=== PATIENT | female | born 1945 | race Caucasian/White ===

== ENCOUNTER 2023-05-04 14:58 | Outpatient (RCR) | payer MEDICARE, SELFPAY | END 2023-07-20 13:49 | disposition home or self-care (01) | LOC: PT 14:58 | PROVIDERS: PCP Internal Medicine; Visit Provider Internal Medicine | DX: M79.7 Fibromyalgia (principal) | CPT/HCPCS: 97010; 97014; 97110; 97112; 97113; 97140; 97163; 97530; G0283 ==

== ENCOUNTER 2023-11-29 14:20 | Outpatient (RCR) | payer MEDICARE, SELFPAY | END 2024-03-16 16:15 | disposition home or self-care (01) | LOC: PT 14:20 | PROVIDERS: PCP Internal Medicine; Visit Provider Physician Assistant | DX: S83.241D Other tear of medial meniscus, current injury, right knee, subsequent encounter (principal); M17.11 Unilateral primary osteoarthritis, right knee | CPT/HCPCS: 97110; 97112; 97113; 97140; 97161; 97530 ==

== ENCOUNTER 2023-12-09 13:25 | Outpatient (OUT) | payer MEDICARE, SELFPAY ==
[2023-12-09 15:02] LABS: Thyroid Stimulating Hormone 1.697 uIU/mL (0.358-3.740)
[2023-12-09 16:16] LABS: Free T4 0.82 ng/dL (0.76-1.46)
== END 2023-12-09 13:26 | disposition home or self-care (01) ==
LOC: LAB 13:27
PROVIDERS: PCP Internal Medicine; Visit Provider Internal Medicine
DX: R68.89 Other general symptoms and signs (principal); E53.8 Deficiency of other specified B group vitamins; E55.9 Vitamin D deficiency, unspecified
CPT/HCPCS: 36415; 82306; 82607; 84439; 84443

== ENCOUNTER 2023-12-13 13:20 | Emergency (ER) | payer MEDICARE, SELFPAY ==
[2023-12-13 13:34] VITALS: BP 140/78; PULSE 80; RESP 18; TEMP 36.6; O2SAT 95; BMI 31.2
--- OUTSIDE RECORDS SUMMARY | 2023-12-13 13:49 | XMS_ITS | CCD ---
Author Name Unknown Address [address] [place] [address] Organization [facility] Care Team Providers Care Estimator Lumber Name Role Phone Iza Bill Primary Care Provider [phone] MAXWELL FRIED H. Referring Unavailable IZA BILL Primary Care Unavailable CORKYMAXWELL Hoffman H. Attending Unavailable CORKYMAXWELL Hoffman HRustam Referring Unavailable IZA BILL Primary Care Unavailable CORKYMAXWELL Hoffman HRustam Admitting Unavailable CORKYMAXWELL Hoffman HRustam Attending Unavailable IZA BILL Primary Care Unavailable Clarence Delgado Unavailable Unavailable Unavailable Iza Bill Unavailable Ronnie Morel Unavailable Katty Brewer Unavailable Lilia Wilson Unavailable Unavailable Unavailable DO Gaudencio Green Attending Provider NON STAFF Primary Care Provider UnavailDO Gaudencio Walton Attending Provider [phone] NON STAFF Primary Care Provider UnavailMD Shekhar Arevalo Attending Provider MALIHA Boggs Attending Provider MD Shekhar Perez Attending Provider Payton Boggs Unavailable NON STAFF Primary Care Provider UnavailSTANLEY Longoria Attending Provider [phone] Cam Riggs Unavailable NON STAFF Primary Care Provider UnavailSTANLEY Longoria Attending Provider MD Cam Riggs Attending Provider MD Shekhar Perez Primary Care Provider JAZMYN .MERCEDES Admitting Unavailable JAZMYN ., MERCEDES Attending Unavailable MISC, DR SAVAGE Primary Care Unavailable MERCEDES MILLER Consulting Unavailable HIESTAND, DR SHEKHAR Wilson Admitting Unavailable HIESTAND, DR SHEKHAR Wilson Attending Unavailable HIESTAND, DR SHEKHAR Wilson Primary Care Unavailable HIESTAND, DR SHEKHAR Wilson Consulting Unavailable MUMMERT, DR CLARENCE Martin Admitting Unavailabl e MUMMERT, DR CLARENCE Martin Attending Unavailabl e MISC, DR SAVAGE Primary Care Unavailable MUMMERT, DR CLARENCE Martin Consulting Unavailabl e HIESTAND, DR SHEKHAR Wilson Admitting Unavailable HIESTAND, DR SHEKHAR Wilson Attending Unavailable MISC, DR SAVAGE Primary Care Unavailable MD Shekhar Perez Attending Provider MD Shekhar Perez Primary Care Provider MD Cam Riggs Attending Provider [phone] Unknown, Referring Provider Unavailable Unav ailable EULALIA CEBALLOS Attending Unavailable Alejandro, Leana A Attending Unavailable Alejandro, Leana A Admitting Unavailable Alejandro, Leana Peña Attending Unavailable SALAM, Delgado Attending Unavailable Alejandro, Leana A Attending Unavailable Alejandro, Leana A Attending Unavailable SALAM, Delgado Referring Unavailable SALAM, Danny Attending Unavailable SALAM, Delgado Admitting Unavailable Peter Flowers II Unavailable MD Shekhar Perez Primary Care Provider MD Peter Flowers II Attending Provider Shekhar Perez MD Primary Care Provider Musa Orlando Unavailable Gallo Reid Unavailable DO Musa Orlando Attending Provider SHEKHAR PEREZ Attending Unavailable SHEKHAR PEREZ Referring Unavailable SHEKHAR PEREZ Primary Care Unavailable Iza Bill Admitting Unavailable Iza Bill Attending Unavailable NON STAFF Primary Care Unavailable Shekhar Perez Attending Unavailable Hiestand, Shekhar Wilson Admitting Unavailable [place]iest[place], Shekhar Wilson Primary Care Unavailable [place], Shekhar Wilson Primary Care Unavailable Oneil, Cam Admitting Unavailable Felter, Cam Attending Unavailable Vidhya, Musa A Admitting Unavailable Vidhya, Musa A Attending Unavailable [place]iest[place], Shekhar Wilson Primary Care Unavailable Vidhya, Musa A Admitting Unavailable Vidhya, Musa A Attending Unavailable [place], Shekhar Wilson Primary Care Unavailable Nisher, Cam Admitting Unavailable Felter, Cam Attending Unavailable [place]iest[place], Shekhar Wilson Primary Care Unavailable Feltradha, Cam Admitting Unavailable Feltradha, Cam Attending Unavailable [place]iest[place], Shekhar Wilson Primary Care Unavailable [place], Shekhar Wilson Primary Care Unavailable Raoul, Yary M Admitting Unavailable Raoul, Yary M Attending Unavailable [place]iest[place], Shekhar Wilson Primary Care Unavailable [place] II, Peter Castillo Admitting Unavailabl e [place] II, Peter M Attending Unavailabl e Hiest[place], Shekhar Wilson Primary Care Unavailable [place] II, Peter M Attending Unavailabl e Lionel II, Peter M Admitting Unavailabl e Raoul, SAFETY MANAGER Yary Castillo Attending Provider [phone] Allergies Allergy Classification Reported Allergen(s) Allergy Type Date of Onset Reaction(s) Facility (19 sources) Acetaminophen; Translations: [ACETAMINOPHEN] Drug Allergy 01-07-20 21 Palpitations, HEART RACES [place] Phone: (7 sources) Acetaminophen / oxyCODONE; Translations: [OXYCODONE-ACETAMIN OPHEN] Drug Allergy 08-12-20 14 [facility] Phone: (7 sources) Albuterol; Translations: [ALBUTEROL] Drug Allergy 01-07-20 21 [facility] Phone: (17 sources) Aluminum aspirin; Translations: [aspirin] Drug Allergy 02-13-20 14 Palpitations, Palpitations, HEART RACES [facility] Phone: (20 sources) Codeine; Translations: [Codeine Derivatives] Drug Allergy 07-23-20 14 HEART RACES, Palpitations, Palpitations, HEART RACES [facility] Phone: (20 sources) gabapentin; Translations: [gabapentin] Drug Allergy 08-25-20 18 anxiety [facility] Phone: (3 sources) Hmg-Coa Reductase Inhibitors (Statins) Propensity to adverse reactions to drug 01-07-20 21 [place] Phone: (20 sources) Morphine; Translations: [morphine] Drug Allergy 07-23-20 14 HEART RACES, Palpitations, Palpitations, HEART RACES [facility] Phone: (3 sources) NSAIDs Propensity to adverse reactions to drug 01-07-20 21 [facility] Phone: (3 sources) Prochlorperazine Drug Allergy 01-07-20 [facility] Phone: (3 sources) Sulfamethazine Drug Allergy 07-23-20 14 [place] Phone: (7 sources) Propoxyphene N-Acetaminophen; Translations: [PROPOXYPHENE N-ACETAMINOPHEN] Propensity to adverse reactions to drug 02-13-20 14 [place] Phone: (3 sources) Other Propensity to adverse reactions 01-23-20 19 [place] Phone: (20 sources) Acetaminophen / oxyCODONE; Translations: [Percocet TABS] Drug Allergy HEART [facility] Other (20 sources) Acetaminophen / Propoxyphene; Translations: [Darvocet A500] Drug Allergy [facility] [employer] [facility] Other (20 sources) Aspirin; Translations: [Aspirin TABS] Drug Allergy 02-13-20 14 Other (See Comments) [facility] Other (5 sources) Hmg-Coa Reductase Inhibitors (Statins); Translations: [Statins] Allergy to drug (finding) Myalgia [facility] 250 DO Work Phone: (20 sources) Ibuprofen; Translations: [Motrin] Drug Allergy HEART [facility] Repository (20 sources) oxyCODONE; Translations: [oxycodone] Drug Allergy 05-29-20 21 HEART RACES, Palpitations, Palpitations, HEART RACES, HEART RACES [facility] (5 sources) Pravastatin; Translations: [pravastatin] Drug Allergy Myalgia [facility] 250 DO Work Phone: (6 sources) Sulfonamides (Antibiotic); Translations: [Sulfa Drugs] Allergy to drug (finding) [facility] Repository (5 sources) Morphine Derivatives; Translations: [Morphine Derivatives] Allergy to drug (finding) [facility] 250 DO Work Phone: (9 sources) sulfaSALAzine Drug Allergy Unknown [facility] [employer] Other (13 sources) Ibuprofen; Translations: [ibuprofen] Drug Allergy 05-29-20 21 Palpitations, Palpitations, HEART RACES [facility] (18 sources) Propoxyphene; Translations: [propoxyphene] Drug Allergy 12-01-19 16 Palpitations, Palpitations, HEART RACES [facility] (20 sources) Substance with sulfonamide structure and antibacterial mechanism of action (substance) Drug allergy 07-23-20 14 Unknown [facility] Other (10 sources) Sulfonamides (Antibiotic); Translations: [SULFA (SULFONAMIDE ANTIBIOTICS)] Allergy to substance 07-23-20 14 Unknown Reaction, Headache [facility] (1 source) Acetaminophen / oxyCODONE Drug Allergy 08-12-20 14 [facility] Repository (1 source) Aspirin Drug Allergy 11-17-19 14 [facility] (1 source) Codeine Drug Allergy 11-17-19 14 [facility] (1 source) Morphine Drug Allergy 08-12-20 14 [facility] (2 sources) NSAIDs; Translations: [NSAIDS (NON-STEROIDAL ANTI-INFLAMMATORY DRUG)] Drug allergy (disorder) 12-26-19 16 [facility] Rep[facility] (1 source) oxyCODONE Drug Allergy 08-12-20 14 [facility] (1 source) Prochlorperazine Drug Allergy 05-13-20 16 [facility] (1 source) Sulfonamides (Antibiotic) Drug allergy (disorder) 12-01-19 16 [facility] (1 source) nebivolol; Translations: [nebivolol] Drug Allergy Dizziness, Drowsiness [facility] 250 DO Work Phone: (1 source) Acetaminophen / oxyCODONE; Translations: [Percocet 10/325] Drug Allergy [facility] Repository (1 source) Darvocet-N 100; Translations: [Darvocet-N 100] Propensity to adverse reactions (disorder) [facility] Repository (4 sources) Morphinan opioid; Translations: [OPIOIDS - MORPHINE ANALOGUES] Propensity to adverse reactions to drug 02-13-20 14 Other (See Comments) [facility] (3 sources) Non-steroidal anti-inflammatory agent Propensity to adverse reactions to drug 01-07-20 21 [employer] (1 source) Acetaminophen Drug Allergy 12-11-19 [facility] Rep[facility] (1 source) Aspirin Drug Allergy 12-11-19 [facility] (1 source) Codeine Drug Allergy 12-11-19 [facility] (1 source) gabapentin Drug Allergy 12-11-19 [facility] (1 source) Morphine Drug Allergy 12-11-19 [facility] (1 source) oxyCODONE Drug Allergy 12-11-19 [facility] Rep[facility] Medications Current Medications Medication Drug Class(es) Dates Sig (Normalized) Sig (Original) acetaminophen 500 mg oral tablet (4 sources) Start: 11-08-2023 take 1 tablet by mouth every six hours [id number] actuat albuterol 0.09 mg/actuat metered dose inhaler (8 sources) beta2-Adrenergic Agonist Start: 08-06-2021 take 2 puff(s) by inhalation every four hours as needed Albuterol Sulfate HFA 108 (90 Base) MCG/ACT 2 puffs as needed Inhalation every 4 hrs Jul, Active Start: 08-06-2021 Start: 08-06-2021 take 2 puff(s) by in halation every four hours as needed Albuterol Sulfate HFA 108 (90 Base) MCG/ACT 2 puffs as needed Inhalation every 4 hrs Jul, Not-Taking Start: 10-26-2020 VENTOLIN HFA 1 08 (90 Base) MCG/ACT inhaler as needed 0 10/26/2020 Active aspirin 81 mg chewable tablet (17 sources) Platelet Aggregation Inhibitor, Nonsteroidal Anti-inflammatory Drug Start: 11-08-2023 take 1 tablet by mouth every twelve hours Start: 05-16-2020 End: 05-29-2021 take 81 mg by mouth once daily Aspirin Discontinued 81 MG PO Daily May 15, 2020 11:00pm May 29, 2021 9:03am calcium chloride 0.0014 meq/ml / potassium chloride 0.004 meq/ml / sodium chloride 0.103 meq/ml / sodium lactate 0.028 meq/ml injectable solution (2 sources) Start: 01-13-2021 lactated ringers infusion celecoxib 100 mg oral capsule (10 sources) Nonsteroidal Anti-inflammatory Drug Start: 10-11-2023 take 1 capsule by mouth twice daily for arthritis cholecalciferol 1.25 mg oral tablet (3 sources) Vitamin D Start: 06-29-2022 take 1 tablet by mouth every week cholecalcifer ol, vitamin D3, 50,000 units tablet Take 1 tablet (50,000 Units total) by mouth once a week. 6 tablet 0 06/29/2022 Active ciprofloxacin 500 mg oral tablet (2 sources) Quinolone Antimicrobial Start: 05-02-2022 take 1 tablet by mouth every twelve hours Cipro 500 MG 1 tablet Orally every 12 hrs for 5 day(s) Apr, Active dexamethasone 6 mg oral tablet (20 sources) Corticosteroid Start: 12-21-2022 take 1 tablet by mouth every twenty-four hours Start: 09-06-2021 take 1 tablet by eliazar th every twenty-four hours Dexamethasone 6 MG 1 tablet Orally Once a day for 5 day(s) Aug, Not-Taking 1 ml diphenhydrAMINE hydrochloride 50 mg/ml cartridge (1 source) Histamine-1 Receptor Antagonist Start: 01-13-2021 End: 01-13-2021 diphenhydrAMINE (BENADRYL) injection 12.5 mg docusate sodium 100 mg oral capsule (4 sources) Start: 11-08-2023 take 1 capsule by mouth every twelve hours estradiol 0.1 mg/ml vaginal cream (20 sources) Estrogen Start: 12-04-2021 estradioL (ESTRACE) 0.01 % (0.1 mg/gram) vaginal cream Insert 1 g into the vagina 2 (two) times a week. Sundays and 0 12/04/2021 Active Start: 05-29-2021 Estradiol Acti ve 0.01 APPLICATOR VAGINAL every week May 28, 2021 11:00pm Start: 05-12-2021 Estradiol Acti ve 0.01 APPLICATOR VAGINAL As Directed May 28, 2021 11:00pm Start: 05-16-2020 End: 05-29-2021 Estradiol (Estrace) 0.01 % ( 0.1 mg/gram) Cream Discontinued 0.01 PERCENT VAGINAL Twice a Week May 15, 2020 11:00pm May 29, 2021 9:03am Estrace 0.1 MG/G M as directed Vaginal Not-Taking/PRN Estrace 0.1 MG/G M as directed Vaginal Not-Taking Estradiol Active Estradiol (ESTRA CE VA) Place vaginally as needed 0 Active 2 ml fentaNYL 0.05 mg/ml injection (1 source) Opioid Agonist Start: 01-13-2021 fentaNYL (SUBLIMAZE) injection 25 mcg furosemide 20 mg oral tablet (4 sources) Loop Diuretic Start: 05-03-2023 End: 12-05-2023 take 1 tablet by mouth once daily as needed furosemide (LASIX) 20 mg tablet Indications: Bilateral leg edema Take 1 tablet (20 mg total) by mouth daily as needed (leg swelling). 30 tablet 1 12/05/2023 Active labetalol hydrochloride 5 mg/ml injectable solution (1 source) beta-Adrenergic Briana Start: 01-13-2021 labetalol (NORMODYNE;TRANDA TE) injection 5 mg linaclotide 0.145 mg oral capsule (5 sources) Guanylate Cyclase-C Agonist Start: 10-28-2023 LORazepam 0.5 mg oral tablet (20 sources) Benzodiazepine Start: 12-05-2023 take 1 tablet by mouth twice daily as needed for anxiety LORazepam (ATIVAN) 0.5 mg tablet Indications: Anxiety Take 1 tablet (0.5 mg total) by mouth 2 (two) times a day as needed for anxiety. 60 tablet 0 12/05/2023 Active Start: 01-24-2023 End: 12-05-2023 take 0.5 mg by mouth once daily at bedtime Lorazepam Active 0.5 MG PO Daily at bedtime February 07, 2023 11:00pm Start: 07-06-2017 End: 08-06-2018 Lorazepam Discontinued 0.5 M G PO July 05, 2017 11:00pm August 06, 2018 4:57pm Ativan Not-Takin g/PRN take 1 tablet by eliazar th three times daily as needed LORazepam 0.5 MG Oral Tablet TAKE 1 TABLET 3 TIMES DAILY NEEDED. Quantity: 0 Refills: 0 Ordered: 16-Mar-2023 DO Active Ativan Not-Takin g Ativan Active meloxicam 15 mg oral tablet (15 sources) Nonsteroidal Anti-inflammatory Drug Start: 10-07-2023 take 1 tablet by mouth every twenty-four hours metoprolol tartrate 25 mg oral tablet (20 sources) beta-Adrenergic Briana Start: 07-06-2017 take 25 mg by mouth once daily at bedtime Metoprolol Tartrate Active 25 MG PO Daily at bedtime July 05, 2017 11:00pm take 1 tablet by mouth every twe nty-four hours Metoprolol Tartr ate Active nitrofurantoin, macrocrystals 25 mg / nitrofurantoin, monohydrate 75 mg oral capsule (1 source) Nitrofuran Antibacterial Start: 12-11-2023 take 1 capsule by mouth every twelve hours at mealtime Nitrofurantoin Monohyd/M-Cryst (Macrobid) 100 mg capsule Active 100 MG PO Every 12 hours 06 05December 11, 2023 12:00am must administer with a meal/food 2 ml ondansetron 2 mg/ml injection (1 source) Serotonin-3 Receptor Antagonist Start: 01-13-2021 End: 01-13-2021 ondansetron (ZOFRAN) injection 4 mg oxyCODONE hydrochloride 5 mg oral tablet (4 sources) Opioid Agonist Start: 11-08-2023 take 1 tablet by mouth every six hours pantoprazole 20 mg delayed release oral tablet (6 sources) Proton Pump Inhibitor take 1 tablet by mouth once betina y Protonix 40 MG Oral Tablet Delayed Release TAKE 1 TABLET DAILY. Quantity: 0 Refills: 0 Ordered: 16-Mar-2023 DO Active phenazopyridine hydrochloride 200 mg oral tablet (2 sources) Start: 05-02-2022 take 1 tablet by mouth every eight hours Pyridium 200 MG 1 tablet after meals Orally Three times a day for 2 day(s) Apr, Active 50 ml sodium chloride 9 mg/ml injection (3 sources) Start: 01-13-2021 End: 01-13-2021 0.9 % sodium chloride bolus Start: 01-13-2021 sodium chlorid e flush 0.9 % injection 10 mL traZODone hydrochloride 50 mg oral tablet (20 sources) Serotonin Reuptake Inhibitor Start: 12-22-2021 take 0.5-1 tablets by mouth once daily at bedtime as needed Start: 08-06-2018 End: 05-29-2021 take 50 mg by mouth once daily at bedtime Trazodone Discontinued 50 MG PO Daily at bedtime August 05, 2018 11:00pm May 29, 2021 9:03am Romulo - (3 sources) Start: 11-10-2023 Walker - as di rected for 365 days ROLLATOR ROMULO Oct, Active Completed/Discontinued Medications Medication Drug Class(es) Dates Sig (Normalized) Sig (Original) brexpiprazole 0.25 mg oral tablet (12 sources) Atypical Antipsychotic Start: 05-16-2020 End: 05-23-2020 take 1 tablet by mouth once daily Brexpiprazole (Rexulti) 0.25 mg tablet Discontinued 0.25 MG PO Daily May 15, 2020 11:00pm May 23, 2020 7:20am 24 hr desvenlafaxine succinate 25 mg extended release oral tablet (19 sources) Serotonin and Norepinephrine Reuptake Inhibitor Start: 05-29-2021 End: 02-08-2023 take 1 tablet by mouth once daily, then take 1 tablet by mouth every twenty-four hours Desvenlafaxine Succinate (Pristiq) 25 mg tablet extended release 24 hr Discontinued 25 MG PO Daily May 28, 2021 11:00pm February 08, 2023 7:46am Pristiq Not-Taki ng Pristiq Active escitalopram 10 mg oral tablet (12 sources) Serotonin Reuptake Inhibitor Start: 07-06-2017 End: 08-06-2018 take 1 tablet by mouth once daily at bedtime Escitalopram Oxalate (Lexapro) 10 mg tablet Discontinued 10 MG PO Daily at bedtime July 05, 2017 11:00pm August 06, 2018 5:07pm 1 ml evolocumab 140 mg/ml prefilled syringe (5 sources) PCSK9 Inhibitor Start: 03-18-2022 Repatha 140 MG /ML Subcutaneous Solution Prefilled Syringe 1 injection every 2 weeks Quantity: 6 Refills: 3 Ordered: 16-Mar-2023 Jr Roldan DO Start : 18-Mar-2022 Active new start famotidine 20 mg oral tablet (20 sources) Histamine-2 Receptor Antagonist Start: 05-29-2021 End: 05-29-2021 take 20 mg by mouth once daily Famotidine Discontinued 20 MG PO Daily May 28, 2021 11:00pm May 29, 2021 10:45am take 1 tablet by eliazar th once daily as needed Famotidine 10 MG Oral Tablet TAKE 1 TABL ET Daily prn Quantity: 0 Refills: 0 Ordered: 18-Mar-2022 DO Active Famotidine Activ e FLUoxetine 10 mg oral tablet (13 sources) Serotonin Reuptake Inhibitor Start: 05-16-2020 End: 06-20-2020 take 10 mg by mouth once daily at bedtime Fluoxetine Discontinued 10 MG PO Daily at bedtime May 15, 2020 11:00pm June 20, 2020 9:02am fluticasone propionate 0.05 mg/actuat metered dose nasal spray (5 sources) Corticosteroid Start: 09-06-2021 take 2 spray(s) nasal route once daily Fluticasone Propionate 50 MCG/ACT 2 sprays Nasally Once a day for 14 day(s) 2 sprays to each nostril daily until your symptoms improve Aug, Not-Taking Start: 09-06-2021 200 actuat levalbuterol 0.045 mg/actuat metered dose inhaler (6 sources) beta2-Adrenergic Agonist Start: 08-17-2021 take 1 puff(s) by inhalation every four hours as needed Levalbuterol Tartrate 45 MCG/ACT 1 puff as needed Inhalation every 4 hrs Jul, Not-Taking Start: 08-17-2021 10 ml lidocaine hydrochloride 10 mg/ml injection (1 source) Antiarrhythmic, Amide Local Anesthetic Start: 01-13-2021 End: 01-13-2021 lidocaine PF 1 % injection 1 mL methylPREDNISolone 4 mg oral tablet (7 sources) Corticosteroid Start: 08-06-2021 methylPREDNISolone 4 MG as directed Orally Once a day for 6 days Jul, Not-Taking Multivitamin preparation (12 sources) Start: 05-16-2020 End: 05-29-2021 take 1 tablet by mouth once daily Multivitamin Discontinued 1 TAB PO Daily May 15, 2020 11:00pm May 29, 2021 9:03am Start: 05-16-2020 End: 05-29-2021 take 1 tablet by mouth once daily Multivitamin Discontinued 1 TAB PO Daily May 16, 2020 12:00am May 29, 2021 10:03am omeprazole 40 mg delayed release oral capsule (12 sources) Proton Pump Inhibitor Start: 05-29-2021 End: 02-08-2023 take 40 mg by mouth twice daily Omeprazole Discontinued 40 MG PO Twice daily 168 84 May 28, 2021 11:00pm February 08, 2023 7:46am PARoxetine hydrochloride 10 mg oral tablet (20 sources) Serotonin Reuptake Inhibitor Start: 02-08-2023 End: 03-01-2023 take 5 mg by mouth once daily Paroxetine Hcl Discontinued 5 MG PO Daily February 07, 2023 11:00pm March 01, 2023 8:01am Start: 01-12-2022 take 1 tablet by eliazar th once daily PARoxetine HCl - 10 MG Oral Tablet TAKE 1 TABLET DAILY. Quantity: 0 Refills: 0 Ordered: 27-Feb-2022 DO Start : 12-Jan-2022 Active prasugrel 10 mg oral tablet (12 sources) P2Y12 Platelet Inhibitor Start: 07-06-2017 End: 08-06-2018 take 1 tablet by mouth once daily Prasugrel (Effient) 10 mg tablet Discontinued 10 MG PO Daily July 05, 2017 11:00pm August 06, 2018 4:57pm tiZANidine 2 mg oral tablet (12 sources) Central alpha-2 Adrenergic Agonist Start: 05-29-2021 End: 02-08-2023 Tizanidine Discontinued 2 MG PO As Directed May 28, 2021 11:00pm February 08, 2023 7:46am ubidecarenone 100 mg oral capsule (5 sources) Start: 03-10-2022 take 1 capsule by mouth once daily Co Q-10 100 MG Oral Capsule TAKE 1 CAPSULE Daily Quantity: 0 Refills: 0 Ordered: 10-Mar-2022 DO Start : 10-Mar-2022 Active Problems Active Problems Problem Classification Problem Date Documented Da te Episodic/Chronic Abdominal pain (20 sources) Indigestion; Translations: [Epigastric pain] Episodic Adjustment disorders (20 sources) Adjustment disorder with mixed emotional features; Translations: [Adjustment disorder with mixed anxiety and depressed mood] Chronic Allergic reactions (20 sources) Allergy to food; Translations: [Allergy to other foods] Episodic Anxiety disorders (20 sources) Anxiety; Translations: [Anxiety state, unspecified] Onset: 2 Resolved: 2 08-20-2014 Chronic Cardiac and circulatory congenital anomalies (20 sources) Patent foramen ovale; Translations: [Atrial septal defect] Chronic Cardiac dysrhythmias (10 sources) Premature atrial contraction; Translations: [Supraventricular premature beats] Chronic Coronary atherosclerosis and other heart disease (20 sources) Coronary arteriosclerosis; Translations: [Coronary atherosclerosis of [place] coronary artery] Onset: 2 08-06-2018 Chronic Disorders of lipid metabolism (20 sources) Hyperlipidemia; Translations: [Other and unspecified hyperlipidemia] Onset: 2 08-20-2014 Chronic Esophageal disorders (20 sources) Gastroesophageal reflux disease; Translations: [Gastro-esophageal reflux disease without esophagitis] Onset: 2 08-20-2014 Chronic Essential hypertension (5 sources) Hypertensive disorder; Translations: [Unspecified essential hypertension] Chronic Gastritis and duodenitis (20 sources) Gastritis; Translations: [Gastritis, unspecified, without bleeding] Episodic Genitourinary symptoms and ill-defined conditions (6 sources) Dysuria; Translations: [Hematuria, unspecified] Onset: 2 Resolved: 2 Episodic Hemorrhoids (1 source) Unspecified hemorrhoids Episodic Intestinal infection (3 sources) Infection caused by Helicobacter pylori; Translations: [Helicobacter pylori infection] 07-24-2015 Joint disorders and dislocations; trauma-related (3 sources) Other tear of medial meniscus, current injury, right knee, subsequent encounter Episodic Malaise and fatigue (20 sources) Fatigue; Translations: [Chronic fatigue, unspecified] Chronic Malaise and fatigue (5 sources) Fatigue; Translations: [Other malaise and fatigue] Episodic Miscellaneous mental health disorders (20 sources) Chronic insomnia; Translations: [Psychophysiologic insomnia] Onset: 2 Resolved: 2 Chronic Mood disorders (20 sources) Depressive disorder; Translations: [Recurrent major depressive episodes, moderate ] Onset: 0 Resolved: 3 08-20-2014 Chronic Nausea and vomiting (20 sources) Nausea; Translations: [Nausea] Onset: 4 08-20-2014 Episodic Nonmalignant breast conditions (20 sources) Fibrocystic disease of breast; Translations: [Diffuse cystic mastopathy of unspecified breast] Chronic Nutritional deficiencies (2 sources) Vitamin D deficiency, unspecified; Translations: [Vitamin D deficiency] Onset: 4 12-05-2023 Chronic Nutritional deficiencies (2 sources) Deficiency of other specified B group vitamins; Translations: [Cobalamin deficiency] Onset: 4 12-05-2023 Episodic Occlusion or stenosis of precerebral arteries (20 sources) Carotid artery stenosis; Translations: [Occlusion and stenosis of bilateral carotid arteries] Chronic Osteoarthritis (20 sources) Osteoarthritis; Translations: [Degenerative joint disease involving multiple joints] Onset: 2 08-20-2014 Chronic Osteoporosis (20 sources) Osteoporosis; Translations: [Age-related osteoporosis without current pathological fracture] Chronic Other aftercare (20 sources) Long-term current use of drug therapy; Translations: [Other terminal make up operator (current) drug therapy] Episodic Other connective tissue disease (20 sources) Fibromyalgia; Translations: [Fibromyalgia] 08-20-2014 Episodic Other connective tissue disease (3 sources) Primary fibromyalgia syndrome; Translations: [Fibromyalgia] 07-29-2022 Episodic Other disorders of stomach and duodenum (1 source) Functional dyspepsia Episodic Other endocrine disorders (20 sources) Reactive hypoglycemia; Translations: [Other hypoglycemia] Chronic Other endocrine disorders (1 source) Hypoglycemia, unspecified; Translations: [HYPOGLYCEMIA UNSPECIFIED] Onset: 2 Chronic Other gastrointestinal disorders (5 sources) Irritable bowel syndrome characterized by constipation; Translations: [Irritable bowel syndrome with constipation] Chronic Other gastrointestinal disorders (1 source) Irritable bowel syndrome with constipation Chronic Other gastrointestinal disorders (4 sources) Constipation; Translations: [Constipation, unspecified] Episodic Other gastrointestinal disorders (2 sources) Constipation, unspecified; Translations: [Constipation] Episodic Other inflammatory condition of skin (20 sources) Rosacea; Translations: [Rosacea, unspecified] Chronic Other lower respiratory disease (3 sources) Dyspnea; Translations: [Shortness of breath] 05-03-2023 Episodic Other nervous system disorders (20 sources) Chronic pain; Translations: [Other chronic pain] Chronic Other nervous system disorders (20 sources) Chronic pain syndrome; Translations: [Chronic pain syndrome] Chronic Other nervous system disorders (4 sources) Other chronic pain; Translations: [Chronic pain] Chronic Other nervous system disorders (1 source) Other chronic pain; Translations: [Other chronic pain] Onset: 3 Chronic Other non-traumatic joint disorders (20 sources) Hip pain; Translations: [Pain in left hip] Episodic Other non-traumatic joint disorders (6 sources) Pain in right knee Episodic Other nutritional; endocrine; and metabolic disorders (20 sources) Obesity; Translations: [Obesity, unspecified] Chronic Other nutritional; endocrine; and metabolic disorders (20 sources) Body mass index 30+ - obesity; Translations: [Body mass index (BMI) 31.0-31.9, adult] Chronic Other nutritional; endocrine; and metabolic disorders (20 sources) Obese class I; Translations: [Obesity, unspecified] Chronic Other screening for suspected conditions (not mental disorders or infectious disease) (4 sources) Encounter for screening for malignant neoplasm of cervix; Translations: [ENC SCREENING MALIG NEOPLASM CERV] Onset: 3 Episodic Other upper respiratory infections (1 source) Chronic sinusitis, unspecified Onset: 1 Resolved: 1 Chronic Residual codes; unclassified (20 sources) Obstructive sleep apnea syndrome; Translations: [Obstructive sleep apnea (adult) (pediatric)] Onset: 0 08-06-2018 Chronic Residual codes; unclassified (4 sources) Obstructive sleep apnea (adult) (pediatric); Translations: [Obstructive sleep apnea G47.33] Onset: 1 Resolved: 2 Chronic Residual codes; unclassified (3 sources) Idiopathic sleep related nonobstructive alveolar hypoventilation Onset: 2 Resolved: 2 Chronic Residual codes; unclassified (18 sources) Chronic back pain ; Translations: [Dorsalgia, unspecified] Onset: 2 08-20-2014 Episodic Residual codes; unclassified (1 source) Pain; Translations: [Pain] Episodic Residual codes; unclassified (20 sources) Amnesia; Translations: [Other amnesia] Episodic Residual codes; unclassified (20 sources) Early satiety; Translations: [Early satiety] Episodic Residual codes; unclassified (3 sources) Other specified health status Onset: 2 Resolved: 2 Episodic Residual codes; unclassified (3 sources) Other specified postprocedural states Episodic Residual codes; unclassified (1 source) Other general symptoms and signs; Translations: [Other general symptoms and signs] Onset: 4 Episodic Residual codes; unclassified (1 source) Localized edema; Translations: [Localized edema] Onset: 4 Episodic Residual codes; unclassified (1 source) Intolerant of cold; Translations: [Other general symptoms and signs] 12-05-2023 Episodic Residual codes; unclassified (1 source) Bilateral lower limb edema; Translations: [Localized edema] 12-05-2023 Episodic Spondylosis; intervertebral disc disorders; other back problems (20 sources) Degeneration of lumbar intervertebral disc; Translations: [Lumbar spondylosis] Onset: 1 Resolved: 1 01-06-2021 Chronic Spondylosis; intervertebral disc disorders; other back problems (1 source) Spondylosis; intervertebral disc disorders; other back problems; Translations: [Other spondylosis with radiculopathy, lumbar region] Onset: 3 Syncope (5 sources) Near syncope; Translations: [Syncope and collapse] Episodic Thyroid disorders (20 sources) Hypothyroidism; Translations: [Multinodular goiter] Onset: 2 08-20-2014 Chronic Unclassified (1 source) LOW BACK PAIN, UNSPECIFIED; Translations: [LOW BACK PAIN, UNSPECIFIED] Onset: 3 Unclassified (1 source) wants to discuss starting Lexapro Onset: 4 Unclassified (1 source) Complex tear of medial meniscus, current injury, right knee, initial encounter; Translations: [Complex tear of medial meniscus, current injury, right knee, initial encounter] Onset: 4 Unclassified (1 source) Encounter for preprocedural laboratory examination; Translations: [Encounter for preprocedural laboratory examination] Onset: 4 Unclassified (1 source) Pain in right knee; Translations: [Pain in right knee] Onset: 3 Urinary tract infections (3 sources) Urinary tract infection, site not specified; Translations: [Acute urinary tract infection] Onset: 2 Resolved: 2 Episodic Past or Other Problems Problem Classification Problem Date Documented Da te Episodic/Chronic Cardiac dysrhythmias (11 sources) Tachycardia; Translations: [Palpitations] Onset: 02-04-2022 08-20-2014 Episodic Chronic obstructive pulmonary disease and bronchiectasis (1 source) Bronchitis, not specified as acute or chronic; Translations: [Bronchitis J40] Onset: 08-06-2021 Resolved: 08-06-2021 Episodic Coronary atherosclerosis and other heart disease (3 sources) Stented coronary artery; Translations: [Presence of coronary angioplasty implant and graft] Onset: 04-16-2019 02-04-2022 Episodic Immunizations and screening for infectious disease (1 source) Contact with and (suspected) exposure to other viral communicable diseases Onset: 09-06-2021 Resolved: 09-06-2021 Episodic Intestinal infection (3 sources) Infection caused by Helicobacter pylori; Translations: [Other specified bacterial intestinal infections] Onset: 02-04-2022 02-04-2022 Episodic Mood disorders (4 sources) Mood disorders; Translations: [Depression, unspecified] Onset: 12-05-2023 08-26-2023 Other lower respiratory disease (1 source) Shortness of breath; Translations: [Shortness of breath] Onset: 03-07-2023 Episodic Other nervous system disorders (4 sources) Other abnormalities of gait and mobility; Translations: [OTHER ABNORMALITIES GAIT AND MOBILITY] Onset: 10-28-2022 Episodic Other nutritional; endocrine; and metabolic disorders (3 sources) Weight loss; Translations: [Weight loss] Onset: 08-20-2014 08-20-2014 Episodic Spondylosis; intervertebral disc disorders; other back problems (1 source) Cervicalgia; Translations: [CERVICALGIA] Onset: 11-02-2022 Episodic Unclassified (5 sources) Never smoked tobacco; Translations: [Never a smoker] Viral infection (3 sources) Disease caused by 2019-nCoV; Translations: [COVID-19] Onset: 05-28-2022 05-28-2022 Episodic Results Test Name Value Interpretation Reference Range Facility Alanine aminotransferase [En zymatic activity/volume] in Serum or PlasmaOrdered By: Musa Orlando on 10-28-2023 ALT [Catalytic activity/Vol] 15 U/L 7-52 [facility] Albumin [Mass/volume] in Ser um or Plasma by Bromocresol green (BCG) dye binding methoOrdered By: Musa Orlando on 10-28-2023 Albumin BCG dye [Mass/Vol] 4.2 g/dL 3.5-5.7 [facility] Alkaline phosphatase [Enzyma tic activity/volume] in Serum or PlasmaOrdered By: Musa Orlando on 10-28-2023 ALP [Catalytic activity/Vol] 80 U/L 34-104 [facility] Aspartate aminotransferase [ Enzymatic activity/volume] in Serum or PlasmaOrdered By: Musa Orlando on 10-28-2023 AST [Catalytic activity/Vol] 14 U/L 13-39 [facility] Basophils Auto (Bld) [#/Vol] Ordered By: Musa Orlando on 10-28-2023 Basophils (Bld) [#/Vol] 0.0 10*3/uL 0.0-0.2 [facility] Basophils/100 WBC Auto (Bld) Ordered By: Musa Orlando on 10-28-2023 Basophils/100 WBC (Bld) 0.6 % . [facility] Bilirubin.total [Mass/volume ] in Serum or PlasmaOrdered By: Musa Orlando on 10-28-2023 Bilirubin [Mass/Vol] 0.5 mg/dL 0.3-1.0 [facility] CMP with reflex to A1Con Albumin [Mass/Vol] 4.2 g/dL Normal 3.5-5.7 [facility] Comment on above: Performed By: #### C BC, CMP wRFX A1C #### [facility] [address] [place] [address] [place] Albumin/Globulin [Mass ratio] 1.5 {ratio} Normal [facility] Comment on above: Performed By: #### C BC, CMP wRFX A1C #### [facility] [address] [place] [address] [place] ALP [Catalytic activity/Vol] 80 U/L Normal 34-104 [facility] Comment on above: Result Comment: PERF ORMED BY: [place] [address] PATHOLOGIST BAR MACHINE OPERATOR PRODUCTION SAMI GARCIA M.D. Performed By: #### C BC, CMP wRFX A1C #### [facility] [address] [place] [id number] [place] ALT [Catalytic activity/Vol] 15 U/L Normal 7-52 [facility] Comment on above: Performed By: #### C BC, CMP wRFX A1C #### [facility] [address] Anion gap [Moles/Vol] 10.8 mmol/L Normal 6.0-15.0 [facility] Comment on above: Performed By: #### C BC, CMP wRFX A1C #### [facility] [address] [place] [address] [place] AST [Catalytic activity/Vol] 14 U/L Normal 13-39 [facility] Comment on above: Performed By: #### C BC, CMP wRFX A1C #### [facility] [address] [place] [address] [place] Bilirubin [Mass/Vol] 0.5 mg/dL Normal 0.3-1.0 [facility] Comment on above: Performed By: #### C BC, CMP wRFX A1C #### [facility] [address] [place] [address] [place] Calcium [Mass/Vol] 9.8 mg/dL Normal 8.6-10.3 [facility] Comment on above: Performed By: #### C BC, CMP wRFX A1C #### [facility] [address] [place] [id number] [place] Chloride [Moles/Vol] 103 mmol/L Normal 98-107 [facility] Comment on above: Performed By: #### C BC, CMP wRFX A1C #### [facility] [address] [place] [id number] [place] CO2 [Moles/Vol] 29.4 mmol/L Normal 21.0-31.0 [facility] Comment on above: Performed By: #### C BC, CMP wRFX A1C #### [facility] [address] Creatinine [Mass/Vol] 0.69 mg/dL Normal 0.60-1.20 [facility] Comment on above: Performed By: #### C BC, CMP wRFX A1C #### [facility] [address] [place] [address] [place] GFR/1.73 sq M.predicted MDRD (S/P/Bld) [Vol rate/Area] mL/min/{1.73_m2} [facility] Comment on above: Performed By: #### C BC, CMP wRFX A1C #### [address] Globulin (S) [Mass/Vol] 2.8 g/dL Normal [facility] Comment on above: Performed By: #### C BC, CMP wRFX A1C #### [address] Glucose [Mass/Vol] 88 mg/dL Normal 70-100 [facility] Comment on above: Performed By: #### C BC, CMP wRFX A1C #### [address] Potassium [Moles/Vol] 4.2 mmol/L Normal 3.5-5.1 [facility] Comment on above: Performed By: #### C BC, CMP wRFX A1C #### [address] Protein [Mass/Vol] 7.0 g/dL Normal 6.4-8.9 [facility] Comment on above: Performed By: #### C BC, CMP wRFX A1C #### [address] Sodium [Moles/Vol] 139 mmol/L Normal 136-145 [facility] Comment on above: Performed By: #### C BC, CMP wRFX A1C #### [place] [address] [place] Urea nitrogen [Mass/Vol] 10 mg/dL Normal 7-25 [facility] Comment on above: Performed By: #### C BC, CMP wRFX A1C #### [facility] [address] Calcium [Mass/volume] in Ser um or PlasmaOrdered By: Musa Orlando on 10-28-2023 Calcium [Mass/Vol] 9.8 mg/dL 8.6-10.3 [facility] Carbon dioxide, total [Moles /volume] in Serum or PlasmaOrdered By: Musa Orlando on 10-28-2023 CO2 [Moles/Vol] 29.4 mmol/L 21.0-31.0 [facility] Chloride [Moles/volume] in S tarik or PlasmaOrdered By: Musa Orlando on 10-28-2023 Chloride [Moles/Vol] 103 mmol/L 98-107 [facility] Complete Blood Count Auto Di ffon 10-28-2023 Basophils (Bld) [#/Vol] 0.0 10*3/uL Normal 0.0-0.2 [facility] Comment on above: Result Comment: PERF ORMED BY: [facility] [address] [place] [address] PATHOLOGIST BAR MACHINE OPERATOR PRODUCTION SAMI GARCIA M.D. Performed By: #### C BC, CMP wRFX A1C #### [facility] [address] [place] [address] [place] Basophils/100 WBC (Bld) 0.6 % Normal . [facility] Comment on above: Performed By: #### C BC, CMP wRFX A1C #### [facility] [address] [place] [address] [place] Eosinophils (Bld) [#/Vol] 0.3 10*3/uL Normal 0.0-0.45 [facility] Comment on above: Performed By: #### C BC, CMP wRFX A1C #### [facility] [address] [place] [address] [place] Eosinophils/100 WBC (Bld) 4.2 % Normal . [facility] Comment on above: Performed By: #### C BC, CMP wRFX A1C #### [address] Erythrocyte distribution width (RBC) [Ratio] 13.3 % Normal 11.9-15.3 [facility] Comment on above: Performed By: #### C BC, CMP wRFX A1C #### [address] Hematocrit (Bld) [Volume fraction] 42.5 % Normal 34.0-46.4 [facility] Comment on above: Performed By: #### C BC, CMP wRFX A1C #### [address] Hemoglobin (Bld) [Mass/Vol] 14.2 g/dL Normal 11.8-15.4 [facility] Comment on above: Performed By: #### C BC, CMP wRFX A1C #### [address] Lymphocytes (Bld) [#/Vol] 2.0 10*3/uL Normal 1.00-4.8 [facility] Comment on above: Performed By: #### C BC, CMP wRFX A1C #### [address] Lymphocytes/100 WBC (Bld) 26.8 % Normal . [facility] Comment on above: Performed By: #### C BC, CMP wRFX A1C #### [address] MCH (RBC) [Entitic mass] 28.9 pg Normal 24.7-34.3 [facility] Comment on above: Performed By: #### C BC, CMP wRFX A1C #### [address] MCV (RBC) [Entitic vol] 86.3 fL Normal 80-100 [facility] Comment on above: Performed By: #### C BC, CMP wRFX A1C #### [address] Mean Corpuscular HGB Conc 33.4 g/dL Normal 32.0-35.0 [facility] Comment on above: Performed By: #### C BC, CMP wRFX A1C #### [facility] [address] [place] [address] [place] Monocytes (Bld) [#/Vol] 0.5 10*3/uL Normal 0.0-0.8 [facility] Comment on above: Performed By: #### C BC, CMP wRFX A1C #### [facility] [address] [place] [address] [place] Monocytes/100 WBC (Bld) 6.9 % Normal . [facility] Comment on above: Performed By: #### C BC, CMP wRFX A1C #### [address] Neutrophils (Bld) [#/Vol] 4.7 10*3/uL Normal 1.8-7.7 [facility] Comment on above: Performed By: #### C BC, CMP wRFX A1C #### [place] [address] [place] Neutrophils/100 WBC (Bld) 61.5 % Normal . [facility] Comment on above: Performed By: #### C BC, CMP wRFX A1C #### [place] [address] [place] NRBC% 0.1 /100{WBC} Normal 0-0.5 [facility] Comment on above: Performed By: #### C BC, CMP wRFX A1C #### [facility] [address] [place] [address] [place] Platelet mean volume (Bld) [Entitic vol] 7.7 fL Normal 6.3-10.7 [facility] Comment on above: Performed By: #### C BC, CMP wRFX A1C #### [facility] [address] [place] [address] [place] Platelets (Bld) [#/Vol] 339 10*3/uL Normal 150-450 [facility] Comment on above: Performed By: #### C BC, CMP wRFX A1C #### [facility] [address] [place] [address] [place] RBC (Bld) [#/Vol] 4.92 10*6/uL Normal 3.60-5.00 [facility] Comment on above: Performed By: #### C BC, CMP wRFX A1C #### [facility] [address] [place] [address] [place] WBC (Bld) [#/Vol] 7.6 10*3/uL Normal 3.8-11.6 [facility] Comment on above: Performed By: #### C BC, CMP wRFX A1C #### [facility] [address] [place] [id number] [facility] Creatinine [Mass/volume] in Serum or PlasmaOrdered By: Musa Orlando on 10-28-2023 Creatinine [Mass/Vol] 0.69 mg/dL 0.60-1.20 [facility] ECG 12 lead ECGon 10-28-2023 ECG 12 lead ECG [facility] [address] [place] [address] Electrocardiograph Report Signed Patient: Regina Henry MR#: [id number] : 1945 Acct:[id number] Age/Sex: 77 / F ADM Date: 10/28/23 Loc: Room: Type: [facility] Attending Dr: Musa Orlando DO Ordering Provider: Musa Orlando DO Date of Service: 10/28/2303/16/1321 ECG/ECG 12 lead ECG: Pre op Copies to: Test Reason : Blood Pressure : / mmHG Vent. Rate : 081 BPM Atrial Rate : 081 BPM P-R Int : 174 ms QRS Dur : 072 ms QT Int : 370 ms P-R-T Axes : 057 -15 078 degrees QTc Int : 429 ms Normal sinus rhythm Minimal voltage criteria for LVH, may be normal variant Cannot rule out Anterior infarct , age undetermined Abnormal ECG When compared with ECG of 16-MAY-2020 07:52, No significant change was found Confirmed by Humberto Tirado ([id number]) on 10/30/2023 3:55:24 PM Referred By: VIDHYA Electronically Signed By:Humberto Tirado Transcribed By: RAFAL Signed By Humberto Tirado MD 10/30/23 1555 Normal [facility] Eosinophils Auto (Bld) [#/Vo l]Ordered By: Musa Orlando on 10-28-2023 Eosinophils (Bld) [#/Vol] 0.3 10*3/uL 0.0-0.45 [facility] Eosinophils/100 WBC Auto (Bl d)Ordered By: Musa Orlando on 10-28-2023 Eosinophils/100 WBC (Bld) 4.2 % . [facility] Erythrocyte distribution wid th Auto (RBC) [Ratio]Ordered By: Musa Orlando on 10-28-2023 Erythrocyte distribution width (RBC) [Ratio] 13.3 % 11.9-15.3 [facility] Globulin Calc (S) [Mass/Vol] Ordered By: Musa Orlando on 10-28-2023 Globulin (S) [Mass/Vol] 2.8 g/dL [facility] Glucose [Mass/volume] in Ser um or PlasmaOrdered By: Musa Orlando on 10-28-2023 Glucose [Mass/Vol] 88 mg/dL 70-100 [facility] Hematocrit Auto (Bld) [Volum e fraction]Ordered By: Musa Orlando on 10-28-2023 Hematocrit (Bld) [Volume fraction] 42.5 % 34.0-46.4 [facility] Hemoglobin [Mass/volume] in BloodOrdered By: Musa Orlando on 10-28-2023 Hemoglobin (Bld) [Mass/Vol] 14.2 g/dL 11.8-15.4 [facility] Leukocytes [#/volume] correc aide for nucleated erythrocytes in Blood by Automated counOrdered By: Musa Orlando on 10-28-2023 WBC corrected for nucl RBC Auto (Bld) [#/Vol] 7.6 10*3/uL 3.8-11.6 [facility] Lymphocytes Auto (Bld) [#/Vo l]Ordered By: Musa Orlando on 10-28-2023 Lymphocytes (Bld) [#/Vol] 2.0 10*3/uL 1.00-4.8 [facility] Lymphocytes/100 WBC Auto (Bl d)Ordered By: Musa Orlando on 10-28-2023 Lymphocytes/100 WBC (Bld) 26.8 % . [facility] MCH Auto (RBC) [Entitic mass ]Ordered By: Musa Orlando on 10-28-2023 MCH (RBC) [Entitic mass] 28.9 pg 24.7-34.3 [facility] MCHC Auto (RBC) [Mass/Vol]Or dered By: Musa Orlando on 10-28-2023 MCHC (RBC) [Mass/Vol] 33.4 g/dL 32.0-35.0 [facility] MCV Auto (RBC) [Entitic vol] Ordered By: Musa Orlando on 10-28-2023 MCV (RBC) [Entitic vol] 86.3 fL 80-100 [facility] Monocytes Auto (Bld) [#/Vol] Ordered By: Musa Orlando on 10-28-2023 Monocytes (Bld) [#/Vol] 0.5 10*3/uL 0.0-0.8 [facility] Monocytes/100 WBC Auto (Bld) Ordered By: Musa Orlando on 10-28-2023 Monocytes/100 WBC (Bld) 6.9 % . [facility] Neutrophils Auto (Bld) [#/Vo l]Ordered By: Musa Orlando on 10-28-2023 Neutrophils (Bld) [#/Vol] 4.7 10*3/uL 1.8-7.7 [facility] Neutrophils/100 WBC Auto (Bl d)Ordered By: Musa Orlando on 10-28-2023 Neutrophils/100 WBC (Bld) 61.5 % . [facility] No Panel InformationOrdered By: Musa Orlando on 10-28-2023 Estimated GFR (CKD-EPI) > 60.0 mL/Min [facility] Creatinine Clearance (Chem N/A [facility] Nucleated erythrocytes [Pres ence] in Blood by Automated countOrdered By: Musa Orlando on 10-28-2023 Nucleated RBC Auto Ql (Bld) 0.1 /100{WBC} 0-0.5 [facility] Platelet mean volume Auto (B ld) [Entitic vol]Ordered By: Musa Orlando on 10-28-2023 Platelet mean volume (Bld) [Entitic vol] 7.7 fL 6.3-10.7 [facility] Platelets Auto (Bld) [#/Vol] Ordered By: Musa Orlando on 10-28-2023 Platelets (Bld) [#/Vol] 339 10*3/uL 150-450 [facility] Potassium [Moles/volume] in Serum or PlasmaOrdered By: Musa Orlando on 10-28-2023 Potassium [Moles/Vol] 4.2 mmol/L 3.5-5.1 [facility] Protein [Mass/volume] in Ser um or PlasmaOrdered By: Musa Orlando on 10-28-2023 Protein [Mass/Vol] 7.0 g/dL 6.4-8.9 [facility] RBC Auto (Bld) [#/Vol]Ordere d By: Musa Orlando on 10-28-2023 RBC (Bld) [#/Vol] 4.92 10*6/uL 3.60-5.00 [facility] Serum or plasma albumin/glob ulin mass ratioOrdered By: Musa Orlando on 10-28-2023 Albumin/Globulin [Mass ratio] 1.5 {ratio} [facility] Serum or plasma anion gap de terminationOrdered By: Musa Orlando on 10-28-2023 Anion gap [Moles/Vol] 10.8 mmol/L 6.0-15.0 [facility] Sodium [Moles/volume] in Ser um or PlasmaOrdered By: Musa Orlando on 10-28-2023 Sodium [Moles/Vol] 139 mmol/L 136-145 [facility] Urea nitrogen [Mass/volume] in Serum or PlasmaOrdered By: Musa Orlando on 10-28-2023 Urea nitrogen [Mass/Vol] 10 mg/dL 7-25 [facility] WBC Auto (Bld) [#/Vol]Ordere d By: Musa Orlando on 10-28-2023 WBC (Bld) [#/Vol] 7.6 10*3/uL 3.8-11.6 [facility] MR knee RT wo conon 12-20-20 23 MR knee RT wo con [facility] [address] [place] [address] MRI Report Signed Patient: Regina Henry MR#: [id number] : 1945 Acct:[id number] Age/Sex: 77 / F ADM Date: 10/12/23 Loc: MR Room: Type: [facility] Attending Dr: Peter Flowers II, MD Copies to: Peter Flowers MD Ordering Provider: Peter Flowers MD Date of Service: 10/12/23 MR/MR knee RT wo con: Acute pain of right knee MRI of the RIGHT Knee without contrast TECHNIQUE: Multiplanar T1 and T2-weighted imaging of the knee obtained without contrast HISTORY: Anterior medial RIGHT knee pain for 2 weeks. No injury COMPARISON:Plain film imaging 10/07/23 BONE MARROW: No infiltrative changes. BONE MARROW EDEMA: None FRACTURE: None BONE TUMOR: None BONY ALIGNMENT: Adequate DEGENERATION: Patellofemoral and medial compartment degenerative change JOINT EFFUSION: Moderate joint effusion MUSCLES: Unremarkable SOFT TISSUES: Unremarkable POPLITEAL CYST: None ANTERIOR CRUCIATE LIGAMENT: Intact POSTERIOR CRUCIATE LIGAMENT: Intact LATERAL COMPARTMENT: LATERAL MENISCUS: Intact. LATERAL ARTICULAR CARTILAGE: Intact. No osteochondral defect. No subcuticular bone marrow edema. PROXIMAL TIBIOFIBULAR JOINT: Intact POSTERIOR LATERAL COMPARTMENT: Intact lateral collateral ligament complex. Intact biceps femoris tendon. Intact popliteus tendon. COMMON PERONEAL NERVE: Intact MEDIAL COMPARTMENT: MEDIAL MENISCUS: A vertical tear involving the body and posterior horn of the medial meniscus. Edematous changes of the posterior horn of medial meniscus. Tiny ganglion cyst posterior to the posterior horn of the medial meniscus. MEDIAL ARTICULAR SURFACE: No chondromalacia. No subarticular bone marrow edema. POSTERIOR MEDIAL COMPARTMENT: Medial collateral ligament complex intact. The semimembranosus tendon intact. No ramp lesion of the posterior horn of medial meniscus present. PATELLOFEMORAL COMPARTMENT: PATELLOFEMORAL ARTICULAR CARTILAGE: Heterogeneous signal changes of the patellar articular surface diffusely with underlying focal regions of subchondral bone marrow edema. ANTERIOR LIGAMENTS: Patellar ligament and quadriceps tendon are intact. MR/MR knee RT wo con IMPRESSION: Vertical tear of the posterior body and posterior horn of the medial meniscus. Intact lateral meniscus and ACL. Moderate joint effusion. The patellar chondromalacia. Impression dictated by: Spencer Ding M.D.10/12/2023 9:21 AM Dictation Location: [place] [address] Transcribed By: [facility] 10/12/23920 Dictated By: Spencer Ding DO 10/12/23910 Signed By: 10/12/23920 [facility] XR knee RT 4V*on 10-07-2023 XR knee RT 4V* [facility] Main [place] [address] [place] [address] XRay Report Signed Patient: Regina Henry MR#: [id number] : 1945 Acct:[id number] Age/Sex: 77 / F ADM Date: 10/07/23 Loc: [facility] [place] Room: Type: [facility] Attending Dr: Peter Flowers II, MD Copies to: Peter Flowers MD Ordering Provider: Peter Flowers MD Date of Service: 10/07/23 XR/XR pelvis 1-2V: Acute pain of right knee ([id number]) XR/XR knee RT 4V*: Acute pain of right knee AP PELVIS: Right knee 4 views CLINICAL HISTORY: Right knee pain and swelling. COMPARISON: None Pelvis: No acute bony process. Degenerative changes seen involving the visualized lower lumbar spine and SI joints. Minimal degenerative changes of the hips. Right knee: Small knee joint effusion. Minimal joint spurring along the patella. No significant joint space narrowing or acute bony process. XR/XR pelvis 1-2V IMPRESSION: DEGENERATIVE CHANGES INVOLVING THE PELVIS AND RIGHT KNEE WITHOUT ACUTE BONY PROCESS. Impression dictated by: Vinicius Weiss Jr., DRustamORustam10/07/2023 2:48 PM Dictation Location: [place] [address] Transcribed By: [facility] 10/07/23 1448 Dictated By: Vinicius Weiss Jr, DO 10/07/23 1447 Signed By: 10/07/23 1448 [facility] Provider Letteron 10-04-2023 Provider Letter (Inserted Image. Grace ble to display) October 04, 2023 REGINA HENRY [address] [place] [id number] : 1945 Dear Regina, We are reaching out to inform you that Dr. Barajas is now approved and credentialed with your insurance. Please call our office to schedule the EGD that was recommended at your last visit. Thank you for your prompt attention to this matter. Sincerely, [facility] [phone] [facility] Reminderson 10-04-2023 Reminders - From: Mercedes Atkinson To: [facility] - Reminders/Recalls; Sent: 05/25/2023 13:39:19 EDT Show up: 06/24/2023 13:39:00 EDT Subject: Ambulatory Reminder Reminder/Recall Call pt to scheduled EGD for July with Dr. Barajas once Medicare [employer] is approved for him. LVM for pt to call back to schedule. [place] [facility] letter mailed out [facility] Ambulatory Visit Summaryon 0 07-15-2023 Ambulatory Visit Summary REGINA HENRY :1945 Visit Date:07/15/2023 Ambulatory Visit Instructions Your Diagnosis Erosive esophagitis Bloating GERD (gastroesophageal reflux disease) Hard stool History of rectal polyps Your Care Team Attending Physician - Leana Allen CNP Primary Care Physician - SHEKHAR PEREZ MD This Is Your Medications List Contact prescribing physician if questions or concerns cephalexin (Keflex 500 mg Cap) esomeprazole (Nexium 40 mg Cap-EC) estradiol (Estrace) famotidine (famotidine 20 mg Tab) lorazepam (LORazepam 0.5 mg Tab) metoprolol (metoprolol 25 mg ER Tab) tizanidine (tiZANidine 4 mg Tab) Procedures Performed Colonoscopy (04/21/2023), Esophagogastroduodenoscopy (04/21/2023), Cystourethroscopy with dilation of urethral stricture (02/15/2022), Cystourethroscopy with dilation of urethral stricture (02/05/2019), transforaminal epidural steroid injection (07/24/2018), cardiac stent, Colonoscopy, Epidural steroid injection, heart cath, Hysterectomy, Incision AND drainage, Tonsillectomy and adenoidectomy. Discharge Vitals Temperature (Temporal Artery) 36 ?C Heart Rate (Peripheral) 71 Blood Pressure 142/80 Height 60 in Height 152.4 cm Weight 168.74 lb Weight 76.7 kg BMI 33.02 What to do next You Need to Schedule the Following Appointments Follow Up with Leana Allen CNP When: Within 1 month Where: Medications What How Much When Why Instructions Unchanged cephalexin (Keflex 500 mg Cap) 1 Capsules By Mouth Every day take 1 tab one day prior to the procedure and one tab after the procedure Contact prescribing physician if questions or concerns Unchanged esomeprazole (Nexium 40 mg Cap-EC) 1 Capsules By Mouth Every day Erosive esophagitis Duration: 90 Days Contact prescribing physician if questions or concerns Unchanged estradiol (Estrace) See instructions 0.1 mg Vaginal Daily 2x per week Contact prescribing physician if questions or concerns Unchanged famotidine (famotidine 20 mg Tab) Contact prescribing physician if questions or concerns Unchanged lorazepam (LORazepam 0.5 mg Tab) See instructions BID Contact prescribing physician if questions or concerns Unchanged metoprolol (metoprolol 25 mg ER Tab) 1 Tablets By Mouth Every day Contact prescribing physician if questions or concerns Unchanged tizanidine (tiZANidine 4 mg Tab) Contact prescribing physician if questions or concerns Medications and Immunizations Administered Not Given influenza virus vaccine, inactivated, Patient Refuses Allergies Darvocet-N 100 (unknown) Motrin (unknown) Percocet 10/325 (unknown) aspirin (unknown) codeine (unknown) gabapentin (Unknown) morphine (unknown) oxyCODONE (unknown) sulfa drugs (unknown) Problems Ongoing - Any problem that you are currently receiving treatment for. Anxiety Bloating CAD (coronary artery disease) DVT (deep venous thrombosis) Erosive esophagitis Fibrocystic breast Fibromyalgia GERD (gastroesophageal reflux disease) Hard stool Hemorrhoids History of rectal polyps Lower back pain Major depressive disorder Mixed incontinence Nocturia Obstructive sleep apnea Osteoarthritis Other post-traumatic urethral stricture, female Rectal polyp Schatzki's ring Screening for colorectal cancer Small intestinal bacterial overgrowth (SIBO) Stress incontinence Urinary urgency Weak urinary stream [employer] Esophagitis Esophagitis is inflammation of the esophagus. The esophagus is the tube that carries food from the mouth to the stomach. Esophagitis can cause soreness or pain in the esophagus. This condition can make it difficult and painful to swallow. What are the causes? Most causes of esophagitis are not serious. Common causes of this condition include: ? Gastroesophageal reflux disease (GERD). This is when stomach contents move back up into the esophagus (reflux). ? Repeated vomiting. ? An allergic reaction, especially caused by food allergies (eosinophilic esophagitis). ? Injury to the esophagus by swallowing large pills with or without water, or swallowing certain types of medicines. ? Swallowing harmful chemicals, such as household cleaning products. ? Drinking a lot of alcohol. ? An infection of the esophagus. This most often occurs in people who have a weakened immune system. ? Radiation or chemotherapy treatment for cancer. ? Certain diseases such as sarcoidosis, Crohn's disease, and scleroderma. What are the signs or symptoms? Symptoms of this condition include: ? Difficult or painful swallowing. ? Pain with swallowing acidic liquids, such as citrus juices. You may also have pain when you burp. ? Chest pain and difficulty breathing. ? Nausea and vomiting. ? Pain in the abdomen. ? Weight loss. ? Ulcers in the mouth and white patches in the mouth (candidiasis). ? Fever. ? (more content not included)... Normal [facility] Gastroenterology Office/Clin ic Noteon 07-15-2023 Gastroenterology Office/Clinic Note Chief Complaint Constipation and abdominal discomfort. HPI Staff This is a 77 year old female who presents today for a follow-up from 05/25/23 and lab results. History of Present Illness Patient is a 77-year-old female who presents for follow-up. Presents with her during today's visit. Patient was previously evaluated 05/25/2023 and had reported improved heartburn, abdominal cramping and lower abdomen over the last month. She reported she was having gas/bloating nearly every day that was triggered by spicy foods or overeating. She reported she was taking Pepcid as needed. She also indicated she had a lot of anxiety?patient was educated during previous evaluation to follow-up with PCP regarding her anxiety management. Patient reported she did not want to take pantoprazole or omeprazole during previous evaluation however was interested in trying Nexium. She reported having 3 bowel movements a week that were hard in consistency with occasional bright red blood per rectum with wiping. Patient was ordered repeat EGD to evaluate for healing of erosive esophagitis and advised to avoid NSAIDs. Patient was ordered Nexium 40 mg daily and educated to take Pepcid 20 mg at bedtime. Patient was also ordered CBC/CMP and celiac serology. EGD completed 04/21/2023 revealed mild granular mucosa, erythema, and friability adjacent to Schatzki's ring, normal gastric mucosa, normal duodenum, Schatzki's ring biopsy revealed epithelial atypia, marked acute chronic inflammation, note indicated consultation with [facility] regarding biopsy results and was completed and revealed per [facility] biopsy showed erosive esophagitis and hyperplastic cardia type mucosa, negative for dysplasia, stomach biopsy revealed inactive gastritis, negative for intestinal metaplasia, negative for H. pylori. Patient to have EGD once Dr. Barajas is credentialed with her insurance. Colonoscopy completed 04/21/2023 revealed hyperplastic polyp removed from rectum, hemorrhoids?patient was recommended per Dr. Gil to have repeat colonoscopy in 2032. Labs completed 05/25/2023 revealed unremarkable CBC/CMP. Celiac serology completed 05/25/2023 revealed elevated TTG IgG of 10, elevated IgA. During today's visit, patient reports she has been taking nexium 40mg at night since end of May/early June,. Is not taking pepcid at night. She reports acid reflux has improved with nexium 40mg daily. She reports she gets acid reflux 2-3 times a week, occurs most often in the evening after dinner. Is having 1-2 BMs a week. At times stool is hard in consistency and has difficulty pushing out a BM. Denies use of fiber supplementation. Has nausea if she has not had a BM in a few days. Is having improved bloating however, is still having bloating 2-3 times a week. Denies black/bloody stools, vomiting, fevers/chills, and denies having any other GI complaints. Review of Systems ROS - Provider Constitutional: no fever, no chills. Skin: no Jaundice. ENMT: Yes acid reflux. Respiratory: no shortness of breath. Cardiovascular: no chest pain. Gastrointestinal: yes nausea, no vomiting, no diarrhea, no GI bleeding. Physical Exam Vitals & Measurements T: 36 ?C(Temporal Artery) HR: 71(Peripheral) BP: 142/80 HT: 60 in HT: 152.4 cm WT: 76.7 kg WT: 168.74 lb BMI: 33.02 General: Well developed, well nourished, in no acute distress Head: Normocephalic/atraumatic Lungs: Normal respiratory effort and clear to auscultation Cardio: Regular rate and rhythm, normal S1 and S2, no murmur, no rub Abdomen: Soft, non-distended, non-tender. Normoactive bowel sounds present in all 4 abdominal quadrants, bilaterally. Mental Status: Alert and oriented x3. Normal mood and affect Assessment/Plan BP elevated 142/80-BP managed by patient's PCP. 1. Erosive esophagitis (K22.10: Ulcer of esophagus without bleeding) EGD completed 04/21/2023 revealed mild granular mucosa, erythema, and friability adjacent to Schatzki's ring, normal gastric mucosa, normal duodenum, Schatzki's ring biopsy revealed epithelial atypia, marked acute chronic inflammation, note indicated consultation with [facility] regarding biopsy results and was completed and revealed per [facility] biopsy showed erosive esophagitis and hyperplastic cardia type mucosa, negative for dysplasia, stomach biopsy revealed inactive gastritis, negative for intestinal metaplasia, negative for H. pylori. Continue Nexium 40mg daily and educated to start pepcid 20mg at bedtime. Educated to complete previously ordered EGD. 2. Bloating (R14.0: Abdominal distension (gaseous)) Improved, occurring 2-3 times a week. EGD completed 04/21/2023 revealed mild granular mucosa, erythema, and friability adjacent to Schatzki's ring, normal gastric mucosa, normal duodenum, Schatzki's ring biopsy revealed epithelial atypia, marked acute chronic inflammation, note indicated consultation with [facility] regarding biopsy results and was completed and revealed per [place] [facility] (more content not included)... Normal [facility] Comment on above: Result Comment: Elec tronically Signed By: Leana Allen CNP\.sravanthi\Date and Time Signed: 07/15/23 11:21 EDT Patient Educationon 07-15-20 Patient Education Gastroenterology Esophagitis Esophagitis is inflammation of the esophagus. The esophagus is the tube that carries food from the mouth to the stomach. Esophagitis can cause soreness or pain in the esophagus. This condition can make it difficult and painful to swallow. What are the causes? Most causes of esophagitis are not serious. Common causes of this condition include: ? Gastroesophageal reflux disease (GERD). This is when stomach contents move back up into the esophagus (reflux). ? Repeated vomiting. ? An allergic reaction, especially caused by food allergies (eosinophilic esophagitis). ? Injury to the esophagus by swallowing large pills with or without water, or swallowing certain types of medicines. ? Swallowing harmful chemicals, such as household cleaning products. ? Drinking a lot of alcohol. ? An infection of the esophagus. This most often occurs in people who have a weakened immune system. ? Radiation or chemotherapy treatment for cancer. ? Certain diseases such as sarcoidosis, Crohn's disease, and scleroderma. What are the signs or symptoms? Symptoms of this condition include: ? Difficult or painful swallowing. ? Pain with swallowing acidic liquids, such as citrus juices. You may also have pain when you burp. ? Chest pain and difficulty breathing. ? Nausea and vomiting. ? Pain in the abdomen. ? Weight loss. ? Ulcers in the mouth and white patches in the mouth (candidiasis). ? Fever. ? Coughing up blood or vomiting blood. ? Stool that is black, tarry, or bright red. How is this diagnosed? This condition may be diagnosed based on your medical history and a physical exam. You may also have other tests, including: ? A test to examine your esophagus and stomach with a small flexible tube with a camera (endoscopy). ? A test that measures the acidity level in your esophagus. ? A test that measures how much pressure is on your esophagus. ? A barium swallow or modified barium swallow to show the shape, size, and functioning of your esophagus. ? Allergy tests. How is this treated? Treatment for this condition depends on the cause of your esophagitis. In some cases, steroids or other medicines may be given to help relieve your symptoms or to treat the underlying cause of your condition. You may have to make some lifestyle changes, such as: ? Avoiding alcohol. ? Quitting any products that contain nicotine or tobacco. These products include cigarettes, chewing tobacco, and vaping devices, such as e-cigarettes. If you need help quitting, ask your health care provider. ? Changing your diet. ? Exercising. ? Changing your sleep habits and your sleep environment. Follow these instructions at home: Medicines ? Take inqo-dyl-ouizusa and prescription medicines only as told by your health care provider. ? Do not take aspirin, ibuprofen, or other NSAIDs unless your health care provider told you to do so. ? If you have trouble taking pills: ? Use a pill splitter to decrease the size of the pill. This will decrease the chance of the pill getting stuck or injuring your esophagus. ? Drink water after you take a pill. Eating and drinking ? Avoid foods and drinks that seem to make your symptoms worse. ? Follow a diet as recommended by your health care provider. This may involve avoiding foods and drinks such as: ? Coffee and tea, with or without caffeine. ? Drinks that contain alcohol. ? Energy drinks and sports drinks. ? Carbonated drinks or sodas. ? Chocolate and cocoa. ? Peppermint and mint flavorings. ? Garlic and onions. ? Horseradish. ? Spicy and acidic foods, including peppers, chili powder, mata powder, vinegar, hot sauces, and barbecue sauce. ? Celoron fruit juices and citrus fruits, such as oranges, olivia, and limes. ? Tomato-based foods, such as red sauce, chili, salsa, and pizza with red sauce. ? Fried and fatty foods, such as donuts, vietnamese fries, potato chips, and high-fat dressings. ? High-fat meats, such as hot dogs and fatty cuts of red and white meats, such as rib eye steak, sausage, ham, and rojas. ? High-fat dairy items, such as whole milk, butter, and cream cheese. Lifestyle ? Eat small, frequent meals instead of large meals. ? Avoid drinking large amounts of liquid with your meals. ? Avoid eating meals during the 2?3 hours before bedtime. ? Avoid lying down right after you eat. ? Do not exercise right after you eat. ? Do not use any products that contain nicotine or tobacco. These products include cigarettes, chewing tobacco, and vaping devices, such as e-cigarettes. If you need help quitting, ask your health care provider. General instructions ? Pay attention to any changes in your symptoms. Let your health care provider know about them. ? Wear loose-fitting clothing. Do not wear anything tight around your waist that causes pressure on your abdom (more content not included)... Normal [facility] XR pre/post mri xrayon 07-06 XR pre/post mri xray [facility] Main [place] [address] [place] [address] MRI Report Signed Patient: Regina Henry MR#: [id number] : 1945 Acct:[id number] Age/Sex: 77 / F ADM Date: 07/06/23 Loc: MR Room: Type: [facility] Attending Dr: Cam Riggs MD Copies to: Cam Riggs MD Ordering Provider: Cam Riggs MD Date of Service: 07/06/23 MR/MR lumbar spine wo con: Other spondylosis with radiculopathy, lumbar region ([id number]) XR/XR pre/post mri xray: M47.26 MR lumbar spine wo con, XR pre/post mri xray 07/06/2023 2:39 PM SIGNS AND SYMPTOMS: Low back pain with bilateral lower extremity radiculopathy PROTOCOL: Frontal and lateral radiographs of the lumbar spine. Multiplanar multisequence MR images of the lumbar spine were obtained without IV contrast. COMPARISON: 04/17/2019 and 07/24/2019 FINDINGS: Radiographs of the lumbar spine: There is a dextro convex curvature of the lumbar spine. This is unchanged. The bones are in anatomic alignment otherwise. There is moderate disc height loss at L1-L2, L2-3, L4-5, and L5-S1. Disc height loss is slightly worse at L4-L5. There is preservation of vertebral body heights. Facet degenerative changes are present, greatest at L4-5. Atherosclerotic changes are present in the abdominal aorta. MRI lumbar spine: The bones of the lumbar spine are in anatomic alignment. There is preservation of vertebral body heights. There is mild disc height loss at T12-L1 and L1-L2. There is moderate disc height loss at L2-L3. There is mild disc height loss at L5-S1. Benign-appearing hemangiomas are noted at L2, L3, L4, L5, and S1. There is Schmorl's information the endplates at T12. The conus terminates at the inferior endplate of the L1 vertebral body level. No epidural or paraspinous fluid collection is appreciated. There is a simple cyst in the left renal cortex requiring no further follow-up. At T12-L1: There is a normal disc, central canal, and neural foramen. At L1-L2: There is a normal disc, central canal, and neural foramen. At L2-L3: There is a broad-based disc bulge with facet hypertrophy. There is mild narrowing of spinal canal with mild bilateral neural foraminal narrowing. This is unchanged. At L3-L4: There is a broad-based disc bulge with facet hypertrophy. There is mild bilateral neural foraminal narrowing without significant spinal canal narrowing. This is unchanged. At L4-L5: There is facet hypertrophy bilaterally with a mild broad-based disc bulge. There is endplate osteophyte formation. There is moderate to severe right and mild left neural foraminal stenosis. This is slightly worse on the right when compared to the prior exam. At L5-S1: There is a normal disc, central canal, and neural foramen. MR/MR lumbar spine wo con IMPRESSION: At L4-L5: There is facet hypertrophy bilaterally with a mild broad-based disc bulge. There is endplate osteophyte formation. There is moderate to severe right and mild left neural foraminal stenosis. This is slightly worse on the right when compared to the prior exam. Similar mild degenerative changes are noted in the lumbar spine otherwise, as above. There is a similar mild dextro convex curvature of the lumbar spine. Impression dictated by: Winston Egan M.D.07/06/2023 4:47 PM Dictation Location: [place] [address] Transcribed By: [facility] 07/06/231646 Dictated By: Winston Egan II, MD 07/06/23 1640 Signed By: 07/06/231646 [facility] Pre-Certification Formon Pre-Certification Form [id number] Normal [facility] Celiac Disease Comprehensive on 05-26-2023 Endomysium IgA Ql (S) Negative Invalid Interpretation Code Negative [facility] Comment on above: Performed By: #### 2 [id number] ####[place] [id number] [place] [address] Gliadin peptide IgA Qn (S) 12 unit(s) Invalid Interpretation Code 0-19 [facility] Comment on above: Result Comment: Nega tive 0 - 19 Weak Positive 20 - 30 Moderate to Strong Positive >30 Performed By: #### 2 [id number], [id number] ####[facility] [address] [place] [address] Gliadin peptide IgG Qn (S) 2 unit(s) Invalid Interpretation Code 0-19 [facility] Comment on above: Result Comment: Nega tive 0 - 19 Weak Positive 20 - 30 Moderate to Strong Positive >30 Performed By: #### 2 [id number], [id number] ####[facility] [address] [place] [address] IgA [Mass/Vol] 511 mg/dL High 64-422 [facility] Comment on above: Result Comment: Perf ormed at: [facility] [address] [id number] PhD Radha Sow Performed By: #### 2 [id number], [id number] ####[facility] [address] [place] [address] tTG IgA Qn (S) <2 Invalid Interpretation Code 0-3 [facility] Comment on above: Result Comment: Nega tive 0 - 3 Weak Positive 4 - 10 Positive >10 Tissue Transglutaminase (tTG) has been identified as the endomysial antigen. Studies have demonstr- ated that endomysial IgA antibodies have over 99% specificity for gluten sensitive enteropathy. Performed By: #### 2 [id number], [id number] ####[facility] [address] [place] [address] tTG IgG Qn (S) 10 unit/mL High 0-5 [facility] Comment on above: Result Comment: Nega tive 0 - 5 Weak Positive 6 - 9 Positive >9 Performed By: #### 2 785119, [id number], 1022110, [id number], [id number] ####[facility] [address] [place] [address] Ambulatory Visit Summaryon 0 05-25-2023 Ambulatory Visit Summary REGINA HENRY :1945 Visit Date:05/25/2023 Ambulatory Visit Instructions Your Diagnosis Erosive esophagitis Schatzki's ring Hard stool Bloating GERD (gastroesophageal reflux disease) Rectal polyp Hemorrhoids Your Care Team Attending Physician - Leana Allen CNP Primary Care Physician - SHEKHAR PEREZ MD This Is Your Medications List esomeprazole (Nexium 40 mg Cap-EC) Contact prescribing physician if questions or concerns cephalexin (Keflex 500 mg Cap) estradiol (Estrace) famotidine (famotidine 20 mg Tab) lorazepam (LORazepam 0.5 mg Tab) metoprolol (metoprolol 25 mg ER Tab) [Image Removed: STOP]Stop taking these medications pantoprazole (Pantoprazole [address] Tab) Procedures Performed Colonoscopy (04/21/2023), Esophagogastroduodenoscopy (04/21/2023), Cystourethroscopy with dilation of urethral stricture (02/15/2022), Cystourethroscopy with dilation of urethral stricture (02/05/2019), transforaminal epidural steroid injection (07/24/2018), cardiac stent, Colonoscopy, Epidural steroid injection, heart cath, Hysterectomy, Incision AND drainage, Tonsillectomy and adenoidectomy. Discharge Vitals Temperature (Temporal Artery) 36 ?C Heart Rate (Peripheral) 85 Blood Pressure 120/76 Height 152.4 cm Height 60 in Weight 75.9 kg Weight 166.98 lb BMI 32.68 What to do next You Need to Schedule the Following Appointments Follow Up with Leana Allen CNP When: Within 1 to 2 weeks Comments: Following EGD. Where: You Need to Complete the Following CBC w/ Auto Diff, Blood, Routine collect, 05/25/23, Order for future visit, Lab Collect, Bloating, Print Label By Order Location Celiac Disease Comprehensive, Blood, Routine collect, 05/25/23, Order for future visit, Lab Collect, Bloating, Print Label By Order Location Comprehensive Metabolic Panel, Blood, Routine collect, 08/02/23, Order for future visit, Lab Collect, Bloating, Print Label By Order Location Medications What How Much When Why Instructions New esomeprazole (Nexium 40 mg Cap-EC) 1 Capsules By Mouth Every day Erosive esophagitis Duration: 90 Days Pickup at [facility] #[id number] Unchanged cephalexin (Keflex 500 mg Cap) 1 Capsules By Mouth Every day take 1 tab one day prior to the procedure and one tab after the procedure Contact prescribing physician if questions or concerns Unchanged estradiol (Estrace) See instructions 0.1 mg Vaginal Daily 2x per week Contact prescribing physician if questions or concerns Unchanged famotidine (famotidine 20 mg Tab) Contact prescribing physician if questions or concerns Unchanged lorazepam (LORazepam 0.5 mg Tab) See instructions BID Contact prescribing physician if questions or concerns Unchanged metoprolol (metoprolol 25 mg ER Tab) 1 Tablets By Mouth Every day Contact prescribing physician if questions or concerns Pharmacy Information [facility] #[id number]: [address], [place] [id number] [phone] What How Much When Why Comments Stop Taking pantoprazole (Pantoprazole [address] Tab) 1 Tablets By Mouth Every day GERD (gastroesophageal reflux disease) Allergies Darvocet-N 100 (unknown) Motrin (unknown) Percocet 10/325 (unknown) aspirin (unknown) codeine (unknown) morphine (unknown) oxyCODONE (unknown) sulfa drugs (unknown) Problems Ongoing - Any problem that you are currently receiving treatment for. Anxiety Bloating CAD (coronary artery disease) DVT (deep venous thrombosis) Erosive esophagitis Fibrocystic breast Fibromyalgia GERD (gastroesophageal reflux disease) Hard stool Hemorrhoids Lower back pain Major depressive disorder Mixed incontinence Nocturia Obstructive sleep apnea Osteoarthritis Other post-traumatic urethral stricture, female Rectal polyp Schatzki's ring Screening for colorectal cancer Small intestinal bacterial overgrowth (SIBO) Stress incontinence Urinary urgency Weak urinary stream [employer] Esophagitis Esophagitis is inflammation of the esophagus. The esophagus is the tube that carries food from the mouth to the stomach. Esophagitis can cause soreness or pain in the esophagus. This condition can make it difficult and painful to swallow. What are the causes? Most causes of esophagitis are not serious. Common causes of this condition include: ? Gastroesophageal reflux disease (GERD). This is when stomach contents move back up into the esophagus (reflux). ? Repeated vomiting. ? An allergic reaction, especially caused by food allergies (eosinophilic esophagitis). ? Injury to the esophagus by swallowing large pills with or without water, or swallowing certain types of medicines. ? Swallowing harmful chemicals, such as household cleaning products. ? Drinking a lot of alcohol. ? An infection of the esophagus. This most often occurs in people who have a weakened immune system. ? Radiation or chemotherap (more content not included)... Normal [facility] Auto Diffon 05-25-2023 Basophils/100 WBC (Bld) 0.6 % Normal 0.0-2.0 [facility] Comment on above: Order Comment: Order Added by Discern Expert. Performed By: #### 2 034211, 68094513, 8685449, [id number], 3424987 ####[address] [place] [address] Basophils/Leukocytes Auto (Bld) [Pure # fraction] 0.0 E9/L Normal 0.0-0.2 [facility] Comment on above: Order Comment: Order Added by Discern Expert. Performed By: #### 2 095014, 87316884, 5788317, [id number], 8572004 ####[address] [place] [address] Eosinophils/100 WBC (Bld) 2.5 % Normal 0.0-8.0 [facility] Comment on above: Order Comment: Order Added by Discern Expert. Performed By: #### 2 291907, 59735022, 8709988, [id number], 9836181 ####[facility] [address] [place] [address] Eosinophils/Leukocyte s Auto (Bld) [Pure # fraction] 0.2 E9/L Normal 0.0-0.5 [facility] Comment on above: Order Comment: Order Added by Discern Expert. Performed By: #### 2 079635, 22023323, 3764359, [id number], 3110079 ####[address] [place] [address] Lymphocytes/100 WBC (Bld) 23.8 % Normal 14.0-50.0 [facility] Comment on above: Order Comment: Order Added by Discern Expert. Performed By: #### 2 171994, 50055304, 5272753, [id number], 1448942 ####[address] [place] [address] Lymphocytes/Leukocyte s Auto (Bld) [Pure # fraction] 2.1 E9/L Normal 1.0-4.0 [facility] Comment on above: Order Comment: Order Added by Discern Expert. Performed By: #### 2 433426, 89159953, 2330576, [id number], 0642429 ####[address] [place] [address] Monocytes/100 WBC (Bld) 7.1 % Normal 4.0-14.0 [facility] Comment on above: Order Comment: Order Added by Ej Expert. Performed By: #### 2 041568, 42275458, 4978374, 2914872512, 2998917 ####[address] [address] Monocytes/Leukocytes Auto (Bld) [Pure # fraction] 0.6 E9/L Normal 0.2-1.0 [facility] Comment on above: Order Comment: Order Added by Ej Expert. Performed By: #### 2 770580, 93434473, 3494556, 6372668886, 2174830 ####[address] [address] Neutrophils/100 WBC (Bld) 66.0 % Normal 36.0-75.0 [facility] Comment on above: Order Comment: Order Added by Ej Expert. Performed By: #### 2 511331, 75207532, 5138935, 0159332630, 8855354 ####[address] [address] Neutrophils/Leukocyte s Auto (Bld) [Pure # fraction] 5.8 E9/L Normal 2.0-7.5 [facility] Comment on above: Order Comment: Order Added by Ej Expert. Performed By: #### 2 231233, 58538768, 9657102, [id number], 4223491 ####[facility] [address] [place] [address] CBC w/ Auto Diffon 3 Erythrocyte distribution width (RBC) [Ratio] 13.6 % Normal 10.9-14.2 [facility] Comment on above: Performed By: #### 2 977715, 29307099, 9917955, 1189248733, 1382713 ####[address] [place] [address] Hematocrit (Bld) [Volume fraction] 43.2 % Normal 34.0-46.0 [facility] Comment on above: Performed By: #### 2 687479, 68678505, 3009016, 2306848727, 6875761 ####[address] [address] Hemoglobin (Bld) [Mass/Vol] 14.6 g/dL Normal 12.0-16.0 [facility] Comment on above: Performed By: #### 2 094819, 30228081, 1364603, 3216824199, 1152914 ####[address] [address] MCH (RBC) [Entitic mass] 29.3 pg Normal 27.0-34.0 [facility] Comment on above: Performed By: #### 2 267055, 67605392, 2065223, 8805681661, 7530870 ####[address] [address] MCHC (RBC) [Mass/Vol] 33.7 g/dL Normal 31.4-36.0 [facility] Comment on above: Performed By: #### 2 109721, 82466857, 2440697, 5092573961, 2955673 ####[address] [address] MCV (RBC) [Entitic vol] 86.9 fL Normal 80.0-100.0 [facility] Comment on above: Performed By: #### 2 595072, 48522790, 5073810, 2834915679, 1086838 ####[address] [place] [address] Platelet mean volume (Bld) [Entitic vol] 7.6 fL Normal 6.4-10.8 [facility] Comment on above: Performed By: #### 2 878084, 24847377, 1791319, 3735017263, 5125662 ####[address] [place] [address] Platelets (Bld) [#/Vol] 331.0 E9/L Normal 150.0-500. 0 [facility] Comment on above: Performed By: #### 2 138833, 61332490, 0377337, 6902641128, 4053867 ####[address] [address] RBC (Bld) [#/Vol] 5.0 E12/L Normal 4.3-5.9 [facility] Comment on above: Performed By: #### 2 718310, 29561561, 9709889, 6028163741, 7604545 ####[address] [address] WBC corrected for nucl RBC Auto (Bld) [#/Vol] 8.7 E9/L Normal 4.0-11.0 [facility] Comment on above: Performed By: #### 2 426124, 15631396, 7912645, 1232119562, 2071132 ####[address] [address] CMPon 05-25-2023 Albumin [Mass/Vol] 4.0 g/dL Normal 3.3-5.0 [facility] Comment on above: Performed By: #### 2 051282, 22581415, 5482689, 8801636389, 1901710 ####[address] [place] [address] Albumin/Globulin (S) [Mass conc ratio] 1.1 Normal 1.1-2.2 [facility] Comment on above: Performed By: #### 2 650080, 21506888, 5605900, 7507037949, 2531813 ####[facility] [address] [place] [address] ALP [Catalytic activity/Vol] 74 Int._Unit/L Normal 21-98 [facility] Comment on above: Performed By: #### 2 164667, 42804753, 9048923, 2206050203, 5584387 ####[facility] [address] [place] [address] ALT No additional P-5'-P [Catalytic activity/Vol] 17 Int._Unit/L Normal 6-46 [facility] Comment on above: Performed By: #### 2 424252, 17574409, 5465982, 0369825519, 7586166 ####[facility] [address] [place] [address] Anion gap [Moles/Vol] 10 mmol/L Normal 6-16 [facility] Comment on above: Performed By: #### 2 986837, 39954638, 3711426, 6500503116, 6891728 ####[facility] [address] [place] [address] AST [Catalytic activity/Vol] 19 Int._Unit/L Normal 5-43 [facility] Comment on above: Performed By: #### 2 737744, 25261211, 6431111, 9183368414, 6401561 ####[facility] [address] [place] [address] Bilirubin [Mass/Vol] 0.8 mg/dL Normal 0.0-1.1 [facility] Comment on above: Performed By: #### 2 798811, 24408495, 5829390, 6750790843, 6496602 ####[facility] [address] [place] [address] Calcium [Mass/Vol] 9.6 mg/dL Normal 8.9-11.1 [facility] Comment on above: Performed By: #### 2 503859, 70662299, 3425150, 2764464471, 8883109 ####[facility] [address] [place] [address] Chloride [Moles/Vol] 104 mmol/L Normal 101-111 [facility] Comment on above: Performed By: #### 2 583062, 95412640, 4094587, 2519004103, 8932327 ####[facility] [address] [place] [address] CO2 [Moles/Vol] 28 mmol/L Normal 21-31 [facility] Comment on above: Performed By: #### 2 885506, 99684780, 5604879, 6054798490, 2828919 ####[facility] [address] [place] [address] Creatinine [Mass/Vol] 0.7 mg/dL Normal 0.5-1.3 [facility] Comment on above: Performed By: #### 2 448738, 40657425, 0512874, 1010379005, 0515626 ####[facility] [address] [place] [address] Globulin (S) [Mass/Vol] 3.6 g/dL Normal 1.4-4.0 [facility] Comment on above: Performed By: #### 2 345172, 70013476, 6032339, 8203161748, 4562778 ####[facility] [address] [place] [address] Glucose [Mass/Vol] 98 mg/dL Normal 55-199 [facility] Comment on above: Result Comment: If t his glucose result represents a fasting glucose, interpretation should refer to the following reference range: 55-99 mg/dL Performed By: #### 2 585330, 08542254, 9958239, 3904280467, 7217094 ####[facility] [address] [place] [address] Potassium [Moles/Vol] 4.1 mmol/L Normal 3.5-5.3 [facility] Comment on above: Performed By: #### 2 037104, 76032395, 2509716, 8875030645, 2857833 ####[facility] [address] [place] [address] Protein [Mass/Vol] 7.6 g/dL Normal 6.0-7.8 [facility] Comment on above: Performed By: #### 2 535675, 23384666, 7879896, 2480162067, 2371219 ####[facility] [address] [place] [address] Sodium [Moles/Vol] 138 mmol/L Normal 135-145 [facility] Comment on above: Performed By: #### 2 001878, 61791030, 7233542, 0707403093, 7033247 ####[facility] [address] [place] [address] Urea nitrogen [Mass/Vol] 15 mg/dL Normal 5-21 [facility] Comment on above: Performed By: #### 2 177796, 47011746, 0726598, 9275349807, 1949899 ####[facility] [address] [place] [address] Urea nitrogen/Creatinine [Mass ratio] 21 No Units High 10-20 [facility] Comment on above: Performed By: #### 2 220595, 45360470, 2243065, 2965157245, 6542373 ####[facility] [address] [place] [address] Consent for Treatmenton Consent for Treatment [id number] Normal [facility] Gastroenterology Office/Clin ic Noteon 05-25-2023 Gastroenterology Office/Clinic Note Chief Complaint EGD and colonoscopy results. HPI Staff Patient is a 77 year old female here today to review results from EGD and colonoscopy. History of Present Illness Patient is a 77-year-old female who presents for follow-up from EGD/colonoscopy completed 04/21/[address] Gil. Presents with her today. Patient was previously evaluated by Dr. Gil 03/2023 for heartburn, nausea, abdominal cramping, bloating, gas, diarrhea and constipation. Patient was treated for SIBO and ordered EGD/colonoscopy. EGD completed 04/21/2023 revealed mild granular mucosa, erythema, and friability adjacent to Schatzki's ring, normal gastric mucosa, normal duodenum, Schatzki's ring biopsy revealed epithelial atypia, marked acute chronic inflammation, note indicated consultation with [facility] regarding biopsy results and was completed and revealed per [facility] biopsy showed erosive esophagitis and hyperplastic cardia type mucosa, negative for dysplasia, stomach biopsy revealed inactive gastritis, negative for intestinal metaplasia, negative for H. pylori. Is currently taking pantoprazole 40mg daily. Colonoscopy completed 04/21/2023 revealed hyperplastic polyp removed from rectum, hemorrhoids?patient was recommended per Dr. Gil to have repeat colonoscopy in 2032. During today's visit, patient reports she is having improved heartburn, abdominal cramping in lower abdomen over the last month. She reports she is no longer having diarrhea. She reports she is having gas/bloating nearly every day that is triggered by spicy foods or overeating. Patient reports she is taking pepcid as needed. She reports she feels gittery with pantoprazole and omeprazole. She explains having a lot of anxiety- educated to follow-up with PCP regarding. Reports she does not want to take pantoprazole, omeprazole. Is interested in trying nexium. Denies NSAID use. Is having 3 BMs a week that are hard at times in consistency. Reports having occasional BRBPR with wiping. Denies black/bloody stools, nausea/vomiting, fevers/chills, and denies having any other GI complaints Review of Systems ROS - Provider Constitutional: no fever, no chills. Skin: no Jaundice. ENMT: Denies dysphagia. Respiratory: no shortness of breath. Cardiovascular: no chest pain. Gastrointestinal: no nausea, no vomiting, no diarrhea, no GI bleeding. Physical Exam Vitals & Measurements T: 36 ?C(Temporal Artery) HR: 85(Peripheral) BP: 120/76 HT: 60 in HT: 152.4 cm WT: 75.9 kg WT: 166.98 lb BMI: 32.68 General: Well developed, well nourished, in no acute distress Head: Normocephalic/atraumatic Lungs: Normal respiratory effort and clear to auscultation Cardio: Regular rate and rhythm, normal S1 and S2, no murmur, no rub Abdomen: Soft, non-distended, non-tender. Normoactive bowel sounds present in all 4 abdominal quadrants, bilaterally. Mental Status: Alert and oriented x3. Normal mood and affect Assessment/Plan 1. Erosive esophagitis (K22.10: Ulcer of esophagus without bleeding) EGD completed 04/21/2023 revealed mild granular mucosa, erythema, and friability adjacent to Schatzki's ring, normal gastric mucosa, normal duodenum, Schatzki's ring biopsy revealed epithelial atypia, marked acute chronic inflammation, note indicated consultation with [facility] regarding biopsy results and was completed and revealed per [facility] biopsy showed erosive esophagitis and hyperplastic cardia type mucosa, negative for dysplasia, stomach biopsy revealed inactive gastritis, negative for intestinal metaplasia, negative for H. pylori. Reports being gittery with omeprazole and pantoprazole- is interested in trying nexium. Ordered nexium 40mg daily and educated to take pepcid 20mg at bedtime. Educated regarding importance of treatment for erosive esophagitis noted on recent EGD- see above. Ordered EGD in 2 months to evaluate for healing of erosive esophagitis. Avoid NSAIDs. Ordered: esomeprazole, 40 mg = 1 cap(s), Oral, Daily, X 90 day(s), # 90 cap(s), Refills(s) 0, Pharmacy: [facility] #[id number], 152.4, cm, 05/25/23 12:58:00 EDT, Height/Length Dosing, 75.9, kg, 05/25/23 12:58:00 EDT, Weight Dosing EGD Endoscopy (Hospital Procedure) 2. Schatzki's ring (K22.2: Esophageal obstruction) EGD completed 04/21/2023 revealed mild granular mucosa, erythema, and friability adjacent to Schatzki's ring, normal gastric mucosa, normal duodenum, Schatzki's ring biopsy revealed epithelial atypia, marked acute chronic inflammation, note indicated consultation with [facility] regarding biopsy results and was completed and revealed per [facility] biopsy showed erosive esophagitis and hyperplastic cardia type mucosa, negative for dysplasia, stomach biopsy revealed inactive gastritis, negative for intestinal metaplasia, negative for H. pylori. Reports being gittery with omeprazole and pantoprazole- is interested in trying nexium. Ordered nexium 40mg daily and educated to take pepcid 20mg at bedtime. Educated (more content not included)... Normal [facility] Comment on above: Result Comment: Elec tronically Signed By: Leana Allen CNP\.sravanthi\Date and Time Signed: 05/25/23 13:34 EDT Patient Educationon 05-25-20 Patient Education Gastroenterology Esophagitis Esophagitis is inflammation of the esophagus. The esophagus is the tube that carries food from the mouth to the stomach. Esophagitis can cause soreness or pain in the esophagus. This condition can make it difficult and painful to swallow. What are the causes? Most causes of esophagitis are not serious. Common causes of this condition include: ? Gastroesophageal reflux disease (GERD). This is when stomach contents move back up into the esophagus (reflux). ? Repeated vomiting. ? An allergic reaction, especially caused by food allergies (eosinophilic esophagitis). ? Injury to the esophagus by swallowing large pills with or without water, or swallowing certain types of medicines. ? Swallowing harmful chemicals, such as household cleaning products. ? Drinking a lot of alcohol. ? An infection of the esophagus. This most often occurs in people who have a weakened immune system. ? Radiation or chemotherapy treatment for cancer. ? Certain diseases such as sarcoidosis, Crohn's disease, and scleroderma. What are the signs or symptoms? Symptoms of this condition include: ? Difficult or painful swallowing. ? Pain with swallowing acidic liquids, such as citrus juices. You may also have pain when you burp. ? Chest pain and difficulty breathing. ? Nausea and vomiting. ? Pain in the abdomen. ? Weight loss. ? Ulcers in the mouth and white patches in the mouth (candidiasis). ? Fever. ? Coughing up blood or vomiting blood. ? Stool that is black, tarry, or bright red. How is this diagnosed? This condition may be diagnosed based on your medical history and a physical exam. You may also have other tests, including: ? A test to examine your esophagus and stomach with a small flexible tube with a camera (endoscopy). ? A test that measures the acidity level in your esophagus. ? A test that measures how much pressure is on your esophagus. ? A barium swallow or modified barium swallow to show the shape, size, and functioning of your esophagus. ? Allergy tests. How is this treated? Treatment for this condition depends on the cause of your esophagitis. In some cases, steroids or other medicines may be given to help relieve your symptoms or to treat the underlying cause of your condition. You may have to make some lifestyle changes, such as: ? Avoiding alcohol. ? Quitting any products that contain nicotine or tobacco. These products include cigarettes, chewing tobacco, and vaping devices, such as e-cigarettes. If you need help quitting, ask your health care provider. ? Changing your diet. ? Exercising. ? Changing your sleep habits and your sleep environment. Follow these instructions at home: Medicines ? Take todj-ero-fqgaldx and prescription medicines only as told by your health care provider. ? Do not take aspirin, ibuprofen, or other NSAIDs unless your health care provider told you to do so. ? If you have trouble taking pills: ? Use a pill splitter to decrease the size of the pill. This will decrease the chance of the pill getting stuck or injuring your esophagus. ? Drink water after you take a pill. Eating and drinking ? Avoid foods and drinks that seem to make your symptoms worse. ? Follow a diet as recommended by your health care provider. This may involve avoiding foods and drinks such as: ? Coffee and tea, with or without caffeine. ? Drinks that contain alcohol. ? Energy drinks and sports drinks. ? Carbonated drinks or sodas. ? Chocolate and cocoa. ? Peppermint and mint flavorings. ? Garlic and onions. ? Horseradish. ? Spicy and acidic foods, including peppers, chili powder, mata powder, vinegar, hot sauces, and barbecue sauce. ? Celoron fruit juices and citrus fruits, such as oranges, olivia, and limes. ? Tomato-based foods, such as red sauce, chili, salsa, and pizza with red sauce. ? Fried and fatty foods, such as donuts, vietnamese fries, potato chips, and high-fat dressings. ? High-fat meats, such as hot dogs and fatty cuts of red and white meats, such as rib eye steak, sausage, ham, and rojas. ? High-fat dairy items, such as whole milk, butter, and cream cheese. Lifestyle ? Eat small, frequent meals instead of large meals. ? Avoid drinking large amounts of liquid with your meals. ? Avoid eating meals during the 2?3 hours before bedtime. ? Avoid lying down right after you eat. ? Do not exercise right after you eat. ? Do not use any products that contain nicotine or tobacco. These products include cigarettes, chewing tobacco, and vaping devices, such as e-cigarettes. If you need help quitting, ask your health care provider. General instructions ? Pay attention to any changes in your symptoms. Let your health care provider know about them. ? Wear loose-fitting clothing. Do not wear anything tight around your waist that causes pressure on your abdom (more content not included)... Normal [facility] Reminderson 05-25-2023 Reminders - From: Leana Allen CNP To: Maddi Shepard; Sent: 05/25/2023 13:28:50 EDT Show up: 05/25/2023 13:29:00 EDT Subject: Ambulatory Reminder Reminder/Recall Colonoscopy per Dr. Gil in 2032. [address] gil 04/21/2033 From: Maddi Shepard To: [facility] - Reminders/Recalls; Sent: 05/25/2023 14:08:56 EDT ! Show up: 02/21/2033 14:08:00 EDT Due Date/Time: 03/24/2033 14:08:00 EDT Normal [facility] Reminders - From: Leana Allen CNP To: Maddi Shepard; Sent: 05/25/2023 12:57:00 EDT Show up: 05/25/2023 12:57:00 EDT Subject: Ambulatory Reminder Reminder/Recall Colonoscopy in 2032. Normal [facility] eGFRon 05-25-2023 GFR/1.73 sq M.predicted among non-blacks MDRD (S/P/Bld) [Vol rate/Area] 90 mL/min/1.73 m2 Normal >=59 [facility] Comment on above: Order Comment: Order added by Discern Expert. Result Comment: Economic Development Coordinator kwaku kidney disease could be indicated at eGFR's of less than 60 mL/min/1.73m2. Kidney failure is indicated at less than 15 mL/min/1.73m2. Performed By: #### 2 [id number] ####[facility] [id number] [place] [address] Pathology Noteon 05-11-2023 Pathology Note [id number]#1.00CD:[address] [facility] Pathology Reporton 3 Pathology Report [id number]#1.00CD:[address] [facility] IntraOperative Documentson 0 04-28-2023 IntraOperative Documents [id number]#1.00CD:[address] [facility] Consenton 04-22-2023 Consent [id number]#1.00CD:[address] [facility] Discharge Instructionson Discharge Instructions [id number]#1.00CD:[address] [facility] Postoperative Documentson Postoperative Documents [id number]#1.00CD:[address] [facility] Consent for Treatmenton 03-25 Consent for Treatment [id number]#1.00CD:[address] [facility] Discharge Instructionson Discharge Instructions REGINA HENRY :1945 Visit Date:04/21/2023 Inpatient Discharge Instructions Your Care Team Admitting Physician - Danny GIL MD Referring Physician - Danny GIL MD Reason for Your Visit ENCOUNTER FOR SCREENING OF MALIGNANT NEOPLASM OF RECTUM, SCREENING FOR COLON CANCER, GERD, BLOATING Your Diagnosis Encounter for screening for malignant neoplasm of rectum GERD (gastroesophageal reflux disease) Screening for colorectal cancer Tests Performed Pathology Tissue Exam -- Results Pending -- Please visit your patient portal for your results or contact your primary care physician. This Is Your Medications List cephalexin (Keflex 500 mg Cap) estradiol (Estrace) famotidine (famotidine 20 mg Tab) lorazepam (LORazepam 0.5 mg Tab) metoprolol (metoprolol 25 mg ER Tab) pantoprazole (Pantoprazole [address] Tab) Procedure History Colonoscopy (04/21/2023), Esophagogastroduodenoscopy (04/21/2023), Cystourethroscopy with dilation of urethral stricture (02/15/2022), Cystourethroscopy with dilation of urethral stricture (02/05/2019), transforaminal epidural steroid injection (07/24/2018), cardiac stent, Colonoscopy, Epidural steroid injection, heart cath, Hysterectomy, Incision AND drainage, Tonsillectomy and adenoidectomy. What to do next Instructions From Your Doctor Event Name Event Result Discharge Activity Resume normal activities in 24 hours Discharge Restrictions No driving for 24 hrs, Do not operate machinery or tools, Do not make important decisions for 24 hours Discharge Diet(s) Regular Pharmacy Information Other: [place], [place] Discharge Instructions Discharge Instructions New Follow Up Appointments after Discharge Follow Up with LUDWIG GARCIA, Danny, [facility], [facility] When: Comments: Call for any problems. Office to call for follow up appt. Where: [address] [place], [place] [address]dict [address] [place] [address] [facility] (1) Medications What How Much When Why Instructions Next Dose Unchanged cephalexin (Keflex 500 mg Cap) 1 Capsules By Mouth Every day take 1 tab one day prior to the procedure and one tab after the procedure Unchanged estradiol (Estrace) See instructions 0.1 mg Vaginal Daily 2x per week Unchanged famotidine (famotidine 20 mg Tab) Unchanged lorazepam (LORazepam 0.5 mg Tab) See instructions BID Unchanged metoprolol (metoprolol 25 mg ER Tab) 1 Tablets By Mouth Every day Unchanged pantoprazole (Pantoprazole [address] Tab) 1 Tablets By Mouth Every day GERD (gastroesophageal reflux disease) Test Results No qualifying data available. Allergies Darvocet-N 100 (unknown) Motrin (unknown) Percocet 10/325 (unknown) aspirin (unknown) codeine (unknown) morphine (unknown) oxyCODONE (unknown) sulfa drugs (unknown) Problems Ongoing - Any problem that you are currently receiving treatment for. Anxiety Bloating CAD (coronary artery disease) DVT (deep venous thrombosis) Fibrocystic breast Fibromyalgia GERD (gastroesophageal reflux disease) Lower back pain Major depressive disorder Mixed incontinence Nocturia Obstructive sleep apnea Osteoarthritis Other post-traumatic urethral stricture, female Screening for colorectal cancer Small intestinal bacterial overgrowth (SIBO) Stress incontinence Urinary urgency Weak urinary stream [employer] Hemorrhoids Hemorrhoids are swollen veins that may develop: ? In the butt (rectum). These are called internal hemorrhoids. ? Around the opening of the butt (anus). These are called external hemorrhoids. Hemorrhoids can cause pain, itching, or bleeding. Most of the time, they do not cause serious problems. They usually get better with diet changes, lifestyle changes, and other home treatments. What are the causes? This condition may be caused by: ? Having trouble pooping (constipation). ? Pushing hard (straining) to poop. ? Watery poop (diarrhea). ? . ? Being very overweight (obese). ? Sitting for long periods of time. ? Heavy lifting or other activity that causes you to strain. ? Anal sex. ? Riding a bike for a long period of time. What are the signs or symptoms? Symptoms of this condition include: ? Pain. ? Itching or soreness in the butt. ? Bleeding from the butt. ? Leaking poop. ? Swelling in the area. ? One or more lumps around the opening of your butt. How is this diagnosed? A doctor can often diagnose this condition by looking at the affected area. The doctor may also: ? Do an exam that involves feeling the area with a gloved hand (digital rectal exam). ? Examine the area inside your butt using a small tube (anoscope). ? Order blood tests. This may be done if you have lost a lot of blood. ? Have you get a test that involves looking inside the colon using a flexible tube with a camera on the end (sigmoidoscopy or colonoscopy). How (more content not included)... Normal [facility] Comment on above: Result Comment: Ainsley loaizaally Signed By: Michael BURTON, Nicole Gilman\.sravanthi\Date and Time Signed: 04/21/23 11:03 EDT Endoscopic Procedure Report - Otheron 04-21-2023 Endoscopic Procedure Report - Other Patient: REGINA HENRY Age: 77 years Sex: Female : 1945 Associated Diagnoses: None Author: Danny GIL MD Pre-Procedure Procedure Date 04/21/2023 10:59:00 . Procedure Type: Colonoscopy with removal of tumor(s), polyp(s), or other lesion(s) by cold snare technique. Procedure provider Performed by Danny Gil MD. Current history and physical Documented on chart. Colorectal neoplasm risk assessment Average risk. Informed Consent After discussing the rationale, risks and benefits, and alternatives to this procedure, the patient provided signed consent for the procedure. Pre-procedure diagnosis: Age 50 years or over. Medications Anticoagulant/antiplatelet None. ASA Classification: Class II. . Procedure The procedure was performed in the hospital. Rectal exam was performed and was normal with no masses palpated. The patient was positioned in the left lateral decubitus position and a digital rectal exam was performed.. Endoscope type used was an adult-size. The endoscope was lubricated then introduced through the anus. The scope was advanced to the cecum verified by photographing the appendiceal orifice, verified by photographing the ileocecal valve, verified by transillumination, The time to the cecum was 3 minutes, The withdrawal time was 7 minutes. No difficulties encountered during the procedure. The bowel preparation quality was adequate (see polyps greater than or equal to 6 millimeters). The patient tolerated the procedure well. Findings 1. Diminutive polyp, 2 mm, in the rectum, removed completely with cold snare 2. Small nonbleeding internal hemorrhoids Images Procedure images: [id number]_[id number]__[id number].jpg Rec_hd_video__0 [id number].jpg [id number]_hd_video_[id number]__[id number].jpg . Post-Procedure Complications: none. Estimated blood loss: none. Specimens: sent to pathology. Devices/ implants: none left in place. Impression and Plan 1. Diminutive polyp, 2 mm, in the rectum, removed completely with cold snare 2. Small nonbleeding internal hemorrhoids Recommendations: Repeat colonoscopy:: In 10 years, Pending pathology results. Follow-up:: Clinic follow-up in 1-2 weeks. Diet:: Resume previous diet. Medication resumption:: Continue current medications. Return to activities:: After [address] [facility] Comment on above: Result Comment: Elec tronically Signed By: Danny GIL MD\.br\Date and Time Signed: 04/21/23 11:00 EDT Other Comment: Chaparrita martínez Attachment - attachment storage system not supported [id number] Can be viewed in source systemMissing Attachment - attachment storage system not supported [id number] Can be viewed in source systemMissing Attachment - attachment storage system not supported [id number] Can be viewed in source system Endoscopic Procedure Report - Other Patient: REGINA HENRY Age: 77 years Sex: Female : 1945 Associated Diagnoses: None Author: Danny GIL MD Pre-Procedure Procedure Date 04/21/2023 10:56:00 . Procedure Type: Esophagogastroduodenoscopy . Procedure provider Performed by Danny Gil MD. Current history and physical Documented on chart. Informed Consent After discussing the rationale, risks and benefits, and alternatives to this procedure, the patient provided signed consent for the procedure. Pre-procedure diagnosis: Bloating. Dyspepsia. Pain. Medications Anticoagulant/antiplatelet No anticoagulation or antiplatelet. ASA Classification: Class II. . Monitoring: See anesthesia record. . Procedure The procedure was performed in the hospital. See anesthesia record for sedation given during procedure. The patient was positioned starting in the left lateral decubitus position and with safety measures. Endoscope type used was an adult-size, introduced orally, advanced to the 2nd portion of the duodenum. No difficulty was encountered during the procedure. Views were good. Gastric biopsies were taken of the fundus and of the antrum. The patient tolerated the procedure well. Findings 1. Mild granular mucosa, erythema and friability adjacent to esophageal Schatzki ring, multiple biopsies obtained 2. Normal gastric mucosa, random biopsies obtained to rule out H. pylori 3. Normal duodenum Images Procedure images: [id number]_hd_video_2022_[id number] [id number].jpg Rec1_hd_video_T0 [id number].jpg Rec1_hd_video_T0 [id number].jpg Rec1_hd_video_T0 [id number].jpg Rec1_hd_video_T0 [id number].jpg Rec1_hd_video_T0 [id number].jpg . Post-Procedure Complications: none. Estimated blood loss: none. Specimens: sent to pathology. Devices/ implants: none left in place. Impression and Plan 1. Mild granular mucosa, erythema and friability adjacent to esophageal Schatzki ring, multiple biopsies obtained 2. Normal gastric mucosa, random biopsies obtained to rule out H. pylori Recommendations: 1. Awaiting pathology report. 2. GI clinic follow-up in [address] [facility] Comment on above: Result Comment: Elec tronically Signed By: LUDWIG GARCIA, Danny\.br\Date and Time Signed: 04/21/23 10:58 EDT Other Comment: Chaparrita martínez Attachment - attachment storage system not supported [id number] Can be viewed in source system Missing Attachment - attachment storage system not supported [id number] Can be viewed in source system Missing Attachment - attachment storage system not supported [id number] Can be viewed in source system Missing Attachment - attachment storage system not supported [id number] Can be viewed in source system Missing Attachment - attachment storage system not supported [id number] Can be viewed in source system Missing Attachment - attachment storage system not supported [id number] Can be viewed in source system Main OR Intraoperative Recor don 04-21-2023 Main OR Intraoperative Record IntraOp Document Type FT Summary Primary Physician: Danny GIL MD Finalized Date/Time: 04/21/23 12:14:38 Pt. Name: REGINA HENRY Mariana MackayB./Sex: 1945 Female Med Rec #: [id number] Physician: Danny GIL MD Financial #: [id number] Pt. Type: O Room/Bed: Endo 07/24 Admit/Disch: 04/21/23 09:08:43 - Institution: Case Times FT Entry 1 Patient Times In Room 04/21/23 10:38:00 Out Room 04/21/23 10:56:00 Procedure Times Start 04/21/23 10:41:00 Stop 04/21/23 10:54:00 Anesthesia Times Start 04/21/23 10:38:00 Stop 04/21/23 10:56:00 Time at [facility] 04/21/23 10:47:00 Last Modified By: Jose De Jesus Paz RN 04/21/23 10:56:43 General Comments: 1043 EGD completed MSRN 1044 Colonoscopy started MSRN 04/21/23 Chart opened to review and send charges LRoth CSFA Case Attendance FT Entry 1 Entry 2 Entry 3 Case Attendee Zen DERAS, Gaudencio Paz RN, Jose De Jesus Guzman QUALITY PROJECT MANAGER, Mindi Castillo Role Performed DRIVER MANAGER It Generalist - Primary Scrub - Primary Time In 04/21/23 10:39:00 04/21/23 10:39:00 04/21/23 10:39:00 Time Out 04/21/23 10:56:00 04/21/23 10:56:00 04/21/23 10:56:00 Procedure EGD AND COLONOSCOPY(.) EGD AND COLONOSCOPY(.) EGD AND COLONOSCOPY(.) Comments Dr. Rodriguez supervising case Last Modified By: Jackson RN, Jose De Jesus Paz RN, Jose De Jesus Paz RN, Jose De Jesus Cole 04/21/23 10:56:44 04/21/23 10:56:44 04/21/23 10:56:44 Entry 4 Entry 5 Case Attendee Danny GIL MD, Madison A Role Performed Surgeon - Primary Staff - Other Time In 04/21/23 10:39:00 04/21/23 10:39:00 Time Out 04/21/23 10:56:00 04/21/23 10:56:00 Procedure EGD AND COLONOSCOPY(.) EGD AND COLONOSCOPY(.) Comments orienting Last Modified By: Jose De Jesus Paz RN, RN, Morgan E 04/21/23 10:56:44 04/21/23 10:56:44 Perioperative Protocols FT Pre-Care Text: Implements protective measures prior to operative or invasive procedure, confirms identity before the operative or invasive procedure, verifies operative procedure, surgical site, and laterality Entry 1 Procedure(s) EGD AND COLONOSCOPY(.) Patient Identity Birthday, ID Band Verified (select at Check, Patient least 2): Participation Consents / H and P Anesthesia Consent, Operative Site N/A Verified HandP, Surgery/Procedure Marking Verified Consent Surgical Site No Laterality Verified n/a Verified Procedure Verified Yes Correct Patient Yes Position Verified Availability Equipment, Medication Prep Dry n/a Verified (If Applicable) PreOp Antibiotic No Time Out Gaudencio Zaldivar CRNA, Given Participants Jose De Jesus Paz RN, Schafer CST, Alexandria M, SALAM MD, Genevieve Delgado Dina Mariana Time Out Complete 04/21/23 10:40:00 Outcomes Met? Yes Last Modified By: Jose De Jesus Paz RN 04/21/23 10:45:29 Post-Care Text: The patient is free from signs and symptoms of injury caused by extraneous objects Allergy Information FT Pre-Care Text: Verifies allergies Entry 1 Allergies Reviewed? Yes Allergies Reviewed Self/Patient With Outcomes Met? Yes Last Modified By: Jose De Jesus Paz RN 04/21/23 10:45:36 Post-Care Text: The patient received appropriate medication(s) safely administered during the perioperative period Surgical Procedures FT Entry 1 Procedure Description Procedure EGD AND COLONOSCOPY Modifiers . Surgeon Description EGD with gastric biopsy and biopsy of abnormal schatzki ring mucosa. Colonoscopy with rectal polypectomy Primary Procedure Yes Primary Surgeon Danny GIL MD Start 04/21/23 10:41:00 Stop 04/21/23 10:54:00 Anesthesia Type General Surgical Service Gastroenterology Wound Class 2 - Clean-Contaminated Last Modified By: Jose De Jesus Paz RN 04/21/23 11:03:31 General Case Data FT Pre-Care Text: Classifies surgical wound, implements aseptic technique, initiates traffic control Entry 1 Case Information OR ENDO 1 FT Case Level Level 2 Wound Class 2 - Clean-Contaminated Specialty Gastroenterology ASA Class 3 Preop Diagnosis Gerd, Bloating, Small Postop Same As Preop No intestional bacterial overgrowth, Colon cancer screening Postop Diagnosis EGD- Abnormal schatzki Outcomes Met? Yes ring mucosa. Colonoscopy- Rectal polyp, Internal hemorrhoids Last Modified By: Jose De Jesus Paz RN 04/21/23 11:03:41 Post-Care Text: The patient is free from signs and symptoms of infection Skin Assessment (Pre Procedure) FT Pre-Care Text: Implements protective measures to prevent skin/ tissue injury due to thermal or mechanical sources Evaluates for signs and symptoms of physical injury to skin and tissue Entry 1 Skin Integrity Dry, Warm Skin Abnormality No Outcomes Met? Yes Last Modified By: Jose De Jesus Paz RN 04/21/23 10:46:49 Post-Care Text: The patient is free from signs and symptoms of injury caused by extraneous objects Patient Positioning FT Pre-Care Text: Identifies physical alterations that require additional precautions for procedure-specific positionin (more content not included)... Normal [facility] Main OR PACU I Recordon 03-25 Main OR PACU I Record PACU Phase I Docum ent Type FT Summary Primary Physician: Danny GIL MD Finalized Date/Time: 04/21/23 13:36:52 Pt. Name: REGINA HENRY/Sex: 1945 Female Med Rec #: [id number] Physician: Danny GIL MD Financial #: [id number] Pt. Type: O Room/Bed: Endo 07/24 Admit/Disch: 04/21/23 09:08:43 - 04/21/23 11:53:00 Institution: Case Times PACU I FT Pre-Care Text: Identifies barriers to communication and implements measures to provide psychological support Develops individualized plan of care, and ensures continuity of care Maintains patient's dignity and privacy, and maintains patient confidentiality Identifies and reports philosophical, cultural, and spiritual beliefs and values Identifies individual values and wishes concerning care Implements aseptic technique, and administers prescribed antibiotic therapy and immunizing agents as ordered Evaluates postoperative tissue perfusion Implements thermoregulation measures, and monitors body temperature Evaluates postoperative respiratory status Evaluates postoperative cardiac status Evaluates postoperative neurological status Assesses pain control, collaborated in initiating patient-controlled analgesia and implements alternative methods of pain control Verifies allergies, administers prescribed medications and solutions, evaluates response to medications Entry 1 In PACU I 04/21/23 10:57:00 Discharge from PACU 04/21/23 11:53:00 I Outcomes Met? Yes Last Modified By: Nicole Rodriguez RN 04/21/23 13:36:05 Post-Care Text: The patient demonstrates knowledge of the expected response to the operative or invasive procedure The patient's care is consistent with the individualized perioperative plan of care The patient's right to privacy is maintained The patient's value system, lifestyle, ethnicity, and culture are considered, respected, and incorporated into the perioperative plan of care The patient participates in decisions affecting his or her perioperative plan of care The patient is free from signs and symptoms of infection The patient has wound/tissue perfusion consistent with or improved from baseline levels established preoperatively The patient is at or returning to normothermia at the conclusion of the immediate postoperative period The patient's respiratory function is consistent with or improved from baseline levels established preoperatively The patient's cardiovascular status is consistent with or improved from baseline levels established preoperatively The patient's cardiovascular status is consistent with or improved from baseline levels established preoperatively The patient demonstrates and/or reports adequate pain control throughout the perioperative period The patient received appropriate medication(s), safely administered during the perioperative period Acuity Level PACU I FT Entry 1 Start Time 04/21/23 10:57:00 Stop Time 04/21/23 11:53:00 Acuity Level Acuity Level I Last Modified By: Nicole Rodriguez RN 04/21/23 13:36:33 Finalized By: Nicole Rodriguez RN Document Signatures Signed By: Nicole Rodriguez RN 04/21/23 13:36 Nicole Rodriguez RN 04/21/23 13:[address] [facility] Main OR Preoperative Recordo n 04-21-2023 Main OR Preoperative Record Holding Area Document Type FT Summary Primary Physician: Danny GIL MD Finalized Date/Time: 04/21/23 09:33:09 Pt. Name: REGINA HENRY D.O.B./Sex: 1945 Female Med Rec #: [id number] Physician: Danny GIL MD Financial #: [id number] Pt. Type: O Room/Bed: Endo 07/24 Admit/Disch: 04/21/23 09:08:43 - Institution: Case Times Holding FT Pre-Care Text: Verifies consent for planned procedure, identifies individual values and wishes concerning care, includes family members in perioperative teaching Secures patient's records' belongings, and valuables, maintains patient's dignity and privacy, and maintains patient confidentiality Entry 1 In Holding 04/21/23 09:23:00 Outcomes Met? Yes Last Modified By: Citlaly Mckinney RN 04/21/23 09:23:48 Post-Care Text: The patient participates in decisions affecting his or her perioperative plan of care The patient's right to privacy is maintained Surgery Checklist FT Entry 1 Patient Birthday, ID Band Procedure History and Physical, Identification: Check, Patient Verification: Surgical Consent, With Participation Patient NPO after Midnight: Yes Results Reviewed clear/yellow Comments: Personal Items: Cataract Lens Implant, Personal Items Bilat IOL, glassess, Glasses, Jewelry Comment: hear stent, ring and earrings Limitations: Vision Complaints of Pain: No Pain Comment: Denies Operative Site n/a Marking: Availability Equipment Verified: Does Patient Smoke No Patient states Yes Comment - Adult postop adult Supervision supervision available Case Cancelled in No Holding Area see comments below for reason Last Modified By: Citlaly Mckinney RN 04/21/23 09:33:02 General Comments: Pt completed prep at 0620 and remained NPO since/GAYERN Finalized By: Citlaly Mckinney RN Document Signatures Signed By: Citlaly Mckinney RN 04/21/23 09:33 Normal [facility] Monitor Recordon 04-21-2023 Monitor Record [id number]:127 Normal [facility] Monitor Record [id number]#1.00CD:127 [facility] [facility] Patient Education - Texton 0 04-21-2023 Patient Education - Text Colonoscopy Care After Surgery Please read the instructions outlined below and refer to this sheet in the next few weeks. These discharge instructions provide you with general information on caring for yourself after you leave the hospital. Your doctor may also give you specific instructions. While your treatment has been planned according to the most current medical practices available, unavoidable complications occasionally occur. If you have any problems or questions after discharge, please call your doctor. ACTIVITY You may resume your regular activity, but move at a slower pace for the next 24 hours. Take frequent rest periods for the next 24 hours. Walking will help get rid of the air and reduce the bloated feeling in your abdomen (belly). No driving for 24 hours (because of the anesthesia (medicine) used during the test). You may shower. Do not sign any important legal documents or operate any machinery for 24 hours (because of the anesthesia used during the test). NUTRITION Drink plenty of fluids. You may resume your normal diet as instructed by your doctor. Begin with a light meal and progress to your normal diet. Heavy or fried foods are harder to digest and may make you feel nauseated (sick to your stomach). Avoid alcoholic beverages for 24 hours or as instructed. MEDICATIONS You may resume your normal medications unless your doctor tells you otherwise. WHAT YOU CAN EXPECT TODAY Some feelings of bloating in the abdomen. Passage of more gas than usual. Spotting of blood in your stool or on the toilet paper. FOLLOW-UP Your doctor will discuss the results of your test with you. SEEK IMMEDIATE MEDICAL ATTENTION IF: There is more than a spotting of blood in your stool. There is abdominal distention (your abdomen is swollen). There is vomiting. You have a temperature over 101.5 F. There is abdominal pain or discomfort that is severe or gets worse throughout the day. Endoscopy Care After Procedure Please read the instructions outlined below and refer to this sheet in the next few weeks. These discharge instructions provide you with general information on caring for yourself after you leave the hospital. Your doctor may also give you specific instructions. While your treatment has been planned according to the most current medical practices available, unavoidable complications occasionally occur. If you have any problems or questions after discharge, please call your doctor. ACTIVITY ? You may resume your regular activity but move at a slower pace for the next 24 hours. ? Take frequent rest periods for the next 24 hours. ? Walking will help expel (get rid of) the air and reduce the bloated feeling in your abdomen. ? No driving for 24 hours (because of the anesthesia (medicine) used during the test). ? You may shower. ? Do not sign any important legal documents or operate any machinery for 24 hours (because of the anesthesia used during the test). NUTRITION ? Drink plenty of fluids. ? You may resume your normal diet. ? Begin with a light meal and progress to your normal diet. ? Avoid alcoholic beverages for 24 hours or as instructed by your caregiver. MEDICATIONS ? You may resume your normal medications unless your caregiver tells you otherwise. WHAT YOU CAN EXPECT TODAY ? You may experience abdominal discomfort such as a feeling of fullness or ?gas? pains. FOLLOW-UP ? Your doctor will discuss the results of your test with you. seek immediate medical attention if any of the following occur: ? Excessive nausea (feeling sick to your stomach) and/or vomiting. ? Severe abdominal pain and distention (swelling). ? Trouble swallowing. ? Temperature over 100 F (37.8? C). ? Rectal bleeding or vomiting of blood. Document Released: 05/24/2005 Document Re-Released: 04/03/2007 ExitCare? Patient Information ?2009 [employer]. Gastroenterology Hemorrhoids Hemorrhoids are swollen veins that may develop: ? In the butt (rectum). These are called internal hemorrhoids. ? Around the opening of the butt (anus). These are called external hemorrhoids. Hemorrhoids can cause pain, itching, or bleeding. Most of the time, they do not cause serious problems. They usually get better with diet changes, lifestyle changes, and other home treatments. What are the causes? This condition may be caused by: ? Having trouble pooping (constipation). ? Pushing hard (straining) to poop. ? Watery poop (diarrhea). ? . ? Being very overweight (obese). ? Sitting for long periods of time. ? Heavy lifting or other activity that causes you to strain. ? Anal sex. ? Riding a bike for a long period of time. What are the signs or symptoms? Symptoms of this condition include: ? Pain. ? Itching or soreness in the butt. ? Bleeding from the butt. ? Leaking poop. ? Swelling in the area. ? One or more lumps around the opening of your butt. How is this (more content not included)... Normal [facility] Progress Note-Physicianon Progress Note-Physician Patient: REGINA HENRY Age: 77 years Sex: Female : 1945 Associated Diagnoses: None Author: Eulalia Rodriguez Jr, DO Preoperative Information Anesthesia Preop Info: Time patient last ate or drank 04/21/2023 00:00:00. Anesthesia history: Patient history: None. Family history+: None. Informed consent: Signed by patient. Re-evaluation prior to induction: Initial evaluation reviewed: No significant change. Review of Systems Eye: Negative except as documented in history of present illness. Ear/Nose/Mouth/Throat: Negative except as documented in history of present illness. Respiratory: Negative except as documented in history of present illness. Cardiovascular: Negative except as documented in history of present illness. Musculoskeletal: Negative except as documented in history of present illness. Neurologic: Negative except as documented in history of present illness. Health Status Allergies: Allergic Reactions (Selected) Severity Not Documented Aspirin- Unknown. Codeine- Unknown. Darvocet-N 100- Unknown. Morphine- Unknown. Motrin- Unknown. OxyCODONE- Unknown. Percocet 10/325- Unknown. Sulfa drugs- Unknown. Problem list: All Problems Bloating / SNOMED CT 177462014 / Confirmed Anxiety / SNOMED CT 09567005 / Confirmed CAD (coronary artery disease) / SNOMED CT 84008125 / Confirmed DVT (deep venous thrombosis) / SNOMED CT 827811455 / Confirmed Fibrocystic breast / SNOMED CT 68907672 / Confirmed Fibromyalgia / SNOMED CT 970230310 / Confirmed GERD (gastroesophageal reflux disease) / SNOMED CT 059055362 / Confirmed Stress incontinence / SNOMED CT 229225160 / Confirmed Lower back pain / SNOMED CT 392415148 / Confirmed Major depressive disorder / SNOMED CT 0894352479 / Confirmed Mixed incontinence / SNOMED CT 7504809554 / Confirmed Nocturia / SNOMED CT 168511781 / Confirmed Obstructive sleep apnea / SNOMED CT 486041511 / Confirmed Osteoarthritis / SNOMED CT 1513360726 / Confirmed Screening for colorectal cancer / SNOMED CT 473148875 / Confirmed Weak urinary stream / SNOMED CT 109746756 / Confirmed Small intestinal bacterial overgrowth (SIBO) / SNOMED CT 4521955456 / Confirmed Other post-traumatic urethral stricture, female / SNOMED CT 908939614 / Confirmed Urinary urgency / SNOMED CT 998611684 / Confirmed Histories Procedure history: Cystourethroscopy with dilation of urethral stricture (051852663) on 02/15/2022 at 76 Years. Cystourethroscopy with dilation of urethral stricture (973630593) on 02/05/2019 at 73 Years. transforaminal epidural steroid injection on 07/24/2018 at 72 Years. Comments: 08/03/2018 13:07 RACQUEL Sosa RN, Zulma B/L L5 approx 50 % relief at times Hysterectomy (148762732). Tonsillectomy and adenoidectomy (516206550). Colonoscopy (127857050). Incision AND drainage (320262442). Comments: 06/08/2018 12:41 Zulma Gibbs RN right middle finger 2014 heart cath. cardiac stent. Comments: 06/08/2018 12:46 Zulma Gibbs RN 2016 Epidural steroid injection (240841150). Comments: 06/08/2018 12:47 Zulma Gibbs RN, Dr 06/2017, 07/2017 Social History Social & Psychosocial Habits Alcohol 06/13/2018 Risk Assessment: Denies Alcohol Use Substance Abuse 06/13/2018 Risk Assessment: Denies Substance Abuse Tobacco 06/13/2018 Risk Assessment: Denies Tobacco Use 03/09/2023 Tobacco Use: Never (less than 100 in l Smokeless tobacco use: Never . Physical Examination Airway: Mallampati classification: II (soft palate, fauces, uvula visible). Respiratory: adequate air exchange. Cardiovascular: Regular rhythm. Plan [place] [employer]hesi[employer] (ASA) physical status classification: Class III. Anesthetic Preoperative Plan: Anesthesia General. Normal [facility] Comment on above: Result Comment: Elec tronically Signed By: Eulalia Rodriguez Jr, DO\.br\Date and Time Signed: 04/21/23 16:19 EDT Progress Note-Physician Patient: REGINA HENRY Age: 77 years Sex: Female : 1945 Associated Diagnoses: None Author: Eulalia Rodriguez Jr, DO Postoperative Information Postoperative disposition: Postoperative disposition: To PACU. Optimetrix number: Optimetrix number [id number]. Anesthetic utilized: General. Health Status Allergies: Allergic Reactions (Selected) Severity Not Documented Aspirin- Unknown. Codeine- Unknown. Darvocet-N 100- Unknown. Morphine- Unknown. Motrin- Unknown. OxyCODONE- Unknown. Percocet 10/325- Unknown. Sulfa drugs- Unknown. Physical Examination Vital Signs 04/21/2023 11:48 EDT Heart Rate Monitored 75 bpm Respiratory Rate Monitored 16 br/min Systolic Blood Pressure 149 mmHg HI Diastolic Blood Pressure 79 mmHg SpO2 94 % 04/21/2023 11:40 EDT Heart Rate Monitored 77 bpm Respiratory Rate Monitored 8 br/min Systolic Blood Pressure 152 mmHg HI Diastolic Blood Pressure 79 mmHg SpO2 94 % 04/21/2023 11:25 EDT Heart Rate Monitored 73 bpm Respiratory Rate Monitored 12 br/min Systolic Blood Pressure 152 mmHg HI Diastolic Blood Pressure 79 mmHg SpO2 94 % 04/21/2023 11:10 EDT Heart Rate Monitored 79 bpm Respiratory Rate Monitored 20 br/min Systolic Blood Pressure 156 mmHg HI Diastolic Blood Pressure 77 mmHg SpO2 94 % 04/21/2023 11:05 EDT Heart Rate Monitored 76 bpm Respiratory Rate 20 br/min Systolic Blood Pressure 142 mmHg HI Diastolic Blood Pressure 75 mmHg Blood Pressure Location Left arm SpO2 93 % 04/21/2023 11:00 EDT Heart Rate Monitored 75 bpm Respiratory Rate 15 br/min Systolic Blood Pressure 133 mmHg Diastolic Blood Pressure 67 mmHg Blood Pressure Location Left arm SpO2 93 % 04/21/2023 10:57 EDT Temperature Temporal Artery 36.3 DegC Heart Rate Monitored 79 bpm Respiratory Rate 18 br/min Systolic Blood Pressure 149 mmHg HI Diastolic Blood Pressure 70 mmHg Blood Pressure Location Left arm SpO2 94 % Pain Assessment: Controlled. General: Awake, Alert, Appropriate. Respiratory: Adequate air exchange. Cardiovascular: Stable, Normal peripheral perfusion. Neurological: Normal sensory function, Normal motor function. Assessment Anesthetic outcome No anesthetic complications noted. Adequate pain relief. able to void without difficulty, able to ambulate with assist, tolerating PO intake, no N/V. Review / Management Condition: Stable. Plan Transfer/Discharge: Transfer/Discharge Discharge when meets criteria ( To home ). [facility] Comment on above: Result Comment: Elec tronically Signed By: Eulalia Rodriguez Jr, DO.sravanthi\Date and Time Signed: 04/21/23 16:18 EDT Lab Reportson 03-18-2023 Lab Reports [id number]:127 Normal [facility] Consent for Procedure/Surger yon 03-10-2023 Consent for Procedure/Surgery [id number]:127 Normal [facility] Gastroenterology Office/Clin ic Noteon 03-10-2023 Gastroenterology Office/Clinic Note Chief Complaint change in bowel habits, epigastric pain HPI Staff Patient is a 77 year old female who was referred by Casey for GERD. C/o epigastric pain that is worse when hungry or after eating, nausea & bowel habit changes. EGD 2016 - Radha - given pantoprazole but pt did not tolerate well. States she had an EGD with Dr. Reid within the last 5 years. History of Present Illness Regina Henry is a 77-year-old white female who was referred to me for GERD. The patient reports that she has heartburn, nausea, occasional abdominal cramps, severe bloating, excessive gas, intermittent diarrhea and constipation. She denies any vomiting, dysphagia, hematochezia, or melena. She has a history of significant anxiety that worsens her symptoms. Her last EGD was done by Dr. Garcia in 2017. She denies a family history of colon cancer. Her last colonoscopy was 7-8 years ago at [facility] that did not show any polyps. She denies a history of cholecystectomy. She reports weight gain. She states she was previously on omeprazole, but stopped due to anxiety side effects. She recently started famotidine that mildly improved her symptoms. Review of Systems PHQ Score Initial Depression Screen Score: 0 Constitutional: No fever, no chills, no sweats, no weakness Skin: no Jaundice, no rash, no lesions, no petechiae ENMT: no ear pain, no sore throat, no congestion, no hoarseness Respiratory: no shortness of breath, no cough, no orthopnea, no wheezing Cardiovascular: no chest pain, no palpitations, no edema Gastrointestinal: no nausea, no vomiting, no diarrhea, no constipation, no GI bleeding, no abdominal pain, no dysphagia. Positive for bloating and acid reflux. Genitourinary: No dysuria, no hematuria, no discharge, no pain Musculoskeletal: no back pain, no trauma Neurologic: no numbness, no sleeping problems. Positive for anxiety. Additional ROS info: Except as noted in the above Review of Systems and in the History of Present Illness all other systems have been reviewed and are negative or noncontributory. Physical Exam Vitals & Measurements HR: 77(Peripheral) RR: 16 BP: 138/76 HT: 60 in HT: 152.4 cm WT: 74.7 kg WT: 164.34 lb BMI: 32.16 Constitutional: Appearance: well developed Skin: Inspection: no rashes, ulcers, icterus, or telangiectasias. Eyes: Conjunctivae/lids: normal conjunctivae and lids. ENMT: Hearing: within normal limits. Lips/Teeth/Gums: normal oral mucosa Neck: Neck: normal motion, central trachea Respiratory: Percussion: thorax normoresonant. Auscultation: normal breath sounds; no rubs, wheezes, rale or rhonchi. Cardiovascular: Auscultation: normal rhythm, S1 and S2; no rubs, murmurs or gallop. Peripheral: no edema Gastrointestinal/Abdomen: Abdomen: normal consistency and bowel sounds; no tenderness or masses. Liver/Spleen: normal size and consistency, not palpable. Rectal: deferred Musculoskeletal: Gait/station: normal gait Assessment/Plan 1. GERD (gastroesophageal reflux disease) (K21.9: Gastro-esophageal reflux disease without esophagitis) I will stop the famotidine and omeprazole. I will start pantoprazole. I will also proceed with an EGD to evaluate for esophagitis, gastritis, and peptic ulcer disease. I believe her anxiety might be contributing to her heartburn and acid reflux symptoms. 2. Bloating (R14.0: Abdominal distension (gaseous)) We will screen for celiac disease with blood testing. I will also proceed with EGD and biopsy the duodenum to rule out celiac disease. I am going to give her a course of antibiotics to treat small intestinal bacterial overgrowth, which is the likely explanation for her bloating and excessive gas. 3. Small intestinal bacterial overgrowth (SIBO) (K63.89: Other specified diseases of intestine) We will start daily probiotics and the course of antibiotics. 4. Screening for colorectal cancer (Z12.11: Encounter for screening for malignant neoplasm of colon) The patient reported that her last colonoscopy was more than 7 to 8 years ago. She is not sure exactly. I advised her to follow up to get the records from [facility] and if her last colonoscopy was more than 10 years ago, then we should proceed with a colonoscopy. 5. Anxiety (F41.9: Anxiety disorder, unspecified) I believe her anxiety is a major factor and source for her GI symptoms. The patient was advised to follow up with her primary care physician to better control her anxiety. Encounter for screening for malignant neoplasm of rectum (Z12.12: Encounter for screening for malignant neoplasm of rectum) ATTESTATION: Documentation services were performed after patient or guardian consented to allow Ross Lenny Elizabeth to record this visit. PURNIMA market development specialist and provider reviewed before signing. PURNIMA: Antoni Navarro Follow-up No qualifying data available Problem List/Past Medical History Ongoing Anxiety Bloating CAD (coronary artery disease) DVT (deep venous thrombosis) Fibrocystic breast Fibromyalgia (more content not included)... Normal [facility] Comment on above: Result Comment: Elec tronically Signed By: Antoni Navarro\.br\Date and Time Signed: 03/09/23 13:30 EDT\.br\Electronically Co-Signed By: Danny GIL MD\.br\Date and Time Co-Signed: 03/10/23 08:53 EDT Ambulatory Visit Summaryon 0 03-09-2023 Ambulatory Visit Summary CLEMENT REGINA A :1945 Visit Date:03/09/2023 Ambulatory Visit Instructions Your Diagnosis GERD (gastroesophageal reflux disease) Bloating Small intestinal bacterial overgrowth (SIBO) Screening for colorectal cancer Anxiety Encounter for screening for malignant neoplasm of rectum Your Care Team Attending Physician - Danny GIL MD This Is Your Medications List metronidazole (Flagyl 500 mg Tab) pantoprazole (Pantoprazole [address] Tab) Contact prescribing physician if questions or concerns bismuth subsalicylate-calcium carbonate (Pepto Bismol Chewables) cephalexin (Keflex 500 mg Cap) duloxetine (duloxetine 20 mg oral delayed release capsule) estradiol (Estrace) famotidine (famotidine 20 mg Tab) furosemide (furosemide 20 mg Tab) lorazepam (LORazepam 0.5 mg Tab) metoprolol (metoprolol 25 mg ER Tab) paroxetine (paroxetine 10 mg Tab) phenazopyridine (Pyridium 200 mg Tab) simethicone (Gas-X) Procedures Performed Cystourethroscopy with dilation of urethral stricture (02/15/2022), Cystourethroscopy with dilation of urethral stricture (02/05/2019), transforaminal epidural steroid injection (07/24/2018), cardiac stent, Colonoscopy, Epidural steroid injection, heart cath, Hysterectomy, Incision AND drainage, Tonsillectomy and adenoidectomy. Discharge Vitals Heart Rate (Peripheral) 77 Respiratory Rate 16 Blood Pressure 138/76 Height 152.4 cm Height 60 in Weight 74.7 kg Weight 164.34 lb BMI 32.16 What to do next You Need to Complete the Following IgA, Quant., Blood, Routine collect, 03/09/23, Order for future visit, Lab Collect, Bloating, Print Label By Order Location t-Transglutaminase IgA, Blood, Routine collect, 03/09/23, Order for future visit, Lab Collect, Bloating, Print Label By Order Location Medications What How Much When Why Instructions New metronidazole (Flagyl 500 mg Tab) 1 Tablets By Mouth Every 8 hours Small intestinal bacterial overgrowth (SIBO) Duration: 10 Days Pickup at [facility] #[id number] New pantoprazole (Pantoprazole [address] Tab) 1 Tablets By Mouth Every day GERD (gastroesophageal reflux disease) Refills: 2 Pickup at [facility] #[id number] Unchanged bismuth subsalicylate-calcium carbonate (Pepto Bismol Chewables) Contact prescribing physician if questions or concerns Unchanged cephalexin (Keflex 500 mg Cap) 1 Capsules By Mouth Every day take 1 tab one day prior to the procedure and one tab after the procedure Contact prescribing physician if questions or concerns Unchanged duloxetine (duloxetine 20 mg oral delayed release capsule) 20 Unknown, oral, 1 Refill(s), Take 1 capsule (20 mg total) by mouth in the morning. Contact prescribing physician if questions or concerns Unchanged estradiol (Estrace) See instructions 0.1 mg Vaginal Daily 2x per week Contact prescribing physician if questions or concerns Unchanged famotidine (famotidine 20 mg Tab) Contact prescribing physician if questions or concerns Unchanged furosemide (furosemide 20 mg Tab) 1 Refill(s), take 1 tablet by mouth once daily if needed for leg SWELLING Contact prescribing physician if questions or concerns Unchanged lorazepam (LORazepam 0.5 mg Tab) 2 times a day 0.25 Unknown, oral, 1 Refill(s), Take 0.5 tablets (0.25 mg total) by mouth 2 (two) times a day as needed for anxiety. Contact prescribing physician if questions or concerns Unchanged metoprolol (metoprolol 25 mg ER Tab) 1 Tablets By Mouth Every day Contact prescribing physician if questions or concerns Unchanged paroxetine (paroxetine 10 mg Tab) By Mouth Every day Contact prescribing physician if questions or concerns Unchanged phenazopyridine (Pyridium 200 mg Tab) Oral Contact prescribing physician if questions or concerns Unchanged simethicone (Gas-X) Contact prescribing physician if questions or concerns Pharmacy Information [id number]: [address], [place] [id number] [phone] Allergies Darvocet-N 100 (unknown) Motrin (unknown) Percocet 10/325 (unknown) aspirin (unknown) codeine (unknown) morphine (unknown) oxyCODONE (unknown) sulfa drugs (unknown) Problems Ongoing - Any problem that you are currently receiving treatment for. Anxiety Bloating CAD (coronary artery disease) DVT (deep venous thrombosis) Fibrocystic breast Fibromyalgia GERD (gastroesophageal reflux disease) Lower back pain Major depressive disorder Mixed incontinence Nocturia Obstructive sleep apnea Osteoarthritis Other post-traumatic urethral stricture, female Screening for colorectal cancer Small intestinal bacterial overgrowth (SIBO) Stress incontinence Urinary urgency Weak urinary stream Normal [facility] Auth for Release of Medical Recordson 03-09-2023 Auth for Release of Medical Records [id number]:127 Normal [facility] CT angio chest PE protocolon 03-07-2023 CT angio chest PE protocol [facility] [address] [place] [id number] CT Scan Report Signed Patient: Regina Henry MR#: [id number] : 1945 Acct:[id number] Age/Sex: 77 / F ADM Date: 03/07/23 Loc: Room: Type: [facility] Attending Dr: Shekhar Perez MD Copies to: Shekhar Perez MD Ordering Provider: Shekhar Perez MD Date of Service: 03/07/23 CT/CT angio chest PE protocol: R06.02 CT ANGIOGRAM OF THE CHEST, PULMONARY EMBOLISM PROTOCOL: CLINICAL INFORMATION: Chronic shortness of breath. COMPARISON: Chest 08/06/2018 TECHNIQUE: Following intravenous injection of contrast CT scans of the chest were obtained using pulmonary embolism protocol. Coronal and sagittal reconstructed images, as well as volume rendered CT pulmonary angiographic images were also submitted.The CT exam was performed using one or more of the following dose reduction techniques: Automated exposure control, adjustment of the MA and/or Kv according to patient size, or use of the iterative reconstruction technique. FINDINGS: Pulmonary Vasculature: Contrast bolus is adequate for evaluation of pulmonary embolism. Pulmonary trunk appears nondilated. No filling defects are identified to suggest pulmonary embolism. Mediastinum : Thoracic aorta is normal in caliber. No pericardial effusion. No lymphadenopathy. The esophagus is grossly unremarkable. Lungs: Respiratory motion limits evaluation. Elevation right hemidiaphragm associated right basilar atelectasis. Left basilar atelectasis is also seen. No consolidation, pneumothorax or pleural effusion. Upper abdomen: Ill-defined hypodense lesion is seen involving the right lobe of the liver measuring 2.5 cm in greatest axial dimension. Finding is indeterminate. Additional subcentimeter low attenuating lesion is seen within the left lobe measuring 7 mm, too small for characterization. No acute findings are seen. Soft tissue/bones: Soft tissues surrounding the chest wall demonstrate no acute findings. Osseous structures demonstrate degenerative change. CT/CT angio chest PE protocol IMPRESSION: NO EVIDENCE OF ACUTE PULMONARY EMBOLISM OR PROCESS. ELEVATION RIGHT HEMIDIAPHRAGM WITH BIBASILAR ATELECTASIS. 2.5 CM INDETERMINATE LESION RIGHT LOBE OF THE LIVER. LIVER CT OR MRI IS RECOMMENDED. Impression dictated by: Vinicius Weiss Jr., D.O.03/07/2023 2:46 PM Dictation Location: [place] [address] Transcribed By: [facility] 03/07/23 144 Dictated By: Vinicius Weiss Jr, DO 03/07/23 1444 Signed By: 03/07/23 144 [facility] Creatinine (Bld) [Mass/Vol]O rdered By: Shekhar Perez on 03-07-2023 Creatinine [Mass/Vol] 0.7 mg/dL 0.6-1.3 [facility] Comment on above: ER/ESD physician is notified/shown all ISTAT results.Critical values may be confirmed by laboratory testing ifdeemed necessary by ER attending doctor. [facility] echo transthoracicon [facility] echo transthoracic [facility] Main [place] [address] [place] [address] Echocardiogram Signed Patient: Regina Henry MR#: [id number] : 1945 Acct:[id number] Age/Sex: 77 / F ADM Date: 03/07/23 Loc: Room: Type: [facility] Attending Dr: Shekhar Perez MD Ordering Provider: Shekhar Perez MD Date of Service: 03/07/23/ [facility] echo transthoracic: SHORTNESS OF BREATH Copies to: Ramon Beck MD, FACC Shekhar Perez MD Weight: 160 lb Performed By: GIOVANNA Navarrete BSA: 1.7 m2 BP: 127/69 mmHg HR: 58 Reason For Study: SHORTNESS OF BREATH History: CAD, Stent, COVID Interpretation Summary The left ventricular size, thickness and function are normal Ejection Fraction = 60-65%. A variety of Doppler measurements indicate impaired left ventricular relaxation, which is associated with grade I/IV or mild diastolic dysfunction. There is no prior echocardiogram noted for this patient. Procedure/Quality: A two-dimensional transthoracic echocardiogram with color flow and Doppler was performed. The study was technically good in quality. There is no prior echocardiogram noted for this patient. Left Ventricle: The left ventricular size, thickness and function are normal. Ejection Fraction = 60-65%. A variety of Doppler measurements indicate impaired left ventricular relaxation, which is associated with grade I/IV or mild diastolic dysfunction. Left Atrium: The left atrium appears normal in size. The atrial septum appears normal. Right Atrium: The right atrium appears normal in size. Right Ventricle: The right ventricular size, thickness and function are normal. Aortic Valve: The aortic valve is trileaflet. The aortic valve is moderately sclerotic. Mitral Valve: The mitral valve is mildly sclerotic. There is moderate mitral annular calcification. There is trace mitral regurgitation. Tricuspid Valve: The tricuspid valve is normal. There is trace tricuspid regurgitation. Pulmonic Valve: The pulmonic valve is not well seen, but is grossly normal. Arteries: The aortic root is normal size. Pericardium/Pleura: No pericardial effusion seen. There is no pleural effusion. IVC/Hepatic Viens: The IVC is normal in size with an inspiratory collapse of greater then 50%, suggesting normal right atrial pressure. Miscellaneous: No thrombus, vegetation or mass is seen. Measurements with Normals IVSd: 0.78 cm (0.7-1.1 cm)LVIDd: 3.8 cm (3.7-5.4 cm) LVPWd: 0.90 cm (0.7-1.1 cm)LVIDs: 2.5 cm (2.3-3.6 cm) LA dimension: 3.2 cm (2.3-4.0 cm)Ao root diam: 3.0 cm(2.0-3.6 cm) asc Aorta Diam: 3.1 cm(2.1-3.4cm) Doppler with Normals RVSP(TR): 20.5 mmHg (18-35mmHg) MV E max cathy: 73.3 cm/sec (0.8-1.3m/s) MV A max cathy: 105.4 cm/sec(0.0-0.0m/s) MV E/A: 0.70 (<1.5) MMode/2D Measurements Calculations RVDd: 2.4 cm FS: 32.8 % Ao root area: LVLd ap4: 5.2 cm TAPSE: 1.9 cm EDV(Teich): 7.2 cm2 EDV(MOD-sp4): RV S Cathy: 13.4 cm/sec 61.1 ml 15.2 ml ESV(Teich): LVLs ap4: 4.1 cm 23.2 ml ESV(MOD-sp4): EF(Teich): 62.1 % 6.2 ml EF(MOD-sp4): 59.2 % __ SV(MOD-sp4): 9.0 ml LAV(MOD-sp4): LA A2 area: 11.1 cm2 RA Volume: 8.0 ml 19.2 ml LAV(MOD-sp2): LA A4 area: 10.3 cm2 20.6 ml LA length (vol): 4.4 cm LA vol: 21.9 ml LA vol index: 12.9 ml/m2 __ RA Volume Index: 4.7 ml/m2 Doppler Measurements Calculations MV max P.0 mmHg E/E' lat: MR max cathy: TV max P.6 256.1 cm/sec 16.0 mmHg E/E' med: MR max P.3 mmHg 10.2 __ TR max cathy: 196.5 cm/sec TR max P.5 mmHg RAP systole: 5.0 mmHg Transcribed By: SCV Performed At: 03/07/23 0950 Signed By: Ramon Beck MD, FACC 03/07/23 1106 [facility] FREE T4on 03-04-2023 Free T4 [Mass/Vol] 0.75 ng/dL Critically low 0.76-1.46 Th [facility] Comment on above: Performed By: #### F T4 #### [facility] [address] [address] [address] Rojas Lowry PROF CHEM 8 (BAS METB)on Anion gap [Moles/Vol] 9.9 mmol/L Normal [facility] Comment on above: Performed By: #### T SH, BMP #### [facility] [address] [place] [address] [address] Rojas Lowry Calcium [Mass/Vol] 9.5 mg/dL Normal 8.5-10.1 [facility] Comment on above: Performed By: #### T SH, BMP #### [facility] [address] [place] [address] [address] Rojas Lowry Chloride [Moles/Vol] 106 mmol/L Normal 98-107 [facility] Comment on above: Performed By: #### T SH, BMP #### [facility] [address] [place] [address] [address] Rojas Lowry CO2 [Moles/Vol] 27.2 mmol/L Normal 21.0-32.0 [facility] Comment on above: Performed By: #### T SH, BMP #### [facility] [address] [place] [address] [address] Rojas Lowry Creatinine [Mass/Vol] 0.73 mg/dL Normal 0.55-1.02 [facility] Comment on above: Performed By: #### T SH, BMP #### [facility] [address] [place] [address] [address] Rojas Lowry EGFR-AF BAHRAINI >60 Normal >=60 [facility] Comment on above: Performed By: #### T SH, BMP #### [facility] [address] [place] [address] [address] Rojas Lowry EGFR-NON AF BAHRAINI >60 Normal >=60 [facility] Comment on above: Performed By: #### T SH, BMP #### [facility] [address] [place] [address] [address] Rojas Lowry Glucose [Mass/Vol] 95 mg/dL Normal 74-106 [facility] Comment on above: Performed By: #### T SH, BMP #### [facility] [address] [place] [address] [address] Rojas Lowry Potassium [Moles/Vol] 4.1 mmol/L Normal 3.5-5.1 [facility] Comment on above: Performed By: #### T SH, BMP #### [facility] [address] [place] [address] [address] Rojas Lowry Sodium [Moles/Vol] 139 mmol/L Normal 136-145 [facility] Comment on above: Performed By: #### T SH, BMP #### [facility] [address] [place] [address] [address] Rojas Lowry Urea nitrogen [Mass/Vol] 15.0 mg/dL Normal 7.0-18.0 [facility] Comment on above: Performed By: #### T SH, BMP #### [facility] [address] [place] [address] Dr. Rojas Lowry Urea nitrogen/Creatinine [Mass ratio] 20.5 mg/mg [facility] Comment on above: Performed By: #### T SH, BMP #### [facility] [address] [place] [address] Dr. Rojas Lowry TSHon 03-04-2023 TSH 0.995 uIU/mL Normal 0.358-3.74 0 [facility] Comment on above: Performed By: #### T GULSHAN, BMP #### [facility] [address] [place] [address] Dr. Rojas Lowry PAP ACOG PANEL 2: 30 to 65on 01-20-2023 . . Normal [facility] Comment on above: Result Comment: Perf ormed at: [facility] Performed By: #### [id number] #### [facility] [address] [place] [address] Dr. Rojas Lowry Age Gdln ACOG Testing Comment [facility] Comment on above: Result Comment: <21 or >65 or no age provided Performed By: #### [id number] #### [facility] [address] [place] [address] Dr. Rojas Lowry DIAGNOSIS: Comment Normal [facility] Comment on above: Result Comment: NEGA TIVE FOR INTRAEPITHELIAL LESION OR MALIGNANCY. CELLULAR CHANGES ASSOCIATED WITH ATROPHY ARE PRESENT. Performed at: [facility] Performed By: #### [id number] #### [facility] [address] [place] [address] Dr. Rojas Lowry Methodology: Comment [facility] Comment on above: Result Comment: This liquid based ThinPrep(R) pap test was screened with the use of an image guided system. Performed at: [facility] Performed By: #### [id number] #### [facility] [address] [place] [address] Dr. Rojas Lowry Note: Comment Normal [facility] Comment on above: Result Comment: The Pap smear is a screening test designed to aid in the detection of premalignant and malignant conditions of the uterine cervix. It is not a diagnostic procedure and should not be used as the sole means of detecting cervical cancer. Both false-positive and false-negative reports do occur. . Performed at: [facility] Performed By: #### [id number] #### [facility] [address] [place] [address] Dr. Rojas Lowry Performed by: Comment Normal [facility] Comment on above: Result Comment: Gino Zaldivar, Metal Crafts Teacher (ASCP) Performed at: [facility] Performed By: #### [id number] #### [facility] [address] [place] [address] Dr. Rojas Lowry Specimen adequacy: Comment Normal [facility] Comment on above: Result Comment: Sati sfactory for evaluation. Endocervical component may not be distinguished in cases of atrophy. Performed at: [facility] Performed By: #### [id number] #### [facility] [address] [place] [address] Dr. Rojas Lowry Physician Referralon 023 Physician Referral [id number]#[id number]:127 Normal [facility] Physician Referral [id number]:127 Normal [facility] XR knee RT 4V*on 12-18-2022 XR knee RT 4V* [facility] [place] [address] XRay Report Signed Patient: Regina Henry MR#: [id number] : 1945 Acct:[id number] Age/Sex: 77 / F ADM Date: 12/18/22 Loc: XDUCLY Room: Type: [facility] Attending Dr: Iza ANGEL Copies to: IZA BILL Ordering Provider: IZA BILL Date of Service: 12/18/22 XR/XR knee RT 4V*: Acute pain of right knee RIGHT KNEE - 4 views COMPARISON: None CLINICAL DATA: Medial right knee pain for the past 10 days, greatest with weightbearing. No injury. AP, lateral and both oblique views were obtained. There is osteopenia. No acute fracture or dislocation is identified. There is no disproportionate tibiofemoral joint space narrowing however there could be narrowing at the patellofemoral joint. There is minor marginal spurring at the posterior patella. There is no significant knee effusion or soft tissue swelling. XR/XR knee RT 4V* IMPRESSION: OSTEOPENIA AND MINOR DEGENERATIVE CHANGE. NO ACUTE BONY FINDINGS. Impression dictated by: Annamaria Kirkpatrick M.D.12/18/2022 1:50 PM Dictation Location: [place] [address] Transcribed By: [facility] 12/18/22 1350 Dictated By: Annamaria Kirkpatrick MD 12/18/22 134 Signed By: 12/18/22 1355 [facility] XR knee RT 4V* [facility] [employer] Other XR knee RT 4V* [facility] [employer] Other XR knee RT 4V* [address] [place] [address] [employer] Other XR knee RT 4V* [place] [address] No rt [employer] Other XR knee RT 4V* XRay Report [employer] Other XR knee RT 4V* Signed [employer] Other XR knee RT 4V* Patient: Damion Henry MR#: [id number] [employer] Other XR knee RT 4V* [id number] [employer] Other XR knee RT 4V* : 1945 Acct:[id number] [employer] Other XR knee RT 4V* Age/Sex: 77 / F ADM Date: 12/18/22 [employer] Other XR knee RT 4V* Loc: XDUCLY Room: Ty pe: REG CLI [employer] Other XR knee RT 4V* Attending Dr: Keyona Bill [facility] [employer] Other XR knee RT 4V* Copies to: IZA BILL [facility] [employer] Other XR knee RT 4V* Ordering Provider: IZA BILL [facility] [employer] Other XR knee RT 4V* Date of Service: 12/18/22 [place] [employer] Other XR knee RT 4V* [id number]) XR/XR knee RT 4V*: Acute pain of right knee [place] [employer] Other XR knee RT 4V* RIGHT KNEE - 4 views [facility] [employer] Other XR knee RT 4V* COMPARISON: None [facility] [employer] Other XR knee RT 4V* CLINICAL DATA: Media l right knee pain for the past 10 days, greatest with weightbearing. No injury. [employer] Other XR knee RT 4V* AP, lateral and both oblique views were obtained. There is osteopenia. No acute fracture or [employer] Other XR knee RT 4V* dislocation is ident ified. There is no disproportionate tibiofemoral joint space narrowing however [employer] Other XR knee RT 4V* there could be narro wing at the patellofemoral joint. There is minor marginal spurring at the [employer] Other XR knee RT 4V* posterior patella. T here is no significant knee effusion or soft tissue swelling. [employer] Other XR knee RT 4V* X R/XR knee RT 4V* [employer] Other XR knee RT 4V* IMPRESSION: [facility] [facility] [employer] Other XR knee RT 4V* OSTEOPENIA AND MINOR DEGENERATIVE CHANGE. [employer] Other XR knee RT 4V* NO ACUTE BONY FINDINGS. [employer] Other XR knee RT 4V* Impression dictated by: Annamaria Kirkpatrick M.D.12/18/2022 1:50 PM [employer] Other XR knee RT 4V* Dictation Location: [facility] [employer] Other XR knee RT 4V* Transcribed By: PWS 12/18/22 1350 [employer] Other XR knee RT 4V* Dictated By: Annamaria Kirkpatrick MD 12/18/22 1347 [employer] Other XR knee RT 4V* Signed By: [employer] Other XR knee RT 4V* 12/18/22 1350 [employer] Other Creatinine and Glomerular fi ltration rate.predicted panel (S/P/Bld)Ordered By: Gaudencio Green on 08-04-2022 Creatinine [Mass/Vol] 0.68 mg/dL 0.44-1.03 [facility] Estimated glomerular filtrat ion rate (GFR) non- AmericanOrdered By: Gaudencio Green on 08-04-2022 GFR/1.73 sq M.predicted among non-blacks MDRD (S/P/Bld) [Vol rate/Area] > 60 mL/Min [facility] No Panel InformationOrdered By: Gaudencio Green on 08-04-2022 Estimated GFR () > 60 mL/Min [facility] Comment on above: GFR estimated refere nce range: According to KDOQI guidelines, <60 ml/min/1.73m2 is sufficient to diagnose a patient with chronic kidney disease. Pharmacy Creatinine Clearance (Chem N/A [facility] Serum or plasma urea nitroge n measurement (mass/volume)Ordered By: Gaudencio Green on 08-04-2022 Urea nitrogen [Mass/Vol] 11 mg/dL 07-16 [facility] Outside Recordson 05-03-2022 Outside Records [id number]#1.00OTGTI FF [facility] Urinalysis - AUTOMATEDon Appearance (U) cloudy [employer] Other Bilirubin Ql (U) Negative [employer] Other Color (U) dark yellow [employer] Other Glucose Ql (U) Negative [employer] Other Hemoglobin Ql (U) large [employer] Other Ketones Ql (U) Negative [employer] Other Leukocyte esterase Test strip Ql (U) small [employer] Other Nitrite Ql (U) Negative [employer] Other pH (U) 5.5 [pH] [employer] Other Protein Ql (U) 100 [employer] Other Specific gravity (U) [Rel density] 1.025 [employer] Other Urobilinogen (U) [Mass/Vol] 0.2 mg/dL [employer] Other Urinalysis - AUTOMATED [employer] Other Urine Cultureon 05-02-2022 Urine Culture >100,000 [employer] Other Urine Culture <16 Susceptible [employer] Other Urine Culture <8 Susceptible [employer] Other Urine Culture <4 Susceptible [employer] Other Urine Culture <2 Susceptible [employer] Other Urine Culture <1 Susceptible [employer] Other Urine Culture <0.5 Susceptible [employer] Other Urine Culture <32 Susceptible [employer] Other Urine Culture <2/38 Susceptible [employer] Other Outside Recordson 03-19-2022 Outside Records [id number]#1.[facility]on 03-18-2022 Follow-up visit Diagnoses/Problems Assessed Atherosclerosis of coronary artery of [place] heart (414.01) (I25.10) History of PTCA (V45.82) (Z98.61) Hyperlipidemia, unspecified hyperlipidemia type (272.4) (E78.5) Hypertension (401.9) (I10) Class 1 obesity with body mass index (BMI) of 31.0 to 31.9 in adult (278.00,V85.31) (E66.9,Z68.31) Never a smoker Near syncope (780.2) (R55) Fatigue (780.79) (R53.83) Orders Atherosclerosis of coronary artery of [place] heart, Hyperlipidemia, unspecified hyperlipidemia type Start: Repatha 140 MG/ML Subcutaneous Solution Prefilled Syringe; 1 injection every 2 weeks Class 1 obesity with body mass index (BMI) of 31.0 to 31.9 in adult Healthy Weight Tips; Status:Complete - Retrospective Authorization; Done: 18Mar2022 Some eating tips that can help you lose weight.; Status:Complete - Retrospective Authorization; Done: 18Mar2022 SocHx: Never a smoker Tobacco Use Screening; Status:Complete; Done: 18Mar2022 Tobacco Use Screening; Status:Complete; Done: 18Mar2022 Patient Instructions By signing my name below, Angelique Eden LPN,Lizzieibginette, attest that this documentation has been prepared under the direction and in the presence of Dr. Jr Roldan DO. Please bring all medicines, vitamins, and herbal supplements with you when you come to the office. Prescriptions will not be filled unless you are compliant with your follow up appointments or have a follow up appointment scheduled as per instruction of your physician. Refills should be requested at the time of your visit Repatha process to be started. Follow up in 1 year. Chief Complaint REGINA HENRY is being seen for an annual follow-up of. 76-year-old female who returns for annual follow-up with a number of 9 cardiac related complaints related to fatigue, dizziness, white spots in front of her eyes during working outdoors with gardening and chores couple weekends ago, shortness of breath, and overall anxiety. She has no cardiovascular complaints. Her primary complaint is fatigue. 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 She has had remote PCI of the LAD with Dr. Chacon, subsequently she had a stress imaging and heart catheterization in 2019 performed by myself revealing 30 to 50% disease of the right coronary and widely patent LAD and normal left ventricular function. She states her dizziness was her only symptoms that led to her intervention with Dr. Chacon in the past I have suggested that she has noncardiac related complaints that she needs no further cardiac testing at this time. That anxiety certainly may be a culprit issue in her overall symptom complex. In addition she has untreated hyperlipidemia as she is unable to tolerate statins her latest LDL is 189. I suggested consideration for Repatha injections or Lovique. We will otherwise prescribe the Repatha, and a follow-up in 1 year Current Meds Medication NameInstruction Co Q-10 100 MG Oral CapsuleTAKE 1 CAPSULE Daily Estradiol 0.1 MG/GM Vaginal CreamUSE DIRECTED. Famotidine 10 MG Oral TabletTAKE 1 TABLET Daily prn Metoprolol Tartrate 25 MG Oral TabletTAKE 1 TABLET DAILY. PARoxetine HCl - 10 MG Oral TabletTAKE 1 TABLET DAILY. Allergies Medication pravastatin Adverse Reaction; Myalgia; Recorded By: Angelique Melara; 03/18/2022 12:12:54 PM Statins Adverse Reaction; Myalgia; Recorded By: Angelique Melara; 03/18/2022 12:12:54 PM Aspirin TABS Recorded By: Tanya Perez; 12/09/2021 7:57:03 AM Codeine Derivatives Recorded By: Tanya Perez; 12/09/2021 7:57:03 AM tachycardia Darvocet A500 Recorded By: Tanya Perez; 12/09/2021 7:57:03 AM palpitations headache, tachycardia Morphine Derivatives Recorded By: Tanya Perez; 12/09/2021 7:57:03 AM delirium, anxiety, headache, tachycardia Motrin Recorded By: Tanya Perez; 12/09/2021 7:57:03 AM tachycardia oxycodone Recorded By: Tanya Perez; 12/09/2021 7:57:03 AM headache, tachycardia Percocet TABS Recorded By: Tanya Perez; 12/09/2021 7:57:03 AM anxiety, headache, tachycardia Sulfa Drugs Recorded By: Tanya Perez; 12/09/2021 7:57:03 AM anxiety, headache, tachycardia Social History Problems Never a smoker No alcohol use No caffeine use No illicit drug use Vitals Vital Signs Recorded: 18Mar2022 11:26AM Heart Rate80, R Radial [id number], RUE, Sitting Cfbgsautj34, RUE, Sitting Height5 ft Vstcsm017 lb 3.2 oz BMI Vygdgdmuio70.09 kg/m2 BSA Calculated1.69 Tobacco Useb) No PHQ-2 #1. Over the last 2 weeks have you felt down, depressed or hopeless? (If yes, answer PHQ-9 below)No PHQ-2 #2. Over the last 2 weeks have you felt little interest or pleasure in doing things? (If yes, answer PHQ-9 below)No Fall Screeninga) No falls within the last year Physical Exam Constitutional: alert and in no acute distress. Neck: neck is supple, symmetric, trachea midline, no masses and no thyromegaly . Pulmonary: no increased work of (more content not included)... Normal [employer] Tobacco Screening.on 022 Adult depression screening assessment No [facility] 250 DO Work Phone: Fall risk assessment a) No falls within the last year [facility] 250 DO Work Phone: Tobacco use status CP b) No [facility] 250 DO Work Phone: Lab - Other Lab Resultson Lab - Other Lab Results [id number]#[id number] F Normal [facility] LIPID PROFILEon 03-09-2022 CHOL-HDL RATIO NORM SEE BELOW Normal [facility] Comment on above: Result Comment: 3.3 - 4.4 LOW RISK 4.4 - 7.1 AVERAGE RISK 7.1 - 11.0 MODERATE RISK >11.0 HIGH RISK Performed By: #### L IPID, CMP #### [facility] [address] [address] [address] Rojas Lowry Cholesterol [Mass/Vol] 268 mg/dL Critically high <=200 [facility] Comment on above: Performed By: #### L IPID, CMP #### [facility] [address] [address] [address] Rojas Lowry Cholesterol in HDL [Mass/Vol] 47 mg/dL Normal 40-60 [facility] Comment on above: Performed By: #### L IPID, CMP #### [facility] [address] [address] [address] Rojas Lowry Cholesterol in LDL [Mass/Vol] 188.6 mg/dL Normal [facility] Comment on above: Performed By: #### L IPID, CMP #### [facility] [address] [address] [address] Rojas Lowry Cholesterol.total/Cho lesterol in HDL [Mass ratio] 5.7 {ratio} Normal [facility] Comment on above: Performed By: #### L IPID, CMP #### [facility] [address] [address] [address] Rojas Lowry HDL NORMAL > or = 60 mg/dl - LO W CARDIOVASCULAR RISK <40 mg/dl - HIGH CARDIOVASCULAR RISK Normal [facility] Comment on above: Performed By: #### L IPID, CMP #### [facility] [address] [address] [address] Rojas Lowry LDL CALC NORMAL SEE BELOW Normal [facility] Comment on above: Result Comment: <100 mg/dl OPTIMAL 100 - 129 mg/dl NEAR OR ABOVE OPTIMAL 130 - 159 mg/dl BORDERLINE HIGH 160 - 189 mg/dl HIGH >190 mg/dl VERY HIGH Performed By: #### L IPID, CMP #### [facility] [address] [address] [address] Rojas Lowry Triglyceride [Mass/Vol] 162 mg/dL Critically high <=150 [facility] Comment on above: Performed By: #### L IPID, CMP #### [facility] [address] [address] [address] Rojas Lowry VLDL CALC 32.4 mg/dL Normal [facility] Comment on above: Performed By: #### L IPID, CMP #### [facility] [address] [address] [address] Rojas Lowry PROF 14(COMP METB)on 022 Albumin [Mass/Vol] 3.4 g/dL Normal 3.4-5.0 [facility] Comment on above: Performed By: #### L IPID, CMP #### [facility] [address] [place] [address] Dr. Rojas Lowry Albumin/Globulin [Mass ratio] 0.9 {ratio} Normal [facility] Comment on above: Performed By: #### L IPID, CMP #### [facility] [address] [place] [address] Dr. Rojas Lowry ALP [Catalytic activity/Vol] 89 U/L Normal 46-116 [facility] Comment on above: Performed By: #### L IPID, CMP #### [facility] [address] [place] [address] Dr. Rojas Lowry ALT [Catalytic activity/Vol] 38 U/L Normal 14-59 [facility] Comment on above: Performed By: #### L IPID, CMP #### [facility] [address] [address] [address] Rojas Lowry Anion gap [Moles/Vol] 12.5 mmol/L Normal [facility] Comment on above: Performed By: #### L IPID, CMP #### [facility] [address] [place] [address] Dr. Rojas Lowry AST [Catalytic activity/Vol] 18 U/L Normal 15-37 [facility] Comment on above: Performed By: #### L IPID, CMP #### [facility] [address] [address] [address] Rojas Lowry Bilirubin [Mass/Vol] 0.5 mg/dL Normal 0.2-1.0 [facility] Comment on above: Performed By: #### L IPID, CMP #### [facility] [address] [place] [address] Dr. Rojas Lowry Calcium [Mass/Vol] 9.3 mg/dL Normal 8.5-10.1 [facility] Comment on above: Performed By: #### L IPID, CMP #### [facility] [address] [place] [address] Dr. Rojas Lowry Chloride [Moles/Vol] 104 mmol/L Normal 98-107 [facility] Comment on above: Performed By: #### L IPID, CMP #### [facility] [address] [place] [address] Dr. Rojas Lowry CO2 [Moles/Vol] 25.6 mmol/L Normal 21.0-32.0 [facility] Comment on above: Performed By: #### L IPID, CMP #### [facility] [address] [place] [address] Dr. Rojas Lowry Creatinine [Mass/Vol] 0.67 mg/dL Normal 0.55-1.02 [facility] Comment on above: Performed By: #### L IPID, CMP #### [facility] [address] [place] [address] Dr. Rojas Lowry EGFR-AF BAHRAINI >60 Normal >=60 [facility] Comment on above: Performed By: #### L IPID, CMP #### [facility] [address] [place] [address] Dr. Rojas Lowry EGFR-NON AF BAHRAINI >60 Normal >=60 [facility] Comment on above: Performed By: #### L IPID, CMP #### [facility] [address] [place] [address] Dr. Rojas Lowry Globulin (S) [Mass/Vol] 4.0 g/dL Normal [facility] Comment on above: Performed By: #### L IPID, CMP #### [facility] [address] [address] [address] Rojas Lowry Glucose [Mass/Vol] 89 mg/dL Normal 74-106 [facility] Comment on above: Performed By: #### L IPID, CMP #### [facility] [address] [place] [address] Dr. Rojas Lowry Potassium [Moles/Vol] 4.1 mmol/L Normal 3.5-5.1 [facility] Comment on above: Performed By: #### L IPID, CMP #### [facility] [address] [address] [address] Rojas Lowry Protein [Mass/Vol] 7.4 g/dL Normal 6.4-8.2 [facility] Comment on above: Performed By: #### L IPID, CMP #### [facility] [address] [place] [address] Dr. Rojas Lowry Sodium [Moles/Vol] 138 mmol/L Normal 136-145 [facility] Comment on above: Performed By: #### L IPID, CMP #### [facility] [address] [address] [address] Rojas Lowry Urea nitrogen [Mass/Vol] 15.0 mg/dL Normal 7.0-18.0 [facility] Comment on above: Performed By: #### L IPID, CMP #### [facility] [address] [place] [address] Dr. Rojas Lowry Urea nitrogen/Creatinine [Mass ratio] 22.4 mg/mg Normal [facility] Comment on above: Performed By: #### L IPID, CMP #### [facility] [address] [place] [address] Dr. Rojas Lowry Advance Beneficiary Notifica tionson 03-03-2022 Advance Beneficiary Notifications [id number]#1.00OTGTIFF [facility] Outside Recordson 02-12-2022 Outside Records [id number]#1.[facility]Specialist Note on 01-18-2022 Consultation/Speciali st Note [id number]#1.00OTGTI [facility] Patient Provided Health Data on 12-08-2021 Patient Provided Health Data [id number]#1.[facility] Patient Provided Health Data [id number]#1.[facility] COVID Quick Testingon 2020 Result [employer] Other FLUORO FOR SURGICAL PROCEDUR ESon 01-13-2021 FLUORO FOR SURGICAL PROCEDURES : 01/13/2021 10:48 AM CLINICAL HISTORY: R52 Pain ICD10. Spinal stimulator placement COMPARISON: None available. Intraoperative fluoroscopy was provided for Dr. Fried's procedure. A total of 14.97 mGy of fluoroscopy was used, with 3 fluoroscopic stills saved. No diagnostic images were obtained. Please see Dr. Fried's surgical notes for complete details. [employer] Phone: Donell, Chpo Incoming R adiant Results From [employer] - 01/13/2021 3:18 PM EDT FLUORO FOR SURGICAL PROCEDURES : 01/13/2021 10:48 AM CLINICAL HISTORY: R52 Pain ICD10. Spinal stimulator placement COMPARISON: None available. Intraoperative fluoroscopy was provided for Dr. Fried'miquel procedure. A total of 14.97 mGy of fluoroscopy was used, with 3 fluoroscopic stills saved. No diagnostic images were obtained. Please see Dr. Fried's surgical notes for complete details. [employer] Phone: FLUORO FOR SURGICAL PROCEDURES FLUORO FOR SURGICAL PROCEDURES : 01/13/2021 10:48 AM CLINICAL HISTORY: R52 Pain ICD10. Spinal stimulator placement COMPARISON: None available. Intraoperative fluoroscopy was provided for Dr. Fried'miquel procedure. A total of 14.97 mGy of fluoroscopy was used, with 3 fluoroscopic stills saved. No diagnostic images were obtained. Please see Dr. Fried's surgical notes for complete details. Interpreted by: Peter Wasserman DO Signed by: Peter Wasserman DO 01/13/21 Final result Normal [facility] COVID-19, NAAon 01-07-2021 COVID-19, MARRY Not Detected Normal Not Detect [facility] Comment on above: Result Comment: This nucleic acid amplification test was developed and its performance characteristics determined by [employer]. Nucleic acid amplification tests include RT-PCR and TMA. This test has not been FDA cleared or approved. This test has been authorized by FDA under an Emergency Use Authorization (EUA). This test is only authorized for the duration of time the declaration that circumstances exist justifying the authorization of the emergency use of in vitro diagnostic tests for detection of SARS-CoV-2 virus and/or diagnosis of COVID-19 infection under section 564(b)(1) of the Act, 21 U.S.C. 360bbb-3(b) (1), unless the authorization is terminated or revoked sooner. When diagnostic testing is negative, the possibility of a false negative result should be considered in the context of a patient's recent exposures and the presence of clinical signs and symptoms consistent with COVID-19. An individual without symptoms of COVID-19 and who is not shedding SARS-CoV-2 virus would expect to have a negative (not detected) result in this assay. Performed at: [address] [id number] [employer] F[employer]: Juanjose Garcia PhD, Phone: [phone] Performed By: #### I RCOV #### [facility] [address] [place] [address] Basic Metabolic Panelon 12-22 Anion gap [Moles/Vol] 12 mmol/L Normal 9-15 [facility] Comment on above: Performed By: #### B MP #### [facility] [address] [place] [address] Calcium [Mass/Vol] 9.4 mg/dL Normal 8.5-9.9 [facility] Comment on above: Performed By: #### B MP #### [facility] [address] [place] [address] Chloride [Moles/Vol] 104 mmol/L Normal 95-107 [facility] Comment on above: Performed By: #### B MP #### [facility] [address] [place] [address] CO2 [Moles/Vol] 23 mmol/L Normal 20-31 [facility] Comment on above: Performed By: #### B MP #### [facility] [address] [place] [address] Creatinine [Mass/Vol] 0.59 mg/dL Normal 0.50-0.90 [facility] Comment on above: Performed By: #### B MP #### [facility] [address] [place] [address] GFR/1.73 sq M predicted among blacks MDRD (S/P/Bld) [Vol rate/Area] mL/min/{1.73_m2} Normal >60 [facility] Comment on above: Result Comment: >60 mL/min/1.73m2 EGFR, calc. for ages 18 and older using the MDRD formula (not corrected for weight), is valid for stable renal function. Performed By: #### B MP #### [facility] [address] [place] [address] GFR/1.73 sq M.predicted MDRD (S/P/Bld) [Vol rate/Area] mL/min/{1.73_m2} Normal >60 [facility] Comment on above: Result Comment: >60 mL/min/1.73m2 EGFR, calc. for ages 18 and older using the MDRD formula (not corrected for weight), is valid for stable renal function. Performed By: #### B MP #### [facility] [address] [place] [address] Glucose [Mass/Vol] 86 mg/dL Normal 70-99 [facility] Comment on above: Performed By: #### B MP #### [facility] [address] [place] [address] Potassium [Moles/Vol] 4.4 mmol/L Normal 3.4-4.9 [facility] Comment on above: Performed By: #### B MP #### [facility] [address] [place] [address] Sodium [Moles/Vol] 139 mmol/L Normal 135-144 [facility] Comment on above: Performed By: #### B MP #### [facility] [address] [place] [address] Urea nitrogen [Mass/Vol] 14 mg/dL Normal 8-23 [facility] Comment on above: Performed By: #### B MP #### [facility] [address] [place] [address] Anion gap [Moles/Vol] 12 mmol/L [facility] [employer] Work Phone: Calcium [Mass/Vol] 9.4 mg/dL 8.5 - 9.9 mg/dL [facility] [employer] Work Phone: Chloride [Moles/Vol] 104 mmol/L [facility] [employer] Work Phone: CO2 [Moles/Vol] 23 mmol/L [facility] Work Phone: Creatinine [Mass/Vol] 0.59 mg/dL 0.50 - 0.90 mg/dL [facility] [employer] Work Phone: GFR >60.0 >60 [facility] [employer] Work Phone: Comment on above: >60 mL/min/1.73m2 EG FR, calc. for ages 18 and older using the MDRD formula (not corrected for weight), is valid for stable renal function. GFR Non- >60.0 >60 [facility] [employer] Work Phone: Comment on above: >60 mL/min/1.73m2 EG FR, calc. for ages 18 and older using the MDRD formula (not corrected for weight), is valid for stable renal function. Glucose [Mass/Vol] 86 mg/dL 70 - 99 mg/dL [facility] [employer] Phone: Potassium [Moles/Vol] 4.4 mmol/L [facility] [employer] Phone: Sodium [Moles/Vol] 139 mmol/L [facility] [employer] Phone: Urea nitrogen [Mass/Vol] 14 mg/dL 8 - 23 mg/dL [facility] [employer] Phone: CBCon 01-06-2021 Erythrocyte distribution width (RBC) [Ratio] 13.1 % 11.5 - 14.5 % [facility] Phone: Hematocrit (Bld) [Volume fraction] 42.5 % 37.0 - 47.0 % [facility] Phone: Hemoglobin (Bld) [Mass/Vol] 14.2 g/dL 12.0 - 16.0 g/dL [facility] Phone: MCH (RBC) [Entitic mass] 29.0 pg 27.0 - 31.3 pg [facility] Phone: MCHC (RBC) [Mass/Vol] 33.3 % 33.0 - 37.0 % [facility] Phone: MCV (RBC) [Entitic vol] 86.9 fL 82.0 - 100.0 fL [facility] Phone: Platelets (Bld) [#/Vol] 284 10*3/uL 130 - 400 K/uL [facility] Phone: RBC (Bld) [#/Vol] 4.88 10*6/uL [facility] Phone: WBC (Bld) [#/Vol] 6.0 10*3/uL 4.8 - 10.8 K/uL [facility] Phone: CBC With Platelet No Differe ntialon 01-06-2021 Erythrocyte distribution width (RBC) [Ratio] 13.1 % Normal 11.5-14.5 [facility] Comment on above: Performed By: #### C BCND #### [facility] [address] [place] [address] Hematocrit (Bld) [Volume fraction] 42.5 % Normal 37.0-47.0 [facility] Comment on above: Performed By: #### C BCND #### [facility] [address] [place] [address] Hemoglobin (Bld) [Mass/Vol] 14.2 g/dL Normal 12.0-16.0 [facility] Comment on above: Performed By: #### C BCND #### [facility] [address] [place] [address] MCH (RBC) [Entitic mass] 29.0 pg Normal 27.0-31.3 [facility] Comment on above: Performed By: #### C BCND #### [facility] [address] [place] [address] MCHC (RBC) [Mass/Vol] 33.3 % Normal 33.0-37.0 [facility] Comment on above: Performed By: #### C BCND #### [facility] [address] [place] [address] MCV (RBC) [Entitic vol] 86.9 fL Normal 82.0-100.0 [facility] Comment on above: Performed By: #### C BCND #### [facility] [address] [place] [address] Platelets (Bld) [#/Vol] 284 10*3/uL Normal 130-400 [facility] Comment on above: Performed By: #### C BCND #### [facility] [address] [place] [address] RBC (Bld) [#/Vol] 4.88 10*6/uL Normal 4.20-5.40 [facility] Comment on above: Performed By: #### C BCND #### [facility] [address] [place] [address] WBC (Bld) [#/Vol] 6.0 10*3/uL Normal 4.8-10.8 [facility] Comment on above: Performed By: #### C BCND #### [facility] [address] [place] [address] COVID-19, NAAon 01-06-2021 Source Swab Anterior nares Normal [facility] Comment on above: Performed By: #### I RCOV #### [facility] [address] [place] [address] EKG 12 Leadon 01-06-2021 Atrial Rate 67 BPM [employer] Phone: P [place] 51 degrees [employer] Phone: P-R Interval 176 ms [employer] Phone: Q-T Interval 396 ms [employer] Phone: QRS Duration 78 ms [email or web address] Work Phone: QTc Calculation (Bazett) 418 ms [employer] Phone: R [place] -1 degrees [employer] Phone: T [place] 69 degrees [place] Phone: Ventricular Rate 67 BPM [employer] Phone: Normal sinus rhythm Minimal voltage criteria for LVH, may be normal variant Borderline ECG No previous ECGs available Confirmed by FRANCISCO YUAN ([id number]) on 01/06/2021 11:45:56 AM [employer] Phone: Romeo Marley Incoming R esults From [place] - 01/06/2021 11:46 AM EDT Normal sinus rhythm Minimal voltage criteria for LVH, may be normal variant Borderline ECG No previous ECGs available Confirmed by FRANCISCO YUAN ([id number]) on 01/06/2021 11:45:56 AM [email or web address] Work Phone: [place] 12-26-2020 CNPN Telephone (ENDOLN) -- HENRYREGINA ([id number]) 1945 F Date Time Provider Department 12/26/20 BERNARDA HEARD ENDOYAEL During your visit today, we recorded the following information about you: Bernarda Heard MD 12/26/2020 2:39 PM Signed TSH normal, plasma normetanephrines just slightly high but not in range concerning for pheochromocytoma, no further endocrine workup indicated Eusebio Gordon Ma 12/30/2020 3:38 PM Signed Left message for PT on VM with the below information. Allergies As of Date: 12/26/2020 Noted Allergy Reaction ASA (ASPIRIN) 02/12/2014 14 - Other: See Comments Comments: increased heart rate CODEINE 02/12/2014 14 - Other: See Comments Comments: increased heart rate DARVOCET A500 (PROPOXYPHENE N-MARIANA*02/12/2014 14 - Other: See Comments Comments: increased heart rate GABAPENTIN 08/25/2018 16 - Unknown IBUPROFEN 08/25/2018 16 - Unknown NARCOTICS (OPIOIDS - MORPHINE PUJA*02/12/2014 14 - Other: See Comments Comments: increased heart rate NSAIDS (NON-STEROIDAL ANTI-INFLAM*12/26/2015 16 - Unknown OXYCODONE-ACETAMINOPHEN 08/12/2014 16 - Unknown PROCHLORPERAZINE 05/13/2016 16 - Unknown PROPOXYPHENE 12/01/2015 16 - Unknown SULFAMETHAZINE 07/23/2014 16 - Unknown Date Reviewed: 12/24/2020 Reviewed by: Eusebio Gordon Ma - Fully Assessed Reason for Visit: Results [95] Prescriptions as of 12/26/2020 Sig: METOPROLOL SUCCINATE ER 25 MG* Take 25 mg by mouth once betina* OMEPRAZOLE 20 MG CAPSULE,BRYANNA* Take 20 mg by mouth once betina* FAMOTIDINE 20 MG TABLET Take 20 mg by mouth twice rani* PREDNISOLONE ACETATE 1 % EYE * 1 drop in the operative eye 4* Patient not taking: Reported on 12/24/2020 FLUOXETINE 10 MG CAPSULE Take 1 capsule by mouth once * Patient not taking: Reported on 12/24/2020 ESTRADIOL 0.01% (0.1 MG/GRAM)* Use vaginally. REXULTI 0.25 MG TABLET TRAZODONE 50 MG TABLET Take 50 mg by mouth. Problem List As Of Date 12/26/2020 Noted Resolved Stented coronary artery [Z95.5] 04/16/2019 More... 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 Obstructive sleep apnea syndrome [G47.33] 12/03/2019 More... Hypothyroidism [E03.9] 12/03/2019 12/03/2019 Encounter Status:Closed by EUSEBIO GORDON MA on 12/30/20 [facility] CNOVon 12-24-2020 CNOV Office Visit (ENDOCC ) -- REGINA HENRY ([id number]) 1945 F Date Time Provider Department 12/24/20 11:20 AM BERNARDA HEARD ENDOCC During your visit today, we recorded the following information about you: Pulse Blood pressure Weight Height 82/minute 140/68 73.5 kg 1.524 m Eusebio Gordon Ma 12/24/2020 11:29 AM Addendum Please get blood test today Will refer you to sleep medicine specialist Try to avoid or limit carbohydrates such as bread, rice, pasta, potatoes, corn, crackers, chips, pretzels, popcorn, cookies, etc. Try to eat more protein like meat, fish, cheese, yogurt, nuts, beans, eggs, and veggies. If you eat fruit, avoid watermelon and grapes, eat berries which are lowest in carbs. If you eat an apple or pear, eat half with peanut butter or cheese Try low carb bread (will not say it?s low carb usually, will typically say Light bread or 35-45 calories per slice ? Romina Lott or [employer] Sugar-Free are some examples of low carb/light bread), or try low carb tortilla/wraps (such as Shelby Carb Balance) Do not drink juice or regular pop or Gatorade. Stick to 0 calorie drinks like water, diet pop, Crystal Lite, Powerade Zero or Gatorade Zero, or [place] or Bubbly (or other brands of flavored carbonated water with 0 calories). For coffee, do not use regular sugar or flavored creamers ? use 0 calorie sweeteners like Stevia, Splenda, Equal, or Sweet-N-Low, use plain [id number] or a sugar-free flavored creamer, or just drink it black if you like it that way [facility] [employer] [facility] FACTS LAB HOURS: [employer] lab is open from 7:30am to 6pm , open from 7:30am-5pm on Tuesday and open 8am-12pm on Tuesday. Closed on Tuesday [employer] lab is open from 7:30am to 5pm Tuesday-Tuesday, 8am-12pm on Tuesday, and closed on Tuesday. Routine Lab Orders 45 days after they are entered. If your lab orders , you may be required to wait in the lab while they are reinstated Future Orders are lab tests to be completed on the EXPECTED date. These orders 45 days after the expected date. Standing Orders are recurring orders with an expiration date. The interval will indicate how often the test should be completed. Fasting Lab means nothing to eat or drink (except water) 10-12 hours before your blood is drawn. CT/MRI/IVP: If you have one of these radiology exams ordered along with blood work, please complete the blood work at least 24 hours prior to the scheduled exam. [facility] -- No appointment needed At the [facility], patients 2 years and older can get walk-in medical attention for common health problems including: Cold and flu symptoms Conjunctivitis Ear and throat infections Minor bumps and cuts Seasonal allergies Skin rashes Simple sprains and strains Sinus infections Urinary tract infections Upper respiratory tract infections Locations and Times [facility] - [address] [facility], [facility], [place] - [address] [facility] - Tuesday through Tuesday 6 AM - 9 PM - Tuesday and Tuesday 8 AM - 4 PM For [facility] LOCATIONS, HOURS OF OPERATION and CURRENT WAIT TIMES, visit the following link for details. [email or web address] ][email or web address]%[email or web address] AND Emergency Department Judd Lang [facility] - [address] [facility] (off of [facility]), [facility] [phone] Pharmacy Hours: Tuesday through Tuesday 8 am to 6 pm Opt in to receive text reminders for your appointments with [facility] specialist today. To opt in, text [phone] to [phone]. My Chart Schedule My Appointment enables you to view your established primary care provider's open schedule and book an appointment online in real-time. This feature is available in internal medicine, family medicine, or pediatrics at any of our [facility] locations and main campus. Bernarda Heard MD 12/24/2020 12:24 PM Signed 75yo WF with h/o MNG, pre-diabetes, CAD s/p PCI, ADILENE (not using CPAP, made her wheeze), depression, anxiety, fibromyalgia, h/o TAHBSO age 39, referred by Dr Mccann/Iza Bill for shakiness/nausea Saw Dr Mccann 06/25/20 who noted she had normal ACTH stim test (baseline cortisol 106, then 21.7, then 24.8). Also had labs on 06/11/20 showing: cortisol 6.8, ACTH 4.5, C-peptide 2.6, insulin 13.8 (2-34), and proinsulin 4.3 (0-10). Also seen by fernando here in 2013 for adrenal fatigue , had normal stim test and negative outpatient fasting test (total 20 hours of fasting, no hypoglycemia noted while nauseated and shaking, at one point shaking improved after Ativan and another time improved on its own) done due to possible reactive hypogl (more content not included)... Normal [facility] HISTORY PHYSICALon HISTORY PHYSICAL HNO ID: [id number] Author: Bernarda Heard Service: ? Author Type: Physician Type: HANDP Filed: 12/24/2020 12:24 PM Note Text: 75yo WF with h/o MNG, pre-diabetes, CAD s/p PCI, ADILENE (not using CPAP, made her wheeze), depression, anxiety, fibromyalgia, h/o TAHBSO age 39, referred by Dr Mccann/Iza Bill for shakiness/nausea Saw Dr Mccann 06/25/20 who noted she had normal ACTH stim test (baseline cortisol 106, then 21.7, then 24.8). Also had labs on 06/11/20 showing: cortisol 6.8, ACTH 4.5, C-peptide 2.6, insulin 13.8 (2-34), and proinsulin 4.3 (0-10). Also seen by fernando here in 2013 for adrenal fatigue , had normal stim test and negative outpatient fasting test (total 20 hours of fasting, no hypoglycemia noted while nauseated and shaking, at one point shaking improved after Ativan and another time improved on its own) done due to possible reactive hypoglycemia. Notes she has been having symptoms for last 7 years. Has shakiness all the time, all over her body, never goes away, feels it inside, better with rest and closing my mind and not doing anything . Weak all the time. Always hungry and can shake even worse and then when she does eat she can be even shakier, like something explodes , notes sweets cause these symptoms to be worse. Can be off balance and eyes are blurry. Energy loss: Yes, worn out after brushing teeth and making bed in morning, has to fight falling asleep while on couch during the day Sleep disturbance: No, sleeps because she takes a trazadone Appetite loss: No Wt change: maybe up 20 lbs over last 7 years, partly from being inactive BM irregularities: No Hair/skin changes: thinning a lot Temp intolerance: extremely cold, constantly, and this makes her shake even more Palpitations: No Tremor: Yes Sweats: No N/V/D: nauseated all the time, sometimes worse than others, goes along with shakiness Abdominal pain: No Pallor: No KENNEDY: occasionally has left-sided KENNEDY Dizziness: can be off balance at time BP issue: once told her BP was low from her 20s-50s All other Review of Systems reviewed and are negative. Family history of pituitary problems, kidney stones, adrenal problems: mother had thyroidectomy PAST MEDICAL HISTORY Diagnosis Date - Anxiety - Depression - Fibromyalgia - Pseudophakia of both eyes FAMILY HISTORY Problem Relation Age of Onset - Diabetes Mother - Ischemic Heart Disease Father 40 yo - No Ocular Disease Father - Cancer Brother ?? kidney - Ischemic Heart Disease Brother Social History Tobacco Use - Smoking status: Never Smoker - Smokeless tobacco: Never Used Substance Use Topics - Alcohol use: Not Currently - Drug use: Never - metoprolol succinate ER (TOPROL XL) 25 mg 24 hr tablet, Take 25 mg by mouth once daily., Disp: , Rfl: - famotidine (PEPCID) 20 mg tablet, Take 20 mg by mouth twice daily., Disp: , Rfl: - traZODone (DESYREL) 50 mg tablet, Take 50 mg by mouth., Disp: , Rfl: Lives with , no tobacco or EtOH PE: BP 140/68 Pulse 82 Ht 152.4 cm (5') Wt 73.5 kg (162 lb) BMI 31.64 kg/m? Last 3 Encounter Wt Readings: Date: Wt: 12/24/2020 73.5 kg (162 lb) 12/03/2019 68 kg (150 lb) 02/12/2014 58.8 kg (129 lb 11.2 oz) Gen - pleasant, NAD, no cushingoid or acromegalic features HEENT - nodular thyromegaly, b/l 1cm nodules, no SC/DC fat pads CVS - RRR no murmurs MSK - 5/5 UE proximal muscle strength Neuro - normal relaxation phase of UE DTRs, coarse intermittent right hand tremor Skin - no acne or bruising noted, normal temp/texture Component Latest Ref Rng AND Units 02/12/2014 02/27/2014 02/27/2014 02/27/2014 02/27/2014 02/27/2014 02/27/2014 02/27/2014 02/27/2014 02/27/2014 02/27/2014 02/27/2014 02/27/2014 02/27/2014 9:55 AM 9:55 AM 9:56 AM 11:03 AM 12:10 PM 1:00 PM 1:02 PM 2:14 PM 3:15 PM 4:06 PM 4:35 PM 5:00 PM 5:01 PM Protein, Total 6.0 - 8.4 g/dL 7.6 Albumin 3.5 - 5.0 g/dL 4.2 Calcium 8.5 - 10.5 mg/dL 9.3 Bilirubin, Total 0.0 - 1.5 mg/dL 0.5 Alkaline Phosphatase 40 - 150 U/L 88 AST 7 - 40 U/L 22 Glucose 65 - 100 mg/dL 71 86 81 73 BUN 8 - 25 mg/dL 11 Creatinine 0.70 - 1.40 mg/dL 0.57 (L) Sodium 132 - 148 mmol/L 135 Potassium 3.5 - 5.0 mmol/L 3.7 Chloride 98 - 110 mmol/L 97 (L) CO2 23 - 32 mmol/L 23 Anion Gap 0 - 15 mmol/L 15 ALT 0 - 45 U/L 18 eGFR- >60 eGFR-All Other Races . >60 WBC 3.70 - 11.00 k/uL 6.80 RBC 3.90 - 5.20 m/uL 4.90 Hemoglobin 11.5 - 15.5 g/dL 14.2 Hematocrit 36.0 - 46.0 % 41.4 MCV 80.0 - 100.0 fL 84.5 MCH 26.0 - 34.0 pG 29.0 MCHC 30.5 - 36.0 g/dL 34.3 RDW-CV 11.5 - 15.0 % 13.0 Platelet Count 150 - 400 k/uL 322 MPV 9.0 - 12.7 fL 9.6 Cortisol Basal ug/dL 8.4 Cortisol 30 min ug/dL 31.0 Cortisol 60 min ug/dL 37.5 Interpretation (ACTHST) A peak value of at least 18 ug/dL is a normal response to cortrosyn . . . Iron 30 - 140 ug/dL 62 TIBC 210 - 415 ug/dL 363 Transferrin Saturation 11 - 46 % 17 T4 5.0 - 11.0 ug/dL 5.4 (more content not included)... Normal [facility] Metanephrines,Fr Plason 03-0 Metanephrine, Fr Plas 23 pg/mL Normal 12-67 [facility] Comment on above: Result Comment: Refe rence Ranges: Hypertensive adult > or = 18 yrs old: 12-72 pg/mL Normotensive adult > or = 18 yrs old: 12-67 pg/mL Normotensive children < 18 yrs old: 10-95 pg/mL This test was developed and its performance characteristics determined by [facility] Pathology and Laboratory Medicine [place] ([facility]). It has not been cleared or approved by the FDA. [facility] is regulated under CLIA as qualified to perform high complexity testing. This test is used for clinical purposes. It should not be regarded as investigational or for research. Performed By: #### P METAN #### [place] [address] Normetanephrine, Fr Plas 111 pg/mL High 18-101 [facility] Comment on above: Result Comment: Refe rence Ranges: Hypertensive adult > or = 18 yrs old: 24-145 pg/mL Normotensive adult > or = 18 yrs old: 18-101 pg/mL Normotensive children < 18 yrs old: 22-83 pg/mL Methyldopa may cause false elevation of normetanephrine levels in this assay. If patient is on methyldopa, interpret results with caution. This test was developed and its performance characteristics determined by [facility] and Laboratory Medicine [place] ([facility]). It has not been cleared or approved by the FDA. [facility] is regulated under CLIA as qualified to perform high complexity testing. This test is used for clinical purposes. It should not be regarded as investigational or for research. Performed By: #### P METAN #### [facility] [address] [place], [place] [address] TSHon 12-24-2020 TSH Qn 1.390 m[IU]/L Normal 0.270-4.20 0 [facility] Comment on above: Performed By: #### T SH #### [facility] [address] [facility], [place] [address] THYROID STIM IMMUNOGLOBon THYROID STIM IMMUNOGLOB <1.0 Normal <=1.3 [facility] Comment on above: Result Comment: Test Performed by: [facility] [address] [place] [address] Performed By: #### T SIG #### [facility] [address] [place] [address] PUJA WITH REFLEX TO ENAon PUJA WITH REFLEX TO JAVAD Negative Normal NEGATIVE [facility] Comment on above: Performed By: #### A NA #### [facility] [address] [place] [address] CITRULLINE ANTIBODYon 2018 CITRULLINE ANTIBODY <1 Normal [facility] Comment on above: Result Comment: THE TEST FOR ANTIBODIES SPECIFIC FOR CYCLIC CITRULLINATED PEPTIDE (CCP) HAS SHOWN TO BE VALUABLE IN THE DIAGNOSIS OF RHEUMATOID ARTHRITIS. THE DIAGNOSTIC VALUE OF ANTIBODIES TO CCP IN JUVENILE RHEUMATOID ARTHRITIS PATIENTS HAS NOT BEEN DETERMINED. ANTIBODIES TO CENTROMERE OR SS-A AND MYELOMA IGG MAY BE REACTIVE IN THIS ASSAY. REF VALUES NEGATIVE < 3 U/ML POSITIVE >=3 U/ML Performed By: #### C ITAB #### [facility] [address] [facility] [place] [address] CBCon 02-09-2019 Erythrocyte distribution width Ratio (RBC) 13.1 % Normal 11.5 - 14.5 [facility] Comment on above: Performed By: #### C BC #### [address] [address] Hematocrit Volume Fraction (Bld) 46.5 % High 36.0 - 46.0 [facility] Comment on above: Performed By: #### C BC #### [address] [address] Hemoglobin mass conc (Bld) 15.0 g/dL Normal 12.0 - 16.0 [facility] Comment on above: Performed By: #### C BC #### [address] [address] MCHC mass conc (RBC) 32.3 g/dL Normal 32.0 - 36.0 [facility] Comment on above: Performed By: #### C BC #### [address] [address] MCV Entitic volume (RBC) 87 fL Normal 80 - 100 [facility] Comment on above: Performed By: #### C BC #### [address] [address] Platelets #/vol (Bld) 319 10*3/uL Normal 150 - 450 [facility] Comment on above: Performed By: #### C BC #### [address] [address] RBC #/vol (Bld) 5.32 x10E12/L High 4.00 - 5.20 [facility] Comment on above: Performed By: #### C BC #### [address] [address] WBC #/vol (Bld) 6.8 10*3/uL Normal 4.4 - 11.3 [facility] Comment on above: Performed By: #### C BC #### [address] [address] COMPREHENSIVE PANELon 2018 Albumin mass conc 4.2 g/dL Normal 3.4 - 5.0 [facility] Comment on above: Performed By: #### C MP #### [address] [address] ALP enzyme act/vol 83 U/L Normal 33 - 136 [facility] Comment on above: Performed By: #### C MP #### [address] [address] ALT enzyme act/vol 23 U/L Normal 7 - 45 [facility] Comment on above: Result Comment: Bethany ents treated with Sulfasalazine may generate falsely decreased results for ALT. Performed By: #### C MP #### [address] [address] Anion gap molar conc 14 mmol/L Normal 10 - 20 [facility] Comment on above: Performed By: #### C MP #### [address] [address] AST enzyme act/vol 22 U/L Normal 9 - 39 [facility] Comment on above: Performed By: #### C MP #### [address] [address] Bilirubin mass conc 0.6 mg/dL Normal 0.0 - 1.2 [facility] Comment on above: Performed By: #### C MP #### [address] [address] Calcium mass conc 9.6 mg/dL Normal 8.6 - 10.3 [facility] Comment on above: Performed By: #### C MP #### [address] [address] Chloride molar conc 101 mmol/L Normal 98 - 107 [facility] Comment on above: Performed By: #### C MP #### [address] [address] Creatinine mass conc 0.65 mg/dL Normal 0.50 - 1.05 [facility] Comment on above: Performed By: #### C MP #### [address] [address] GFR- AM. >60 Normal >60 [facility] Comment on above: Result Comment: CALC ULATIONS OF ESTIMATED GFR ARE PERFORMED USING THE MDRD STUDY EQUATION FOR THE IDMS-TRACEABLE CREATININE METHODS. CLIN CHEM 2007;53:766-72 Performed By: #### C MP #### [address] [address] GFR-NON AM. >60 Normal >60 [facility] Comment on above: Performed By: #### C MP #### [address] [address] Glucose mass conc 79 mg/dL Normal 74 - 99 [facility] Comment on above: Performed By: #### C MP #### [address] [address] HCO3 molar conc (Bld) 25 mmol/L Normal 21 - 32 [facility] Comment on above: Performed By: #### C MP #### [address] [address] Potassium molar conc 3.9 mmol/L Normal 3.5 - 5.3 [facility] Comment on above: Performed By: #### C MP #### [address] [address] Protein mass conc 7.5 g/dL Normal 6.4 - 8.2 [facility] Comment on above: Performed By: #### C MP #### [address] [address] Sodium molar conc 136 mmol/L Normal 136 - 145 [facility] Comment on above: Performed By: #### C MP #### [address] [address] Urea nitrogen mass conc 11 mg/dL Normal 6 - 23 [facility] Comment on above: Performed By: #### C MP #### [address] [address] CREATINE KINASEon 02-09-2019 CK enzyme act/vol 69 U/L Normal 0 - 215 [facility] Comment on above: Performed By: #### C K #### [address] [address] RHEUMATOID FACTORon 02-10-20 19 RHEUMATOID FACTOR <10 Normal 0 - 15 [facility] Comment on above: Performed By: #### R F #### [address] [address] SEDIMENTATION RATE, ERYTHROC YTEon 02-09-2019 SEDIMENTATION RATE, ERYTHROCYTE 8 mm/h Normal 0 - 20 [facility] Comment on above: Performed By: #### E SRWS #### [address] [address] VITAMIN D, 25-HYDROXYon 01-22 VITAMIN D, 25-HYDROXY 17 ng/mL Abnormal [facility] Comment on above: Result Comment: . DEFICIENCY: < 20 NG/ML INSUFFICIENCY: 20-29 NG/ML OPTIMUM LEVEL: 30-80 NG/ML POSSIBLE TOXICITY: > 80 NG/ML THIS ASSAY ACCURATELY QUANTIFIES THE SUM OF VITAMIN D3, 25-HYDROXY AND VIT D2,25-HYDROXY. Performed By: #### V TDOH #### [address] [address] Vital Signs Date Time Vital Sign Value Performing Clinician Facility 12-11-2023 13:11-0500 Body height 167.64 cm MD Shekhar Perez Work Phone: [facility] 12-11-2023 13:11-0500 Body mass index (BMI) [Ratio] 25.9 kg/m2 MD Shekhar Perez Work Phone: [facility] 12-11-2023 13:11-0500 Body temperature 96.7 [degF] MD Shekhar Perez Work Phone: [facility] 12-11-2023 13:11-0500 Body weight 72.74 kg MD Shekhar Perez Work Phone: [facility] 12-11-2023 13:11-0500 Diastolic blood pressure 80 mm[Hg] MD Shekhar Perez Work Phone: [facility] 12-11-2023 13:11-0500 Heart rate 84 /min MD Shekhar Perez Work Phone: [facility] 12-11-2023 13:11-0500 Respiratory rate 18 /min MD Shekhar Perez Work Phone: [facility] 12-11-2023 13:11-0500 SaO2% (BldA) [Mass fraction] 98 % MD Shekhar Perez Work Phone: [facility] 12-11-2023 13:11-0500 Systolic blood pressure 130 mm[Hg] MD Shekhar Perez Work Phone: [facility] 12-05-2023 15:45-0500 Body mass index (BMI) [Ratio] 32.32 kg/m2 Shekhar Perez MD Work Phone: [employer] 12-05-2023 15:45-0500 Body weight 72.58 kg Shekhar Perez MD Work Phone: [facility] 12-05-2023 15:45-0500 Diastolic blood pressure 75 mm[Hg] Shekhar Perez MD Work Phone: [facility] 12-05-2023 15:45-0500 Heart rate 88 /min Shekhar Perez MD Work Phone: [facility] 12-05-2023 15:45-0500 Systolic blood pressure 137 mm[Hg] Shekhar Perez MD Work Phone: [facility] 11-09-2023 13:20-0500 Diastolic blood pressure 74 mm[Hg] MD Shekhar Perez Work Phone: [facility] 11-09-2023 13:20-0500 Heart rate 91 /min MD Shekhar Perez Work Phone: [facility] 11-09-2023 13:20-0500 Respiratory rate 16 /min MD Shekhar Perez Work Phone: [facility] 11-09-2023 13:20-0500 SaO2% (BldA) [Mass fraction] 92 % MD Shekhar Perez Work Phone: [facility] 11-09-2023 13:20-0500 Systolic blood pressure 135 mm[Hg] MD Shekhar Perez Work Phone: [facility] 11-09-2023 12:50-0500 Inhaled oxygen flow rate 2 L/min MD Shekhar Perez Work Phone: [facility] 11-09-2023 12:25-0500 Body temperature 97.2 [degF] MD Shekhar Perez Work Phone: [facility] 11-09-2023 09:27-0500 Body height 152.4 cm MD Shekhar Perez Work Phone: [facility] 11-09-2023 09:27-0500 Body weight 74.38 kg MD Shekhar Perez Work Phone: [facility] 10-28-2023 10:00-0500 Body height 152.4 cm Gallo Reid Other [facility] 10-28-2023 10:00-0500 Body mass index (BMI) [Ratio] 32.61 kg/m2 Gallo Reid Other [facility] [employer] Other 10-28-2023 10:00-0500 Body weight 75.75 kg Gallo Leannjose juan Other [facility] [employer] Other 10-28-2023 10:00-0500 Body weight 75.74 kg MD Shekhar Perez Work Phone: [facility] 10-25-2023 13:00-0500 Body height 152.4 cm Musa Orlando Other [facility] 10-25-2023 13:00-0500 Body mass index (BMI) [Ratio] 32.61 kg/m2 Musa Orlando Other [facility] [employer] Other 10-25-2023 13:00-0500 Body weight 75.75 kg Musa Orlando Other [facility] [employer] Other 10-25-2023 13:00-0500 Body weight 75.74 kg MD Shekhar Perez Work Phone: [facility] 10-07-2023 10:30-0500 Body height 152.4 cm Peter Lionel II Other [facility] 10-07-2023 10:30-0500 Body mass index (BMI) [Ratio] 32.61 kg/m2 Peter Lioenl II Other [facility] [employer] Other 10-07-2023 10:30-0500 Body weight 75.75 kg Peter Lionel II Other [employer] Other 10-07-2023 10:30-0500 Body weight 75.74 kg MD Shekhar Perez Work Phone: [facility] 03-01-2023 10:15-0400 Diastolic blood pressure 80 mm[Hg] [facility] 03-01-2023 10:15-0400 Heart rate 72 /min [facility] 03-01-2023 10:15-0400 Respiratory rate 16 /min [facility] 03-01-2023 10:15-0400 SaO2% (BldA) [Mass fraction] 96 % [facility] 03-01-2023 10:15-0400 Systolic blood pressure 156 mm[Hg] [facility] 03-01-2023 09:39-0400 Inhaled oxygen flow rate 3 L/min [facility] 03-01-2023 09:02-0400 Body height 152.4 cm [facility] [place] [facility] 03-01-2023 09:02-0400 Body weight 72.57 kg [facility] [place] [facility] 02-15-2023 14:30-0400 Body height 152.4 cm Cam Riggs Other [employer] Other 02-08-2023 09:53-0400 Diastolic blood pressure 70 mm[Hg] [facility] 02-08-2023 09:53-0400 Heart rate 67 /min [facility] 02-08-2023 09:53-0400 Respiratory rate 16 /min [facility] 02-08-2023 09:53-0400 SaO2% (BldA) [Mass fraction] 93 % [facility] 02-08-2023 09:53-0400 Systolic blood pressure 130 mm[Hg] [facility] 02-08-2023 09:13-0400 Inhaled oxygen flow rate 3 L/min [facility] 02-08-2023 08:49-0400 Body height 152.4 cm [facility] [place] [facility] 02-08-2023 08:49-0400 Body weight 73.48 kg [facility] [place] [facility] 12-18-2022 13:10-0500 Body height 152.4 cm Iza Bill Other [employer] Other 12-18-2022 13:10-0500 Body mass index (BMI) [Ratio] 31.64 kg/m2 Iza Bill Other [employer] Other 12-18-2022 13:10-0500 Body temperature 97.2 [degF] Iza Bill Other [employer] Other 12-18-2022 13:10-0500 Body weight 73.48 kg Iza Bill Other [employer] Other 12-18-2022 13:10-0500 Respiratory rate 18 /min Iza Bill Other [employer] Other 12-18-2022 13:10-0500 SaO2% (BldA) [Mass fraction] 94 % Iza Bill Other [employer] Other 09-24-2022 11:15-0500 Body height 152.4 cm Payton Boggs Other [employer] Other 09-24-2022 11:15-0500 Body mass index (BMI) [Ratio] 32.22 kg/m2 Payton Boggs Other [employer] Other 09-24-2022 11:15-0500 Body temperature 97.5 [degF] Payton Boggs Other [employer] Other 09-24-2022 11:15-0500 Body weight 74.84 kg Payton Boggs Other [employer] Other 09-24-2022 11:15-0500 Diastolic blood pressure 74 mm[Hg] Payton Boggs Other [employer] Other 09-24-2022 11:15-0500 SaO2% (BldA) [Mass fraction] 95 % Payton Boggs Other [employer] Other 09-24-2022 11:15-0500 Systolic blood pressure 118 mm[Hg] Paytonhubert Boggs Other [employer] Other 05-02-2022 10:45-0400 Body height 152.4 cm Katty Daniella Other [employer] Other 05-02-2022 10:45-0400 Body mass index (BMI) [Ratio] 31.05 kg/m2 Katty Daniella Other [employer] Other 05-02-2022 10:45-0400 Body temperature 97.9 [degF] Katty Daniella Other [employer] Other 05-02-2022 10:45-0400 Body weight 72.12 kg Katty Daniella Other [employer] Other 05-02-2022 10:45-0400 Diastolic blood pressure 64 mm[Hg] Katty Daniella Other [employer] Other 05-02-2022 10:45-0400 Respiratory rate 18 /min Katty Daniella Other [employer] Other 05-02-2022 10:45-0400 SaO2% (BldA) [Mass fraction] 93 % Katty Daniella Other [employer] Other 05-02-2022 10:45-0400 Systolic blood pressure 120 mm[Hg] Katty Brewer Other [employer] Other 03-18-2022 11:26-0400 Body height 152.4 cm Clarence Hammert [facility] Phone: [facility] [employer] [facility] Work Phone: 03-18-2022 11:26-0400 Body mass index (BMI) [Ratio] 31.09 kg/m2 Clarence Dingmert Work Phone: [facility] [employer] DO Work Phone: 03-18-2022 11:26-0400 Body surface area Derived from formula 1.69 m2 Clarence Dingmert Work Phone: [facility] [employer] DO Work Phone: 03-18-2022 11:26-0400 Body weight 72.21 kg Clarence Dingmert Work Phone: [facility] [employer] DO Work Phone: 03-18-2022 11:26-0400 Diastolic blood pressure 60 mm[Hg] Clarence Dingmert Work Phone: [facility] [employer] Work Phone: 03-18-2022 11:26-0400 Heart rate 80 /min Clarence Mario Mummert Work Phone: [facility] [employer] DO Work Phone: 03-18-2022 11:26-0400 Systolic blood pressure 118 mm[Hg] Clarence Mario Mummert Work Phone: [facility] [employer] DO Work Phone: 02-09-2022 15:45-0400 Body height 152.4 cm Ronnie Morel Other [employer] Other 02-09-2022 15:45-0400 Body mass index (BMI) [Ratio] 32.03 kg/m2 Ronnie Morel Other [employer] Other 02-09-2022 15:45-0400 Body temperature 97.3 [degF] Ronnie Morel Other [employer] Other 02-09-2022 15:45-0400 Body weight 74.39 kg Ronnie Morel Other [employer] Other 02-09-2022 15:45-0400 Diastolic blood pressure 82 mm[Hg] Ronnie Morel Other [employer] Other 02-09-2022 15:45-0400 SaO2% (BldA) [Mass fraction] 96 % Ronnie Morel Other [employer] Other 02-09-2022 15:45-0400 Systolic blood pressure 155 mm[Hg] Ronnie Morel Other [employer] Other 12-22-2021 15:15-0500 Body height 152.4 cm Ronnie Morel Other [employer] Other 12-22-2021 15:15-0500 Body mass index (BMI) [Ratio] 31.24 kg/m2 Ronnie Morel Other [employer] Other 12-22-2021 15:15-0500 Body temperature 96.9 [degF] Ronnie Morel Other [employer] Other 12-22-2021 15:15-0500 Body weight 72.58 kg Ronnie Morel Other [employer] Other 12-22-2021 15:15-0500 Diastolic blood pressure 81 mm[Hg] Ronnie Morel Other [employer] Other 12-22-2021 15:15-0500 SaO2% (BldA) [Mass fraction] 93 % Ronnie Morel Other [employer] Other 12-22-2021 15:15-0500 Systolic blood pressure 128 mm[Hg] Ronnie Morel Other [employer] Other 09-06-2021 12:30-0500 Body height 152.4 cm Katty Daniella Other [employer] Other 09-06-2021 12:30-0500 Body mass index (BMI) [Ratio] 31.24 kg/m2 Katty Daniella Other [employer] Other 09-06-2021 12:30-0500 Body temperature 97 [degF] Katty Daniella Other [employer] Other 09-06-2021 12:30-0500 Body weight 72.58 kg Katty Daniella Other [employer] Other 09-06-2021 12:30-0500 Respiratory rate 18 /min Katty Daniella Other [employer] Other 09-06-2021 12:30-0500 SaO2% (BldA) [Mass fraction] 94 % Katty Daniella Other [employer] Other 08-06-2021 15:00-0400 Body height 152.4 cm Iza Bill Other [employer] Other 08-06-2021 15:00-0400 Body mass index (BMI) [Ratio] 31.24 kg/m2 Iza Bill Other [employer] Other 08-06-2021 15:00-0400 Body temperature 97.3 [degF] Iza Bill Other [employer] Other 08-06-2021 15:00-0400 Body weight 72.58 kg Iza Bill Other [employer] Other 08-06-2021 15:00-0400 Diastolic blood pressure 77 mm[Hg] Iza Bill Other [employer] Other 08-06-2021 15:00-0400 Respiratory rate 18 /min Iza Bill Other [employer] Other 08-06-2021 15:00-0400 SaO2% (BldA) [Mass fraction] 96 % Iza Bill Other [employer] Other 08-06-2021 15:00-0400 Systolic blood pressure 148 mm[Hg] Iza Bill Other [employer] Other 01-13-2021 11:25-0400 BP Diastolic 67 mm[Hg] [employer] Phone: 01-13-2021 11:25-0400 BP Systolic 147 mm[Hg] [employer] Phone: 01-13-2021 11:25-0400 Pulse (Heart Rate) 66 /min [employer] Phone: 01-13-2021 11:25-0400 Pulse Oximetry 92 % [employer] Phone: 01-13-2021 11:25-0400 Respiratory Rate 16 /min [employer] Phone: 01-13-2021 11:08-0400 Body Temperature 98.49 [degF] [employer] Work Phone: 01-13-2021 08:35-0400 BMI (Body Mass Index) 31.83 kg/m2 [employer] Phone: 01-13-2021 08:35-0400 Body weight 73.94 kg [employer] Phone: 01-13-2021 08:35-0400 Height 152.4 cm [employer] Phone: 01-06-2021 09:31-0400 BMI (Body Mass Index) 31.87 kg/m2 [employer] Phone: 01-06-2021 09:31-0400 Body Temperature 97.7 [degF] [employer] Phone: 01-06-2021 09:31-0400 Body weight 74.03 kg [employer] Phone: 01-06-2021 09:31-0400 BP Diastolic 80 mm[Hg] [employer] Phone: 01-06-2021 09:31-0400 BP Systolic 154 mm[Hg] [employer] Phone: 01-06-2021 09:31-0400 Height 152.4 cm [facility] [employer] Phone: 01-06-2021 09:31-0400 Pulse (Heart Rate) 69 /min [facility] [email or web address] Work Phone: 01-06-2021 09:31-0400 Pulse Oximetry 94 % [facility] [email or web address] Work Phone: 01-06-2021 09:31-0400 Respiratory Rate 16 /min [facility] [email or web address] Work Phone: Encounters Encounter Date Encounter Type Care Provider Facility Start: 12-11-2023 ambulatory Shekhar Perez Facilit y:[facility] Start: 12-11-2023 End: 12-11-2023 Departed Referred MD Shekhar Perez Work Phone: [facility] [place] Work Phone: Start: 12-11-2023 End: 12-11-2023 ambulatory MD Shekhar Perez Work Phone: [facility] Work Phone: Start: 12-11-2023 End: 12-11-2023 Patient encounter procedure MD Shekhar Perez Work Phone: [facility] Work Phone: Start: 12-05-2023 End: 12-05-2023 ambulatory SHEKHAR PEREZ [facility] Start: 12-05-2023 End: 12-05-2023 Office outpatient visit 15 minutes Shekhar Perez MD Work Phone: [facility] Comment on above: Depression, unspecif ied depression type (Primary Dx); Anxiety; Cold intolerance; Hypovitaminosis D; B12 deficiency; Bilateral leg edema Start: 11-28-2023 End: 11-28-2023 ambulatory Musa Orlando Other [employer] Other Start: 11-28-2023 Telephone encounter Musa Orlando [facility] Start: 11-22-2023 End: 11-22-2023 ambulatory Musa Orlando Other [employer] Other Start: 11-22-2023 Postop follow up vis it related to original px Musa Orlando [facility] Start: 11-14-2023 Orders Only Shekhar gilman MD Work Phone: [facility] Start: 11-09-2023 End: 11-09-2023 ambulatory Musa Orlando Facility:[facility] Start: 11-09-2023 Non-patient / Non-visit MD Migel Perez Work Phone: [facility] Work Phone: Start: 11-08-2023 End: 11-08-2023 ambulatory Musa Orlando Other [employer] Other Start: 11-08-2023 Telephone encounter Musa Orlando [facility] Start: 10-28-2023 End: 10-28-2023 Patient encounter procedure Gallo Reid [facility] Start: 10-28-2023 End: 10-28-2023 ambulatory MD Shekhar Perez Work Phone: [employer] Other Start: 10-28-2023 End: 10-28-2023 Patient encounter procedure MD Shekhar Perez Work Phone: [facility] Work Phone: Start: 10-25-2023 End: 10-25-2023 ambulatory Musa Orlando Other [employer] Other Start: 10-25-2023 Encounter for other preprocedural examination Musa Orlando [facility] Start: 10-25-2023 Office outpatient vi sit 40 minutes Musa Orlando [facility] Start: 10-25-2023 End: 10-25-2023 Patient encounter procedure MD Shekhar Perez Work Phone: [facility] Work Phone: Start: 10-20-2023 End: 10-20-2023 ambulatory Peter Martinezle II Other [employer] Other Start: 10-20-2023 Office outpatient vi sit 25 minutes Peter Lionel II [facility] Start: 10-20-2023 Telephone encounter Peter Martinezle II [facility] Start: 10-19-2023 Refill Francesca Arroyo on [facility] Comment on above: Anxiety Start: 10-12-2023 Telephone encounter Peter [place] II [facility] Start: 10-12-2023 End: 10-12-2023 ambulatory Shekhar Perez Facility:[facility] Start: 10-12-2023 End: 10-12-2023 ambulatory MD Shekhar Perez Work Phone: [facility] Work Phone: Start: 10-12-2023 End: 10-12-2023 Patient encounter procedure MD Shekhar Perez Work Phone: [facility] Work Phone: Start: 10-10-2023 End: 10-10-2023 ambulatory Peter Flowers II Other [employer] Other Start: 10-10-2023 Telephone encounter Peter Martinezle II [facility] Start: 10-07-2023 Office outpatient ne w 45 minutes Peter Martinezle II [facility] Start: 10-07-2023 End: 10-07-2023 ambulatory MD Shekhar Perez Work Phone: [employer] Other Start: 10-07-2023 End: 10-07-2023 Patient encounter procedure MD Shekhar Perez Work Phone: [facility] Start: 10-07-2023 End: 10-07-2023 Patient encounter procedure MD Shekhar Perez Work Phone: [facility] Work Phone: Start: 09-27-2023 End: 09-27-2023 ambulatory EULALIA CEBALLOS Not Available Start: 09-02-2023 End: 09-03-2023 ambulatory Leana Allen Facility:[facility] Start: 08-18-2023 End: 08-18-2023 ambulatory Cam Riggs Other [employer] Other Start: 08-18-2023 Telephone encounter Cam Riggs [facility] Start: 07-21-2023 End: 07-21-2023 ambulatory Cam Riggs Other [employer] Other Start: 07-21-2023 Office outpatient vi sit 25 minutes Cam Riggs [facility] [place] Start: 07-19-2023 Patient encounter procedure Referring Provider [facility] 250 DO Work Phone: Start: 07-15-2023 End: 07-16-2023 ambulatory Leana Allen Facility:[facility] Start: 07-06-2023 End: 07-06-2023 ambulatory Shekhar Perez Facility:[facility] Start: 07-06-2023 End: 07-06-2023 ambulatory MD Shekhar Perez Work Phone: [facility] Work Phone: Start: 07-06-2023 End: 07-06-2023 Patient encounter procedure MD Shekhar Perez Work Phone: [facility] Work Phone: Start: 06-08-2023 End: 06-08-2023 ambulatory Cam Riggs Other [employer] Other Start: 06-08-2023 Office outpatient vi sit 25 minutes Cam Riggs [facility] [place] Start: 05-25-2023 End: 05-26-2023 ambulatory Leana Allen [facility] Start: 05-25-2023 End: 05-26-2023 ambulatory Leana Allen Facility:[facility] Start: 04-21-2023 End: 04-21-2023 ambulatory Danny GIL Facility[facility] Start: 03-09-2023 End: 03-10-2023 ambulatory Danny GIL Facility:[facility] Start: 03-07-2023 End: 03-07-2023 ambulatory Shekhar Perez Facility:[facility] Start: 03-07-2023 End: 03-07-2023 ambulatory NON STAFF [facility] Work Phone: Start: 03-07-2023 End: 03-07-2023 Patient encounter procedure [facility]Electro[facility] Work Phone: Start: 03-04-2023 End: 03-05-[address] SHEKHAR PEREZ Facility: Start: 03-01-2023 (Procedure) Short Cam Riggs [facility] Start: 03-01-2023 End: 03-01-2023 ambulatory Cam Riggs Facility:[facility] Start: 03-01-2023 End: 03-01-2023 Admission to same day surgery center [facility] Work Phone: Start: 03-01-2023 End: 03-01-2023 ambulatory NON STAFF [facility] Work Phone: Start: 02-15-2023 End: 02-15-2023 ambulatory Cam Riggs Other [employer] Other Start: 02-15-2023 Office outpatient vi sit 25 minutes Cam Riggs [facility] [place] Start: 02-08-2023 End: 02-08-2023 ambulatory Cam Riggs Facility:[facility] Start: 02-08-2023 End: 02-08-2023 Admission to same day surgery center [facility] Work Phone: Start: 01-12-2023 End: 01-12-2023 ambulatory MERCEDES BROOKSEY . Facility:[facility] Start: 01-10-2023 ambulatory Leana Allen Facility :[facility] Start: 12-21-2022 End: 12-21-2022 ambulatory Iza Bill Other [place] [employer] Other Start: 12-21-2022 Telephone encounter Iza horvath [facility] Start: 12-18-2022 End: 12-18-2022 ambulatory Iza Garciaault Facility:[facility] Start: 12-18-2022 Office outpatient vi sit 15 minutes Iza Garciaault [facility] Start: 12-18-2022 End: 12-18-2022 ambulatory NON STAFF [facility] Work Phone: Start: 12-18-2022 End: 12-18-2022 Patient encounter procedure [facility] Work Phone: Start: 10-28-2022 End: 01-01-[address] SHEKHAR PEREZ Facility: Start: 10-08-2022 End: 10-08-2022 ambulatory NON STAFF [facility] Work Phone: Start: 10-08-2022 End: 10-08-2022 Discharged Recurring DO Gaudencio Green Work Phone: [facility]-Physical Therapy [facility] Start: 09-24-2022 Office outpatient vi sit [facility] Start: 09-24-2022 End: 09-24-2022 ambulatory NON STAFF [facility] Work Phone: Start: 09-24-2022 End: 09-24-2022 Patient encounter procedure DO Gaudencio Green Work Phone: [facility]Sleep [facility] Start: 09-22-2022 Registered Recurring DO Gaudencio cat Work Phone: [facility]-Physical Therapy [address] Start: 08-04-2022 End: 08-04-2022 ambulatory NON STAFF [facility] Work Phone: Start: 08-04-2022 End: 08-04-2022 Patient encounter procedure DO Gaudencio Green Work Phone: [facility] Start: 06-14-2022 Rx Renewal Clraence Carrizales ert Work Phone: [facility] 250 DO Work Phone: Start: 05-02-2022 End: 05-02-2022 ambulatory Katty Brewer Other [employer] Other Start: 05-02-2022 Office outpatient vi sit 25 minutes Katty Brewer [facility] Start: 03-18-2022 Office outpatient vi sit 25 minutes Clarence Delgado Work Phone: [facility] 250 DO Work Phone: Start: 03-09-2022 End: 03-10-[address] CLARENCE DELGADO Facility: Start: 02-09-2022 End: 02-09-2022 ambulatory Ronnie Morel Other [employer] Other Start: 02-09-2022 Office outpatient vi sit 25 minutes Ronnie Morel [facility] Start: 12-22-2021 End: 12-22-2021 ambulatory Ronnie Morel Other [employer] Other Start: 12-22-2021 Office outpatient vi sit 25 minutes Ronnie Morel [facility] Start: 11-10-2021 End: 11-10-2021 ambulatory Lilia Wilson Other [employer] Other Start: 11-10-2021 Telephone encounter Lilia Wilson [facility] Start: 10-27-2021 End: 10-27-2021 ambulatory Lilia Wilson Other [employer] Other Start: 10-27-2021 Telephone encounter Lilia Wilson [facility] Start: 10-21-2021 End: 10-21-2021 ambulatory Lilia Wilson Other [employer] Other Start: 10-21-2021 Telephone encounter Lilia Cuevas [facility] Start: 09-06-2021 End: 09-06-2021 ambulatory Katty Brewer Other [employer] Other Start: 09-06-2021 Office outpatient vi sit 15 minutes Katty Brewer [facility] Start: 08-25-2021 End: 08-25-2021 ambulatory Ronnie Morel Other [employer] Other Start: 08-25-2021 Telephone encounter Ronnie Morel [facility] Start: 08-06-2021 Office outpatient vi sit 15 minutes Iza Bill [facility] Start: 01-13-2021 End: 01-13-2021 Patient encounter procedure [facility] Start: 01-13-2021 End: 01-16-2021 Patient encounter procedure [facility] Start: 01-13-2021 End: 01-13-2021 Subsequent hospital visit by physician Maxwell Tobin Phone: [facility] Start: 01-13-2021 End: 01-15-2021 Subsequent hospital visit by physician Maxwell Tobin Phone: [facility] Rad[facility] Comment on above: Pain Start: 01-06-2021 End: 01-11-2021 Patient encounter procedure [facility] Start: 01-06-2021 End: 01-10-2021 Subsequent hospital visit by physician Carroll [facility] Comment on above: DDD (degenerative di sc disease), lumbar (Primary Dx); Lumbar spondylosis Start: 10-14-2018 Patient encounter status DO Gaudencio Green Work Phone: [facility] Procedures Date Procedure Procedure Detail Performing Clinician Start: 10-12-2023 MRI of right knee MD Gill Perez Work Phone: Start: 10-07-2023 X-ray of right knee MD Shekhar Perez Work Phone: Start: 08-26-2023 Adult depression screening assessment Francesca Abebe JULIUS Start: 07-06-2023 MR lumbar spine wo con MD Shekhar Perez Work Phone: Start: 07-06-2023 XR pre/post mri xray MD Shekhar Perez Work Phone: Start: 03-07-2023 CT angiography of thorax Start: 03-01-2023 Local anesthetic sac ral epidural block Start: 02-08-2023 Injection of local anesthetic into sacroiliac joint Start: 12-18-2022 X-ray of right knee Start: 08-04-2022 Computed tomography of abdomen and pelvis with contrast DO Gaudencio Green Work Phone: Start: 05-02-2022 Piperacillin/tazobactam Katty Brewer Other Start: 01-13-2021 Fluoroscopy during operation Maxwell Everton Fried Work Phone: Start: 01-06-2021 Blood count complete automated Tennille Goldberg Start: 01-06-2021 Basic metabolic pane l calcium total Tennille Goldberg Start: 01-06-2021 Ecg routine ecg w/le ast 12 lds i&r only Tennille Goldberg History of operative procedure on knee H/O knee surgery MD Shekhar Perez Work Phone: History of percutane ous transluminal coronary angioplasty History of PTCA Clarence Delgado Work Phone: History of placement of stent for coronary artery disease History of coronary artery stent placement DO Gaudencio Green Work Phone: Hysterectomy Clarence Sultana rt Work Phone: Operative procedure on hand Clarence Delgado Work Phone: Tonsillectomy and adenoidectomy Clarence Delgado Work Phone: Total colonoscopy Clarence Delgado Work Phone: Plan of Treatment Date Care Activity Detail Author Start: 12-05-2024 Adult BMI Screening Adult BMI Screen ing [facility] Start: 12-05-2024 Tobacco Screening Tobacco Screening [facility] Start: 08-26-2024 Adult BMI Screening Adult BMI Screen ing [facility] [employer] [facility] Start: 08-26-2024 Depression Screening Depression Scre ening [facility] Start: 08-26-2024 Fall Risk Screening Fall Risk Screen ing [facility] Start: 08-26-2024 Medicare Annual Well ness Visit Medicare Annual Wellness Visit [facility] Start: 08-26-2024 Tobacco Screening Tobacco Screening [facility] Start: 03-21-2024 FUV, Provider: Jr Roldan, Status: Pen, Time: 11:20 AM FUV, Provider: Jr Roldan, Status: Pen, Time: 11:20 AM [facility] [employer] 250 DO Work Phone: Start: 02-27-2024 End: 02-27-2024 Patient encounter procedure 02/27/2024 2:30 PM EDT Office Visit [facility] [address] [place] [id number] Shekhar Perez MD [address] [place] [address], [address] [place] [address] [facility] Start: 12-11-2023 Bacteria identified in Urine by Culture [facility] Start: 11-09-2023 [facility] Start: 11-09-2023 [facility] Start: 06-24-2023 Influenza vaccination Influenza Vacc ine [facility] Start: 03-16-2023 FUV, Provider: Jr Roldan, Status: Pen, Time: 11:00 AM FUV, Provider: Jr Roldan, Status: Pen, Time: 11:00 AM [facility] 250 DO Work Phone: Start: 03-01-2023 [facility] Start: 02-08-2023 [facility] Start: 01-16-2021 End: 01-16-2021 Office Visit 01/16/2021 Office Visit Neurosurgery Maxwell Fried MD [address], [address] [place] [id number] [employer] Start: 01-13-2021 End: 01-13-2021 Hospital Encounter [facility] Comment on above: DCS (DORSAL COLUMN S TIMULATOR) TRIAL .5 HOUR/ 1 C-ARM/ [employer] REP LINDY LERMA MAC + LOCAL Start: 01-06-2021 End: 01-06-2022 COVID-19 Ambulatory COVID-19 Ambulatory Lab Routine DDD (degenerative disc disease), lumbar Lumbar spondylosis Expected: 01/06/2021, Expires: 01/06/2022 [employer] Phone: Comment on above: Expected: 01/06/2021 , Expires: 01/06/2022 Start: 06-24-2020 Influenza vaccination Flu vaccine (# 1) [employer] Phone: Start: 04-15-2019 Annual Wellness Visi t (AWV) Annual Wellness Visit (AWV) [employer] Phone: Start: 2012 Pneumococcal 65+ yea rs Vaccine (1 of 1 - PPSV23) Pneumococcal 65+ years Vaccine (1 of 1 - PPSV23) [employer] Phone: Start: 2002 Screening for osteoporosis DEXA (modify frequency per FRAX score) [employer] Phone: Start: 1997 Administration of varicella zoster vaccine Zoster (Shingles) Vaccine (1 of 2) [employer] Start: 1997 Screening for malign ant neoplasm of breast Breast cancer screen [employer] Phone: Start: 1997 Screening for malign ant neoplasm of colon Colon cancer screen colonoscopy [employer] Phone: Start: 1997 Shingles Vaccine (1 of 2) Shingles Vaccine (1 of 2) [employer] Phone: Start: 1987 Lipid panel [facility] screen [facility] [employer] Phone: Start: 1966 DTaP,Tdap and Td Vaccines (1 - Tdap) DTaP,Tdap and Td Vaccines (1 - Tdap) [employer] Start: 1966 DTaP/Tdap/Td vaccine (1 - Tdap) DTaP/Tdap/Td vaccine (1 - Tdap) [employer] Phone: Start: 1965 Adult BMI Follow Up Plan Adult BMI F ollow Up Plan [employer] Start: 1963 COVID-19 Vaccine (1) COVID-19 Vaccin e (1) [employer] Phone: Start: 1947 Hepatitis C screening Hepatitis C sc reen [employer] Phone: Start: 1945 TSH Qn TSH testing [employer] Phone: End: 12-05-2024 Cyanocobalamin vitamin b-12 Vitamin B12 Lab Routine B12 deficiency 1 Occurrences starting 12/05/2023 until 12/05/2024 [employer] Comment on above: 1 Occurrences starti ng 12/05/2023 until 12/05/2024 End: 01-13-2021 Intermittent pulse oximetry Pulse Oximetry Spot Check Respiratory Care Routine One Time for 1 Occurrences starting 01/13/2021 until 01/13/2021 [employer] Phone: Comment on above: One Time for 1 Occur rences starting 01/13/2021 until 01/13/2021 Oxygen therapy [[facility] Data Set] Initiate Oxygen Therapy Protocol Respiratory Care Routine Daily until discontinued starting 01/13/2021 [employer] Phone: Comment on above: Daily until disconti nued starting 01/13/2021 Patient Education Felter Non Blessing gnostic Block [facility] Work Phone: Patient referral [facility] Work Phone: Phase I & II - meter ed glucose Phase I & II - metered glucose Point of Care Testing Routine As Needed until discontinued starting 01/13/2021 [email or web address] Work Phone: Comment on above: As Needed until disc ontinued starting 01/13/2021 End: 12-05-2024 Thyroid profile includes TSH FT4 Thyroid profile includes TSH FT4 Lab Routine Cold intolerance 1 Occurrences starting 12/05/2023 until 12/05/2024 [employer] Work Phone: Comment on above: 1 Occurrences starti ng 12/05/2023 until 12/05/2024 End: 12-05-2024 Vitamin D 25 hydroxy Vitamin D 25 hydroxy Lab Routine Hypovitaminosis D 1 Occurrences starting 12/05/2023 until 12/05/2024 [employer] Comment on above: 1 Occurrences starti ng 12/05/2023 until 12/05/2024 [facility] Payers Date Payer Category Payer Self-pay [id number] 2022 Medicare [employer] MEDICARE UHC MEDICARE ADVANTAGE PPO [id number] 2022-Present [phone] [address] [address] [place] [address] [id number] 2019 Medicare [id number] 2017 Private Health Insurance [id number] 2017 Unknown [id number] 1959 Medicare [id number] [id number] 1959 Private Health Insurance [id number] 2.16.840.1.834548.19 1947 Unknown [id number] 2.16.840.1.866333.3.579. 2.182 1947 Unknown [id number] 2.16.840.1.243811.3.579. 2.182 1947 Unknown [id number] 2.16.840.1.335392.3.579. 2.182 1947 Unknown [id number] 2.16.840.1.538430.3.579. 2.593 1947 Unknown [id number] 2.16840.1.062152.3.579. 2.593 1947 Unknown [id number] 2.840.1.272247.3.579. 2.593 1947 Unknown [id number] 2.16.840.1.750110.3.579. 2.593 1947 Unknown [id number] 2.16.840.1.479111.3.579. 2.1259 1947 Unknown [id number] 2.16840.1.194649.3.579. 2.727 1947 Unknown [id number] 2.840.1.479939.3.579. 2.727 1947 Unknown [id number] 2.16.840.1.718640.3.579. 2.727 1947 Unknown [id number] 2.16.840.1.203828.3.579. 2.727 1947 Unknown [id number] 2.16.840.1.464521.3.579. 2.727 1947 Unknown [id number] 2.16840.1.181524.3.579. 2.727 1947 Unknown [id number] 2.16.840.1.402825.3.579. 2.1286 Medicare Medicare [id number] Unknown Unknown [id number] 2.16.840.1.357730.3.579. 2.531 Unknown [id number] 2.16.840.1.903994.3.579. 2.531 Unknown [id number] 2.16.840.1.631446.3.579. 2.531 Unknown [id number] 2.16.840.1.788660.3.579. 2.531 Unknown [id number] 2.16.840.1.543624.3.579. 2.531 Unknown [id number] 2.16.840.1.400847.3.579. 2.531 Unknown [id number] 2.16.840.1.775783.3.579. 2.531 Unknown [id number] 2.16.840.1.516732.3.579. 2.531 Unknown [id number] 2.16.840.1.384393.3.579. 2.531 Unknown [id number] 2.16.840.1.723441.3.579. 2.531 Social History Date Type Detail Facility Start: 01-06-2021 End: 12-11-2023 Tobacco smoking status [facility] Never smoker [facility] Start: 01-06-2021 End: 02-04-2022 Tobacco use and exposure Never used [facility] Phone: Start: 01-06-2021 End: 01-14-2021 Alcohol intake Current non-drinker of alcohol (finding) [facility] Phone: Start: 1945 Sex Assigned At Not on file M [employer] Phone: Exposure to SARS-CoV -2 (event) Not sure [facility] Phone: Start: 04-04-2019 End: 08-26-2023 No alcohol use No alcohol use [facility] 250 DO Work Phone: Start: 04-04-2019 End: 08-26-2023 Sex Assigned At [facility] [employer] [facility] Other Start: 1945 Sex Assigned At Female F [facility] Start: 08-26-2023 End: 12-05-2023 Alcohol intake Lifetime non-drinker (finding) [employer] Adolescent depressio n screening assessment 12 [employer] Medical Equipment Procedure Code Equipment Code Equipment Origin al Text Equipment Identifier Dates Kit Ld L60cm 1x8 Comp Trl Scrn For Sacr Nrv Stim [employer] [id number] Start: 01-13-2021 Goals Date Patient Goal Desired Activity /State Clinical Notes 08-06-2021 to 12-05-2023 Shekhar Perez MD - 12/05/2023 3:45 PM EST Note Date & Type Note Facility 12-05-2023 History of Presen t illness Narrative Subjective Patient ID: Regina Henry is a 77 y.o. female. Comes in with several concerns. She has a history of anxiety for which she has been on lorazepam. The medication is effective for her. There has been no irregular use. It does not always last the full interval at her current dosing. She has some underlying depression symptoms with no thoughts of self-harm. She would like to consider behavioral health involvement. Occasionally she has some swelling in her ankles. She does not describe shortness of breath, orthopnea, or other symptoms of congestive heart failure. She is due to have some labs done. The following portions of the patient's history were reviewed and updated as appropriate: allergies, current medications, past medical history, past social history, past surgical history, and problem list. Review of Systems Objective Physical Exam Constitutional: Comments: She looks well. Interacts appropriately. Blood pressure normal. Cardiovascular: Rate and Rhythm: Normal rate and regular rhythm. Heart sounds: No murmur heard. Pulmonary: Effort: Pulmonary effort is normal. Breath sounds: Normal breath sounds. Musculoskeletal: Comments: 1+ bilateral ankle edema Neurological: General: No focal deficit present. Mental Status: She is oriented to person, place, and time. Assessment/Plan Medication use reviewed. B.i.d. dosing of 0.5 mg lorazepam p.r.n. is fine. She will look into behavioral health follow-up. Labs ordered. Diagnoses and all orders for this visit: Depression, unspecified depression type - [facility] [place] [place]; Future Anxiety - LORazepam (ATIVAN) 0.5 mg tablet; Take 1 tablet (0.5 mg total) by mouth 2 (two) times a day as needed for anxiety. Cold intolerance - Thyroid profile includes TSH FT4; Future Hypovitaminosis D - Vitamin D 25 hydroxy; Future B12 deficiency - Vitamin B12; Future Bilateral leg edema - furosemide (LASIX) 20 mg tablet; Take 1 tablet (20 mg total) by mouth daily as needed (leg swelling). documented in this encounter [facility] [employer] [facility] 11-22-2023 Evaluation note Encounter Date Diagnosis Assessment Notes Oct, Other tear of medial meniscus of right knee as current injury, subsequent encounter (ICD-10 - S83.241D) Oct, Status post arthroscopy of right knee (ICD-10 - Z98.890) Patient is doing well after surgery. No issues with the surgical incision(s). Sutures were removed with no complications. Discussed postoperative course with the patient in the rehabilitation process. Instructed patient to wear her compression socks to help with the swelling. Discussed she can use ice and elevation Weightbearing: Weightbearing as tolerated, no brace needed DVT ppx: Aspirin 81mg twice daily for 4 weeks after surgery Post-operative protocol: Knee arthroscopy debridement rehab protocol Patient will follow-up in 4 weeks Oct, Primary osteoarthritis of right knee (ICD-10 - M17.11) [facility] Other 01-16-2024 Evaluation note* Encounter Date Diagnosis Assessment Notes Treatment Notes Treatment Clinical Notes Oct, Status post arthroscopy of right knee (ICD-10 - Z98.890) [facility] Other 01-16-2024 Evaluation note* Encounter Date Diagnosis Assessment Notes Treatment Notes Treatment Clinical Notes Oct, Acute pain of right knee (ICD-10 - M25.561) Oct, Status post arthroscopy of right knee (ICD-10 - Z98.890) [facility] Other 01-05-2024 Evaluation note* Encounter Date Diagnosis Assessment Notes Treatment Notes Treatment Clinical Notes Oct, Constipation (ICD-10 - K59.00) The patient states she has irregular bowel habits. She complains of abdominal discomfort. She moves her bowels every 3-4 days a week. She has straining. She does not have any rectal bleeding. She does not take anything on a regular basis for constipation. A recent colonoscopy with Dr. Gil showed a colon polyp. Trial of Linzess 145 mcg daily Oct, Dyspepsia (ICD-10 - K30) The patient had an EGD at [facility] in March 2023 due to dyspepsia. Biopsies were taken for heliocabacter but the biopsy report is not available. The patient complains of gas, belching, & nausea. She can not tolerate Omeprazole. An EGD in the past has shown inflammation. Trial of Pantoprazole 20 mg daily Oct, Nausea (ICD-10 - R11.0) Oct, Hemorrhoid (ICD-10 - K64.9) The patient complains of hemorrhoids due to her irregular bowel movements. She has used OTC treatments for this. She will continue this while we attempt to get the consipation under control Oct, Irritable bowel syndrome with constipation (ICD-10 - K58.1) [facility] Other 01-02-2024 Evaluation note* Encounter Date Diagnosis Assessment Notes Treatment Notes Treatment Clinical Notes Oct, Other tear of medial meniscus of right knee as current injury, subsequent encounter (ICD-10 - S83.241D) We discussed exam findings, symptoms, and imaging and likely etiologies of the patient's pain. We discussed conservative management vs surgical intervention. The patient wishes to proceed with surgery in the form of right knee arthroscopy with medial meniscectomy. We discussed the risks, benefits, and alternatives to surgery in general, including the potential outcomes with foregoing treatment altogether. The risks include, but are not limited to, the risk of anesthesia up to and including , infection, bleeding, tendon damage, nerve damage, vascular damage, stiffness, weakness, loss of range of motion, arthrofibrosis, failure to alleviate symptoms, worsening of symptoms, continued pain, continued mechanical symptoms, arthritic pain, post traumatic arthritis, wound healing problems, formation of cutaneous scars secondary to surgical incisions, deep venous thrombosis, pulmonary embolism, reflex sympathetic dystrophy, unforeseen complications and the need for further surgery. The specific risks of knee arthroscopy were discussed including but not limited to: Failure of any repair (tendon, ligament, meniscus, cartilage), symptomatic hardware, chondrolysis, fracture, instability, unforeseen complications and the need for further or revision surgery. Oct, Primary osteoarthritis of right knee (ICD-10 - M17.11) Oct, Preop examination (ICD-10 - Z01.818) [facility] Other 12-28-2023 Evaluation note* Encounter Date Diagnosis Assessment Notes Treatment Notes Treatment Clinical Notes Sep, Acute pain of right knee (ICD-10 - M25.561) Sep, Other tear of medial meniscus of right knee as current injury, subsequent encounter (ICD-10 - S83.241D) Sep, Other We did discuss her MRI results and I explained that she did have a medial meniscus tear and this possibly could be causing her significant pain. At this point she has not responded to conservative treatment. I did discuss with Dr. Orlando today in the office whether or not he be willing to see the patient to determine if she would be a candidate for an arthroscopic procedure. He agreed. Will going get the patient into see Dr. Orlando next week. [facility] Other 12-27-2023 Miscellaneous Notes* Telephone Encounter - Francesca Abebe CMA - 10/19/2023 2:51 PM EST [facility] Telephone encounter Note* Telephone Encounter - Francesca Abebe CMA - 10/19/2023 2:51 PM EST [id number] note* Encounter Date Diagnosis Assessment Notes Treatment Notes Treatment Clinical Notes Sep, Acute pain of right knee (ICD-10 - M25.561) [facility] Other 12-15-2023 Evaluation note* Encounter Date Diagnosis Assessment Notes Treatment Notes Treatment Clinical Notes Sep, Acute pain of right knee (ICD-10 - M25.561) Sep, Other I had a long conversation with the patient regarding her right knee. I explained to her that her x-rays overall look relatively normal. There may be some sclerosis in the proximal tibia that would be consistent with grade 1 arthritis on x-ray. Given her normal x-ray, her lack of response to steroid injections and physical therapy as well as her physical exam today, I think it is important for us to rule out any internal derangement especially meniscal pathology and/or even deep bony bruising in the proximal tibia. When she is these results she can come back into the office to discuss them. In the meantime I did prescribe her meloxicam 15 mg to take daily. 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 Recent MRI shows at L4-L5 facet hypertrophy bilaterally with a mild broad-based disc bulge, moderate to severe right and mild left neural foraminal stenosis, which is consistent with her pain symptoms. Given the MRI results, as well as location of pain and exam findings, patient is a candidate for a lumbar epidural steroid injection which we will proceed with. Risks and benefits of procedure explained to patient; patient verbalizes understanding. In the future if the pain persists, we can consider sacroiliac joint injections verse facet injections. Anatomy of spine discussed in detail with patient in regard to patients condition Jun, Chronic pain (ICD-10 - G89.29) Jun, Other Above note writ ten by Blanca Tate LPN, Cancer Program Consultant. Edited and approved by Dr. Cam Riggs MD. 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 She has failed previous conservative treatments, most recent a caudal epidural steroid injection and continues to experience progressing symptoms. I will order an MRI of her lumbar spine for further evaluation of her pain symptoms. Pending the results, we can consider a referral to neurosurgery vs further treatment options. Anatomy of spine discussed in detail with patient in regard to patients condition. May, Chronic pain (ICD-10 - G89.29) May, Other Above note writ ten by Blanca Tate LPN, Cancer Program Consultant. Edited and approved by Dr. Cam Riggs MD. [facility] Other 06-30-2023 Note [id number] 03-01-2023 Procedure [facility]04-25-2023 Evaluation note* Encounter Date Diagnosis Assessment Notes Treatment Notes Treatment Clinical Notes Jan, Bilateral sacroiliitis (ICD-10 - M46.1) Jan, Other spondylosis with radiculopathy, lumbar region (ICD-10 - M47.26) Patients primary complaint today is progressing low lumbar pain radiating into the posterior aspect of her bilateral lower extremities. Recent MRI results show evidence of multilevel degenerative changes and spinal stenosis. Based on these results as well as location of pain and exam findings, patient would be a reasonable candidate to proceed with a caudal epidural steroid injection. Risks and benefits of procedure explained to patient; patient verbalizes understanding. Anatomy of spine discussed in detail with patient in regards to patients condition. Jan, Chronic pain (ICD-10 - G89.29) Jan, Other Above note writ ten by Kar King MA, Cancer Program Consultant. Edited and approved by Dr. Cam Riggs MD. [facility] Other 02-28-2023 Evaluation note* Encounter Date Diagnosis Assessment Notes Treatment Notes Treatment Clinical Notes Nov, Acute pain of right knee (ICD-10 - M25.561) [facility] Other 02-25-2023 Evaluation note* Encounter Date Diagnosis Assessment Notes Treatment Notes Treatment Clinical Notes Nov, Acute pain of right knee (ICD-10 - M25.561) Use RICE therapy as discussed: Rest, Ice Compression, Elevate. Apply ice to affected area 3-4 times daily (Do not place ice source directly on skin, must cover with towel-like material). Take medication as directed. Rest and elevate sore extremity as much as possible. Do not take OTC medication pain relievers if prescription of medication given in office today. Contact office if no improvement of symptoms and we will help you get into a specialist. [facility] Other 12-02-2022 Evaluation note* Encounter Date Diagnosis Assessment Notes Treatment Notes Treatment Clinical Notes Sep, Chronic insomnia (ICD-10 - F51.04) We revisited CBT-I recommendations and patient expresses good understanding. I advised patient to adhere to a proper sleep hygiene schedule and to assure adequate total sleep time between 7-9 hours. Encourage patient to focus on wake time instead of bedtime as her circadian rhythm is controlled by the time she wakes up in the morning he patient is instructed to: Not take naps until the insomnia is controlled; Not be awake in bed for more than 20 minutes; Not use the bed for reading, watching TV, working, or resting if unable to sleep.as opposed to when she goes to sleep. She is somewhat practicing some of these principles loosely, but does express difficulty with her issues with anxiety and fibromyalgia. We will continue to monitor. Sep, Obstructive sleep apnea (adult) (pediatric) (ICD-10 - G47.33) We reviewed her study, showing AHI of 11 events per hour and severe hypoxia (25% of sleep time below 90% saturation). While the severe hypoxia is concerning, her overall AHI falls in the mild apnea range so she does not qualify for inspire therapy. We discussed these issues in detail. Although she had hoped for Inspire Therapy, she is willing to try CPAP again. We will get her auto CPAPAnd will attempt the mask fit program to find the optimal size and shape for her. We anticipate return for 31 to 90-day visit Sep, Intolerance of continuous positive airway pressure (CPAP) ventilation (ICD-10 - Z78.9) Unfortunately patient's ADILENE is too mild to qualify for Inspire therapy. We reviewed her study in January , showing AHI of 11 events per hour and severe hypoxia (25% of sleep time below 90% saturation). While the severe hypoxia is concerning, her overall AHI falls in the mild apnea range so she does not qualify for inspire therapy. Her weight has not changed much since then therefore likely her ADILENE severity has not either. Although she had hoped for Inspire Therapy, she does express willingness to continue with the PAP machine as she does note clinical benefit with use, although also expresses frustration with it. Sep, Idiopathic sleep related nonobstructive alveolar hypoventilation (ICD-10 - G47.34) Patients with untreated apnea-associated nocturnal hypoxia have more heart attacks, strokes, and symptomatic pulmonary hypertension. This emphasizes importance of using treatment every night, all night. [facility] Other 07-10-2022 Evaluation note* Encounter Date Diagnosis Assessment Notes Treatment Notes Treatment Clinical Notes Apr, Dysuria (ICD-10 - R30.0) Apr, Urinary tract infection, site not specified (ICD-10 - N39.0) Urinary tract infection (UTI) home care material was printed Drink plenty fluids, get plenty of rest. Take the Cipro and Pyridium as prescribed until gone. Take Tylenol or Motrin as needed for aches pains or fevers. Follow-up with your family physician once you complete the antibiotic, follow-up sooner if no improvement in 2 to 3 days. Apr, Hematuria, unspecified (ICD-10 - R31.9) [facility] Other 04-19-2022 Evaluation note* Encounter Date Diagnosis Assessment Notes Treatment Notes Treatment Clinical Notes Jan, Chronic insomnia (ICD-10 - F51.04) encouraged her to only be in bed for 8 hours, and to set a wake up time and stay with it. She should get to bed 8 hours before that, whether than means getting up earlier or staying up later. She is also encouraged to avoid daytime napping Jan, Obstructive sleep apnea (adult) (pediatric) (ICD-10 - G47.33) We reviewed her study, showing AHI of 11 events per hour and severe hypoxia (25% of sleep time below 90% saturation). While the severe hypoxia is concerning, her overall AHI falls in the mild apnea range so she does not qualify for inspire therapy. We discussed these issues in detail. Although she had hoped for Inspire Therapy, she is willing to try CPAP again. We will get her auto CPAPAnd will attempt the mask fit program to find the optimal size and shape for her. We anticipate return for 31 to 90-day visit Jan, Intolerance of continuous positive airway pressure (CPAP) ventilation (ICD-10 - Z78.9) She hesitantly says she is willing to try the machine again, but says that if it's aggravating she will turn it back in. She was very frustrated with [place], her previous DME, and doesn't want to go back there. We will try to get a formal mask fit and will have her on auto CPAP. I encouraged her to call if there is a problem Jan, Idiopathic sleep related nonobstructive alveolar hypoventilation (ICD-10 - G47.34) Patients with untreated apnea-associated nocturnal hypoxia have more heart attacks, strokes, and symptomatic pulmonary hypertension. This emphasizes importance of using treatment every night, all night. [facility] Other 03-01-2022 Evaluation note* Encounter Date Diagnosis Assessment Notes Treatment Notes Treatment Clinical Notes Dec, Chronic insomnia (ICD-10 - F51.04) She has unfortunately continued with suboptimal sleep hygeine practices, and so it is to be expected that she would continue to have insomnia. She is in bed from 2200 to 1000, and has extensive time awake in bed. Advised staying up until 0000 - 0030 and getting up 0800 daily, and to stop sleeping in until 1000 - 1100. Extensive education was undertaken, including the absolute importance of avoiding being awake in the bed and avoiding resting with eyes closed which can be a nap equivalent. Detailed sleep restriction therapy recommendations were reviewed, and the patient expresses good understanding; The patient is advised to adhere to a proper sleep hygiene schedule and to assure adequate total sleep time. The patient is instructed to: Not take naps until the insomnia is controlled; Not be awake in bed for more than 20 minutes; Not use the bed for reading, watching TV, working, or resting if unable to sleep. Dec, Obstructive sleep apnea (adult) (pediatric) (ICD-10 - G47.33) She has previously been diagnosed with sleep apnea with an AHI of 16 and with some associated hypoxia. She finds it very difficult to tolerate positive airway pressure treatment and would like to avoid that if at all possible. This is especially true in light of her complicating insomnia, as adding positive airway pressure to an already difficult insomnia situation will make falling asleep effectively even more difficult. We discussed alternatives including inspire therapy and she is very interested in that approach Dec, Intolerance of continuous positive airway pressure (CPAP) ventilation (ICD-10 - Z78.9) She has previously tried positive airway pressure treatment several times, but has failed each time. If insurance requires another trial before proceeding to inspire we will take that route Dec, Generalized anxiety disorder (ICD-10 - F41.1) She admits to generalized anxiety disorder and reports that it is a significant day-to-day problem. She has seen psychiatry in the past. This has complicated her toleration of positive airway pressure treatment and her insomnia treatment Dec, Idiopathic sleep related nonobstructive alveolar hypoventilation (ICD-10 - G47.34) Patients with untreated apnea-associated nocturnal hypoxia have more heart attacks, strokes, and symptomatic pulmonary hypertension. This emphasizes importance of effective control [facility] Other 11-14-2021 Evaluation note* Encounter Date Diagnosis Assessment Notes Treatment Notes Treatment Clinical Notes Aug, Contact with and (suspected) exposure to other viral communicable diseases (ICD-10 - Z20.828) Aug, Sinusitis, unspecified chronicity, unspecified location (ICD-10 - J32.9) Aug, Other Additional time spent conducting pre-visit phone call, screening for symptoms, instructions on social distancing, application and removal of PPE, and cleaning of examination room, equipment and supplies was preformed. Patient education given for testing methodology and results. Patient care instructions given in writting by [facility] document. [facility] [employer] Other 10-14-2021 Evaluation note* Encounter Date Diagnosis Assessment Notes Treatment Notes Treatment Clinical Notes Jul, Lumbar degenerative disc disease (ICD-10 - M51.36) Jul, Obstructive sleep apnea (ICD-10 - G47.33) Jul, Bronchitis (ICD-10 - J40) [facility] Other Evaluation noteNo InformationNortGuth[facility] [employer] Other Evaluation noteNo assessment information available [facility] Work Phone: Evaluation note* Diagnosis Anxiety Anxiety state, unspecified documented in this encounter [facility]* Diagnosis Depression, unspecified depression type- Primary Anxiety Anxiety state, unspecified Cold intolerance Other general symptoms Hypovitaminosis D Unspecified vitamin D deficiency B12 deficiency Bilateral leg edema Edema documented in this encounter [facility] SystemEvaluation [facility]* Diagnosis Onset Date Resolution Status Dysuria acute [facility] Work Phone: Evaluation note* Diagnosis Onset Date Resolution Status Acute UTI acute Dysuria acute [facility] Work Phone: History general Narrative - Reported* Type Description Date Medical History lower back pain(L5 disc)-1984 Medical History fibromyalgia Medical History Reactive hypoglycemia (Dr.Vourja rankin)-2003 Medical History fibrocystic breast DX Medical History Surgical menopause Medical History 1996 Benign PVC's (Jamar)-1996 Medical History osteoarthritis hands Medical History mixed hyperlipidemia Medical History 2002 GERD (UGI X-Ray) Medical History Osteoporosis ([place]) 1996 Medical History Bilat carotid stenos is (dop scan) 03/2009- Neg dop scan 12/2015 Medical History Major Depressive Disorder Medical History coronary artery disease (cardiac stent) 2015 Medical History chronic depression Medical History ADILENE Surgical History Total hysterectomy - Endometriosis with complications(emotional) Surgical History T&A 1972 Surgical History EGD - esophageal,gastritis,hiat al hernia 04/2014 Surgical History Colonoscopy - internal hemmorrh oids 04/2014 Surgical History I+D R middle finger 2013 Surgical History Reactive hypoglycemia ([place]our[place]and ) 2003 Surgical History Bilateral carotid stenosis (dop scan 2008) 2008 Surgical History Fibromyalgia Surgical History Heart dini-gbmubysd-Ab V's 11/12 15 Surgical [address]ent [facility]. [facility] 11/2015 Surgical History Epidural X2 Dr Arvizu 06/2017-07/25 017 Surgical History EGD- DR Garcia- small ulcer. 2016 Hospitalization History Major depression/suicida l ideation - [place] 07/2003 Hospitalization History [place] depression [place] [facility] 10/2010 Hospitalization History Vertigo- [facility] 12/2015 Hospitalization History Blood clot upper left le g 12/01/2015 Hospitalization History Cardiac stress margi (neg) 2001 [facility] [employer] Other Hisxpmq general [facility] [employer] Other History general Narrative - Reported* Type Description Date Medical History lower back pain(L5 disc)-1984 Medical History fibromyalgia Medical History Reactive hypoglycemia (Dr.Vourja rankin)-2003 Medical History fibrocystic breast DX Medical History Surgical menopause Medical History 1996 Benign PVC's (Jamar)-1996 Medical History osteoarthritis hands Medical History mixed hyperlipidemia Medical History 2002 GERD (UGI X-Ray) Medical History Osteoporosis ([place]) 1996 Medical History Bilat carotid stenos is (dop scan) 03/2009- Neg dop scan 12/2015 Medical History Major Depressive Disorder Medical History coronary artery disease (cardiac stent) 2015 Medical History chronic depression Medical History ADILENE Medical History chronic insomnia Surgical History Total hysterectomy - Endometriosis with complications(emotional) Surgical History T&A 1972 Surgical History EGD - esophageal,gastritis,hiat al hernia 04/2014 Surgical History Colonoscopy - internal hemmorrh oids 04/2014 Surgical History I+D R middle finger 2013 Surgical History Reactive hypoglycemia ([place] ) 2003 Surgical History Bilateral carotid stenosis (dop scan 2008) 2008 Surgical History Fibromyalgia Surgical History Heart wysg-qvgqdtpy-Uz V's 11/12 16 Surgical [address]ent [facility]. [facility] 11/2015 Surgical History Epidural X2 Dr Arvizu 06/2017-07/25 017 Surgical History EGD- DR Garcia- small ulcer. 2016 Hospitalization History Major depression/suicida l ideation - [place] 07/2003 Hospitalization History [place] depression [place] [facility] 10/2010 Hospitalization History Vertigo- [facility] 12/2015 Hospitalization History Blood clot upper left le g 12/01/2015 Hospitalization History Cardiac stress margi (neg) 2001 [facility] Other InstructionsNot on filedocumented in this encounter [facility] SystemInstructionsNot on filedocumented in this encounter [facility] SystemInstructionsNot on filedocumented in this encounter [facility] SystemReason for referral (narrative)* Consultation (Routine) - Authorized Specialty Diagnoses / Procedures Referred By Jaron horvath Referred To Contact Behavioral Health / Psychiatry Diagnoses Depression, unspecified depression type Shekhar Perez MD [address] [place] [address], [address] [place] [address] [id number] Referral ID Status Reason Start Date Expiration Date Visits Requested Visits Authorized [id number] Authorized Specialty Services Required 12/05/2023 12/04/2024 1 1 [facility] for visit NarrativeLOWER BACK PAIN, ORTHO REFERRAL [facility] Other Summary Purpose Family History Unknown Family Member Name Dates Details Family history of arterioscl erotic cardiovascular disease: Mother, Father, Sister, Brother(V17.49, Z82.49) Status:Active Family history of myocardial infarction: Father(V17.3, Z82.49) Status:Active Unknown Family Member Name Dates Details Family history of myocardial infarction: Father(V17.3, Z82.49) Status:Active Family history of arterioscl erotic cardiovascular disease: Mother, Father, Sister, Brother(V17.49, Z82.49) Status:Active Unknown Family Member Name Dates Details Family history of arterioscl erotic cardiovascular disease: Mother, Father, Sister, Brother(V17.49, Z82.49) Status:Active Family history of myocardial infarction: Father(V17.3, Z82.49) Status:Active Unknown Family Member Name Dates Details Family history of arterioscl erotic cardiovascular disease: Mother, Father, Sister, Brother(V17.49, Z82.49) Status:Active Family history of myocardial infarction: Father(V17.3, Z82.49) Status:Active Relationship Condition Age at Onset Recorded Date/T albert brother Malignant neoplasm of kidney Unknown father Myocardial infarction Unknown brother Myocardial infarction Unknown Cerebrovascular accident (CVA) Unknown Not Specified Type 2 diabetes mellitus Unknown brother Heart disease Unknown sister Heart disease Unknown Unknown Family Member Name Dates Details Family history of arterioscl erotic cardiovascular disease: Mother, Father, Sister, Brother(V17.49, Z82.49) Status:Active Family history of myocardial infarction: Father(V17.3, Z82.49) Status:Active Relationship Condition Age at Onset Recorded Date/T albert brother Malignant neoplasm of kidney Unknown Heart disease Unknown Myocardial infarction Unknown father Myocardial infarction Unknown brother Myocardial infarction Unknown Malignant neoplasm of lung Unknown History of heart surgery Unknown Not Specified Type 2 diabetes mellitus Unknown brother Heart disease Unknown sister Heart disease Unknown Cerebrovascular accident (CVA) Unknown Relationship Condition Age at Onset Recorded Date/T albert brother Malignant neoplasm of kidney Unknown Heart disease Unknown Myocardial infarction Unknown father Myocardial infarction Unknown brother Myocardial infarction Unknown Malignant neoplasm of lung Unknown History of heart surgery Unknown Not Specified Type 2 diabetes mellitus Unknown brother Heart disease Unknown sister Heart disease Unknown Cerebrovascular accident (CVA) Unknown brother Malignant neoplasm Unknown father Heart disease Unknown Unknown family member Family history of other condition Unknow n Not Specified Diabetes mellitus Unknown Advance Directives Documents on File Type Date Recorded Patient Hr Intern Expl anation ACP-Advance Directive ACP-Power of Chairman Documents on File Type Date Recorded Patient Hr Intern Expl anation ACP-Advance Directive ACP-Power of Chairman Advance Directive Response Recorded Date/ Time Advance Directives No June 3:41pm Advance Directive Response Recorded Date/ Time Advance Directives No June 2:41pm Latest Code Status on File Code Status Date Activated Date Inactivated Comments Full Code 05/28/2022 5:34 PM 05/31/2022 8:53 PM Latest Code Status on File Code Status Date Activated Date Inactivated Comments Full Code 05/28/2022 5:34 PM 05/31/2022 8:53 PM Advance Directive Response Recorded Date/ Time Advance Directives No November 12:18pm History of Present Illness * Tennille Goldberg, SAFETY MANAGER - GEOSPATIAL INFORMATION SCIENTIST - 01/06/2021 8:00 AM EDT covid test to be done 01/06/2021 & will self quarantine until OR 01/13/2021. Last Cardiac appointment notes ( [facility] ) dated 05/08/2020 -- paper copy on chart. documented in this encounter* Halle Panda RN - 01/13/2021 11:24 AM EDT Pt eating and drinking without difficulty, dc instructions given, pt verbalized understanding * Halle Panda RN - 01/13/2021 11:14 AM EDT Hr Intern in with pt reviewing the stimulator documented in this encounter Assessments Diagnosis Lumbar spondylosis- Primary Lumbosacral spondylosis without myelopathy DDD (degenerative disc disease), lumbar Degeneration of lumbar or lumbosacral intervertebral disc Diagnosis Pain Generalized pain Discharge Instructions * Instructions* Maxwell Fried MD - 01/13/2021 medication given may have significant effects after discharge. Therefore on the day of surgery: 1) you should be accompanied by a responsible adult upon discharge and for 24 hours after surgery. Do not drive a motor vehicle, operate machinery, power tools or appliance, drink alcoholic beverages, or make critical decisions for 24 hours 2) Be aware of dizziness, which may cause a fall. Change positions slowly. 3) Eating: you may resume your regular diet but it is better to increase intake slowly with mild foods and working up to your regular diet. 4) Nausea/Vomiting: Nausea and vomiting may occur as you become more active or begin to increase food intake. If this should happen, decrease activity and return to liquids. 5) Pain: Your surgeon may have given you a prescription for pain medication. Take pain medication with food as prescribed. Pain medication may cause constipation, so drink plenty of fluids. You may need to use laxatives. 6) Ice: You may use a cool pack to operative site for 20 min 5-6 times a day as needed for comfort. 8) Dressing: Change dressing as frequently as needed to keep clean and dry. Remove all sticky tape in 5 days. May shower in three days. Do not put soap or soak on the incision until healed. 9) INCREASE ACTIVITY TOLERATED AND INSTRUCTED. GO BY HOW YOU FEEL. 10) See physical therapist when advised by your physician 11) Call your doctor at [phone] for an appointment (or follow up as scheduled). 12) If have an order for X-Rays have done within a week before your follow up appointment. Contact OFFICE IF o Increased redness, swelling, excess drainage, and/or pain to surgery site. As well as new onset fevers and or chills. These could signify an infection. o Calf or thigh tenderness to touch as well as increased swelling or redness. This could signify a clot formation. o Numbness or tingling to an area around the incision site or below the incision site (toes). Or ifthe operative extremity becomes cold, blue. o Any rash appears, increased or new onset nausea/vomiting occur. This may indicate a reaction to amedication. o Temp is 38.5 C (101F) 12) If you have any concerns or questions, please call OFFICE. The 24- hour phone is [phone] 13) If you are unable to contact your surgeon, in an emergency situation, go to the nearest hospital emergency room. 14)ambulate as much as possible documented in this encounter Reason for Referral Status Reason Specialty Diagnoses / Procedures Referre d By Contact Referred To Contact Closed Radiology Diagnoses Pain Procedures Fluoro For Surgical Procedures Maxwell Fried MD [address], [address] [place] [address] Reason lumbar sacral back p ain Diagnosis 1 Lumbar degenerative disc disease (M51.36) Referral Organization [facility] Family Harini Feliciano Referring Provider First Name Iza Referring Provider Last Name Landy Referring Provider Specialty Nurse Pract kimmyionejeromy Referred Organization [facility] Referred Provider Mariana Ceballos James Referred Address ,[place], [place],[address] Referred Provider Specialty Orthopedic S urgery Referral Priority Routine Reason patient has diagnose d sleep apnea - has issues with using masks Diagnosis 1 Obstructive sleep ap tere (G47.33) Referral Organization [facility] Family Harini Feliciano Referring Provider First Name Iza Referring Provider Last Name Landy Referring Provider Specialty Nurse Kenneth kahn Referred Organization [facility] Referred Provider Kavitha Morel David Referred Address [address] [place], [place],[address] Referred Provider Specialty Sleep Medici ne Referral Priority Routine Chief Complaint * REGINA HENRY is being seen for an annual follow-up of. * 76-year-old female who returns for annual follow-up with a number of 9 cardiac related complaints related to fatigue, dizziness, white spots in front of her eyes during working outdoors with gardening and chores couple weekends ago, shortness of breath, and overall anxiety. She has no cardiovascular complaints. Her primary complaint is fatigue. 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 * She has had remote PCI of the LAD with Dr. Chacon, subsequently she had a stress imaging and heart catheterization in 2019 performed by myself revealing 30 to 50% disease of the right coronary and widely patent LAD and normal left ventricular function. * She states her dizziness was her only symptoms that led to her intervention with Dr. Chacon in the past * I have suggested that she has noncardiac related complaints that she needs no further cardiac testing at this time. That anxiety certainly may be a culprit issue in her overall symptom complex. * In addition she has untreated hyperlipidemia as she is unable to tolerate statins her latest LDL is189. I suggested consideration for Repatha injections or Lovique. We will otherwise prescribe the Repatha, and a follow-up in 1 year * REGINA HENRY is being seen for an annual follow-up of. * 76-year-old female who returns for annual follow-up with a number of 9 cardiac related complaints related to fatigue, dizziness, white spots in front of her eyes during working outdoors with gardening and chores couple weekends ago, shortness of breath, and overall anxiety. She has no cardiovascular complaints. Her primary complaint is fatigue. 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 * She has had remote PCI of the LAD with Dr. Chacon, subsequently she had a stress imaging and heart catheterization in 2019 performed by myself revealing 30 to 50% disease of the right coronary and widely patent LAD and normal left ventricular function. * She states her dizziness was her only symptoms that led to her intervention with Dr. Chacon in the past * I have suggested that she has noncardiac related complaints that she needs no further cardiac testing at this time. That anxiety certainly may be a culprit issue in her overall symptom complex. * In addition she has untreated hyperlipidemia as she is unable to tolerate statins her latest LDL is189. I suggested consideration for Repatha injections or Lovique. We will otherwise prescribe the Repatha, and a follow-up in 1 year Chief Complaint and Reason for Visit Chief Complaint ruq abd pain Chief Complaint ruq abd pain V Dizziness, Balance Sleep apnea 31-90 day follow up Chief Complaint ruq abd pain Sleep apnea 31-90 day follow up Dizziness, Balance Chief Complaint Sleep apnea 31-90 da y follow up Dizziness, Balance Chief Complaint M25.561 Back Pain Back Pain Chief Complaint M25.561 Back Pain Back Pain r06.02 Chief Complaint M47.26 Chief Complaint M25.561 Chief Complaint M25.561 M25.561 Knee Pain Chief Complaint New Rt Knee Pain Nx M25.[address] Flowers Rt Medial Meniscus T Change In Bowel Habits//Can'T Use The Re Knee Pain Knee Pain Poss Uti Reason for Visit Dysuria Chief Complaint New Rt Knee Pain Nx M25.[address] Flowers Rt Medial Meniscus T Change In Bowel Habits//Can'T Use The Re Knee Pain Knee Pain Poss Uti r30.0 Reason for Visit Acute UTI Dysuria Additional Source Comments INFORMATION SOURCE (unrecogn ized section and content) DATE CREATED AUTHOR 04/04/2019 [facility] DATE CREATED AUTHOR AUTHOR'S ORGANIZ ATION 01/07/2021 [facility] [place] DATE CREATED AUTHOR AUTHOR'S ORGANIZ ATION [facility] [place] DATE CREATED AUTHOR AUTHOR'S ORGANIZ ATION 12/03/2021 [facility] DATE CREATED AUTHOR AUTHOR'S ORGANIZ ATION 03/19/2022 [employer] DATE CREATED AUTHOR AUTHOR'S ORGANIZ ATION 05/04/2022 [facility] DATE CREATED AUTHOR AUTHOR'S ORGANIZ ATION 03/07/2023 [facility] DATE CREATED AUTHOR AUTHOR'S ORGANIZ ATION 09/29/2023 [facility] DATE CREATED AUTHOR AUTHOR'S ORGANIZ ATION 10/06/2023 [facility] DATE CREATED AUTHOR AUTHOR'S ORGANIZ ATION 12/07/2023 [facility] DATE CREATED AUTHOR AUTHOR'S ORGANIZ ATION 12/12/2023 [facility] Reason for Visit (unrecogniz ed section and content) Status Reason Specialty Diagnoses / Procedures Referre d By Contact Referred To Contact Diagnoses Radiculopathy RADICULOPATHY, SPONDYLOSIS, DEGENERATIVE DISC DISEASE Procedures MA PERCUT IMPLNT NEUROELECT,EPIDURAL DCS (DORSAL COLUMN STIMULATOR) TRIAL .5 HOUR/ 1 C-ARM/ [facility] REP LINDY LERMA MAC + LOCAL Maxwell Fried MD [address], [address] [place] [address] [facility] Reason Onset Date Comments Med Refill 10/19/2023 Reason Comments wants to discuss starting Lexapro Depres tee/anxiety Care Teams (unrecognized sec tion and content) Team Status: Inactive Member Role Status Dates Gaudencio Green DO Attending Provider Active NON STAFF Primary Care Provider Active Team Status: Active Member Role Status Dates NON STAFF Primary Care Provider Active Team Status: Active Member Role Status Dates NON STAFF Primary Care Provider Active Shekhar Perez MD Attending Provider Active Team Status: Inactive Member Role Status Dates NON STAFF Primary Care Provider Active Payton Boggs NP Attending Provider Active Team Status: Inactive Member Role Status Dates NON STAFF Primary Care Provider Active Shekhar Perez MD Attending Provider Active Team Status: Inactive Member Role Status Dates NON STAFF Primary Care Provider Active STANLEY Farley Attending Provider Active Team Status: Active Member Role Status Dates Shekhar Perez MD Primary Care Provider Active Team Status: Inactive Member Role Status Dates Cam Riggs MD Attending Provider Active Shekhar Perez MD Primary Care Provider Active Team Status: Inactive Member Role Status Dates Shekhar Perez MD Primary Care Provider Active Cam Riggs MD Attending Provider Active Team Status: Inactive Member Role Status Dates Shekhar Perez MD Primary Care Provider, Attending Provider Active Team Status: Inactive Member Role Status Dates Shekhar Perez MD Primary Care Provider Active Peter Flowers II, MD Attending Provider Active Estimator Lumber Relationship Specialty Start Date End Date Shekhar Perez MD [address] [place] [address], [address] [place] [address] PCP - General Pediatrics 05/25/22 Team Status: Inactive Member Role Status Dates Shekhar Perez MD Primary Care Provider Active Musa Orlando DO Attending Provider Active Estimator Lumber Relationship Specialty Start Date End Date Shekhar Perez MD [address] [place] [address], [address] [place] [address] PCP - General Pediatrics 05/25/22 Estimator Lumber Relationship Specialty Start Date End Date Shekhar Perez MD [address] [place] [address], [address] [place] [address] PCP - General Pediatrics 05/25/22 Team Status: Inactive Member Role Status Dates Peter Flowers II, MD Attending Provider Active Start: October 07, 2023 End: October 07, 2023 Team Status: Inactive Member Role Status Dates Shekhar Perez MD Primary Care Provider Active Start: October 07, 2023 End: October 07, 2023 Peter Flowers II, MD Attending Provider Active Start: October 07, 2023 End: October 07, 2023 Team Status: Inactive Member Role Status Dates Shekhar Perez MD Primary Care Provider Active Start: October 12, 2023 End: October 12, 2023 Peter Flowers II, MD Attending Provider Active Start: October 12, 2023 End: October 12, 2023 Team Status: Inactive Member Role Status Dates Provider Conversion Attending Provider Active St art: October 25, 2023 End: October 25, 2023 Team Status: Inactive Member Role Status Dates Gallo Reid MD Attending Provider Active S tart: October 28, 2023 End: October 28, 2023 Team Status: Inactive Member Role Status Dates Shekhar Preez MD Primary Care Provider Active Start: October 28, 2023 End: October 28, 2023 Musa Orlando DO Attending Provider Active St art: October 28, 2023 End: October 28, 2023 Team Status: Active Member Role Status Dates Shekhar Perez MD Primary Care Provider Active Start: November 09, 2023 Musa Orlando DO Attending Provider, Other Provider Active Start: November 09, 2023 Team Status: Inactive Member Role Status Dates Shekhar Perez MD Primary Care Provider Active Start: December 11, 2023 End: December 11, 2023 Yary Silveira APRN Attending Provider Active S tart: December 11, 2023 End: December 11, 2023 Goals (unrecognized section and content) Goals may be documented in a n alternate section FOR RECORDS PERTAINING TO PATIENTS WHO ARE OR HAVE BEEN ENROLLED IN A CHEMICAL DEPENDENCY/SUBSTANCEABUSE PROGRAM, SOME INFORMATION MAY BE OMITTED. This clinical summary was aggregated from multiple sources. Caution should be exercised in using it in the provision of clinical care. This summary normalizes information from multiple sources, and as a consequence, information in this document may materially change the coding, format and clinical context of patient data. In addition, data may be omitted in some cases. CLINICAL DECISIONS SHOULD BE BASED ON THE PRIMARY CLINICAL RECORDS. aitainment [facility]. provides no warranty or guarantee of the accuracy or completeness of information in this document.
--- NOTE | 2023-12-13 13:57 | ECG_ITS ---
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
--- NOTE | 2023-12-13 13:58 | CT_ITS ---
The [address] [address] Patient Name: ZEYNEP VAUGHAN MRN: [id number] date: 1945 Sex: F Assigned Patient Location: ER Current Patient Location: ER Accession/Order Number: [id number] Exam Date: 12/13/2023 14:46 Report Date: 12/13/2023 15:16 At the request of: ULISES ESQUIVEL Procedure: CT head/brain wo con EXAM: CT head/brain wo con HISTORY: dizzy, unsteady COMPARISON: MRI brain 11/24/2017 TECHNIQUE: Axial CT scans through the head were obtained without IV contrast administration. Dose reduction techniques were achieved by using: automated exposure control and/or adjustment of mA and /or kV according to patient size and/or use of iterative reconstruction technique. FINDINGS: There is no evidence of acute intracranial hemorrhage or abnormal extra-axial fluid collection. No mass effect or midline shift is seen. There is no evidence of large acute territorial infarction. There is no hydrocephalus. Mild enlarged ventricles and sulci, consistent with age appropriate cerebral atrophy. Mild decreased attenuation is present in supratentorial white matter, likely represents chronic microvascular ischemia. Mild atherosclerotic calcifications of bilateral cavernous carotid arteries. To the limit of CT, the posterior fossa appears unremarkable. No definite acute fracture is identified. Soft tissues are unremarkable. The visualized orbits show no abnormality. There is status post bilateral lens replacement. The visualized paranasal sinuses show no air-fluid level. There is a small mucous retention cyst/polyp within the left maxillary sinus. There is chronic mild right mastoid effusion. CT/CT head/brain wo con IMPRESSION: No CT evidence of acute intracranial abnormality. If there is sufficient clinical concern for acute brain parenchymal pathology, consider MRI for further evaluation. Mild chronic microvascular ischemia and involutional changes. Electronically authenticated by: VALENTINE SHARP Date: 12/13/2023 15:16
--- NOTE | 2023-12-13 13:59 | ED.GENADUL1 ---
HPI - General Adult General Chief complaint: Urogenital-Female Stated complaint: UTI SYMPTOMS Time Seen by Provider: 12/13/23 13:22 Source: patient Mode of arrival: walk-in Limitations: no limitations History of Present Illness HPI narrative: Patient is a 77-year-old female who presents to the emergency department concerned she is having a reaction to Macrobid. She states she was diagnosed with a UTI at urgent care 2 days ago, she states she was given Macrobid and told to call the urgent care if she had any problems taking it because she has multiple allergies. She states that she is feeling more anxious, dizzy, unsteady on her feet, nauseous. She stopped taking the Macrobid last night because of the symptoms. She has no specific chest pain or shortness of breath. No fevers or vomiting. She feels as though the dysuria and urinary frequency is improved. She states she called the urgent care today and was referred to the ER. Related Data Previous Rx's Medication Instructions Recorded ciprofloxacin HCl 500 mg tablet 500 mg PO BID #14 tabs 12/13/23 (Cipro) meclizine 25 mg chewable tablet 25 mg PO QID PRN dizziness #12 tabs 12/13/23 (Antivert) ondansetron 4 mg disintegrating 4 mg PO Q6H PRN nausea and 12/13/23 tablet vomiting #12 tabs Review of Systems ROS Constitutional Denies: fever or chills Ears, nose, mouth, and throat Denies: throat pain or nasal congestion Cardiovascular Denies: chest pain Respiratory Denies: shortness of breath or cough Gastrointestinal Reports: nausea; Denies: vomiting or diarrhea Genitourinary Denies: painful urination Musculoskeletal Denies: back pain Integumentary/Breast Denies: rash Neurological Reports: dizziness; Denies: headache Psychiatric Reports: anxiety Hematologic/Lymphatic Denies: easy bruising or easy bleeding Exam Narrative Exam Narrative: Gen.: Awake, alert, in no distress Head: Normocephalic, atraumatic ENT: Moist mucous membranes Respiratory: No respiratory distress, lungs clear bilaterally Cardio: Regular rate and rhythm Gastrointestinal: Abdomen is soft, nondistended and nontender to palpation Extremities: Moves extremities equally Psych: Normal mood and affect Neuro: No focal neuro deficit Skin: Warm, dry, intact Constitutional Vital Signs, click to edit/add: Last Vital Signs Temp 97.9 F 12/13/23 13:34 Pulse 80 12/13/23 13:34 Resp 18 12/13/23 13:34 BP 140/78 12/13/23 13:34 Pulse Ox 95 12/13/23 13:34 O2 Del Method Room Air 12/13/23 13:34 Course Vital Signs Vital signs: Vital Signs Temperature 97.9 F 12/13/23 13:34 Pulse Rate 80 12/13/23 13:34 Respiratory Rate 18 12/13/23 13:34 Blood Pressure 140/78 12/13/23 13:34 Pulse Oximetry 95 12/13/23 13:34 Oxygen Delivery Method Room Air 12/13/23 13:34 Temperature 97.9 F 12/13/23 13:34 Pulse Rate 80 12/13/23 13:34 Respiratory Rate 18 12/13/23 13:34 Blood Pressure 140/78 12/13/23 13:34 Pulse Oximetry 95 12/13/23 13:34 Oxygen Delivery Method Room Air 12/13/23 13:34 Medical Decision Making MDM Narrative Medical decision making narrative: Patient is treated with IV fluids, Zofran, Ativan. Studies within normal limits, no evidence of sepsis. Patient with mild UTI. I contacted the [facility] urgent care where she was seen, no culture has been resulted at this time. She will be changed to do different antibiotics, I will call her pharmacy to verify her allergies as she neglected to bring her list of allergies to the emergency department today. She is discharged home with Zofran and new antibiotics for the UTI. Follow-up with PCP and return to the ER if symptoms change or worsen. I reevaluated the patient prior to discharge to discuss her results with her and her . Patient states the ativan is starting to help her symptoms. She ambulated to the bathroom without difficulty. I discussed calling [facility] in [place] to verify her medication allergies. The patient's at bedside questioned what to do if the patient is unable to take the new antibiotic, and I discussed with him at length that if the patient has a mild intolerance to the medication, such as nausea, that they can call the emergency room and a new prescription can be called in for her but if she has severe symptoms or is complaining of dizziness, chest pain, weakness, etc that she should return to the ED as the staff will not feel comfortable changing the medications. The patient's became very defensive and argumentative, speaking over me and expressing his frustration with their urgent care treatment. I tried multiple times to explain to the patient's how the emergency department is different with different protocols, and also different limitations, but he was not willing to listen to me. I attempted to meet the needs and concerns of the patient and her by discussing her intolerance to the medications but the patient's was fixated on being guaranteed that the ER would call in new medications for her if she didn't tolerate the new meds. I gave the patient and her the information for the ER nursing insurance licensing supervisor if they would like to discuss their frustrations with her. Medical Records Medical records reviewed: Yes I reviewed the patient's medical records Lab Data Lab results reviewed: Yes I reviewed the patient's lab results Labs: Lab Results 12/13/23 12/13/23 Range/Units 14:00 14:10 WBC 6.6 (4.0-11.0) 10^3/uL RBC 4.80 (4.20-5.40) 10^6/uL Hgb 13.6 (12.0-16.0) g/dL Hct 42.0 (36.0-48.0) % MCV 87.5 (81.0-99.0) fL MCH 28.3 (26.7-34.0) pg MCHC 32.4 (29.9-35.2) g/dL RDW 13.2 (11.0-15.0) % Plt Count 332 (150-450) 10^3/uL MPV 9.5 (9.5-13.5) fL Neut % (Auto) 52.7 (43.0-75.0) % Lymph % (Auto) 34.4 (20.5-60.0) % Dade % (Auto) 8.3 (1.7-12.0) % Eos % (Auto) 3.6 (0.9-7.0) % Baso % (Auto) 0.8 (0.2-2.0) % Neut # (Auto) 3.5 (1.4-6.5) 10^3/uL Lymph # (Auto) 2.3 (1.2-3.8) 10^3/uL Dade # (Auto) 0.6 (0.3-0.8) 10^3/uL Eos # (Auto) 0.2 (0.0-0.7) 10^3/uL Baso # (Auto) 0.1 (0.0-0.1) 10^3/uL Abs Immat Gran (auto) 0.01 (0.00-0.03) 10^3/uL Imm/Tot Granulo (auto) 0.2 (0.0-0.5) % PT 10.0 (9.0-11.6) sec INR 0.94 Sodium 138 (136-145) mmol/L Potassium 3.9 (3.5-5.1) mmol/L Chloride 103 (98-107) mmol/L Carbon Dioxide 24.8 (21.0-32.0) mmol/L Anion Gap 14.1 BUN 12.0 (7.0-18.0) mg/dL Creatinine 0.66 (0.55-1.02) mg/dL Est GFR ( Amer) >60 (>=60) Est GFR (Non-Af Amer) >60 (>=60) BUN/Creatinine Ratio 18.2 Glucose 80 (74-106) mg/dL Lactate 1.3 (0.4-2.0) mmol/L Calcium 9.3 (8.5-10.1) mg/dL Total Bilirubin 0.5 (0.2-1.0) mg/dL AST 20 (15-37) U/L ALT 23 (14-59) U/L Alkaline Phosphatase 84 (46-116) U/L Troponin I High Sens 8.8 (4.0-51.3) pg/mL Total Protein 7.2 (6.4-8.2) g/dL Albumin 3.1 L (3.4-5.0) g/dL Globulin 4.1 g/dL Albumin/Globulin Ratio 0.8 TSH 1.142 (0.358-3.740) uIU/mL Urine Color Lt. yellow (YELLOW) Urine Clarity Clear (CLEAR) Urine pH 6.0 (5.0-9.0) Ur Specific Marcell 1.010 (1.005-1.025) Urine Protein Negative (NEG/TRACE) mg/dL Urine Glucose (UA) Negative (NEGATIVE) mg/dL Urine Ketones Negative (NEGATIVE) mg/dL Urine Occult Blood Trace-i (NEGATIVE) Urine Nitrite Negative (NEGATIVE) Urine Bilirubin Negative (NEGATIVE) Urine Urobilinogen 0.2 (0.2-1.0) EU/dL Ur Leukocyte Esterase Large A (NEGATIVE) Urine RBC 0-2 (0-2) #/HPF Urine WBC 10-20 A (NONE SEEN) #/HPF Ur Squamous Epith Cells Few A (NONE/RARE) #/LPF Urine Crystals None seen (None Seen) #/HPF Urine Bacteria Trace A (NONE SEEN) #/HPF Urine Casts None seen (NONE SEEN) #/LPF Urine Mucus None seen (NONE SEEN) Ur Culture Indicated? Yes Imaging Data Chest x-ray: Attestation: I have reviewed the pertinent imaging results. Radiologist's impression: ITS Impressions Head CT 12/13/23 13:58 IMPRESSION: No CT evidence of acute intracranial abnormality. If there is sufficient clinical concern for acute brain parenchymal pathology, consider MRI for further evaluation. Mild chronic microvascular ischemia and involutional changes. Electronically authenticated by: VALENTINE SHARP Date: 12/13/2023 15:16 Chest X-Ray 12/13/23 14:32 IMPRESSION: 1. No acute cardiopulmonary process. Electronically authenticated by: DEANNA SANTIZO Date: 12/13/2023 14:51 ECG Data Attestation: I personally reviewed and interpreted this ECG as follows: (Normal sinus rhythm at a rate of 75 with sinus arrhythmia, no acute ST elevation or ectopy. EKG reviewed by attending physician) Discharge Plan Discharge Chief Complaint: Urogenital-Female Clinical Impression: Urinary tract infection Patient Disposition: Home, Self-Care Time of Disposition Decision: 15:23 Condition: Good Prescriptions / Home Meds: New ciprofloxacin HCl [Cipro] 500 mg tablet 500 mg PO BID Qty: 14 0RF ondansetron 4 mg tablet,disintegrating 4 mg PO Q6H PRN (Reason: nausea and vomiting) Qty: 12 0RF meclizine [Antivert] 25 mg tablet,chewable 25 mg PO QID PRN (Reason: dizziness) Qty: 12 0RF Instructions: Urinary Tract Infection in Women (ED) Additional Instructions: Madeleine Kirkpatrick is our nursing insurance licensing supervisor if you would like to discuss your emergency room visit with her, you can call [phone] and ask for her office Stand Alone Forms: Portal Instructions Referrals: SHEKHAR PEREZ [Primary Care Provider] - 1 week
[2023-12-13] MEDS: 0.9 % SODIUM CHLORIDE 1,000 ML 1000 ML IV (14:18)
[2023-12-13] MEDS: LORAZEPAM 2 MG/ML 1 ML VIAL 0.5 MG IV (14:19)
[2023-12-13] MEDS: ONDANSETRON PF 4 MG/2 ML VIAL IV (14:19)
[2023-12-13 14:31] LABS: Bilirubin Urine NEGATIVE (NEGATIVE); Blood Urine TRACE-I (NEGATIVE); Clarity Urine CLEAR (CLEAR); Color Urine LT. YELLOW (YELLOW); Glucose Urine UA NEGATIVE (NEGATIVE); Ketones Urine NEGATIVE (NEGATIVE); Leukocyte Esterase Urine LARGE (NEGATIVE); Nitrite Urine NEGATIVE (NEGATIVE); Protein Urine NEGATIVE (NEG/TRACE); Urobilinogen Urine 0.2 EU/dL (0.2-1.0)
[2023-12-13 14:32] LABS: Basophils Absolute Auto 0.1 10^3/uL (0.0-0.1); Basophils Percent Auto 0.8 % (0.2-2.0); Eosinophils Absolute Auto 0.2 10^3/uL (0.0-0.7); Eosinophils Percent Auto 3.6 % (0.9-7.0); Hemoglobin 13.6 g/dL (12.0-16.0); Immature Granulocytes Abs Auto 0.01 10^3/uL (0.00-0.03); Immature Granulocytes Pct Auto 0.2 % (0.0-0.5); Lymphocytes Absolute Auto 2.3 10^3/uL (1.2-3.8); Lymphocytes Percent Auto 34.4 % (20.5-60.0); Mean Corpuscular HGB Conc 32.4 g/dL (29.9-35.2); Mean Corpuscular Hemoglobin 28.3 pg (26.7-34.0); Mean Corpuscular Volume 87.5 fL (81.0-99.0); Mean Platelet Volume 9.5 fL (9.5-13.5); Monocytes Absolute Auto 0.6 10^3/uL (0.3-0.8); Monocytes Percent Auto 8.3 % (1.7-12.0); Neutrophils Absolute Auto 3.5 10^3/uL (1.4-6.5); Neutrophils Percent Auto 52.7 % (43.0-75.0); Platelet Count 332 10^3/uL (150-450); Red Cell Distribution Width 13.2 % (11.0-15.0); White Blood Count 6.6 10^3/uL (4.0-11.0)
--- NOTE | 2023-12-13 14:32 | XR_ITS ---
The [address] [address] Patient Name: ZEYNEP VAUGHAN MRN: [id number] date: 1945 Sex: F Assigned Patient Location: ER Current Patient Location: ER Accession/Order Number: [id number] Exam Date: 12/13/2023 14:28 Report Date: 12/13/2023 14:51 At the request of: ULISES ESQUIVEL Procedure: XR chest 1V EXAMINATION: XR chest 1V HISTORY: Dizzy, unsteady , cough COMPARISON: No relevant comparison available. FINDINGS: LUNGS: Elevated right hemidiaphragm. No appreciable infiltrates or mass. VASCULATURE: No increased pulmonary vasculature. PLEURA: No pneumothorax, effusion, or pleural thickening. CARDIAC: No cardiomegaly or cardiac silhouette abnormality. MEDIASTINUM: No visible mass or adenopathy. BONES: No fracture or visible bone lesion. OTHER: Negative. XR/XR chest 1V IMPRESSION: 1. No acute cardiopulmonary process. Electronically authenticated by: DEANNA SANTIZO Date: 12/13/2023 14:51
[2023-12-13 14:36] LABS: Urine Microscopic Indicated YES
[2023-12-13 14:45] LABS: Lactate/Lactic Acid 1.3 mmol/L (0.4-2.0)
[2023-12-13 14:54] LABS: Bacteria Urine TRACE #/HPF (NONE SEEN); Cast Seen? NONE SEEN #/LPF (NONE SEEN); Crystals Seen? None Seen #/HPF (None Seen); Mucus Urine NONE SEEN (NONE SEEN); RBC Urine 0-2 #/HPF (0-2); Squamous Epithelial Cell Urine FEW #/LPF (NONE/RARE)
[2023-12-13 14:55] LABS: Alanine Aminotransferase 23 U/L (14-59); Albumin Globulin Ratio 0.8; Albumin Level 3.1 g/dL (3.4-5.0); Alkaline Phosphatase 84 U/L (46-116); Anion Gap 14.1; Aspartate Amino Transferase 20 U/L (15-37); BUN Creatinine Ratio 18.2; Bilirubin Total 0.5 mg/dL (0.2-1.0); Calcium 9.3 mg/dL (8.5-10.1); Carbon Dioxide 24.8 mmol/L (21.0-32.0); Chloride 103 mmol/L (98-107); Estimated GFR (African America >60 (>=60); Estimated GFR (Non-African Ame >60 (>=60); Globulin 4.1 g/dL; Glucose 80 mg/dL (74-106); Potassium 3.9 mmol/L (3.5-5.1); Sodium 138 mmol/L (136-145); Thyroid Stimulating Hormone 1.142 uIU/mL (0.358-3.740); Total Protein 7.2 g/dL (6.4-8.2); Troponin I High Sensitivity 8.8 pg/mL (4.0-51.3)
[2023-12-13 14:55] LABS: Urine Culture Indicated YES
[2023-12-13 14:59] LABS: INR 0.94
[2023-12-13 16:18] VITALS: BP 133/55; PULSE 72; RESP 12; O2SAT 95
== END 2023-12-13 16:21 | disposition home or self-care (01) ==
PROVIDERS: Physician Assistant; Emergency Provider Emergency Medicine Emergency Medical Services; PCP Internal Medicine
DX: N39.0 Urinary tract infection, site not specified (principal); R42 Dizziness and giddiness; R11.0 Nausea; R26.81 Unsteadiness on feet
CPT/HCPCS: 36415; 70450; 71045; 80053; 81001; 83605; 84443; 84484; 85025; 85610; 87086; 93005; 96361; 96374; 96375; 99285; J2060; J2405

== ENCOUNTER 2024-06-28 10:05 | Outpatient (RCR) | payer MEDICARE, SELFPAY | END 2024-07-04 16:40 | disposition home or self-care (01) | LOC: PT 10:05 | PROVIDERS: PCP Internal Medicine; Visit Provider Internal Medicine | DX: H81.10 Benign paroxysmal vertigo, unspecified ear (principal); M54.2 Cervicalgia | CPT/HCPCS: 95992; 97140; 97161 ==

== ENCOUNTER 2024-07-25 11:22 | Outpatient (OUT) | payer MEDICARE, SELFPAY ==
[2024-07-25 11:52] LABS: Estimated Average Glucose 114 mg/dL; Glycohemoglobin A1C 5.6 % (4.5-6.2)
[2024-07-25 12:53] LABS: BUN Creatinine Ratio 14.9; Calcium 9.7 mg/dL (8.5-10.1); Chloride 100 mmol/L (98-107); Estimated GFR (African America >60 (>=60 mL/min/1.73m^2); Estimated GFR (Non-African Ame >60 (>=60 mL/min/1.73m^2); Glucose 92 mg/dL (74-106); Sodium 135 mmol/L (136-145)
== END 2024-07-25 11:23 | disposition home or self-care (01) ==
PROVIDERS: PCP Internal Medicine; Visit Provider Internal Medicine
DX: R73.9 Hyperglycemia, unspecified (principal)
CPT/HCPCS: 36415; 80048; 83036

== ENCOUNTER 2024-12-17 09:00 | Outpatient (RCR) | payer MEDICARE, SELFPAY | END 2025-01-25 07:38 | disposition home or self-care (01) | LOC: PT 09:00 | PROVIDERS: PCP Internal Medicine; Visit Provider Registered Nurse | DX: M15.0 Primary generalized (osteo)arthritis (principal); M54.50 Low back pain, unspecified; M62.81 Muscle weakness (generalized) | CPT/HCPCS: 97110; 97112; 97161 ==

== ENCOUNTER 2025-04-30 14:05 | Outpatient (RCR) | payer MEDICARE, SELFPAY | END 2025-05-31 14:20 | disposition home or self-care (01) | LOC: PT 14:05 | PROVIDERS: PCP Internal Medicine | DX: M54.50 Low back pain, unspecified (principal); M62.81 Muscle weakness (generalized) | CPT/HCPCS: 97113; 97162 ==

== ENCOUNTER 2025-09-02 14:11 | Outpatient (OUT) | payer MEDICARE, SELFPAY ==
--- OUTSIDE RECORDS SUMMARY | 2025-09-02 14:14 | XMS_ITS | Clinical Summary ---
Author Organization [facility] Address [address] [place] [address] Phone Care Team Providers Care Farmer [employer] Name Role Phone Chito Peña MD Primary Care Provider + Allergies Active AllergyReactionsCriticalityNoted LvlcXdgsbpqeHeacrwhNnrmkpy77/03/2023 NxaifylFllcdiy53/03/4305EwmnmwayhYlhsomt37/03/5350HnorbshvFhspyru42/03/2023 NebivololDizziness,Mwedrbzgpv55/03/3065HmoqeuowcZirbjti38/03/2023 Oxycodone-BgqhbcarxgpnwLnkrrxp71/03/0604XburufmwowuUtdvxsi83/03/2023ropoxyphene N-VhmnfsuukiizcYjvjzhu45/03/0959Inbcvgb-Dta-Rmg Reductase InhibitorsMyalgia 08/26/2023Sulfa (Sulfonamide Antibiotics)Sbgvjyp6208/26/2023 Medications MedicationSigDispense QuantityRefillsLast FilledStart DateEnd DateStatus estradiol (Estrace) 0.01 % (0.1 mg/gram) vaginal cream Insert into the vagina. As wcgicirq04/20/2021ctive metoprolol tartrate (Lopressor) 25 mg tablet Take 1 tablet (25 mg) by mouth once daily.03/19/2021ctive clonazePAM (KlonoPIN) 0.5 mg tablet Take 1 tablet (0.5 mg) by mouth if needed for anxiety.Active Active Problems ProblemNoted DateDiagnosed DateBMI 30.0-30.9,adult03/30/2024Never smoked any sagluarjd71/07/9338Qmahlgn45/03/2023PC (atrial premature contractions) 11/03/2023Atherosclerosis of coronary artery of [place] heart08/26/2023Fatigue 08/26/2023History of PTCA110/26/20225600Nouicfowgadeyv92/03/2023Hypertension 08/26/2023Near wnccouv8408/26/20233799Tzqtnlwklzyr09/03/2023remature ventricular bryalwukheb27/03/2023 Family History Medical HistoryRelationNameCommentsCoronary artery diseaseBrotherCoronary artery diseaseFatherHeart attackFatherCoronary artery diseaseMotherCoronary artery diseaseSisterRelationNameStatusCommentsBrotherFatherMotherSister Social History Tobacco UseTypesPacks/DayYears UsedDateSmoking Tobacco: NeverSmokeless Tobacco: Never Tobacco Cessation:Counseling Given: Not Answered Alcohol UseStandard Drinks/WeekCommentsNever0 (1 standard drink = 0.6 oz pure alcohol)CommentsUnknownSex and Gender InformationValueDate RecordedSex Assigned at BirthNot on fileLegal NleFmjgla02/26/2022 9:07 AM ESTGender Identity Not on fileSexual OrientationNot on file Last Filed Vital Signs Vital SignReadingTime TakenCommentsBlood Nlmyytqj411/7006 1:22 PM EDT Iecee480103/30/2024 1:22 PM EDTTemperature--Respiratory Rate--Oxygen Saturation-- Inhaled Oxygen Concentration--Nanbzi06.2 kg (157 lb)03/30/2024 1:22 PM EDTHeight 152.4 cm (5')03/30/2024 1:22 PM EDTBody Mass Index30.6606 1:22 PM EDT Plan of Treatment Health MaintenanceDue DateLast DoneCommentsLipid Panel1945Medicare Annual Wellness Visit (AWV)1945TSH Level1945Hepatitis C Xjmewgixp63/24/1966 Pneumococcal Vaccine (1 of 2 - PCV)1966DTaP/Tdap/Td Vaccines (1 - Tdap) 1969Zoster Vaccines (1 of 2)1997Bone Density Scan2012RSV High Risk: (Elderly (60+) or Population) (1 - 1-dose 75+ series)2022 Influenza Vaccine (#1)2025OVID-19 Vaccine ( - 2024- season)2025 HIB VaccinesAged OutNo longer eligible based on patient's age to complete this topicHPV VaccinesAged OutNo longer eligible based on patient's age to complete this topicHepatitis A VaccinesAged OutNo longer eligible based on patient's age to complete this topicHepatitis B VaccinesAged OutNo longer eligible based on patient's age to complete this topicIPV VaccinesAged OutNo longer eligible based on patient's age to complete this topicMeningococcal VaccineAged OutNo longer eligible based on patient's age to complete this topicRotavirus VaccinesAged Out No longer eligible based on patient's age to complete this topic Insurance Care Teams Team MemberRelationshipSpecialtyStart DateEnd Date Chito Peña MD PCP - GeneralInternal Medicine03/30/24
--- OUTSIDE RECORDS SUMMARY | 2025-09-02 14:14 | XMS_ITS | Clinical Summary ---
Author Organization [facility] Address [address], [address] [place] [address] Care Team Providers Care Space Planner Name Role Phone Iza Bill APRN, NP Primary Care Provid er Allergies Active AllergyReactionsCriticalityNoted EcrnXobkorbePsbisbq19/30/2014 palpitations Ncujwln7407/23/2014 Palpitations & anxiety Propoxyphene N-Lwyseyexorstn50/30/2014 palpitations Joleciputj09/16/2021 anxiety Ssluxyvk74/30/2014 palpitations Ilygxg2801/06/2021 palpitations Other01/22/2019 opiods Oxycodone-Cklgqyatnfhbp87/27/2019 palpitations Cqaffadhidfxnptb36/16/2021 Patient unsure sx Rybsmli0101/06/2021 Muscle pain Bwpmbcxqrldjei00/30/2014 headache Wmmwlqkexhzbc59/16/2021 palpitations Xviakogsn38/16/2021 anxiety Medications MedicationSigDispense QuantityRefillsLast FilledStart DateEnd DateStatus Metoprolol Tartrate (LOPRESSOR PO) Take 25 mg by mouth nightlyActive traZODone (DESYREL) 50 MG tablet Take 50 mg by mouth nightlyActive Estradiol (ESTRACE VA) Place vaginally as neededActive famotidine (PEPCID) 20 MG tablet Take 20 mg by mouth nightly as neededActive Active Problems ProblemNoted DateDiagnosed DateDDD (degenerative disc disease), bcvetl6001/06/2021 Lumbar vvmovvrhbcz83/16/2021Weight loss08/20/20148070Vbworo62/28/2014Helicobacter pylori infectionAnxietyOsteoarthritisTachycardiaChronic back painDepression FibromyalgiaGERD (gastroesophageal reflux disease)HyperlipidemiaHypothyroidism Family History Medical HistoryRelationNameCommentsCancerBrother 1x 3kidneyOtherBrother 1x 3 CovidHeart DiseaseBrother 2x 4DiabetesDaughterx 3Coronary Art DisFatherHeart DiseaseFatherArthritisMotherCoronary Art DisMotherDiabetesMotherDiabetes Type 1 MotherHeart DiseaseMotherOtherSister 1x 1CovidNo Known ProblemsSister 2x 2No Known ProblemsSonx 1RelationNameStatusCommentsBrother 1x 3DeceasedBrother 2x 4 AliveDaughterx 3AliveFatherDeceasedMotherDeceasedSister 1x 1DeceasedSister 2x 2 AliveSonx 1Alive Social History Tobacco UseTypesPacks/DayYears UsedDateSmoking Tobacco: NeverSmokeless Tobacco: NeverAlcohol UseStandard Drinks/WeekCommentsNo0 (1 standard drink = 0.6 oz pure alcohol)CommentsNoSex and Gender InformationValueDate RecordedSex Assigned at BirthNot on fileLegal QjlVmhztq76/22/2014 10:25 AM EDTGender IdentityNot on fileSexual OrientationNot on file Last Filed Vital Signs Vital SignReadingTime TakenCommentsBlood Hslnwlto735/6703 11:25 AM EDT Vzoww9183 11:25 AM MMQAtevgubwrms58.9 ??C (98.5 ??F)01/13/2021 11:08 AM EDTRespiratory Gjqs2579 11:25 AM EDTOxygen Wbkrmwqxbk53%01/13/2021 11:25 AM EDTInhaled Oxygen Concentration--Cdwiyn41.9 kg (163 lb)01/13/2021 8:35 AM EDT Lmrhdb540.4 cm (5')01/13/2021 8:35 AM EDTBody Mass Index31.8301/13/2021 8:35 AM EDT Plan of Treatment Not on file Medical Devices ImplantedTypeAreaManufacturerDevice IdentifierShelf Expiration DateModel / Serial / LotKit Ld L60cm 1x8 Comp Trl Scrn For Sacr Nrv Stim Vectris Implanted:Qty: 1 on 01/13/2021 by Maxwell Miller MD at [facility] N/A: BackMEDTRONIC [employer]UR[employer]-[id number] / / [id number] Insurance Care Teams Team MemberRelationshipSpecialtyStart DateEnd Date Iza Bill APRN - NP [address] [place] [address] [facility]01/02/21
--- OUTSIDE RECORDS SUMMARY | 2025-09-02 14:14 | XMS_ITS | Clinical Summary ---
Author Organization [facility] Address [address] [place] [address] Care Team Providers Care Day Care Worker Name Role Phone Unavailable Primary Care Provider Unavailabl e Social History Tobacco UseTypesPacks/DayYears UsedDateSmoking Tobacco: Never Assessed CommentsUnknownSex and Gender InformationValueDate RecordedSex Assigned at Not on fileLegal AnjEzgfwd43/29/2022 10:59 PM EDTGender IdentityNot on file Sexual OrientationNot on file Plan of Treatment Not on file
--- OUTSIDE RECORDS SUMMARY | 2025-09-02 14:14 | XMS_ITS | Clinical Summary ---
Author Organization Code[employer] tem Address [id number] [address] [place] [address] Care Team Providers Care Family Preservation Caseworker Name Role Phone Chito Peña MD Primary Care Provider [phone] Allergies Active AllergyReactionsCriticalityNoted CcctBevfnbfnEzrhirkdzcrho68/16/2021 palpitations Enwlgxyqs12/16/2021 anxiety AspirinOther (See Comments)02/12/2014 Other reaction(s): Other: See Comments increased heart rate palpitations Qyasevl7202/04/20229911Inabiapttl13/02/2018 Other reaction(s): Unknown anxiety Nsaids (Non-Steroidal Anti-Inflammatory Drug)01/06/2021 palpitations Opioids - Morphine AnaloguesOther (See Comments)Ffxmmh8202/12/2014 increased heart rate Palpitations & anxiety Oxycodone-Csravhowlqyed21/20/2014 Other reaction(s): Unknown palpitations Cazdwokdqejl39/08/2016 Other reaction(s): Unknown Propoxyphene N-Dmpyvpwnjfkdc40/22/2014 Other reaction(s): Other: See Comments increased heart rate palpitations Sulfa (Sulfonamide Antibiotics)07/23/2014 Other reaction(s): Unknown headache Medications MedicationSigDispense QuantityRefillsLast FilledStart DateEnd DateStatus estradioL (ESTRACE) 0.01 % (0.1 mg/gram) vaginal cream Insert 1 g into the vagina 2 (two) times a week. Sundays and ouhhrxkc62/11/2022 Active blood-glucose meter [facility] Patient to test once daily 1 each 07/23/2024ctive blood sugar diagnostic (glucose blood) strip Patient to test once daily 100 strip ctive lancets misc Patient to test once daily 100 each 309/30/2024Active folic acid (FOLVITE) 1 mg tablet Take 1 tablet (1 mg total) by mouth in the morning. 30 tablet 4Active LORazepam (ATIVAN) 0.5 mg tablet Indications:AnxietyTake 1 tablet (0.5 mg total) by mouth 2 (two) times a day as needed for anxiety. 60 tablet 5Active amitriptyline (ELAVIL) 10 mg tablet Take 1 tablet (10 mg total) by mouth nightly.Active meloxicam (MOBIC) 7.5 mg tablet Indications:Degeneration of intervertebral disc of lumbar region with discogenic back pain and lower extremity painTake 1 tablet (7.5 mg total) by mouth in the morning. 15 tablet 5Active Active Problems ProblemNoted DateDiagnosed DateCOVID-19005/28/2022hronic back pain02/04/2022 Mixed anxiety depressive koppznmg05/14/0999Flojrlehmpwwrm43/14/2022 Xmufcfdrgqqxhj69/14/2022GERD (gastroesophageal reflux disease)02/04/2022 Hyjurwqyobqlgt81/14/2022Helicobacter pylori hpvirkbmq85/14/2022Tachycardia 02/04/2022Lumbosacral spondylosis without leejgmmpqg98/14/2022 Overview (02/04/2022): Added automatically from request for surgery [id number] DDD (degenerative disc disease), fnzyke4701/06/2021umbar prxmtujabol35/16/2021 Obstructive sleep apnea yelovfur51/10/2020 Overview (02/04/2022): Last Assessment & Plan: Assessment: non compliant with CPAP Stented coronary gscpfw6904/16/2019 Overview (02/04/2022): Last Assessment & Plan: Assessment: history of PTCA follows with Dr. Roldan at [facility] Fibromyalgia, primaryAnxietySOB (shortness of breath) Overview (05/03/2023): when lying flat Resolved Problems ProblemNoted DateDiagnosed DateResolved DateSevere recurrent major depression Overview (02/04/2022): Last Assessment & Plan: Assessment: stable on Prozac Encounters DateTypeDepartmentCare IsnuIdvjhftprbj98/16/2025Telephone [facility] [address] [facility] [place] [address] Chito Peña MD 07/12/2025 11:00 AM EDTOffice Visit [facility] [address] [facility] [place] [address] Chito Peña MD Degeneration of intervertebral disc of lumbar region with discogenic back pain and lower extremity pain (Primary Dx); Mixed anxiety depressive ittqihiy97/19/3506Udlfok14/15/2025Refill [facility] [address] [place] [address] Donya Sotomayor, PATROL INSPECTOR Ovaarug1707/04/2025Results [facility] [address] [place] [address] Chito Peña MD MR lumbar spine without nxilyrlz31/10/2025 1:15 PM EDT - 07/03/2025 11:59 PM EDT Hospital Encounter [facility] [address] [place] [address] Chito Peña MD Spinal stenosis of lumbar region with neurogenic claudication Discharge Disposition: Home07/03/20252059Wdkahl45/21/2025Telephone [facility] [address] [place] [address] Chito Peña MD 06/10/2025 2:30 PM EDTOffice Visit [facility] [address] [facility] [place] [place] [address] Chito Peña MD Spinal stenosis of lumbar region with neurogenic claudication (Primary Dx) 06/10/2025Travelfrom Last 3 Months Social History Tobacco UseTypesPacks/DayYears UsedDateSmoking Tobacco: NeverSmokeless Tobacco: Never Tobacco Cessation:Counseling Given: No Alcohol UseStandard Drinks/WeekCommentsNever0 (1 standard drink = 0.6 oz pure alcohol)PHQ-2AnswerDate RecordedTotal Dgdeq8073/04/2024ChildcareAnswerDate ItfsvyxwPiqfrourqHmlmjqp08/12/2019EmploymentAnswerDate RecordedEmploymentUnknown 04/04/2019Hunger ScreeningAnswerDate RecordedWithin the past 12 months we worried whether our food would run out before we got money to buy more.Never True08/27/2024Within the past 12 months the food we bought just didn't last and we didn't have money to get more.Never True08/27/2024CommentsNoSex and Gender InformationValueDate RecordedSex Assigned at BirthNot on fileLegal Sex Zxqrzu5405/29/2015 11:31 AM EDTGender IdentityNot on fileSexual OrientationNot on file Last Filed Vital Signs Vital SignReadingTime TakenCommentsBlood Hnkwnpxc654/72007/12/2025 11:05 AM EDT Qoxqd438407/12/2025 11:05 AM CMGWljdfbemjbt12.3 ??C (97.3 ??F)07/12/2025 11:05 AM EDTRespiratory Qtst999605/31/2022 3:13 PM EDTOxygen Ivhawztrkn34%07/12/2025 11:05 AM EDTInhaled Oxygen Concentration--Soygdt41.4 kg (155 lb 3.2 oz)07/12/2025 11:05 AM HHIYpedjg471.3 cm (4' 10 )07/12/2025 11:05 AM EDTBody Mass Index32.44 07/12/2025 11:05 AM EDT Plan of Treatment Health MaintenanceDue DateLast DoneCommentsDTaP,Tdap and Td Vaccines (1 - Tdap) 1966Zoster (Shingles) Vaccine (1 of 2)1997RSV ( or age 60+ yrs) (1 - 1-dose 75+ series)2022Influenza Fuxnevo2506/24/2025Depression Myuuhetts17Fall Risk Hrrsifuoa50Medicare Annual Wellness Visit, 08/26/2023Tobacco Imfdxxxqp17/19/2026 07/12/2025 Medical Devices Not on file Procedures Procedure NamePriorityDate/TimeAssociated DiagnosisCommentsMR LUMBAR SPINE WO VZUBGzcbubs38/10/2025 2:19 PM EDT Spinal stenosis of lumbar region with neurogenic claudication from Last 3 Months Results * MR lumbar spine without contrast (07/03/2025 2:19 PM EDT)Anatomical Region LateralityModalityMSK, Neuro, Spine, L-spine, Spine CoveraN/AMagnetic ResonanceSpecimen (Source)Anatomical Location / LateralityCollection Method / VolumeCollection TimeReceived Time07/04/2025 1:51 PM EDT Narrative 07/04/2025 1:53 PM EDT HISTORY: A 79-year-old female with a history of the back pain and leg weakness. Lumbar spinal stenosis with neurogenic claudication. TECHNIQUE: ??Multiplanar and multisequence MRI examination of the lumbar spine is performed. COMPARISON: ??No relevant prior studies are available for comparison. FINDINGS: ??The vertebral heights are normal. There are disc degenerative changes in the lower thoracic lumbar spine with particularly involvement of the L2-L3. There is no evidence of spondylolisthesis. No marrow signal abnormality seen to suggest acute bony pathology. Both sacroiliac joints are intact. No significant paravertebral soft tissue abnormality seen. There is a 1.3 cm left renal cyst. At L1-L2, there is a minimal disc bulge without evidence of spinal stenosis or narrowing of the neural foramina. At L2-L3, there is a disc degenerative disease changes with a disc bulge causing mild degree of spinal stenosis but neural foramina are patent. At L3-L4, there is a minimal disc bulge with mild degree of spinal stenosis but neural foramina arepatent. At L4-L5, there is a broad-based disc bulging with mild degree of spinal stenosis but neural foramina are patent. At L5-S1, there is a minimal disc bulging without evidence of spinal stenosis or narrowing of the neural foramina. Conus is seen at the level of T12-L1. No intrathecal signal abnormality seen. 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 Associated disc bulging is seen at all levels. Mild degree of central canal narrowing is seen at a few levels. Neural foramina are otherwise patent. Finalized by Layo Merino MD on 07/04/2025 1:53 PM Procedure Note Layo Merino MD - 07/04/2025 HISTORY: A 79-year-old female with a history of the back pain and legweakness. Lumbar spinal stenosis with neurogenic claudication. TECHNIQUE: Multiplanar and multisequence MRI examination of the lumbarspine is performed. COMPARISON: No relevant prior studies are available for comparison. FINDINGS: The vertebral heights are normal. There are disc degenerativechanges in the lower thoracic lumbar spine with particularly involvementof the L2-L3. There is no evidence of spondylolisthesis. No marrow signalabnormality seen to suggest acute bony pathology. Both sacroiliac jointsare intact. No significant paravertebral soft tissue abnormality seen. Thereis a 1.3 cm left renal cyst. At L1-L2, there is a minimal disc bulge without evidence of spinalstenosis or narrowing of the neural foramina. At L2-L3, there is a disc degenerative disease changes with a disc bulgecausing mild degree of spinal stenosis but neural foramina are patent. At L3-L4, there is a minimal disc bulge with mild degree of spinalstenosis but neural foramina are patent. At L4-L5, there is a broad-based disc bulging with mild degree of spinalstenosis but neural foramina are patent. At L5-S1, there is a minimal disc bulging without evidence of spinalstenosis or narrowing of the neural foramina. Conus is seen at the level of T12-L1. No intrathecal signal abnormalityseen. 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 Associated discbulging is seen at all levels. Mild degree of central canal narrowing isseen at a few levels. Neural foramina are otherwise patent. Finalized by Layo Merino MD on 07/04/2025 1:53 PM Authorizing ProviderResult TypeResult StatusChito Peña MDIMMaddie MRI ORDERABLES Final Result from Last 3 Months Insurance * Guarantor: REGINA VAUGHANAccount TypeRelation to PatientDate of BirthPhone Billing AddressThird Republican Dtgxxpvbr67/24/1946 [address] [facility] [id number] Advance Directives * Full Code (Latest Code Status on File) Date ActivatedDate InactivatedComments05/28/2022 5:34 PM05/31/2022 8:53 PM Care Teams Team MemberRelationshipSpecialtyStart DateEnd Date Chito Peña MD [address] [place] [address], [address] [place] [address] PCP - GeneralPediatrics05/25/22
--- OUTSIDE RECORDS SUMMARY | 2025-09-02 14:14 | XMS_ITS | Encounter Summary ---
Author Organization [facility] Address [address] [place] [address] Care Team Providers Care Skid [address] Man Name Role Phone Chito Peña MD Primary Care Provider [phone] Caryn Quintanilla PMHNP-BC Unavailable Encounter Details DateTypeDepartmentCare Team (Latest Contact Info)Fltzloxracu63/06/2025Telephone [facility] [address] [facility] [address] [place] [address] David Pandey LPC Social History Tobacco UseTypesPacks/DayYears UsedDateSmoking Tobacco: NeverSmokeless Tobacco: NeverAlcohol UseStandard Drinks/WeekCommentsNever0 (1 standard drink = 0.6 oz pure alcohol)caffiene- nonePHQ-2AnswerDate RecordedPatient Health Questionnaire- 2 Talrw16104/10/2025EducationAnswerDate RecordedWhat is the highest level of school you have completed or the highest degree you have received?Professional school degree (e.g., , DDS, DVM, VICKEY)04/10/2025CommentsNoSex and Gender InformationValueDate RecordedSex Assigned at BirthNot on fileLegal SexFemale 01/05/2023 6:38 PM EDTGender EceyaknxOfoupq84/15/2023 6:38 PM EDTSexual OrientationNot on filedocumented as of this encounter Miscellaneous Notes * Telephone Encounter - David Pandey LPC - 08/29/2025 12:40 PM EST Clinician left client a voicemail explaining resignation, offering transfer/referral options, encouraged the client to call [facility] for counseling as needed. documented in this encounter Plan of Treatment DateTypeDepartmentCare Team (Latest Contact Info)Nwmfmdrbhwr60/21/2026 1:00 PM ESTOffice Visit [facility] [address] [facility] [address] [place] [address] Caryn Quintanilla [facility]- [address] [facility] [address] [place] [phone] documented as of this encounter Visit Diagnoses Not on filedocumented in this encounter Additional Health Concerns AssessmentNoted TimePHQ-9 Depression Total Score: 17004/10/2025 1:24 PM EDT documented as of this encounter Care Teams Team MemberRelationshipSpecialtyStart DateEnd Date Chito Peña MD [address] [place] [address], [address] [place] [address] PCP - GeneralFamily Medicine01/16/25 Caryn Quintanilla [facility]- [address] [facility] [address] [place] [address] Nurse PractitionerBehavioral Health04/10/25documented as of this encounter
--- OUTSIDE RECORDS SUMMARY | 2025-09-02 14:14 | XMS_ITS | Clinical Summary ---
Author Organization [facility] Address [address] [place] [address] Care Team Providers Care Track Maintainer Name Role Phone Chito Peña MD Primary Care Provider [phone] Caryn Quintanilla PMHNP-BC Unavailable Allergies Active AllergyReactionsCriticalityNoted LmbxHaiivqwkGppcfnbhk44/16/2021 anxiety Rdcnzzm18/21/2024CodeineUnknown,RgmlhbdfdxguApe39/22/2014 Palpitations & anxiety increased heart rate JraofppjknCrbbdmi36/02/2018 anxiety Other reaction(s): Unknown anxiety Fjrivcsdv78/02/2018 Other Reaction(s): Unknown CephalexinShortness of lmzmonHfjn97/22/9566KbygeplgVayxzvuvwvxzVap82/30/2014 palpitations NebivololDizziness,Ekivdre4408/26/20231723LzzxdzBstndhjksdawBmj77/16/2021 palpitations Other02/12/2024 Darvocet A500 Zqtqoendo04/12/2023Oxycodone-Bvslcqlbdcuog03/20/2014 Other Reaction(s): Unknown palpitations Other reaction(s): Unknown palpitations Penicillin YTurfbpkqjovcXiy29/12/5689PbokgyagiffkebdnPcbvxgy78/21/2016 Patient unsure sx Crbatumomirs84/08/2016 Other Reaction(s): tachycardia, Unknown Other reaction(s): Unknown Serotonin Reuptake Inhibitors (Ssris)CsvoswuqfuasJng25/18/2025 Increased anxiety Inxonsl4501/06/2021 Muscle pain Sulfa DniyyrrtbkuYyaalvg67/30/2014 Other Reaction(s): KENNEDY headache Other reaction(s): Unknown headache Medications MedicationSigDispense QuantityRefillsLast FilledStart DateEnd DateStatus estradiol (Estrace) 0.1 MG/GM vaginal cream Indications:Vaginal drynessapply vaginally once daily 42.5 g ctive LORazepam (Ativan) 0.5 MG tablet Take 0.25 mg by mouth in the morning and 0.25 mg before bedtime.05/03/2023ctive amitriptyline (Elavil) 10 MG tablet Indications:Moderate episode of recurrent major depressive disorder (HCC),RICARDO (generalized anxiety disorder),FibromyalgiaTake 1 tablet (10 mg) by mouth at bedtime 90 tablet tive Active Problems ProblemNoted DateDiagnosed DateModerate episode of recurrent major depressive echhkaqt30/30/2025GAD (generalized anxiety disorder)05/22/2025Vitamin D jlcharekcfvdw40/30/2025Vertigo of central acftkw8202/08/20258102Uprfrobedfv10/08/2025 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 znlognokbnxizh46/06/2025 Shtcjojjd97/06/2025trophy of lgmvza9401/25/2025hronic /04/2025 Uqjwiplkj88/04/2025Female fbfbtassh83/04/2025History of hezvrbduvrwr44/04/2025 Zkncbmzatshcpnkvqmog53/04/8363Qogxhyebhegotho14/04/2025Hypertrophy of lingual wxmkxz5601/25/20257597Zalmcyogihbs84/04/2025Laryngopharyngeal uvudvy3701/25/2025 Multinodular uptvoh6201/25/2025Pelvic pressure in zxwjyi9301/25/2025Perioral ogpmlfacad74/04/2025Pseudobulbar uuubuw3501/25/2025Scoliosis of thoracolumbar spine01/25/2025MI 30.0-30.9,adult03/30/20247544Qazduuiqzrsv11/21/2024Memory loss 02/12/2024alance juvfxntf62/21/6043Nygjml59/21/2024 Overview (02/12/2024): Spontaneously resolved. Recent brain MRI was unremarkable. We will monitor clinically. Vahjycsqjrk82/21/2024 Overview (02/12/2024): The patient has paresthesias in the upper and lower extremities. Previously had EMG of the lower extremities. Recent EMG of BUE showed left median neuropathy, very minimal, otherwise was unremarkable. I think her paresthesias are likely related to her fibromyalgia. - PLAN - Treat fibromyalgia per above Chronic apilwyo7602/12/2024 Overview (02/12/2024): Patient also has complaints of chronic fatigue, likely related to fibromyalgia and recently diagnosed ADILENE (started using a CPAP ~6 months ago and she states this has helped some). Recent CMP, B12, and TSH were within normal limits. - PLAN - Sleep hygiene was discussed - Started tizanidine at night which may help her sleep - We will work on optimizing fibromyalgia treatment and then determine if further intervention needs to be done Carpal tunnel syndrome on left02/12/20244747Scazjgpcqsyu81/21/2024 Overview (02/12/2024): Patient has long standing history of fibromyalgia. It was treated nicely with PT for a number of years, but over the past year it has worsened and is now causing her functional limitations due to thepain. - PLAN - Continue duloxetine 20mg daily; side effects were discussed (consider increases) - She has previously tried amitriptyline and nortriptyline - Apparently has failed gabapentin and Lyrica in the past, but I recommended she try Lyrica again as it's been several years. She refused. Gabapentin utilized more recently. - Okay to continue tizanidine to 4mg QHS; side effects were discussed - We had referred her to PT including aquatic therapy but she wasn't able to do more than 5 sessions of aquatic therapy and it was just starting to help; apparently she has a new referral that started after the of the year - Of note, she has gotten epidurals with Dr. Salinas in the past Food intolerance in adult02/12/2024 Overview (02/12/2024): Patient reports varying symptoms after eating different foods, and she is concerned for food sensitivities and glycemic changes. She has seen multiple endocrinologists and they tell her she has normal glucose. I think a dietary nutrition referral to help her determine which foods she can eat without symptoms would be helpful. Mbdbeow5002/12/2024 Overview (02/12/2024): Patient states that her largest issue is anxiety. Somewhat improved on the duloxetine but she refuses to increase any higher. She is taking Lorazepam per her psychiatrist but says they will not continue filling it; I discussed with her today that I will not be filling that either or increasing it. We also discussed therapy and she tried this twice in the past and was reluctant to do it again it is a waste of time and did not help, however after further discussion about how a multidisciplinaryapproach would probably be most beneficial for her, she is willing to look into this again. She will be contacting her insurance for in network providers. APC (atrial premature contractions)08/26/2023therosclerosis of coronary artery of [place] heart08/26/2023History of PTCA17399Dryjupwuhwln53/03/2023 Premature ventricular omxnrzsbush01/03/2023ERD (gastroesophageal reflux disease)02/04/2022Helicobacter pylori xkrnjllib17/14/2022Hypothyroidism 02/04/2022Lumbosacral spondylosis without rtbzduzuit35/14/2022 Overview (01/25/2025): Added automatically from request for surgery [id number] Eqteqpjqvujijz86/14/2022egeneration of intervertebral disc of lumbar region 01/06/2021Obstructive sleep apnea vpsquatk19/10/2020 Overview (01/25/2025): Last Assessment & Plan: Assessment: non compliant with CPAP Severe recurrent major bfijjmwjob71/10/4912Rmuiwy87/28/2014 Resolved Problems ProblemNoted DateDiagnosed DateResolved DateBPPV (benign paroxysmal positional vertigo), right504/bdominal qfzafdan64/09/2025 Gastroesophageal reflux disease with esophagitis without usatyiewsm28/04/2025 04/04/2025nxiety and ebngunhopj28Mild cognitive impairment Right upper quadrant painNever smoked any qoucadtkq96OVID-190 Encounters DateTypeDepartmentCare MjmnZqcdfaqlnnd35/06/2025Telephone [facility] [address] [place] [address] David Pandey LPC 07/22/2025Refill [facility] [address] [place] [phone] Nunu Henry LPN Moderate episode of recurrent major depressive disorder (HCC); RICARDO (generalized anxiety disorder) ; Pcyrbcmknvba69/11/2025 2:00 PM EDTSocial Work [facility] [address] [place] [address] David Pandey LPC Moderate episode of recurrent major depressive disorder (HCC); RICARDO (generalized anxiety disorder)07/04/2025amboo flowsheet [facility] [address] [place] [address] David Pandey LPC 07/04/20254968Gacqiw65/11/2025 12:30 PM EDTSocial Work [facility] [address] [place] [address] David Pandey LPC Moderate episode of recurrent major depressive disorder (HCC); RICARDO (generalized anxiety disorder)06/03/2025amboo flowsheet [facility] [address] [place] [phone] David Pandey LPC 06/03/2025Travelfrom Last 3 Months Family History Medical HistoryRelationNameCommentsDepressionBrother1 brother deceasedCoronary artery diseaseFatherHeart diseaseFatherDiabetesMotherHeart diseaseMotherMental illnessMotherStrokeMotherDepressionSisterRelationNameStatusCommentsBrother1 brother deceasedDeceasedFatherDeceasedMotherDeceasedSiblingAliveSister Social History Tobacco UseTypesPacks/DayYears UsedDateSmoking Tobacco: NeverSmokeless Tobacco: Never Tobacco Cessation:Counseling Given: Not Answered Alcohol UseStandard Drinks/WeekCommentsNever0 (1 standard drink = 0.6 oz pure alcohol)caffiene- nonePHQ-2AnswerDate RecordedPatient Health Questionnaire-2 Ykobi14904/10/2025EducationAnswerDate RecordedWhat is the highest level of school you have completed or the highest degree you have received?Professional school degree (e.g., MD, DDS, DVM, VICKEY)04/10/2025CommentsNoSex and Gender InformationValueDate RecordedSex Assigned at BirthNot on fileLegal SexFemale 01/05/2023 6:38 PM EDTGender KmznliiwOhlpdn23/15/2023 6:38 PM EDTSexual OrientationNot on file Last Filed Vital Signs Vital SignReadingTime TakenCommentsBlood Ggbkybnj953/7207 2:00 PM EDT Pavwz0598 2:00 PM EDTTemperature--Respiratory Kqyf649104/05/2024 3:41 PM EDTOxygen Saturation--Inhaled Oxygen Concentration--Sljmcb51.3 kg (155 lb) 05/22/2025 2:00 PM JUYBkavrj051.4 cm (5')03/11/2025 11:49 AM EDTBody Mass Index 30.27003/11/2025 11:49 AM EDT Plan of Treatment DateTypeDepartmentCare Team (Latest Contact Info)Jczksgdmrmk62/21/2026 1:00 PM ESTOffice Visit [facility] [address] [facility] [address] [place] [address] Caryn Quintanilla, [facility] [address] [facility] [address] [place] [address] Insurance Care Teams Team MemberRelationshipSpecialtyStart DateEnd Date Chito Peña MD [address] [place] [address], [address] [place], [place] [id number] PCP - GeneralFamily Medicine01/16/25 Caryn Quintanilla PMHNP- [address] [phone] Nurse PractitionerW[facility]hendon [facility] Health04/10/25
--- OUTSIDE RECORDS SUMMARY | 2025-09-02 14:20 | XMS_ITS | CCD ---
Author Organization [facility] Care Team Providers Care Business Office Coordinator Name Role Phone Iza Bill Primary Care Provider MAXWELL FRIED H. Referring Unavailable IZA BILL Primary Care Unavailable CORKYMAXWELL Hoffman H. Attending Unavailable CORKYMAXWELL Hoffman H. Referring Unavailable IZA BILL Primary Care Unavailable CORKY MAXWELL H. Admitting Unavailable CORKY, MAXWELL H. Attending Unavailable IZA BILL Primary Care Unavailable ToñaDayton barthothy Mario Unavailable [phone] Unavailable Unavailable Iza Bill Unavailable Ronnie Morel Unavailable Katty Brewer Unavailable Lilia Wilson Unavailable Unavailable Unavailable DO Gaudencio Green Attending Provider [phone] NON STAFF Primary Care Provider UnavailDO Gaudencio Walton Attending Provider NON STAFF Primary Care Provider UnavailMD Shekhar Arevalo Attending Provider [phone] MALIHA Boggs Attending Provider [phone] MD Shekhar Perez Attending Provider [phone] Payton Boggs Unavailable NON STAFF Primary Care Provider UnavailSTANLEY Longoria Attending Provider Cam Riggs Unavailable NON STAFF Primary Care Provider UnavailSTANLEY Longoria Attending Provider MD Cam Riggs Attending Provider [phone] MD Shekhar Perez Primary Care Provider JAZMYN ., MERCEDES Admitting Unavailable JAZMYN .MERCEDES Attending Unavailable MISC, DR SAVAGE Primary Care Unavailable MERCEDES MILLER Consulting Unavailable HIESTAND, DR SHEKHAR Wilson Admitting Unavailable HIESTAND, DR SHEKHAR Wilson Attending Unavailable HIESTAND, DR SHEKHAR Wilson Primary Care Unavailable HIESTAND, DR SHEKHAR Wilson Consulting Unavailable MUMMERT, DR CLARENCE Martin Admitting Unavailabl e MUMMERT, DR CLARENCE Martin Attending Unavailabl e MISC, DR SAVAGE Primary Care Unavailable MUMMERT, DR CLARENCE aMrtin Consulting Unavailabl e HIESTAND, DR SHEKHAR Wilson Admitting Unavailable HIESTAND, DR SHEKHAR Wilson Attending Unavailable MISC, DR SAVAGE Primary Care Unavailable MD Shekhar Perez Attending Provider MD Shekhar Perez Primary Care Provider MD Cam Riggs Attending Provider [phone] Unknown, Referring Provider Unavailable Unav ailable Alejandro, Leana A Attending Unavailable Alejandro, Leana A Admitting Unavailable Alejandro, Leana A Attending Unavailable SALAM, Delgado Attending Unavailable Alejandro, Leana A Attending Unavailable Alejandro, Leana A Attending Unavailable SALAM, Delgado Referring Unavailable SALAM, Delgado Attending Unavailable SALAM, Delgado Admitting Unavailable Peter Flowers II Unavailable [phone] MD Shekhar Perez Primary Care Provider MD Peter Flowers II Attending Provider Musa Orlando Unavailable Gallo Reid Unavailable DO Musa Orlando Attending Provider YANNICK Silveira Attending Provider MD Shekhar Perez Primary Care Provider YANNICK Silveira Attending Provider Shekhar Perez MD Primary Care Provider JR ROLDAN Attending Unavailable SHEKHAR PEREZ Primary Care Unavailabl e Shekhar Perez MD Primary Care Provider Shekhar Perez MD Primary Care Provider Cam Riggs MD Attending Provider [phone] Shekhar Perez Primary Care Unavailable Cam Riggs Attending Unavailable Cam Riggs Admitting Unavailable Yary Silveira Attending Unavailable Yary Silveira Admitting Unavailable Shekhar Perez Primary Care Unavailable Shekhar Perez MD Primary Care Provider Shekhar Perez MD Primary Care Provider Shekhar Perez MD Primary Care Provider [phone] [facility] Unavailable [facility] Unavailable Unavailable SHEKHAR PEREZ Attending Unavailable SHEKHAR PEREZ Referring Unavailable SHEKHAR PEREZ Primary Care Unavailable KUSUM NAIR Attending Unavailable HOPE ALONZO Attending Unavailable MICKEY HUMPHREYS Attending Unavailable JUAN CARLOS TRIMBLE Attending Unavailable MICHAEL DAWKINS Attending Unavailable JUAN CARLOS TRIMBLE Referring Unavailable DOT HEDRICK Attending Unavailable JUAN CARLOS TRIMBLE Referring Unavailable DOT HEDRICK Attending Unavailable JUAN CARLOS TRIMBLE Referring Unavailable DOT HEDRICK Attending Unavailable JUAN CARLOS TRIMBLE Referring Unavailable KUSUM NAIR Attending Unavailable OSCRA QUINTANILLA Attending Unavailable KUSUM NAIR Referring Unavailable OSCAR QUINTANILLA Attending Unavailable DAVID DE LEON Attending Unavailable DAVID DE LEON Attending Unavailable SHEKHAR PEREZ Attending Unavailable SHEKHAR PEREZ Referring Unavailable SHEKHAR PEREZ Primary Care Unavailable SHEKHAR PEREZ Attending Unavailable SHEKHAR PEREZ Referring Unavailable SHEKHAR PEREZ Primary Care Unavailable SHEKHAR PEREZ Attending Unavailable SHEKHAR PEREZ Referring Unavailable SHEKHAR PEREZ Primary Care Unavailable SHEKHAR PEREZ Attending Unavailable SHEKHAR PEREZ Referring Unavailable SHEKHAR PEREZ Primary Care Unavailable SHEKHAR PEREZ Attending Unavailable SHEKHAR PEREZ Referring Unavailable SHEKHAR PEREZ Primary Care Unavailable SHEKHAR PEREZ Attending Unavailable SHEKHAR PEREZ Referring Unavailable SHEKHAR PEREZ Primary Care Unavailable Shekhar Perez MD Primary Care Provider Shekhar Perez MD Primary Care Provider Allergies Allergy ClassificationReported Allergen(s)Allergy TypeDate of OnsetReaction(s) FacilityAcetaminophen / oxyCODONE (1 source)Acetaminophen / oxyCODONEDrug Hfjskuv16-02-2167NrpskhuUvlwdvogwqCinc[facility] Work Phone: Jspirin (1 source)AspirinDrug Ldijysy62-46-8340IilighgChrlhsvpzoCinc[facility] HMG-CoA Reductase Inhibitors (statins) (1 source)PravastatinDrug Pgjppuk24-61-0296OrwlfrjQdcglbkrtj [facility] Work Phone: nebivolol (1 source)nebivololDrug Eyoayad65-75-7132Ebjwgerbe, DrowsinessSelect [facility] Work Phone: NSAIDs (1 source)IbuprofenDrug Zbwhfaz52-00-1183TjatehoWkgwxkpotjCincinnati [facility] Work Phone: Opioid Agonists (3 sources)CodeineDrug Gybppyw12-08-6686OqjucgdKagzmougugCincinnati [facility]'s Hospital [facility] Work Phone: Sulfonamides (antibiotic) (1 source)Sulfonamides (Antibiotic)Drug Zxwwmle13-46-5639YhhuijoXabompcoyfCincinnati Children's Hospital [facility] Center Work Phone: Unclassified (2 sources)HMG-CoA reductase inhibitor; Translations: [BDBTQEM-RMC-YWB REDUCTASE INHIBITORS]Drug Xzyibspytsb97-40-2967GgeeffmWsejudcbwnC[facility] Work Phone: (20 sources)Acetaminophen; Translations: [ACETAMINOPHEN]Drug Yvghwck03-52-9284 Palpitations, [facility]ESHarrison [facility] Work Phone: (20 sources)Acetaminophen / oxyCODONE; Translations: [OXYCODONE-ACETAMINOPHEN] Drug Qrfmitg99-24-4831Wpjxr Health Work Phone: (20 sources)Albuterol; Translations: [ALBUTEROL]Drug Csapytv58-51-9841Snlrt Health Work Phone: (20 sources)Aluminum aspirin; Translations: [aspirin]Drug Nlidchw86-84-5647 Palpitations, Palpitations, HEART RACESKettering Health [facility] [employer] Phone: comment on above:currently is taking (20 sources)Codeine; Translations: [Codeine Derivatives]Drug Qpbjbhw16-77-7852 Unknown, PalpitationsKettering Health Preble [employer] Work Phone: (20 sources)gabapentin; Translations: [gabapentin]Drug Qxvusbv58-06-2896Yzwijeb [facility] [employer] Work Phone: (3 sources)Hmg-Coa Reductase Inhibitors (Statins)Propensity to adverse reactions to awnt88-94-7656Ekhxg [employer] Phone: (20 sources)Morphine; Translations: [morphine]Drug Alppong46-65-2118Rpvhtdbezgln [facility] [employer] Work Phone: (3 sources)NSAIDsPropensity to adverse reactions to wlds49-13-0839Pdeca [employer] Phone: (20 sources)ProchlorperazineDrug Xfeqsdn48-45-7694MohtpcbImxzm [employer] Phone: (3 sources)SulfamethazineDrug Nhzbtrt01-54-8510Uauvg [employer] Phone: (20 sources)Propoxyphene N-Acetaminophen; Translations: [PROPOXYPHENE N-ACETAMINOPHEN]Propensity to adverse reactions to norq84-19-7540RahkrszFplmp [employer] Work Phone: (20 sources)OtherPropensity to adverse obtvrquyx49-60-2601Gxykx [employer] Phone: (20 sources)Acetaminophen / oxyCODONE; Translations: [Percocet TABS]Drug Allergy HEART [employer]York[place] [employer] Other (20 sources)Acetaminophen / Propoxyphene; Translations: [Darvocet A500]Drug AllergyHEART [employer] TechnologyYork[place] [employer] Other (20 sources)Aspirin; Translations: [Aspirin TABS]Drug Kptgdql47-22-3905Siheh (See Comments)[facility] [employer] Other (5 sources)Hmg-Coa Reductase Inhibitors (Statins); Translations: [Statins] Allergy to drug (finding)[facility]algiaMelrose Area Hospital 250 DO Work Phone: (20 sources)Ibuprofen; Translations: [Motrin]Drug Alkmtxr88-02-1364JIIOL RACES [facility] Repository (20 sources)oxyCODONE; Translations: [oxycodone]Drug Xjbbjap19-88-5456HOODP RACES, Palpitations, Palpitations, HEART RACES, HEART RACESOhio[facility]len[facility] (6 sources)Pravastatin; Translations: [pravastatin]Drug Uwdooxh74-05-5835Fidggvd [facility] Repository (6 sources)Sulfonamides (Antibiotic); Translations: [Sulfa Drugs]Allergy to drug (finding)[facility] Repository (5 sources)Morphine Derivatives; Translations: [Morphine Derivatives]Allergy to drug (finding)[place] [address] DO Work Phone: (9 sources)sulfaSALAzineDrug AllergyUnknoGracie Square Hospital [employer] Other (20 sources)Ibuprofen; Translations: [IBUPROFEN]Drug Arnardf21-44-2697 Palpitations, Palpitations, HEART [facility] HospitalComment on above:can take small dose (20 sources)Propoxyphene; Translations: [propoxyphene]Drug Gxddbwq20-74-9149 Palpitations, Palpitations, HEART RACESOhiohealth O'Bleness Hospital (20 sources)Substance with sulfonamide structure and antibacterial mechanism of action (substance)Drug velwsgn07-68-2254OdjgpeiFuqli [place] [employer] Other (19 sources)Sulfonamides (Antibiotic); Translations: [SULFA (SULFONAMIDE ANTIBIOTICS)]Allergy to azkmuisli54-78-7466Vjnfywk Reaction, HeadacheOhiohealth O'Bleness Hospital (1 source)Acetaminophen / oxyCODONEDrug Qivhxjq37-79-0098Muo [facility] Repository (1 source)AspirinDrug Ctajsoo73-12-9716Xmy [facility] Repository (1 source)CodeineDrug Gwvbykw81-22-4099Jzm [facility] Rep[facility] (1 source)MorphineDrug Zoncgrk09-36-7392Wfs [facility] Repository (10 sources)NSAIDs; Translations: [NSAIDS (NON-STEROIDAL ANTI-INFLAMMATORY DRUG)]Drug allergy (disorder)56-70-7481Odw [facility] Repository (1 source)oxyCODONEDrug Pnuxtpc11-74-4326Bot [facility] Rep[facility] (1 source)ProchlorperazineDrug Ztanxqn86-81-3397Azj [facility] Rep[facility] (1 source)Sulfonamides (Antibiotic)Drug allergy (disorder)53-48-8901Ypc [facility] Rep[facility] (20 sources)nebivolol; Translations: [nebivolol]Drug Kbbrczt36-24-0447YwvjprxbzMagee Rehabilitation Hospital 3 Repository (1 source)Acetaminophen / oxyCODONE; Translations: [Percocet 10/325]Drug Allergy [facility] Repository (1 source)Darvocet-N 100; Translations: [Darvocet-N 100]Propensity to adverse reactions (disorder)[facility] Rep[facility] (20 sources)Morphinan opioid; Translations: [OPIOIDS - MORPHINE ANALOGUES] Propensity to adverse reactions to jbkf75-26-7281Etask (See Comments)[facility] (20 sources)Non-steroidal anti-inflammatory agentPropensity to adverse reactions to kjxc36-68-1591ZxlYncqou Health System (1 source)AcetaminophenDrug Jbodxga45-25-2010PaseqrviqOhiohealth O'[facility]len[facility] Repository (1 source)AspirinDrug Jgwvzyc05-52-1636MclylgptjOhiohealth O'Bleness Hospital Repository (1 source)CodeineDrug Hkijxgl03-20-3569IxetmhyvuOhiohealth O'Bleness Hospital Repository (1 source)gabapentinDrug Qfqacfk75-93-8030IaomzamdhOhiohealth O'Bleness Hospital Repository (1 source)MorphineDrug Krqcyiu75-12-3016QlarymsxsOhiohealth O'Bleness Hospital Repository (1 source)oxyCODONEDrug Hxmswmy13-86-7567FqzbwxpiwOhiohealth O'Bleness Hospital Repository (20 sources)CephalexinDrug Dsossni36-56-2424Pfmxaiwsz of breathNOUT Healthcare (20 sources)DULoxetineDrug Hzmytop71-59-1585AkrarmsflczpFFXV Healthcare (20 sources)HMG-CoA reductase inhibitorDrug Hpliczqwzqu09-27-4615VOCY Healthcare (20 sources)Non-steroidal anti-inflammatory agentDrug Yronmvwrcoz26-08-8491 PalpitationsSSM [facility] (20 sources)Penicillin VDrug Abbkrlq08-09-1036TnsgdusparaeJXID Healthcare (11 sources)Serotonin Reuptake Inhibitors (Ssris)Propensity to adverse reactions 97-61-3571PfoappvftjziGVWMGeisinger-Shamokin Area Community Hospital Medications Current Medications MedicationDrug Class(es)DatesSig (Normalized)Sig (Original)acetaminophen 500 mg oral tablet (4 sources)Start: 53-54-1990vgst 1 tablet by mouth every six [id number] 200 actuat albuterol 0.09 mg/actuat metered dose inhaler (8 sources)beta2-Adrenergic AgonistStart: 10-73-0506owgh 2 puff(s) by inhalation every four hours as neededAlbuterol Sulfate HFA 108 (90 Base) MCG/ACT 2 puffs as needed Inhalation every 4 hrs Jul, ActiveStart: 19-97-4697Ollas: 48-87-6362lcth 2 puff(s) by inhalation every four hours as neededAlbuterol Sulfate HFA 108 (90 Base) MCG/ACT 2 puffs as needed Inhalation every 4 hrs Jul, Not-TakingStart: 72-48-4698AUGXTKUK HFA 108 (90 Base) MCG/ACT inhaler as needed 0 10/26/2020 Activeamitriptyline hydrochloride 10 mg oral tablet (14 sources)Tricyclic AntidepressantStart: 07-22-2025 End: 40-90-2756qkbt 1 tablet by mouth at bedtimeamitriptyline (Elavil) 10 MG tablet Indications: Moderate episode of recurrent major depressive disorder (HCC) , RICARDO (generalized anxiety disorder) , Fibromyalgia Take 1 tablet (10 mg) by mouth at bedtime 90 tablet 07/22/2025 10/20/2025 ActiveStart: 05-22-2025 End: 27-76-7622poes 1 tablet by mouth at bedtimeamitriptyline (Elavil) 10 MG tablet Indications: Moderate episode of recurrent major depressive disorder (HCC) , RICARDO (generalized anxiety disorder) , Fibromyalgia Take 1 tablet (10 mg) by mouth at bedtime 30 tablet 1 05/22/2025 ActiveStart: 05-07-2025 End: 60-07-3691txed 1 tablet by mouth at bedtimeamitriptyline (Elavil) 25 MG tablet Indications: Moderate episode of recurrent major depressive disorder (HCC) , RICARDO (generalized anxiety disorder) Take 1 tablet (25 mg) by mouth at bedtime 30 jqirhr5005/07/2025 05/22/2025 Discontinued (Dose adjustment)Start: 04-10-2025 End: 30-52-5650pfkx 1 tablet by mouth at bedtimeamitriptyline (Elavil) 10 MG tablet Indications: Moderate episode of recurrent major depressive disorder (HCC) , RICARDO (generalized anxiety disorder) Take 1 tablet (10 mg) by mouth at bedtime 30 tablet1 04/10/2025 05/10/2025 Activeaspirin 81 mg chewable tablet (20 sources)Platelet Aggregation Inhibitor, Nonsteroidal Anti-inflammatory Drug Start: 85-56-6879tmvi 1 tablet by mouth every twelve hoursStart: 05-16-2020 End: 10-46-9185qjhz 1 tablet by mouth once dailyAspirin 81 mg Tablet,Delayed Release (Dr/Ec) Discontinued 81 MG PO Daily May 15, 2020 11:00pm May 29, 2021 9:03amblood-glucose meter misc (20 sources)Start: 02-24-9297wbssy-glucose meter misc Patient to test once daily 1 each 07/23/2024 Activecalcium chloride 0.0014 meq/ml / potassium chloride 0.004 meq/ml / sodium chloride 0.103 meq/ml / sodium lactate 0.028 meq/ml injectable solution (2 sources)Start: 61-03-4027hodgmcll ringers infusioncelecoxib 100 mg oral capsule (10 sources)Nonsteroidal Anti-inflammatory DrugStart: 60-95-1806hghq 1 capsule by mouth twice daily for arthritiscephalexin 500 mg oral capsule (1 source)Cephalosporin AntibacterialStart: 01-26-2024 End: 64-04-7365ITXDdyerfo (KEFLEX) 500 mg capsule Indications: Periorbital cellulitis of left eye Take 1 capsule (500 mg total) by mouth in the morning and 1 capsule (500 mg total) at noon and 1 capsule (500 mg total) in the evening and 1 capsule (500 mg total) before bedtime. Do all this for 7 days. 28 capsule 0 01/26/2024 02/02/2024 Activecholecalciferol 0.025 mg oral tablet (9 sources)Vitamin DStart: 05-22-2025 End: 61-08-2874hcav 1 tablet by mouth once dailycholecalciferol (Vitamin D-3) 25 MCG (1000 UT) tablet Indications: Vitamin D insufficiency Take 1 tablet (25 mcg) by mouth Daily 60 tablet 3 05/22/2025 06/21/2025 ActiveStart: 06-29-2022 End: 46-60-9981yydz 1 tablet by mouth every weekcholecalciferol, vitamin D3, 50,000 units tablet Take 1 tablet (50,000 Units total) by mouth once aweek. 6 tablet 0 06/29/2022 12/13/2023 Discontinuedciprofloxacin 500 mg oral tablet (2 sources)Quinolone AntimicrobialStart: 90-00-8162ppvf 1 tablet by mouth every twelve hoursCipro 500 MG 1 tablet Orally every 12 hrs for 5 day(s) Apr, Activedexamethasone 6 mg oral tablet (20 sources)CorticosteroidStart: 62-50-6040lgef 1 tablet by mouth every twenty- four hoursStart: 63-83-0539npfn 1 tablet by mouth every twenty-four hours Dexamethasone 6 MG 1 tablet Orally Once a day for 5 day(s) Aug, Not-Taking1 ml diphenhydrAMINE hydrochloride 50 mg/ml cartridge (1 source)Histamine-1 Receptor AntagonistStart: 01-13-2021 End: 69-34-7498yqkkxaujwyVXYLO (BENADRYL) injection 12.5 mgdocusate sodium 100 mg oral capsule (4 sources)Start: 33-72-1435tjxo 1 capsule by mouth every twelve hoursestradiol 0.1 mg/ml vaginal cream (20 sources)EstrogenStart: 31-13-5797rcrzrbzfx (Estrace) 0.1 MG/GM vaginal cream Indications: Vaginal dryness apply vaginally once daily42.5 g 2 03/25/2023 ActiveStart: 00-60-0402hjjcltbbH (ESTRACE) 0.01 % (0.1 mg/gram) vaginal cream Insert 1 g into the vagina 2 (two) times a week. Sundays and 12/04/2021 ActiveStart: 56-87-7880Zkczrgdbb 0.01 % (0.1 mg/gram) cream Active 0.01 APPLICATOR VAGINAL every week May 28, 2021 11:00pmStart: 46-84-7990ukxhbhejj (Estrace) 0.01 % (0.1 mg/gram) vaginal cream Insert into the vagina. As directed 05/12/2021 ActiveStart: 05-16-2020 End: 15-15-5745Uynuywsge (Estrace) 0.01 % (0.1 mg/gram) Cream Discontinued 0.01 PERCENT VAGINAL Twice a Week as needed for dryness May 15, 2020 11:00pm May 29, 2021 9:03amEstrace 0.1 MG/GM as directed Vaginal Not-Taking/PRN Estrace 0.1 MG/GM as directed Vaginal Not-TakingEstradiol ActiveEstradiol (ESTRACE VA) Place vaginally as needed 0 Active1 ml evolocumab 140 mg/ml prefilled syringe (6 sources)PCSK9 InhibitorStart: 03-18-2022 End: 81-10-7084dokvtk 1 mL by subcutaneous injection onceevolocumab (Repatha Syringe) 140 mg/mL injection Inject 1 mL (140 mg) under the skin every 14 (fourt een) days. 03/18/2022 03/30/2024 Discontinued (Therapy completed)Start: 05-88-0893Kmfzmnd 140 MG/ML Subcutaneous Solution Prefilled Syringe 1 injection every 2 weeks Quantity: 6 Refills: 3 Ordered: 16-Mar-2023 Jamra DO Jr Start : 18-Mar-2022 Active new start2 ml fentaNYL 0.05 mg/ml injection (1 source)Opioid AgonistStart: 22-77-9259guhjbRVA (SUBLIMAZE) injection 25 mcg folic acid 1 mg oral tablet (16 sources)Start: 31-29-5512hkoe 1 tablet by mouth in the morningfolic acid (FOLVITE) 1 mg tablet Take 1 tablet (1 mg total) by mouth in the morning. 30 tablet 08/27/2024 Activefurosemide 20 mg oral tablet (10 sources)Loop DiureticStart: 05-03-2023 End: 55-83-9922qmzx 1 tablet by mouth once daily as neededfurosemide (LASIX) 20 mg tablet Indications: Bilateral leg edema Take 1 tablet (20 mg total) by mouth daily as needed (leg swelling). 30 tablet 1 12/05/2023 Activelabetalol hydrochloride 5 mg/ml injectable solution (1 source)beta-Adrenergic BlockerStart: 32-00-0134iomtsrmny (NORMODYNE;TRANDATE) injection 5 mglinaclotide 0.145 mg oral capsule (5 sources)Guanylate Cyclase-C AgonistStart: 38-70-2051ZRXyuujrn 0.5 mg oral tablet (20 sources)BenzodiazepineStart: 24-15-7333eqaf 0.25 mg by mouth in the morning LORazepam (Ativan) 0.5 MG tablet Take 0.25 mg by mouth in the morning and 0.25 mg before bedtime. 05/03/2023 ActiveStart: 05-03-2023 End: 88-68-0359lxvd 1 tablet by mouth twice daily as needed for anxietyLORazepam (ATIVAN) 0.5 mg tablet Indications: Anxiety Take 1 tablet (0.5 mg total) by mouth 2 (two)times a day as needed for anxiety. 60 tablet 07/08/2025 Active Start: 01-24-2023 End: 40-16-5912UCSjrrfmb (ATIVAN) 0.5 mg tablet Indications: Anxiety Patient to take 1 tablet nightly 30 tablet 0 11/15/2023 12/05/2023 DiscontinuedStart: 07-06-2017 End: 49-00-2012Jvgmdzmos 0.5 mg tablet Discontinued 0.5 MG PO as needed for Anxiety July 05, 2017 11:00pm August 06, 2018 4:57pm End: 32-41-5734cnee 1 tablet by mouth every eight hours as neededLORazepam (Ativan) 0.5 mg tablet Take 1 tablet (0.5 mg) by mouth every 8 hours if needed for anxiety. 03/30/2024 Discontinued (Therapy completed)Ativan Not-Taking/PRN take 1 tablet by mouth three times daily as neededLORazepam 0.5 MG Oral Tablet TAKE 1 TABLET 3 TIMES DAILY NEEDED. Quantity: 0 Refills: 0 Ordered: 16-Mar-2023 DO ActiveAtivan Not-TakingAtivan Activemeloxicam 7.5 mg oral tablet (17 sources)Nonsteroidal Anti-inflammatory DrugStart: 79-48-2817xnsc 1 tablet by mouth in the morningmeloxicam (MOBIC) 7.5 mg tablet Indications: Degeneration of intervertebral disc of lumbar region with discogenic back pain and lower extremity pain Take 1 tablet (7.5 mg total) by mouth in the morning. 15 tablet 07/12/2025 ActiveStart: 43-02-9479macy 1 tablet by mouth every twenty-four hours nitrofurantoin, macrocrystals 25 mg / nitrofurantoin, monohydrate 75 mg oral capsule (8 sources)Nitrofuran AntibacterialStart: 56-46-3516omtg 1 capsule by mouth every twelve hours at mealtimeNitrofurantoin Monohyd/M-Cryst (Macrobid) 100 mg capsule Active 100 MG PO Every 12 hours 14 December 11, 2023 12:00am must administer with a meal/food2 ml ondansetron 2 mg/ml injection (1 source)Serotonin-3 Receptor AntagonistStart: 01-13-2021 End: 82-50-4516lhalpfeorle (ZOFRAN) injection 4 mgoxyCODONE hydrochloride 5 mg oral tablet (4 sources)Opioid AgonistStart: 56-77-8960bnym 1 tablet by mouth every six hours pantoprazole 40 mg delayed release oral tablet (7 sources)Proton Pump Inhibitor End: 22-36-1096vjrj 1 tablet by mouth once daily before mealtimepantoprazole (ProtoNix) 40 mg EC tablet Take 1 tablet (40 mg) by mouth once daily in the morning. Take before meals. Do not crush, chew, or split. 03/30/2024 Discontinued (Therapy completed)phenazopyridine hydrochloride 200 mg oral tablet (2 sources)Start: 23-98-4065lvyn 1 tablet by mouth every eight hoursPyridium 200 MG 1 tablet after meals Orally Three times a day for 2 day(s) Apr, Zpblad67 ml sodium chloride 9 mg/ml injection (3 sources)Start: 01-13-2021 End: .9 % sodium chloride bolusStart: 76-59-8893cgftji chloride flush 0.9 % injection 10 mLtraZODone hydrochloride 50 mg oral tablet (20 sources)Serotonin Reuptake InhibitorStart: 69-12-0351orvx 0.5-1 tablets by mouth once daily at bedtime as neededStart: 08-06-2018 End: 95-58-5810trrh 1 tablet by mouth once daily at bedtime as needed for sleep Trazodone 50 mg tablet Discontinued 50 MG PO Daily at bedtime as needed for Sleep August 05, 2018 11:00pm May 29, 2021 9:03amubidecarenone 100 mg oral capsule (6 sources)Start: 03-10-2022 End: 80-72-1622dsjk 1 capsule by mouth once dailycoenzyme Q-10 100 mg capsule Take 1 capsule (100 mg) by mouth once daily. 03/10/2022 03/30/2024 Discontinued (Therapy completed)Romulo - (3 sources)Start: 93-58-5899Eqrrxg - as directed for 365 days ROLLATOR ROMULO Oct, Active Completed/Discontinued Medications MedicationDrug Class(es)DatesSig (Normalized)Sig (Original)amantadine hydrochloride 100 mg oral tablet (7 sources)Influenza A M2 Protein InhibitorStart: 01-23-2025 End: 72-09-5347qiik 1 tablet by mouth in the morningamantadine (SYMMETREL) 100 mg tablet Take 1 tablet (100 mg total) by mouth in the morning. 01/23/2025 03/05/2025 Discontinuedbrexpiprazole 0.25 mg oral tablet (19 sources)Atypical AntipsychoticStart: 05-16-2020 End: 72-83-5876hnzg 1 tablet by mouth once daily as needed for anxiety Brexpiprazole (Rexulti) 0.25 mg tablet Discontinued 0.25 MG PO Daily as needed for Anxiety May 15, 2020 11:00pm May 23, 2020 7:20am24 hr buPROPion hydrochloride 150 mg extended release oral tablet (2 sources)AminoketoneStart: 04-09-2024 End: 99-93-9103axib 1 tablet by mouth once daily in the morningbuPROPion XL (WELLBUTRIN XL) 150 mg 24 hr tablet Indications: Anxiety Take 1 tablet (150 mg total) by mouth every morning. 30 tablet 2 04/09/2024 05/08/2024 Discontinued (Therapy completed)carbidopa 10 mg / levodopa 100 mg oral tablet (11 sources)Aromatic Amino Acid Decarboxylation Inhibitor, Aromatic Amino Acid Start: 01-30-2025 End: 89-32-9032xgmn 1 tablet by mouth at bedtime, then take 1 tablet by mouth twice daily, then take 1 tablet by mouth three times dailycarbidopa-levodopa (Sinemet) 10-100 MG tablet Indications: 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 manifestations (CMS/HCC) Take 1 tablet by mouth at bedtime for 7 days, THEN 1 tablet 2(two) times a day for 7 days, THEN 1 tablet 3 (three) times a day. 111 tablet 2 01/30/2025 03/11/2025 Discontinued (Side effects)clonazePAM 0.5 mg oral tablet (4 sources)BenzodiazepineStart: 03-06-2024 End: 14-67-4147cnzz 1 tablet by mouth twice daily as needed for anxiety clonazePAM (KlonoPIN) 0.5 mg tablet Indications: Anxiety Take 1 tablet (0.5 mg total) by mouth 2 (two) times a day as needed for anxiety. 60 tablet 03/06/2024 04/09/2024 Discontinued (Therapy completed)cyproheptadine hydrochloride 4 mg oral tablet (20 sources)Start: 01-02-2025 End: 02-85-3989apmm 0.5 tablet by mouth at bedtimecyproheptadine (Periactin) 4 MG tablet Indications: Dizziness Take 0.5 tablets (2 mg) by mouth at bedtime 30 tablet 2 01/02/2025 03/11/2025 Discontinued (Side effects)24 hr desvenlafaxine succinate 25 mg extended release oral tablet (20 sources)Serotonin and Norepinephrine Reuptake InhibitorStart: 05-29-2021 End: 85-51-6599dsya 1 tablet by mouth once daily, then take 1 tablet by mouth every twenty-four hoursDesvenlafaxine Succinate (Pristiq) 25 mg tablet extended release 24 hr Discontinued 25 MG PO Daily May 28, 2021 11:00pm February 08, 2023 7:46amPristiq Not-TakingPristiq Activeerythromycin 0.005 mg/mg ophthalmic ointment (4 sources)Macrolide, Macrolide AntimicrobialStart: 01-26-2024 End: 45-15-0572sdpfftnyhkph (ILOTYCIN) ophthalmic ointment Indications: Hordeolum externum of left lower eyelid Administer 1.25 cm (0.5 inches total) into the left eye every 6 (six) hours. 3.5 g 01/26/2024 04/09/2024 Discontinued (Therapy completed)escitalopram 10 mg oral tablet (19 sources)Serotonin Reuptake InhibitorStart: 07-06-2017 End: 26-47-1009sges 1 tablet by mouth once daily at bedtimeEscitalopram Oxalate (Lexapro) 10 mg tablet Discontinued 10 MG PO Daily at bedtime July 05 11:00pm August 06, 2018 5:07pmfamotidine 20 mg oral tablet (20 sources)Histamine-2 Receptor AntagonistStart: 05-29-2021 End: 60-57-3487vugz 1 tablet by mouth once dailyFamotidine 20 mg Tablet Discontinued 20 MG PO Daily May 28, 2021 11:00pm May 29, 2021 10:45am take 1 tablet by mouth once daily as neededFamotidine 10 MG Oral Tablet TAKE 1 TABLET Daily prn Quantity: 0 Refills: 0 Ordered: 18-Mar-2022 DOActiveFamotidine ActiveFLUoxetine 10 mg oral tablet (20 sources)Serotonin Reuptake InhibitorStart: 05-16-2020 End: 27-44-0187robo 1 tablet by mouth once daily at bedtimeFluoxetine 10 mg tablet Discontinued 10 MG PO Daily at bedtime May 15, 2020 11:00pm May 9:02amfluticasone propionate 0.05 mg/actuat metered dose nasal spray (5 sources)CorticosteroidStart: 96-54-5912jruv 2 spray(s) nasal route once daily Fluticasone Propionate 50 MCG/ACT 2 sprays Nasally Once a day for 14 day(s) 2 sprays to each nostril daily until your symptoms improve Aug, Not-Taking Start: actuat levalbuterol 0.045 mg/actuat metered dose inhaler (6 sources)beta2-Adrenergic AgonistStart: 06-06-0592ivlv 1 puff(s) by inhalation every four hours as neededLevalbuterol Tartrate 45 MCG/ACT 1 puff as needed Inhalation every 4 hrs Jul, Not-TakingStart: ml lidocaine hydrochloride 10 mg/ml injection (1 source)Antiarrhythmic, Amide Local AnestheticStart: 01-13-2021 End: 56-82-0434jrunwmdbf PF 1 % injection 1 mLmeclizine hydrochloride 25 mg oral tablet (4 sources)AntiemeticStart: 05-08-2024 End: 16-97-4109nmtd 1 tablet by mouth three times daily as needed for dizziness meclizine (ANTIVERT) 25 mg tablet Indications: Dizziness Take 1 tablet (25 mg total) by mouth 3 (three) times a day as needed for dizziness. 20 tablet 05/08/2024 05/22/2024 Discontinued (Therapy completed)methylPREDNISolone 4 mg oral tablet (7 sources)CorticosteroidStart: 61-93-8146dmedyqVURIFMGyyazt 4 MG as directed Orally Once a day for 6 days Jul, Not-Takingmetoprolol tartrate 25 mg oral tablet (20 sources)beta-Adrenergic BlockerStart: 07-06-2017 End: 44-38-9597ajes 1 tablet by mouth once dailymetoprolol tartrate (LOPRESSOR) 25 mg tablet Take 1 tablet (25 mg total) by mouth nightly. Not taken for High BP; but for heart rhythm 90 tablet 1 07/14/2023 08/27/2024 Discontinued (Therapy completed)take 1 tablet by mouth every twenty-four hoursMetoprolol Tartrate ActiveMultivitamin preparation (15 sources)Start: 05-16-2020 End: 25-94-6241surn 1 tablet by mouth once dailyMultivitamin Discontinued 1 TAB PO Daily May 15, 2020 11:00pm May 29, 2021 9:03amStart: 05-16-2020 End: 95-27-9840aoab 1 tablet by mouth once dailyMultivitamin Discontinued 1 TAB PO Daily May 16, 2020 12:00am May 29, 2021 10:03amMultivitamin Tablet (4 sources)Start: 05-16-2020 End: 58-29-6499rhum 1 tablet by mouth once dailyMultivitamin Tablet Discontinued 1 TAB PO Daily May 15, 2020 11:00pm May 29, 2021 9:03amomeprazole 40 mg delayed release oral capsule (19 sources)Proton Pump InhibitorStart: 05-29-2021 End: 22-47-8508hcrr 1 capsule by mouth twice dailyOmeprazole 40 mg capsule,delayed release(DR/EC) Discontinued 40 MG PO Twice daily 168 84 May 28, 2021 11:00pm February 08, 2023 7:46amPARoxetine hydrochloride 10 mg oral tablet (20 sources)Serotonin Reuptake InhibitorStart: 02-08-2023 End: 89-97-8038rdra 5 mg by mouth once dailyParoxetine Hcl 10 mg tablet Discontinued 5 MG PO Daily February 07, 2023 11:00pm March 01, 2023 8:01amStart: 02-08-2023 End: 69-08-1204ftuk 5 mg by mouth once dailyParoxetine Hcl Discontinued 5 MG PO Daily February 07, 2023 11:00pm March 01, 2023 8:01amStart: 01-12-2022 End: 94-11-8177bmif 1 tablet by mouth once dailyPARoxetine (Paxil) 10 mg tablet Take 1 tablet (10 mg) by mouth once daily. 01/12/2022 03/30/2024 Discontinued (Therapy completed)prasugrel 10 mg oral tablet (19 sources)P2Y12 Platelet InhibitorStart: 07-06-2017 End: 78-42-1131tuhc 1 tablet by mouth once dailyPrasugrel (Effient) 10 mg tablet Discontinued 10 MG PO Daily July 05, 2017 11:00pm August 06, 2018 4:57pmsertraline 25 mg oral tablet (7 sources)Serotonin Reuptake InhibitorStart: 03-11-2025 End: 07-79-0132tchq 1 tablet by mouth once dailysertraline (Zoloft) 25 MG tablet Indications: Anxiety and depression Take 1 tablet (25 mg) by mouthDaily 30 tablet 03/11/2025 04/10/2025 Discontinued (Side effects)tiZANidine 4 mg oral tablet (20 sources)Central alpha-2 Adrenergic AgonistStart: 07-07-2023 End: 30-58-8048tbjw 1 tablet by mouth at bedtimetiZANidine (Zanaflex) 4 MG tablet Take 4 mg by mouth at bedtime 07/07/2023 04/10/2025 Discontinued (Side effects)Start: 05-29-2021 End: 98-00-5401Zdbvkcrexz 2 mg tablet Discontinued 2 MG PO As Directed May 28, 2021 11:00pm February 08, 2023 7:46am24 hr venlafaxine 37.5 mg extended release oral capsule (9 sources)Serotonin and Norepinephrine Reuptake InhibitorStart: 08-27-2024 End: 61-90-2010jawh 1 capsule by mouth every twenty-four hours in the morning venlafaxine XR (EFFEXOR XR) 37.5 mg 24 hr capsule Indications: Fibromyalgia, primary Take 1 capsule(37.5 mg total) by mouth in the morning. 30 capsule 08/27/2024 03/05/2025 Discontinuedvitamin b12 1 mg/ml injectable solution (3 sources)Vitamin U81Dcwbd: 08-28-2024 End: 16-95-1505bbtclgdgoeakgr (VITAMIN B-12) injection 1,000 mcgStart: 08-28-2024 End: 54-82-1014emnfyt 1 dose by intramuscular injection once1,000 mcg, intramuscular, at 1 mL/hr, Once, On Tue08/28/24 at 1515, For 1 doseStart: 08-27-2024 End: 02-46-2268hucjtkapxfdgzj (VITAMIN B-12) 1,000 mcg/mL injection Inject 1 mL (1,000 mcg total) into the appropriate muscle once for 1 dose. 1 mL 08/27/2024 08/27/2024 Active Problems Active Problems Problem ClassificationProblemDateDocumented DateEpisodic/ChronicAcute and chronic tonsillitis (20 sources)Hypertrophy of lingual tonsil; Translations: [Hypertrophy of tonsils]Onset: 593034-66-3633AslglkbKaubnjxwzx disorders (20 sources)Adjustment disorder with mixed emotional features; Translations: [Adjustment disorder with mixed anxiety and depressed mood]Chronic Administrative/social admission (1 source)Patient encounter status; Translations: [Encounter for blood-alcohol and blood-drug test]31-55-4272CglwmwhnJwaclusv reactions (20 sources)Allergy to food; Translations: [Allergy to other foods]Episodic Anxiety disorders (20 sources)Anxiety; Translations: [Anxiety state, unspecified]Onset: 12-22-2021 Resolved: 189511-20-5473LpspawtMwjcwsc and circulatory congenital anomalies (20 sources)Patent foramen ovale; Translations: [Atrial septal defect]Chronic Cardiac dysrhythmias (20 sources)Premature atrial contraction; Translations: [Supraventricular premature beats]Onset: 450679-71-1815LsytigtQcsgsubs atherosclerosis and other heart disease (20 sources)Coronary arteriosclerosis; Translations: [Coronary atherosclerosis of barrow coronary artery]Onset: 405939-24-5202SriueybClzgurtw, dementia, and amnestic and other cognitive disorders (20 sources)Cognitive disorder; Translations: [Unspecified mental disorder due to known physiological condition]Onset: 135225-62-0394NhwwagpWnrrgahv mellitus without complication (1 source)Diabetes mellitus without complicationOnset: 09-97-5958Eznesepwm of lipid metabolism (20 sources)Hyperlipidemia; Translations: [Other and unspecified hyperlipidemia] Onset: 623725-66-0923EpxgkmnIgcssdqxtc disorders (20 sources)Gastroesophageal reflux disease; Translations: [Gastro-esophageal reflux disease without esophagitis]Onset: 02-04-2022 Resolved: 958256-39-2182JlcuidlXrcrnfacv hypertension (20 sources)Hypertensive disorder; Translations: [Unspecified essential hypertension]Onset: 502985-27-6642GuyzocoMkjllwatr and duodenitis (20 sources)Gastritis; Translations: [Gastritis, unspecified, without bleeding] EpisodicGenitourinary symptoms and ill-defined conditions (16 sources)Dysuria; Translations: [Hematuria, unspecified]Onset: 05-02-2022 Resolved: 57-83-2116LtgwzipaVbtjtsnfqbx (1 source)Unspecified hemorrhoidsEpisodicIntestinal infection (3 sources)Infection caused by Helicobacter pylori; Translations: [Helicobacter pylori infection]43-44-4521Hyocj disorders and dislocations; trauma-related (15 sources)Other tear of medial meniscus, current injury, right knee, subsequent encounter; Translations: [Tear of medial meniscus of knee]Episodic Malaise and fatigue (20 sources)Fatigue; Translations: [Chronic fatigue, unspecified]Onset: 067583-10-9170CokfmzeUpeqtjdxfs disorders (20 sources)Atrophy of vagina; Translations: [Postmenopausal atrophic vaginitis] Onset: 379811-01-9112VijwbreCkytvyvrdtjbi mental health disorders (20 sources)Chronic insomnia; Translations: [Psychophysiologic insomnia]Onset: 12-22-2021 Resolved: 76-29-4046LjtomrnPuwd disorders (20 sources)Depressive disorder; Translations: [Recurrent major depressive episodes, moderate ]Onset: 12-03-2019 Resolved: 820010-27-4778IsblodeFcouqdmmzfpn breast conditions (20 sources)Fibrocystic disease of breast; Translations: [Diffuse cystic mastopathy of unspecified breast]ChronicNutritional deficiencies (10 sources)Vitamin D deficiency; Translations: [Vitamin D deficiency, unspecified]Onset: 471110-79-0417XkyzcvdEiiktlmoh or stenosis of precerebral arteries (20 sources)Carotid artery stenosis; Translations: [Occlusion and stenosis of bilateral carotid arteries]ChronicOsteoarthritis (20 sources)Osteoarthritis; Translations: [Degenerative joint disease involving multiple joints]Onset: 019434-93-4153XqhtrhsIhyyysguuqmv (20 sources)Osteoporosis; Translations: [Age-related osteoporosis without current pathological fracture]ChronicOther acquired deformities (20 sources)Scoliosis deformity of spine; Translations: [Scoliosis, unspecified] Onset: 676094-31-1630NggynusZnznz aftercare (20 sources)Long-term current use of drug therapy; Translations: [Other correction (current) drug therapy]EpisodicOther aftercare (2 sources)Taking high risk medication; Translations: [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]45-28-9968EdbnhnjnRnygs connective tissue disease (20 sources)Primary fibromyalgia syndrome; Translations: [Fibromyalgia] 03-81-3308NmjvrgurCheqr disorders of stomach and duodenum (1 source)Functional dyspepsiaEpisodicOther ear and sense organ disorders (1 source)Sensorineural hearing loss, bilateral; Translations: [Sensorineural hearing loss, bilateral]29-39-5906TekdajvKikyl endocrine disorders (20 sources)Reactive hypoglycemia; Translations: [Other hypoglycemia]Chronic Other endocrine disorders (2 sources)Hypoglycemia, unspecified; Translations: [HYPOGLYCEMIA UNSPECIFIED] Onset: 89-37-7034MupfvbhMukfv endocrine disorders (20 sources)Hypoglycemia; Translations: [Hypoglycemia, unspecified]Onset: 313729-44-5458DclesyuBbokt gastrointestinal disorders (5 sources)Irritable bowel syndrome characterized by constipation; Translations: [Irritable bowel syndrome with constipation]ChronicOther gastrointestinal disorders (1 source)Irritable bowel syndrome with constipationChronicOther gastrointestinal disorders (20 sources)Intolerance to food; Translations: [Malabsorption due to intolerance, not elsewhere classified]Onset: 276716-77-5017BrsszdbQxxhm gastrointestinal disorders (4 sources)Constipation; Translations: [Constipation, unspecified]EpisodicOther gastrointestinal disorders (2 sources)Constipation, unspecified; Translations: [Constipation]EpisodicOther inflammatory condition of skin (20 sources)Rosacea; Translations: [Rosacea, unspecified]ChronicOther inflammatory condition of skin (20 sources)Perioral dermatitis; Translations: [Perioral dermatitis]Onset: 543494-11-5699VxeuwkzSokos lower respiratory disease (20 sources)Dyspnea; Translations: [Shortness of breath]61-42-1189QezvonbbOzzaw nervous system disorders (20 sources)Chronic pain; Translations: [Other chronic pain]ChronicOther nervous system disorders (20 sources)Chronic pain syndrome; Translations: [Chronic pain syndrome]Chronic Other nervous system disorders (4 sources)Other chronic pain; Translations: [Chronic pain]ChronicOther nervous system disorders (20 sources)Carpal tunnel syndrome of left wrist; Translations: [Carpal tunnel syndrome, left upper limb]Onset: 752147-71-0999ObjyqgbOmdhc non-traumatic joint disorders (20 sources)Hip pain; Translations: [Pain in left hip]EpisodicOther non- traumatic joint disorders (6 sources)Pain in right kneeEpisodicOther nutritional; endocrine; and metabolic disorders (20 sources)Obesity; Translations: [Obesity, unspecified]ChronicOther nutritional; endocrine; and metabolic disorders (20 sources)Body mass index 30+ - obesity; Translations: [Body mass index (BMI) 31.0-31.9, adult]Onset: 783626-30-0930JymwiccYnzwv nutritional; endocrine; and metabolic disorders (20 sources)Obese class I; Translations: [Obesity, unspecified]ChronicOther nutritional; endocrine; and metabolic disorders (2 sources)Body mass index (BMI) 30.0-30.9, adult; Translations: [Body mass index (BMI) 30.0-30.9, adult]Onset: 84-41-3900WavcddmGuenf screening for suspected conditions (not mental disorders or infectious disease) (4 sources)Encounter for screening for malignant neoplasm of cervix; Translations: [ENC SCREENING MALIG NEOPLASM CERV]Onset: 32-72-0126BychuvbpUdwvs upper respiratory disease (20 sources)Chronic laryngitis; Translations: [Chronic laryngitis]Onset: 804167-99-4790LotgilvYutve upper respiratory infections (1 source)Chronic sinusitis, unspecifiedOnset: 09-06-2021 Resolved: 32-35-0123WhrkpigRzkedtoa of female genital organs (20 sources)Cystocele; Translations: [Cystocele, unspecified]Onset: 01-25-2025 92-66-8669VnutageZuxkvpzw codes; unclassified (20 sources)Obstructive sleep apnea syndrome; Translations: [Obstructive sleep apnea (adult) (pediatric)]Onset: 516776-32-5781FhqjmuzBairltaj codes; unclassified (4 sources)Obstructive sleep apnea (adult) (pediatric); Translations: [Obstructive sleep apnea G47.33]Onset: 08-06-2021 Resolved: 47-56-9810JgpifycHqbxthrb codes; unclassified (3 sources)Idiopathic sleep related nonobstructive alveolar hypoventilation Onset: 12-22-2021 Resolved: 82-09-0761ViuqfroBhvmrexk codes; unclassified (20 sources)Hypersomnia; Translations: [Hypersomnia, unspecified]Onset: 437352-84-2315UedeykbXadgwrvx codes; unclassified (1 source)Pain; Translations: [Pain]EpisodicResidual codes; unclassified (20 sources)Early satiety; Translations: [Early satiety]EpisodicResidual codes; unclassified (8 sources)Other specified postprocedural states; Translations: [Other postprocedural status]EpisodicResidual codes; unclassified (7 sources)Postprocedural state finding; Translations: [Other specified postprocedural states]39-85-5649QhwojcxvLebxejjuwfu; intervertebral disc disorders; other back problems (20 sources)Degeneration of lumbar intervertebral disc; Translations: [Lumbar spondylosis]Onset: 01-06-2021 Resolved: 161893-53-5117DxarzsaVnbznig disorders (20 sources)Hypothyroidism; Translations: [Multinodular goiter]Onset: 02-04-2022 53-26-3110DzzsupcWtjsmccndeqm (20 sources)Parkinson's disease; Translations: [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 manifestations (CMS/HCC)]Onset: 477112-94-3282 ChronicUnclassified (1 source)LOW BACK PAIN, UNSPECIFIED; Translations: [LOW BACK PAIN, UNSPECIFIED] Onset: 45-74-9849Aoqbwrinjnxm (1 source)Other intervertebral disc degeneration, lumbar region with discogenic back pain and lower extremitypain; Translations: [Other intervertebral disc degeneration, lumbar region with discogenic back pain and lower extremity pain] Onset: 45-63-3088Orihtjouojuw (1 source)Extremity WeaknessOnset: 42-00-7495Utwptwkbywas (1 source)Annual ExamOnset: 25-34-1245Jmmvgov tract infections (12 sources)Urinary tract infection, site not specified; Translations: [Acute urinary tract infection]Onset: 05-02-2022 Resolved: 89-58-4634Uksnxqux Past or Other Problems Problem ClassificationProblemDateDocumented DateEpisodic/ChronicAbdominal pain (20 sources)Indigestion; Translations: [Epigastric pain]Onset: 01-25-2025 Resolved: 907632-18-2981PyhhcwytYlefxkp dysrhythmias (20 sources)Tachycardia; Translations: [Palpitations]Onset: 836555-12-0172 EpisodicChronic obstructive pulmonary disease and bronchiectasis (1 source)Bronchitis, not specified as acute or chronic; Translations: [Bronchitis J40]Onset: 08-06-2021 Resolved: 18-05-4873FvrccqghYjqdcaiwbt associated with dizziness or vertigo (20 sources)Dizziness; Translations: [Dizziness and giddiness]Onset: 01-27-2025 Resolved: 709398-82-8118JvvfptbhKwmhvnhm atherosclerosis and other heart disease (20 sources)Coronary angioplasty status; Translations: [Stented coronary artery] Onset: 89-34-3120BqwytclyPoijkekx mellitus without complication (4 sources)Hyperglycemia; Translations: [Hyperglycemia, unspecified]Onset: 056251-05-6537QekndvgiDmyhuitsrioxq and screening for infectious disease (1 source)Contact with and (suspected) exposure to other viral communicable diseasesOnset: 09-06-2021 Resolved: 43-52-7342SfzfazdrIesuvhgqtbvp; infection of eye (except that caused by tuberculosis or sexually transmitteddisease) (1 source)Hordeolum externum of left lower eyelid; Translations: [Hordeolum externum left lower eyelid]95-30-7847PvexkildSswwvkfahl infection (20 sources)Infection caused by Helicobacter pylori; Translations: [Other specified bacterial intestinal infections]Onset: 350341-01-7680Bmutlouu Malaise and fatigue (10 sources)Fatigue; Translations: [Other malaise and fatigue]Onset: 08-26-2023 73-23-8941NqpgnqbqAsiu disorders (20 sources)Mood disordersOnset: 08-27-2024 Resolved: Nausea and vomiting (20 sources)Nausea; Translations: [Nausea]Onset: 962194-63-7309Lwwjchtq Nutritional deficiencies (1 source)Cobalamin deficiency; Translations: [Deficiency of other specified B group vitamins]52-40-7460FxztnycoIewcv connective tissue disease (20 sources)Fibromyalgia; Translations: [Fibromyalgia]Onset: 02-12-2024 04-48-9427UliekafvFfdhs female genital disorders (1 source)Female genital organ symptoms; Translations: [Pelvic pressure in female]Onset: 729947-79-1718SrruoyxwJcqka gastrointestinal disorders (20 sources)Abdominal bloating; Translations: [Abdominal distension (gaseous)] Onset: 01-25-2025 Resolved: 206641-34-2387QwfsrqnsAorgc gastrointestinal disorders (20 sources)Dysphagia; Translations: [Dysphagia, unspecified]Onset: 01-25-2025 63-11-3479NuhxwylgRxnhb hereditary and degenerative nervous system conditions (20 sources)Impaired cognition; Translations: [Mild cognitive impairment, so stated]Onset: 01-25-2025 Resolved: 431342-78-7045XdvenadWqohu nervous system disorders (4 sources)Other abnormalities of gait and mobility; Translations: [OTHER ABNORMALITIES GAIT AND MOBILITY]Onset: 03-56-6235ZgouohrcGqcwj nervous system disorders (20 sources)Impairment of balance; Translations: [Other abnormalities of gait and mobility]Onset: 723502-93-8472YtwcbgwlLxvyp nervous system disorders (20 sources)Ataxia; Translations: [Ataxia, unspecified]Onset: 02-12-2024 83-51-4438HufpqpdgYvgmh nervous system disorders (20 sources)Paresthesia; Translations: [Paresthesia of skin]Onset: 02-12-2024 89-07-3887RyrtfvztYgntg nutritional; endocrine; and metabolic disorders (3 sources)Weight loss; Translations: [Weight loss]Onset: EpisodicResidual codes; unclassified (20 sources)Chronic back pain ; Translations: [Dorsalgia, unspecified]Onset: 801633-25-7334XxcbnrhtKtglowmg codes; unclassified (20 sources)Amnesia; Translations: [Other amnesia]Onset: EpisodicResidual codes; unclassified (5 sources)Other specified health status; Translations: [Other specified health status]Onset: 12-22-2021 Resolved: 99-82-4482HejagadyDrwjjhjg codes; unclassified (20 sources)Never smoked any substance; Translations: [Other specified health status]Onset: 03-30-2024 Resolved: 949889-76-4173ParhfjaqCkwjgufs codes; unclassified (1 source)Intolerant of cold; Translations: [Other general symptoms and signs] 22-57-4519OnewgabqYozwdhyc codes; unclassified (1 source)Bilateral lower limb edema; Translations: [Localized edema]12-05-2023 EpisodicSkin and subcutaneous tissue infections (1 source)Cellulitis of periorbital region of left eye; Translations: [Periorbital cellulitis]16-92-2070QxgnecvyNvbcavhdacw; intervertebral disc disorders; other back problems (20 sources)Cervicalgia; Translations: [Low back pain]Onset: 11-02-2022 30-47-4258EhoqdrnnZyoeven (6 sources)Near syncope; Translations: [Syncope and collapse]Onset: 08-26-2023 59-28-6576JeszrzocUzcybnishgwb (5 sources)Never smoked tobacco; Translations: [Never a smoker]Unclassified (1 source)Onset: 652658-42-9234Rwabw infection (20 sources)Disease caused by 2019-nCoV; Translations: [COVID-19]Onset: 05-28-2022 Resolved: 806276-30-6119Bvhahclt Results Test NameValueInterpretationReference RangeFacilityMR LUMBAR SPINE WO CONTon 87-24-2051PW LUMBAR SPINE WO CONTMR LUMBAR SPINE WO CONT HISTORY: A 79-year-old female with a history of the back pain and leg weakness. Lumbar spinal stenosis with neurogenic claudication. TECHNIQUE: Multiplanar and multisequence MRI examination of the lumbar spine is performed. COMPARISON: No relevant prior studies [...] No intrathecal signal abnormality seen. 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 Associated disc bulging is seen at all levels. Mild degree of central canal narrowing is seen at a few levels. Neural foramina are otherwise patent. Finalized by Layo Heard MD on 07/04/2025 1:53 PMNormalProMedica Kern [facility] Center (INCLUDES DIFF/PLT)on 42-31-1007Xygefomip (Bld) [#/Vol]0.06 10*3/uL Normal0-200Quest DiagnosticsComment on above:Performed By: #### [id number], [id number], [id number] #### [facility] of [address], [address] [place] [address] Route Delivery Manager: Otoniel Rojas MDBasophils/100 WBC (Bld)1.0 %NormalQuest DiagnosticsComment on above:Performed By: #### 60034, 63714, 6399 #### [facility] of [address], [address] [place] [address] Route Delivery Manager: Otoniel Rojas MDEosinophils (Bld) [#/Vol]0.42 10*3/uLNormal 15-500Quest DiagnosticsComment on above:Performed By: #### 09906, 24483, 6399 #### [facility] of [address], [address] [place] [address] Route Delivery Manager: Otoniel GUPTAosinophils/100 WBC (Bld)7.0 %NormalQuest DiagnosticsComment on above:Performed By: #### 29531, 48262, 6399 #### [facility] of [address], [address] [place] [address] Route Delivery Manager: Otoniel Rojas MDErythrocyte distribution width (RBC) [Ratio] 14.3 %Kbsejw41.0-15.0Quest DiagnosticsComment on above:Performed By: #### 43744, 58518, 6399 #### [facility] of [address], [address] [place] [address] Route Delivery Manager: Otoniel Rojas MDHematocrit (Bld) [Volume fraction]44.6 %Normal 35.0-45.0Quest DiagnosticsComment on above:Performed By: #### 10650, 24935, 6399 #### [facility] of [address], [address] [place] [address] Route Delivery Manager: Otoniel Rojas MDHemoglobin (Bld) [Mass/Vol]14.2 g/dLNormal 11.7-15.5Quest DiagnosticsComment on above:Performed By: #### 73328, 43899, 6399 #### [facility] of [address], [address] [place] [address] Route Delivery Manager: Otoniel Rojas MDLymphocytes (Bld) [#/Vol]2.118 10*3/uLNormal 850-3900Quest DiagnosticsComment on above:Performed By: #### 57269, 34943, 6399 #### [facility] of [place] [address] Route Delivery Manager: Otoniel Rojas MDLymphocytes/100 WBC (Bld)35.3 %NormalQuest DiagnosticsComment on above:Performed By: #### 46309, 44976, 6399 #### [facility] of [place] [address] Route Delivery Manager: Otoniel Rojas MDMCH (RBC) [Entitic mass]29.0 ndDopqwq52.0-33.0 Quest DiagnosticsComment on above:Performed By: #### 77314, 65613, 6399 #### [facility] of [place] [address] Route Delivery Manager: Otoniel Rojas MDMCHC (RBC) [Mass/Vol]31.8 g/dLLow32.0-36.0 Quest DiagnosticsComment on above:Result Comment: For adults, a slight decrease in the calculated MCHC value (in the range of 30 to 32 g/dL) is most likely not clinically significant; however, it should be interpreted with caution in correlation with other red cell parameters and the patient's clinical condition.Performed By: #### 18872, 28006, 6399 #### [facility] of [place] [address] Route Delivery Manager: Otoniel Rojas MDMCV (RBC) [Entitic vol]91.0 uGExkxjw92.0-100.0 Quest DiagnosticsComment on above:Performed By: #### 56267, 10328, 6399 #### [facility] of [address], [address] [place] [address] Route Delivery Manager: Otoniel Rojas MDMonocytes (Bld) [#/Vol]0.39 10*3/uLNormal 200-950Quest DiagnosticsComment on above:Performed By: #### 45253, 71206, 6399 #### [facility] of [address], [address] [place] [address] Route Delivery Manager: Otoniel Rojas MDMonocytes/100 WBC (Bld)6.5 %NormalQuest DiagnosticsComment on above:Performed By: #### 74478, 44868, 6399 #### [facility] of [address], [address] [place] [address] Route Delivery Manager: Otoniel Rojas MDNeutrophils (Bld) [#/Vol]3.012 10*3/uLNormal 1500-7800Quest DiagnosticsComment on above:Performed By: #### 34039, 23647, 6399 #### [facility] of [address], [address] [place] [address] Route Delivery Manager: Otoniel Rojas MDNeutrophils/100 WBC (Bld)50.2 %NormalQuest DiagnosticsComment on above:Performed By: #### 54174, 30574, 6399 #### [facility] of [address], [address] [place] [address] Route Delivery Manager: Otoniel Rojas MDPlatelet mean volume (Bld) [Entitic vol]9.5 fL Normal7.5-12.5Quest DiagnosticsComment on above:Performed By: #### 87174, 41612, 6399 #### [facility] of [address], [address] [place] [address] Route Delivery Manager: Otoniel Rojas MDPlatelets (Bld) [#/Vol]286 10*3/uLNormal 140-400Quest DiagnosticsComment on above:Performed By: #### 43941, 97837, 6399 #### [facility] of [address], [address] [place] [address] Route Delivery Manager: Otoniel Rojas [facility] [#/Vol]4.90 10*6/uLNormal3.80-5.10 Quest DiagnosticsComment on above:Performed By: #### 32262, 30088, 6399 #### [facility] of [address], [address] [place] [address] Route Delivery Manager: Otoniel Rojas [facility]BR[facility] ([facility]) [#/Vol]6.0 10*3/uLNormal3.8-10.8 Quest DiagnosticsComment on above:Performed By: #### 17479, 86084, 6399 #### [facility] of [address], [address] [place] [address] Route Delivery Manager: Otoniel Rojas MDCOMPREHENSIVE METABOLIC PANELon 05-21-2025 Albumin [Mass/Vol]4.0 g/dLNormal3.6-5.1Quest DiagnosticsComment on above: Performed By: #### 16858, 80748, 6399 #### [facility] of [address], [address] [place] [address] Route Delivery Manager: Otoniel Rojas MDAlbumin/Globulin [Mass ratio]1.4 {ratio}Normal 1.0-2.5Quest DiagnosticsComment on above:Performed By: #### 39754, 67315, 6399 #### [facility] of [address], [address] [place] [address] Route Delivery Manager: Otoniel Rojas MDALP [Catalytic activity/Vol]75 U/PQggekc48-882 Quest DiagnosticsComment on above:Performed By: #### 78757, 34256, 6399 #### [facility] of [address], [address] [place] [address] Route Delivery Manager: Otoniel Rojas MDALT [Catalytic activity/Vol]12 U/LNormal6-29 Quest DiagnosticsComment on above:Performed By: #### 42671, 85335, 6399 #### [facility] of [place] [address] Route Delivery Manager: Otoniel Rojas MDAST [Catalytic activity/Vol]14 U/WUavubq30-84 Quest DiagnosticsComment on above:Performed By: #### 32962, 21576, 6399 #### [facility] of [place] [address] Route Delivery Manager: Otoniel Rojas MDBilirubin [Mass/Vol]0.7 mg/dLNormal0.2-1.2 Quest DiagnosticsComment on above:Performed By: #### 68472, 81648, 6399 #### [facility] of [place] [address] Route Delivery Manager: Otoniel Rojas MDCalcium [Mass/Vol]9.4 mg/dLNormal8.6-10.4Quest DiagnosticsComment on above:Performed By: #### 43650, 64600, 6399 #### [facility] of [place] [address] Route Delivery Manager: Otoniel Rojas MDChloride [Moles/Vol]103 mmol/HQogmei86-145 Quest DiagnosticsComment on above:Performed By: #### 17007, 09285, 6399 #### [facility] of [place] [address] Route Delivery Manager: Otoniel Rojas MDCO2 [Moles/Vol]23 mmol/TZxolpb71-67Yzdxq DiagnosticsComment on above:Performed By: #### 33628, 56537, 6399 #### [facility] of [place] [address] Route Delivery Manager: Otoniel Rojas MDCreatinine [Mass/Vol]0.58 mg/dLLow0.60-1.00 Quest DiagnosticsComment on above:Performed By: #### 55509, 38997, 6399 #### [facility] [place] [address] Route Delivery Manager: Otoniel Rojas MDGFR/1.73 sq M.predicted among non-blacks MDRD (S/P/Bld) [Vol rate/Area]93 mL/min/{1.73_m2}Normal> OR = 60[facility] Comment on above:Performed By: #### 05511, 39073, 6399 #### [facility] [address], [address] [place] [address] Route Delivery Manager: Otoniel Rojas MDGlobulin (S) [Mass/Vol]2.9 g/dLNormal1.9-3.7 Quest DiagnosticsComment on above:Performed By: #### 01178, 50176, 6399 #### [facility] [place] [address] Route Delivery Manager: Otoniel Rojas MDGlucose [Mass/Vol]118 mg/pQVucm94-02Bnsuh DiagnosticsComment on above:Result Comment: Fasting reference interval For someone without known diabetes, a glucose value between 100 and 125 mg/dL is consistent with prediabetes and should be confirmed with a follow-up test.Performed By: #### 55313, 72685, 6399 #### [facility] [place] [address] Route Delivery Manager: Otoniel Rojas MDPotassium [Moles/Vol]4.1 mmol/LNormal3.5-5.3 Quest DiagnosticsComment on above:Performed By: #### 37154, 42881, 6399 #### [facility] [place] [address] Route Delivery Manager: Otoniel Rojas MDProtein [Mass/Vol]6.9 g/dLNormal6.1-8.1Quest DiagnosticsComment on above:Performed By: #### 45673, 65589, 6399 #### [facility] of [address], [address] [place] [address] Route Delivery Manager: Otoniel GUTIERREZodium [Moles/Vol]136 mmol/VGczzca268-056Nywpk DiagnosticsComment on above:Performed By: #### 75563, 92644, 6399 #### [facility] of [address], [address] [place] [address] Route Delivery Manager: Otoniel Rojas MDUrea nitrogen [Mass/Vol]9 mg/dLNormal7-25Quest DiagnosticsComment on above:Performed By: #### 53056, 30854, 6399 #### [facility] of [address], [address] [place] [address] Route Delivery Manager: Otoniel Chamberlain nitrogen/Creatinine [Mass ratio]16 mg/mg Normal6-22Quest DiagnosticsComment on above:Performed By: #### 43758, 61548, 6399 #### [facility] of [address], [address] [place] [address] Route Delivery Manager: Otoniel Rojas MDPR[facility]+FREE T4on 27-04-2704Nkms T4 [Mass/Vol]1.0 ng/dLNormal0.8-1.8Quest DiagnosticsComment on above:Performed By: #### 45603, 20565, 6399 #### [facility] of [place] [address] Route Delivery Manager: Otoniel Rojas MDPR[facility] Qn1.87 m[IU]/LNormal0.40-4.50Quest DiagnosticsComment on above:Performed By: #### 38648, 38746, 6399 #### [facility] of [place] [address] Route Delivery Manager: Otoniel Rojas MDVITAMIN D,25-OH,TOTAL,IAon 16-05-4893PZNIVHU D,25-OH,TOTAL,IA25 ng/uUYeu91-745Mhypp DiagnosticsComment on above:Result Comment: Vitamin D Status 25-OH Vitamin D: Deficiency: <20 ng/mL Insufficiency: 20 - 29 ng/mL Optimal: > or = 30 ng/mL For 25-OH Vitamin D testing on patients on D2-supplementation and patients for whom quantitation of D2 and D3 fractions is required, the QuestAssureD(TM) 25-OH VIT D, (D2,D3), LC/MS/MS is recommended: order code 80937 (patients >2yrs). 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 This is unchanged. The bones arein anatomic alignment otherwise. There is moderate disc height loss at L1-L2, L2-3, L4-5, and L5-S1. There is preservation of vertebral body heights. Facet degenerative changes are present, greatest at L4-5. Atherosclerotic calculationsof the abdominal aorta. MRI lumbar spine: The bones of the lumbar spine are in anatomic alignment. There is preservation of vertebral body heights. There is mild disc height loss at T12-L1 and L1-L2. There is moderate disc height loss at L2-L3. There is mild disc height loss at L5-S1. Benign-appearing hemangiomas are noted at L2, L3, L4, L5, and S1. There is Schmorl's node formation the endplates at T12 and superior endplate of L3.. The conus terminates at the inferior endplate of the L1 vertebral body level. Noepidural or paraspinous fluid collection is appreciated. There is a simple cyst in the left renal cortex requiring no further follow-up. At T12-L1: There is no focal protrusion, central canal, or neural foraminal narrowing. Disc desiccation. At L1-L2: Broad-based disc bulge. Mild left neural from narrowing, this is progressed. Central canal and right foramen are patent. At L2-L3: There is a broad-based disc bulge with facet hypertrophy. There is mild narrowing of spinal canal with mild bilateral neural foraminal narrowing. Minimal left subarticular zone effacement. At L3-L4: There is a broad-based disc bulge with facet hypertrophy. There is mild right and mild tomoderate neural foraminal narrowing without significant spinal canal narrowing. This is unchanged. At L4-L5: Circumferential disc bulge. Moderate Facet arthropathy.. There is moderate right and mildleft neural foraminal stenosis. No significant change At L5-S1: Circumferential bulge. Moderate severe right and mild left neural foraminal narrowing. Moderate severe right and moderate left facet arthropathy. No significant central canal stenosis. MR/MR lumbar spine wo con IMPRESSION: Stable mild to moderate multilevel degenerative changes without high-grade canal or neural foraminal narrowing. Impression dictated by: Serge Collins M.D.11/21/2024 2:48 PM Dictation Location: [id number]-26 Transcribed By: YVES 11/21/24 1448 Dictated By: Serge Collins MD 11/21/24 1438 Signed By: 11/21/24 1448 [facility] Work Phone: XR pre/post mri xrayon 23-25-2028OO pre/post mri xray [place] [address] MRI Report Signed Patient: Regina Henry MR#: [id number] : 1945 Acct:[id number] Age/Sex: 78 / F ADM Date: 11/21/24 Loc: [facility] Room: Type: [facility] CLI Attending Dr: Cam Riggs MD Copies to: Cam Riggs MD Ordering Provider: Cam Riggs MD Date of Service: 11/21/24 MR/MR lumbar spine wo con: M47.26 - Other spondylosis with radiculopathy, lumbar region ([id number]) XR/XR pre/post mri xray: M47.26 MR lumbar spine wo con, XR pre/post mri xray 11/21/2024 11:07 AM SIGNS AND SYMPTOMS: M47.26 - Other spondylosis with radiculopathy, lumbar region COMPARISON: 07/06/2023 FINDINGS: Radiographs of the lumbar spine: There is a dextrocurvature of the lumbar spine. This is unchanged. The bones are in anatomic alignment otherwise. There is moderate disc height loss at L1-L2, L2-3, L4-5, and L5-S1. There is preservation of vertebral body heights. Facet degenerative changes are present, greatest at L4-5. Atherosclerotic calculations of the abdominal aorta. MRI lumbar spine: The bones of the lumbar spine are in anatomic alignment. There is preservation of vertebral body heights. There is mild disc height loss at T12-L1 and L1-L2. There is moderate disc height loss at L2-L3. There is mild disc height loss at L5-S1. Benign-appearing hemangiomas are noted at L2, L3, L4, L5, and S1. There is Schmorl's node formation the endplates at T12 and superior endplate of L3.. The conus terminates at the inferior endplate of the L1 vertebral body level. No epidural or paraspinous fluid collection is appreciated. There is a simple cyst in the left renal cortex requiring no further follow-up. At T12-L1: There is no focal protrusion, central canal, or neural foraminal narrowing. Disc desiccation. At L1-L2: Broad-based disc bulge. Mild left neural from narrowing, this is progressed. Central canal and right foramen are patent. At L2-L3: There is a broad-based disc bulge with facet hypertrophy. There is mild narrowing of spinal canal with mild bilateral neural foraminal narrowing. Minimal left subarticular zone effacement. At L3-L4: There is a broad-based disc bulge with facet hypertrophy. There is mild right and mild to moderate neural foraminal narrowing without significant spinal canal narrowing. This is unchanged. At L4-L5: Circumferential disc bulge. Moderate Facet arthropathy.. There is moderate right and mild left neural foraminal stenosis. No significant change At L5-S1: Circumferential bulge. Moderate severe right and mild left neural foraminal narrowing. Moderate severe right and moderate left facet arthropathy. No significant central canal stenosis. MR/MR lumbar spine wo con IMPRESSION: Stable mild to moderate multilevel degenerative changes without high-grade canal or neural foraminal narrowing. Impression dictated by: Serge Collins M.D.11/21/2024 2:48 PM Dictation Location: [place] [address] Transcribed By: [facility] 11/21/24 1448 Dictated By: Serge Collins MD 11/21/24 1438 Signed By: 11/21/24 1448[facility] Physician GroupLaboratory - Chemistry and Chemistry - challengeon 65-07-7558Dlzfpbsoa Ql (U)NegativeOhiohealth O'Bleness HospitalKetones Ql (U)NegativeOhiohealth O'Bleness HospitalpH (U)5.0 [pH]Mercy Hospitalpecific gravity (U) [Rel density]1.020 [facility]len[facility] HospitalUrobilinogen (U) [Mass/Vol]1.0 mg/dLOhiohealth O'Bleness HospitalLaboratory - Specimen informationon 23-81-8055Mhvqirkbtc (U)cloudyOhiohealth O'Bleness HospitalColor (U)orangeOhiohealth O'Bleness HospitalLaboratory - Urinalysison 86-67-8963Ahnpmisff esterase Test strip Ql (U)smallOhiohealth O'Bleness HospitalNitrite Ql (U)PositiveOhiohealth O'Bleness HospitalProtein Ql (U)100mgOhiohealth O'Bleness HospitalNo Panel Informationon 32-13-0752Nrvrk Glucose (UA)100mgOhiohealth O'Bleness HospitalUrine Occult BloodLargeOhiohealth O'Bleness HospitalUrine Cultureon 83-52-2587Yflcnoys identified Cx Nom (U)ORGANISM: Escherichia coli (O:ESCCOL) [place] Count >100,000 Aerobic MAKENZIE Charge (NMIC56) SUSCEPTIBILITY ORGANISM: O:ESCCOL ANTIBIOTIC INTERPRETATION MAKENZIE Amikacin S <16 Amoxacillin/K Clavulanate S <8 Ampicillin S <8 Ampicillin/Sulbactam S <4 Aztreonam S <4 Cefazolin S <2 Cefepime S <2 Ceftazidime S <1 Ceftazidime/Avibactam S <4 Ceftolozane/Tazobactam S <2 Ceftriaxone S <1 Cefuroxime S <4 Ciprofloxacin S <0.25 Ertapenem S <0.5 Gentamicin S <2 Levofloxacin S <0.5 Meropenem S <1 Meropenem/Vaborbactam S <2 Nitrofurantoin S <32 Piperacillin/Tazobactam S <8 Tetracycline S <4 Tigecycline S <2 Tobramycin S <2 Trimethoprim/Sulfamethoxazole S <0.5 S = SUSCEPTIBLE I = INTERMEDIATE R = RESISTANT BLANK = DATA NOT AVAILABLE, OR DRUG NOT ADVISABLE OR TESTED R* = RESISTANCE DUE TO EXTENDED SPECTRUM BETA-LACTAMASES ESBL = EXTENDED SPECTRUM BETA-LACTAMASE TFG = THYMIDINE-DEPENDENT STRAIN JAMES = BETA-LACTAMASE POSITIVE IB = INDUCIBLE BETA-LACTAMASE. APPEARS IN PLACE OF 'S' WITH SPECIES KNOWN TO POSSESS INDUCIBLE BETA-LACTAMASES. POTENTIALLY THEY MAY BECOME RESISTANT TO ALL B-LACTAM DRUGS. PERFORMED BY: [address] [place] [address] PATHOLOGIST CODING SUPPORT SPECIALIST SAMI GARCIA M.D.[facility] Physician GroupComment on above:Performed By: #### CUU #### [facility] [address]Urine culture routineOrdered By: Yary Silveira on 12-11-2023 Bacteria identified Cx Nom (U)Escherichia coliOhiohealth O'Bleness Hospital Alanine aminotransferase [Enzymatic activity/volume] in Serum or PlasmaOrdered By: Musa Orlando on 88-69-4482AVQ [Catalytic activity/Vol]15 U/L7-52[facility]leness HospitalAlbumin [Mass/volume] in Serum or Plasma by Bromocresol green (BCG) dye binding methoOrdered By: Musa Orlando on 18-75-0140Bioenyv BCG dye [Mass/Vol]4.2 g/dL3.5-5.7FOhio State Harding HospitalAlkaline phosphatase [Enzymatic activity/volume] in Serum or PlasmaOrdered By: Musa Orlando on 87-91-4795FBI [Catalytic activity/Vol]80 U/T34-798ZwmrgomshOhiohealth O'Bleness HospitalAspartate aminotransferase [Enzymatic activity/volume] in Serum or PlasmaOrdered By: Musa Orlando on 05-33-9622OLZ [Catalytic activity/Vol]14 U/L 13-39[facility]leness HospitalBasophils Auto (Bld) [#/Vol]Ordered By: Musa Orlando on 67-18-1574Wgxyzsguu (Bld) [#/Vol]0.0 10*3/uL0.0-0.2FOhio State Harding HospitalBasophils/100 WBC Auto (Bld)Ordered By: Musa Orlando on 96-23-7246Vpbbpfvvk/100 WBC (Bld)0.6 %.[facility] Bilirubin.total [Mass/volume] in Serum or PlasmaOrdered By: Musa Orlando on 19-99-4478Pgwbwjvkb [Mass/Vol]0.5 mg/dL0.3-1.0[facility] Calcium [Mass/volume] in Serum or PlasmaOrdered By: Musa Orlando on 10-28-2023 Calcium [Mass/Vol]9.8 mg/dL8.6-10.3FOhio State Harding HospitalCarbon dioxide, total [Moles/volume] in Serum or PlasmaOrdered By: Musa Orlando on 63-81-0586ES6 [Moles/Vol]29.4 mmol/L21.0-31.0[facility] Chloride [Moles/volume] in Serum or PlasmaOrdered By: Musa Orlando on 10-28-2023 Chloride [Moles/Vol]103 mmol/Z79-020NtantmvsnOhiohealth O'Bleness HospitalCreatinine [Mass/volume] in Serum or PlasmaOrdered By: Musa Orlando on 75-98-7200Mloyjrwpfb [Mass/Vol]0.69 mg/dL0.60-1.20[facility]'Bleness HospitalEosinophils Auto (Bld) [#/Vol]Ordered By: Musa Orlando on 65-10-4989Bfhyajsvlej (Bld) [#/Vol]0.3 10*3/uL0.0-0.45[facility]'Bleness HospitalEosinophils/100 WBC Auto (Bld) Ordered By: Musa Orlando on 22-13-1225Ehgiswqtvub/100 WBC (Bld)4.2 %.[facility]'Bleness HospitalErythrocyte distribution width Auto (RBC) [Ratio]Ordered By: Musa Orlando on 04-59-7452Lksshefwgki distribution width (RBC) [Ratio]13.3 % 11.9-15.3FOhio State Harding HospitalGlobulin Calc (S) [Mass/Vol]Ordered By: Musa Orlando on 38-10-8112Wbetqacr (S) [Mass/Vol]2.8 g/dLOhiohealth O'Bleness HospitalGlucose [Mass/volume] in Serum or PlasmaOrdered By: Musa Orlando on 38-96-1750Azjdouq [Mass/Vol]88 mg/aN34-870YrreoopwoOhiohealth O'Bleness Hospital Hematocrit Auto (Bld) [Volume fraction]Ordered By: Musa Orlando on 10-28-2023 Hematocrit (Bld) [Volume fraction]42.5 %34.0-46.4FOhio State Harding HospitalHemoglobin [Mass/volume] in BloodOrdered By: Musa Orlando on 10-28-2023 Hemoglobin (Bld) [Mass/Vol]14.2 g/dL11.8-15.4FOhio State Harding Hospital Leukocytes [#/volume] corrected for nucleated erythrocytes in Blood by Automated counOrdered By: Musa Orlando on 47-97-0542AWM corrected for nucl RBC Auto (Bld) [#/Vol]7.6 10*3/uL3.8-11.6FOhio State Harding HospitalLymphocytes Auto (Bld) [#/Vol]Ordered By: Musa Orlando on 84-24-6155Ycvsrbtaizw (Bld) [#/Vol]2.0 10*3/uL1.00-4.8[facility]'Bleness HospitalLymphocytes/100 WBC Auto (Bld) Ordered By: Musa Orlando on 87-59-6485Pgfasbhkasa/100 WBC (Bld)26.8 %.Holzer HospitalH Auto (RBC) [Entitic mass]Ordered By: Musa Orlando on 38-44-0122WQV (RBC) [Entitic mass]28.9 pg24.7-34.3FOhio State Harding HospitalMCHC Auto (RBC) [Mass/Vol]Ordered By: Musa Orlando on 14-60-8825TOBX (RBC) [Mass/Vol]33.4 g/dL32.0-35.0[facility]Bleness HospitalMCV Auto (RBC) [Entitic vol]Ordered By: Musa Orlando on 60-81-5900ZDT (RBC) [Entitic vol]86.3 kO56-419DvxqcehkqOhiohealth O'Bleness HospitalMonocytes Auto (Bld) [#/Vol]Ordered By: Musa Orlando on 37-17-4741Bniexriir (Bld) [#/Vol]0.5 10*3/uL0.0-0.8[facility]leness HospitalMonocytes/100 WBC Auto (Bld)Ordered By: Musa Orlando on 41-06-5425Aozumqahx/100 WBC (Bld)6.9 %.[facility] Neutrophils Auto (Bld) [#/Vol]Ordered By: Musa Orlando on 94-28-9099Xiuxmftkbvf (Bld) [#/Vol]4.7 10*3/uL1.8-7.7FOhio State Harding HospitalNeutrophils/100 WBC Auto (Bld)Ordered By: Musa Orlando on 03-14-9893Dbyinbtowfq/100 WBC (Bld) 61.5 %.[facility]ess HospitalNo Panel InformationOrdered By: Musa Orlando on 00-10-5517Sxqvnemvi GFR (CKD-EPI)> 60.0 mL/MinOhiohealth O'Bleness HospitalPharmacy Creatinine Clearance (ChemN/AFOhio State Harding HospitalNucleated erythrocytes [Presence] in Blood by Automated countOrdered By: Musa Orlando on 81-86-0754Cipszdaqy RBC Auto Ql (Bld)0.1 /100{WBC}0-0.5FOhio State Harding HospitalPlatelet mean volume Auto (Bld) [Entitic vol]Ordered By: Musa Orlando on 47-02-3428Jgictooj mean volume (Bld) [Entitic vol]7.7 fL6.3-10.7 [facility]'Bleness HospitalPlatelets Auto (Bld) [#/Vol]Ordered By: Musa Orlando on 28-52-5697Jlkcyzyit (Bld) [#/Vol]339 10*3/uT534-442OtthtxbyvOhiohealth O'Bleness HospitalPotassium [Moles/volume] in Serum or PlasmaOrdered By: Musa Orlando on 35-80-2601Qebcdzmdf [Moles/Vol]4.2 mmol/L3.5-5.1FOhio State Harding HospitalProtein [Mass/volume] in Serum or PlasmaOrdered By: Musa Orlando on 14-16-8588Mxtpsay [Mass/Vol]7.0 g/dL6.4-8.9[facility] [facility] RBC Auto (Bld) [#/Vol]Ordered By: Musa Orlando on 18-20-0134PNW (Bld) [#/Vol] 4.92 10*6/uL3.60-5.00Mercy Hospitalerum or plasma albumin/globulin mass ratioOrdered By: Musa Orlando on 10-28-2023 Albumin/Globulin [Mass ratio]1.5 {ratio}Mercy Hospitalerum or plasma anion gap determinationOrdered By: Musa Orlando on 17-62-7457Pfcxz gap [Moles/Vol]10.8 mmol/L6.0-15.0Mercy Hospitalodium [Moles/volume] in Serum or PlasmaOrdered By: Musa Orlando on 48-35-2006Tcsmti [Moles/Vol]139 mmol/B609-214QyrovsxriOhiohealth O'Bleness HospitalUrea nitrogen [Mass/volume] in Serum or PlasmaOrdered By: Musa Johanny on 13-92-1025Jjhe nitrogen [Mass/Vol]10 mg/dL7-25[facility] HospitalWBC Auto (Bld) [#/Vol]Ordered By: Musa Johanny on 50-55-1059ZYV (Bld) [#/Vol]7.6 10*3/uL 3.8-11.6FOhio State Harding HospitalProvider Letteron [phone] Letter October 04, 2023 REGINA HENRY [address] [place] [id number] : 1945 Dear Regina, We are reaching out to inform you that Dr. Barajas is now approved and credentialed with your insurance. Please call our office to schedule the EGD that was recommended at your last visit. Thank you for your prompt attention to this matter. Sincerely, [facility] [phone] Clinic Union Hospital [phone] From: Mercedes Atkinson To: [facility] - Reminders/Recalls; Sent: 05/25/2023 13:39:19 EDT Show up: 06/24/2023 13:39:00 EDT Subject: Ambulatory Reminder Reminder/Recall Call pt to scheduled EGD for July with Dr. Barajas once Medicare [employer] is approved for him. LVM for pt to call back to schedule. She [facility] need to go [facility]. letter mailed outSumma Health Barberton CampusAmbulatory Visit Summaryon [id number] Visit Summary REGINA HENRY :1945 Visit Date:07/15/2023 [...] mg Vaginal Daily 2x per week Contact prescribingphysician if questions or concerns Unchanged famotidine (famotidine [...] (candidiasis). ? Fever. ? (more content not included)...[facility] CampusGastroenterology Office/Clinic Noteon 14-32-3873Dgxvmedakfyohqca Office/Clinic NoteChief Complaint Constipation and abdominal discomfort. HPI Staff [...] she was having gas/bloating nearly every day thatwas triggered by spicy foods or overeating. She reported she was taking Pepcid as needed. She also indicated she had a lot of anxiety?patient [facility]. Patient reported she did not want to take pantoprazole or omeprazole during previous evaluation however was interested in trying Nexium. She reported having 3 bowel movements a week that were hard in consistency with occasional bright red blood per rectum with w iping. Patient was ordered repeat EGD to evaluate for healing of erosive esophagitis and advised toavoid NSAIDs. Patient was ordered Nexium 40 mg daily and educated to take Pepcid 20 mg at bedtime. Patient was also ordered CBC/CMP and celiac serology. EGD completed 04/21/2023 revealed mild granular mucosa, erythema, and friability adjacent to Schatzki's ring, normal gastric mucosa, normal duodenum, Schatzki's ring biopsy revealed epithelial atypia,marked acute chronic inflammation, note indicated consultation with [facility] regarding biopsy results and was completed and revealed per [facility] biopsy showed erosive esophagitis andhyperplastic cardia type mucosa, negative for dysplasia, stomach [...] not had a BM in a few days.Is having improved bloating however, is still having bloating 2-3 times a week. Denies black/bloodystools, vomiting, fevers/chills, and denies having any other [...] normal duodenum, Schatzki's ring biopsy revealed epithelial atypia,marked acute chronic inflammation, note indicated consultation with [facility] regarding biopsy results and was completed and revealed per [facility] biopsy showed erosive esophagitis andhyperplastic cardia type mucosa, negative for dysplasia, stomach [...] normal duodenum, Schatzki's ring biopsy revealed epithelial atypia,marked acute chronic inflammation, note indicated consultation with [facility] regarding biopsy results and was completed and revealed per [place] (more content not included)...[facility] CampusComment on above:Result Comment: Electronically Signed By: Leana Allen CNP\Date and Time Signed: 07/15/23 11:21 EDTPatient Educationon 50-15-9568Yrsbqqg EducationGastroenterology Esophagitis Esophagitis is inflammation of the esophagus. [...] you need help quitting, ask your health careprovider. ? Changing your diet. ? Exercising. ? Changing your sleep habits and your sleep environment. Follow these instructions at home: Medicines ? Take yuio-gvf-cwvfzle and prescription medicines only as told by [...] vinegar, hot sauces, and barbecue sauce. ? Lefors fruit juices and citrus fruits, such as oranges, olivia, and limes. ? Tomato-based foods, such as red sauce, chili, salsa, and pizza with red sauce. ? Fried and fatty foods, such as donuts, swedish fries, potato chips, and high- fat dressings. ? High-fat meats, such as hot [...] tight around your waist that causes pressure onyour abdom (more content not included)...[facility] CampusPre-Certification Formon [id number]-Certification Form [id number]#1.00CD:127NormalKettering Health Behavioral Medical CenterCeliac Disease Comprehensiveon 89-50-5767Qouxtftopd IgA Ql (S)Negative Invalid Interpretation CodeNegativeKettering Health Behavioral Medical CenterComment on above: Performed By: #### [id number], 14374676, 0779236, [id number], 3872418 ####[facility] [address] [place], [place] [address]Dhvzhnp peptide IgA Qn (S)12 unit(s)Invalid Interpretation Code[address] Comment on above:Result Comment: Negative 0 - 19 Weak Positive 20 - 30 Moderate to Strong Positive >30Performed By: #### 7726203, 21881738, 1376521, [id number], 8659479 ####[facility] [address] [place], [place] [address]Qvdngvj peptide IgG Qn (S)2 unit(s)Invalid Interpretation Code0-[facility] Medical CenterComment on above:Result Comment: Negative 0 - 19 Weak Positive 20 - 30 Moderate to Strong Positive >30Performed By: #### 0380896, 33190664, 0603780, [id number], 8398173 ####[facility] [address] [place], [place] [address]XfJ [Mass/Vol]511 mg/vXXfcu10-415Iptqbh [facility] Comment on above:Result Comment: Performed at: [facility] [address] [place], [place] [id number] PhD Radha SowPerformed By: #### 5621012, 35520902, 6697222, [id number], 8583865 ####[facility] [address] [place], [place] [address]eMS IgA Qn (S)<2Invalid Interpretation Code0-3FGalion HospitalComment on above:Result Comment: Negative 0 - 3 Weak Positive 4 - 10 Positive >10 Tissue Transglutaminase (tTG) has been identified as the endomysial antigen. Studies have demonstr- ated that endomysial IgA antibodies have over 99% specificity for gluten sensitive enteropathy.Performed By: #### 4747970, 47725478, 7740274, [id number], 5996958 ####[facility] [address] [place], [place] [address]gGG IgG Qn (S)10 unit/mLHigh0-5FGalion HospitalComment on above:Result Comment: Negative 0 - 5 Weak Positive 6 - 9 Positive >9Performed By: #### 4112778, 88651067, 7391254, [id number], 5503864 ####[facility] [address] [place] [address] Ambulatory Visit Summaryon 59-00-8443Ofgtavvmnr Visit Summary REGINA HENRY :1945 Visit Date:05/25/2023 Ambulatory Visit Instructions Your Diagnosis Erosive esophagitis Schatzki's ring Hard stool Bloating GERD (gastroesophageal reflux disease) Rectal polyp Hemorrhoids Your Care Team Attending Physician - Alejandro EDMOND, Leana A Primary Care Physician - SHEKHAR PEREZ MD [...] Location Comprehensive Metabolic Panel, Blood, Routine collect, 05/25/23, Order for future visit, Lab Collect, Bloating, Print Label By Order Location Medications What How Much When Why Instructions New esomeprazole (Nexium 40 mg Cap-EC) 1 Capsules By Mouth Every day Erosive esophagitis Duration: 90 Days Pickup at [facility] Unchanged cephalexin (Keflex 500 mg Cap) 1 Capsules By Mouth Every day take 1 tab one day prior to the procedure and one tab after the procedure Contact prescribing physician if questions or concerns Unchanged estradiol (Estrace) See instructions 0.1 mg Vaginal Daily 2x per week Contact prescribingphysician if questions or concerns Unchanged famotidine (famotidine 20 mg Tab) Contact prescribing physician if questions or concerns Unchanged lorazepam (LORazepam 0.5 mg Tab) See instructions BID Contact prescribing physician if questions or concerns Unchanged metoprolol (metoprolol 25 mg ER Tab) 1 Tablets By Mouth Every day Contact prescribing physician if questions or concerns Pharmacy Information [id number]: [address], [place] [id number] [phone] What How Much When Why Comments Stop [...] ? Radiation or chemotherap (more content not included)...NormalFisher [facility] Va Medical CenterAuto Diffon 45-63-5919Qcfyofvwr/100 WBC (Bld)0.6 %Normal0.0-2.0 [facility] Medical CenterComment on above:Order Comment: Order Added by Discern Expert.Performed By: #### 5979016, 38968638, 4857555, 1392774691, 2495561 ####[facility] [address] [place], [place] [address]Lrbhtwqve/Leukocytes Auto (Bld) [Pure # fraction]0.0 E9/LNormal0.0-0.2 [facility] Medical CenterComment on above:Order Comment: Order Added by Discern Expert.Performed By: #### 9228686, 26019497, 1226246, [id number], 5973828 ####[facility] [address] [place], [place] [address]Byxrgscovpj/100 WBC (Bld)2.5 %Normal0.0-8.0[facility] Comment on above:Order Comment: Order Added by Discern Expert.Performed By: #### 7291500, 55204943, 9276796, 3732999296, 0089805 ####[address] [address]Bqcnhboqgei/Leukocytes Auto (Bld) [Pure # fraction]0.2 E9/LNormal0.0-0.5FGalion HospitalComment on above:Order Comment: Order Added by Discern Expert.Performed By: #### 0338515, 35563622, 5328357, 6090959996, 7439872 ####[facility] [address] [place], [place] [address]Cnzhzustcty/100 WBC (Bld)23.8 %Normal 14.0-50.0[facility] Behavior[facility] Medical CenterComment on above:Order Comment: Order Added by Discern Expert.Performed By: #### 3113832, 46196309, 8526950, 1847442530, 4501531 ####[address] [address]Glmyqmmvdpx/Leukocytes Auto (Bld) [Pure # fraction]2.1 E9/LNormal1.0-4.0 [facility] Medical CenterComment on above:Order Comment: Order Added by Discern Expert.Performed By: #### 9104803, 55461341, 9437881, 4903220346, 8003552 ####[facility] [address] [place], [place] [address]Rusyzcktc/100 WBC (Bld)7.1 %Normal4.0-14.0[facility] Comment on above:Order Comment: Order Added by Discern Expert.Performed By: #### 5713615, 40354730, 9468974, 6209666130, 5766019 ####[address] [address]Lkzsiboza/Leukocytes Auto (Bld) [Pure # fraction]0.6 E9/LNormal0.2-1.0[facility] Medical CenterComment on above: Order Comment: Order Added by Discern Expert.Performed By: #### 6765945, 47914426, 7304597, 8843929159, 5158510 ####[facility] [address] [place], [place] [address]Prfikpmkbnk/100 WBC (Bld)66.0 %Normal 36.0-75.0[facility] Medical CenterComment on above:Order Comment: Order Added by Discern Expert.Performed By: #### 7192057, 57367943, 4005475, 0166310596, 5758558 ####[address] [address]Pvkksnlmosd/Leukocytes Auto (Bld) [Pure # fraction]5.8 E9/LNormal2.0-7.5 [facility] Medical CenterComment on above:Order Comment: Order Added by Discern Expert.Performed By: #### 4104896, 73583386, 8531860, 3087500169, 9233644 ####[address] [address]NRB w/ Auto Diffon 30-14-2171Wrzktjtzihh distribution width (RBC) [Ratio] 13.6 %Hlfhae44.9-14.2FGalion HospitalComment on above:Performed By: #### 7780749, 31236234, 8758893, 5609518249, 3060432 ####[facility] [address] [place], [place] [address]Bknmzxinrt (Bld) [Volume fraction]43.2 %Zrppmm12.0-46.0[facility] Medical CenterComment on above: Performed By: #### 1282814, 66119099, 0137327, 3281123185, 0074386 ####[facility] [address] [place] [address]Sbrubgloxx (Bld) [Mass/Vol]14.6 g/lVUosqcs14.0-16.0[facility] Medical CenterComment on above: Performed By: #### 6322418, 49993398, 4980290, 2536695924, 1924546 ####[address] [address]GRA (RBC) [Entitic mass]29.3 orBvdfud99.0-34.0[facility] Medical CenterComment on above: Performed By: #### 1378771, 77022102, 5184413, 5717859144, 1898193 ####[address] [address]BACD (RBC) [Mass/Vol]33.7 g/pKGmalmy53.4-36.0[facility] Medical CenterComment on above: Performed By: #### 0279178, 27765128, 3506831, 8682994385, 7051570 ####[address] [address]QRM (RBC) [Entitic vol]86.9 qQRnqsxo76.0-100.0[facility] Medical CenterComment on above: Performed By: #### 7298600, 31825357, 1241565, 1594231214, 4595496 ####[address] [address]Ledxmmwg mean volume (Bld) [Entitic vol]7.6 fLNormal6.4-10.8[facility] Medical CenterComment on above:Performed By: #### 1620715, 81185749, 6196859, 8052950829, 7807516 ####[facility] [address] [place] [address] Platelets (Bld) [#/Vol]331.0 E9/HKgfexw834.0-500.0[facility] Comment on above:Performed By: #### 4011337, 55352968, 0775221, 7544299274, 9409561 ####[address] [place], [place] [address]QWJ (Bld) [#/Vol]5.0 E12/LNormal4.3-5.9[facility] Medical CenterComment on above:Performed By: #### 8774637, 21799793, 3790955, 1527369062, 7785257 ####[address] [address]JRQ corrected for nucl RBC Auto (Bld) [#/Vol]8.7 E9/LNormal4.0-11.0[facility] Medical CenterComment on above:Performed By: #### 1293964, 00516054, 2959331, 5327312820, 4082675 ####[facility] [address] [place], [place] [address]IUQdl 12-08-1986Lbdsqcr [Mass/Vol]4.0 g/dLNormal3.3-5.0 [facility] CenterComment on above:Performed By: #### 7086469, 29030820, 3786764, 9305061679, 6609170 ####[facility] [address] [place], [place] [address]Qterjep/Globulin (S) [Mass conc ratio] 1.2Yzwlmu4.1-2.2FGalion HospitalComment on above:Performed By: #### 8249327, 30498873, 9186833, 1116032044, 1264757 ####[facility] [address] [place], [place] [address]BPL [Catalytic activity/Vol]74 Int._Unit/KLwetqu19-64SghormKettering Health Behavioral Medical CenterComment on above:Performed By: #### 4459946, 03868492, 3407319, 5562459056, 7897200 ####[facility] [address] [place], [place] [address]QCB No additional P-5'-P [Catalytic activity/Vol]17 Int._Unit/LNormal6-46[facility] Comment on above:Performed By: #### 2722611, 97380388, 8223256, 7560333762, 6256416 ####[address] [place], [place] [address]Hirsc gap [Moles/Vol]10 mmol/LNormal6-16[facility] Medical CenterComment on above:Performed By: #### 3447724, 93233198, 9497581, 1749389714, 8091505 ####[address] [address]IMM [Catalytic activity/Vol]19 Int._Unit/LNormal5-43[facility] Comment on above:Performed By: #### 1634550, 40427680, 5343236, 3283528259, 4025973 ####[address] [place], [place] [address]Ygejgqsma [Mass/Vol]0.8 mg/dLNormal0.0-1.1FGalion Hospital Comment on above:Performed By: #### 3231309, 09919312, 7743382, 2255067113, 1764608 ####[address] [place], [place] [address]Jdmhcbt [Mass/Vol]9.6 mg/dLNormal8.9-11.1FGalion HospitalComment on above:Performed By: #### 4102100, 74925647, 7119561, 6400668401, 9958308 ####[address] [place] [address] Chloride [Moles/Vol]104 mmol/BPokiut104-132MfzdgzKettering Health Behavioral Medical CenterComment on above:Performed By: #### 6413283, 60829182, 2154787, 9402888317, 8553709 ####[facility] [address] [place], [place] [address]FT2 [Moles/Vol]28 mmol/AZibync99-91UoglxxKettering Health Behavioral Medical CenterComment on above: Performed By: #### 5323543, 88667790, 1550388, 0261691316, 8216472 ####[facility] [address] [place], [place] [address]Smrimxebnk [Mass/Vol]0.7 mg/dLNormal0.5-1.3FGalion HospitalComment on above: Performed By: #### 7424853, 31133596, 8660937, 7330773287, 8858173 ####[facility] [address] [place], [place] [address]Gbouaxxz (S) [Mass/Vol]3.6 g/dLNormal1.4-4.0[facility] Medical CenterComment on above: Performed By: #### 0725010, 39272752, 3440251, 6149237559, 7721613 ####[facility] [address] [place], [place] [address]Ffixpzt [Mass/Vol]98 mg/hPXhfbmb15-976KgnpmnKettering Health Behavioral Medical CenterComment on above:Result Comment: If this glucose result represents a fasting glucose, interpretation should refer tothe following reference range: 55-99 mg/dLPerformed By: #### 3801120, 92628193, 6790528, 2630674518, 5158076 ####[facility] [address] [place], [place] [address]Dzpzsrotp [Moles/Vol]4.1 mmol/LNormal 3.5-5.3FGalion HospitalComment on above:Performed By: #### 0805570, 79446274, 4154130, 4942813152, 3768055 ####[facility] [address] [place], [place] [address]Wgjvqgw [Mass/Vol]7.6 g/dLNormal 6.0-7.8[facility] Medical CenterComment on above:Performed By: #### 4113838, 46139433, 6076230, 5361073010, 1185864 ####[facility] [address] [place], [place] [address]Atgava [Moles/Vol]138 mmol/LNormal 135-145[facility] Medical CenterComment on above:Performed By: #### 7752897, 96271345, 5420640, 1738304337, 4563239 ####[facility] [address] [place], [place] [address]Gayh nitrogen [Mass/Vol]15 mg/dLNormal 5-21[facility] Medical CenterComment on above:Performed By: #### 8058569, 89653787, 0204456, 9545288496, 8248574 ####[facility] [address] [place], [place] [address]Rtgo nitrogen/Creatinine [Mass ratio] 21 No XxakkOusq81-84ZovnsxKettering Health Behavioral Medical CenterComment on above:Performed By: #### 2266706, 94122993, 2523435, 8069840973, 7576455 ####[facility] [address] [place], [place] [address]Jgsqqxe for Treatmenton 13-79-2038Iuzdtwy for Treatment [id number]#1.00CD:127NormalKettering Health Behavioral Medical CenterGastroenterology Office/Clinic Noteon 69-75-4411Fbxjeajrvfdopjsq Office/Clinic NoteChief Complaint EGD and colonoscopy results. HPI Staff Patient is a 77 year old female here today to review results from EGD and colonoscopy. History of Present Illness Patient is a 77-year-old female who presents for follow-up from EGD/colonoscopy completed 04/21/2023with Dr. Gil. Presents with her today. Patient was previously evaluated by Dr. iGl 03/2023 for heartburn, nausea, abdominal cramping, bloating, gas, diarrhea and constipation. Patient was treated for SIBO and ordered EGD/colonoscopy. EGD completed 04/21/2023 revealed mild granular mucosa, erythema, and friability adjacent to Schatzki's ring, normal gastric mucosa, normal duodenum, Schatzki's ring biopsy revealed epithelial atypia,marked acute chronic inflammation, note indicated consultation with [facility] regarding biopsy results and was completed and revealed per [facility] biopsy showed erosive esophagitis andhyperplastic cardia type mucosa, negative for dysplasia, stomach biopsy revealed inactive gastritis, negative for intestinal metaplasia, negative for H. pylori. Is currently taking pantoprazole 40mg daily. Colonoscopy completed 04/21/2023 revealed hyperplastic polyp removed from rectum, hemorrhoids?patient was recommended per Dr. Gil to have repeat colonoscopy in 2032. During today's visit, patient reports she is having improved heartburn, abdominal cramping in lowerabdomen over the last month. She reports she [...] normal duodenum, Schatzki's ring biopsy revealed epithelial atypia,marked acute chronic inflammation, note indicated consultation with [facility] regarding biopsy results and was completed and revealed per [facility] biopsy showed erosive esophagitis andhyperplastic cardia type mucosa, negative for dysplasia, stomach [...] day(s), # 90 cap(s), Refills(s) 0, Pharmacy: [facility] #[id number], 152.4, cm, 05/25/23 12:58:00 EDT, Height/Length Dosing, 75.9, kg, 05/25/23 12:58:00 EDT, Weight Dosing EGD Endoscopy (Hospital Procedure) 2. Schatzki's ring (K22.2: Esophageal obstruction) EGD completed 04/21/2023 revealed mild granular mucosa, erythema, and friability adjacent to Schatzki's ring, normal gastric mucosa, normal duodenum, Schatzki's ring biopsy revealed epithelial atypia,marked acute chronic inflammation, note indicated consultation with [facility] regarding biopsy results and was completed and revealed per [facility] biopsy showed erosive esophagitis andhyperplastic cardia type mucosa, negative for dysplasia, stomach biopsy revealed inactive gastritis, negative for intestinal metaplasia, negative for H. pylori. Reports being gittery with omeprazole and pantoprazole- is interested in trying nexium. Ordered nexium 40mg daily and educated to take pepcid 20mg at bedtime. Educated (more content not included)...[facility] CampusComment on above: Result Comment: Electronically Signed By: Leana Allen CNP.sravanthi\Date and Time Signed: 05/25/23 13:34 EDTPatient Educationon 55-34-2970Vugbrbi Education Gastroenterology Esophagitis Esophagitis is inflammation of [...] you need help quitting, ask your health careprovider. ? Changing your diet. ? Exercising. ? Changing your sleep habits and your sleep environment. Follow these instructions at home: Medicines ? Take wjvy-ujo-dygjatp and prescription medicines only as told by [...] vinegar, hot sauces, and barbecue sauce. ? Lefors fruit juices and citrus fruits, such as oranges, olivia, and limes. ? Tomato-based foods, such as red sauce, chili, salsa, and pizza with red sauce. ? Fried and fatty foods, such as donuts, swedish fries, potato chips, and high- fat dressings. ? High-fat meats, such as hot [...] tight around your waist that causes pressure onyour abdom (more content not included)...[facility] 91-91-9976Bjttfulcc From: Leana Allen CNP To: Maddi Shepard; Sent: 05/25/2023 13:28:50 EDT Show up: 05/25/2023 13:29:00 EDT Subject: Ambulatory Reminder Reminder/Recall Colonoscopy per Dr. Gil in 2032. [address] gil 04/21/2033 From: Maddi Shepard To: [facility] - Reminders/Recalls; Sent: 05/25/2023 14:08:56 EDT ! Show up: 02/21/2033 14:08:00 EDT Due Date/Time: 03/24/2033 14:08:[facility] From: Leana Allen CNP To: Maddi Shepard; Sent: 05/25/2023 12:57:00 EDT Show up: 05/25/2023 12:57:00 EDT Subject: Ambulatory Reminder Reminder/Recall Colonoscopy in 2032.[facility] CampuseGFRon 19-69-4752ULV/1.73 sq M.predicted among non-blacks MDRD (S/P/Bld) [Vol rate/Area]90 mL/min/1.73 m2 Normal>=59[facility] Medical CenterComment on above:Order Comment: Order added by Discern Expert.Result Comment: Chronic kidney disease could be indicated at eGFR's of less than 60 mL/min/1.73m2. Kidney failure is indicated at less than 15 mL/min/1.73m2.Performed By: #### 9860065, 15825210, 5191444, [id number], 8447355 ####[facility] [address] [place], [place] [address]Ebnykmjor Noteon 31-03-5294Nqtwzvwkd Note [id number]#1.00CD:[address] [place], [place] [address]Pathology Reporton 19-34-4116Bibpiukck Report [id number]#1.00CD:[address] [place], [place] [address]IntraOperative Documentson 12-53-9162BdxkzKrljmjeja Documents [id number]#1.00CD:[address] [place], [place] [address]Consenton 68-69-4264Mjflkqs [id number]#1.00CD:[address] [place], [place] [address]Discharge Instructionson 59-35-6829Eznvfqckf Instructions [id number]#1.00CD:[address] [place], [place] [address]Postoperative Documentson 45-89-3068Lwqtjamilbuna Documents [id number]#1.00CD:[address] [place], [place] [address]Consent for Treatmenton 53-59-2851Dbrvtbv for Treatment [id number]#1.00CD:[address] [place], [place] [address]Discharge Instructionson 99-78-9092Xvwjbuojr Instructions REGINA HENRY DOB:1945 Visit Date:04/21/2023 Inpatient Discharge Instructions Your Care [...] hours Discharge Diet(s) Regular Pharmacy Information Other: [facility] [place], [place] Discharge Instructions Discharge Instructions New Follow Up Appointments after Discharge Follow Up with LUDWIG GARCIA, Danny, [facility], [facility] When: Comments: Call for any problems. Office to call for follow up appt. Where: [address] [place] [address]. [address] [place] [address] [employer] (1) Medications What How Much When Why [...] (sigmoidoscopy or colonoscopy). How (more content not included)...[facility] CampusComment on above:Result Comment: Electronically Signed By: Michael BURTON, Nicole Gilman\.br\Date and Time Signed: 04/21/23 11:03 EDTEndoscopic Procedure Report - Otheron 04-21-2023 Endoscopic Procedure Report - OtherPatient: REGINA HENRY Age: 77 years Sex: Female [...] Small nonbleeding internal hemorrhoids Images Procedure images: Rec1_hd_video_2022__T09_58_13_967.jpg Rec_hd_video__T09_57_16_668.jpg Rec1_hd_video__T09_52_50_710.jpg . Post-Procedure Complications: none. Estimated blood loss: [...] current medications. Return to activities:: After 24 hours.[facility] CampusComment on above:Result Comment: Electronically Signed By: Danny GIL MD\.br\Date and Time Signed: 04/21/23 11:00 EDTOther Comment: Missing Attachment - attachment storage system not supported [id number] Can be viewed in source systemMissing Attachment - attachment storage system not supported [id number] Can be viewed in source systemMissing Attachment - attachment storage system not supported [id number] Can be viewed in source systemEndoscopic Procedure Report - Other Patient: REGINA HENRY Age: 77 years Sex: Female : 1945 Associated Diagnoses: None Author: Danny GIL MD Pre-Procedure Procedure Date 04/21/2023 10:56:00 . Procedure Type: Esophagogastroduodenoscopy. Procedure provider Performed by Danny Gil MD. [...] safety measures. Endoscope type used was an adult- size, introduced orally, advanced to the 2nd portion [...] pylori 3. Normal duodenum Images Procedure images: Rec1_hd_video_2022__29T09_47_13_437.jpg Rec1_hd_video_2022__29T09_46_34_615.jpg Rec1_hd_video_2022__29T09_46_19_958.jpg Rec1_hd_video_2022__29T09_46_06_914.jpg Rec1_hd_video_2022__29T09_45_14_555.jpg Rec1_hd_video_2022__29T09_45_29_516.jpg . Post-Procedure Complications: none. Estimated blood loss: none. Specimens: sent to pathology. Devices/ implants: none left in place. Impression and Plan 1. Mild granular mucosa, erythema and friability adjacent to esophageal Schatzki ring, multiple biopsies obtained 2. Normal gastric mucosa, random biopsies obtained to rule out H. pylori Recommendations: 1. Awaiting pathology report. 2. GI clinic follow-up in 2 weeksSumma Health Barberton CampusComment on above:Result Comment: Electronically Signed By: LUDWIG GARCIA, Danny\.br\Date and Time Signed: 04/21/23 10:58 EDTOther Comment: Missing Attachment - attachment storage system not supported [id number] Can be viewed in source system Missing Attachment - attachment storage system not supported [id number] Can be viewed in source systemMissing Attachment - attachment storage system not supported 7468064 Can be viewed in source systemMissing Attachment - attachment storage system not supported [id number] Can be viewed in source systemMissing Attachment - attachment storage system not supported 5012953 Can be viewed in source systemMissing Attachment - attachment storage system not supported [id number] Can be viewed in source systemMain OR Intraoperative Recordon 04-21-2023 Main OR Intraoperative RecordIntraOp Document Type FT Summary Primary Physician: Danny GIL MD Finalized Date/Time: 04/21/23 12:14:38 Pt. Name: REGINA HENRY/Sex: 1945 Female Med Rec #: [id number] Physician: Danny GIL MD Financial #: [id number] Pt. Type: O Room/Bed: Endo 07/24 Admit/Disch: [...] 1 Entry 2 Entry 3 Case Attendee Laura DERAS, Gaudencio Paz RN, Jose De Jesus Guzman DIGITAL IMAGER, Mindi Castillo Role Performed CASE INVESTIGATOR Wax Pattern Coater - Primary Scrub - Primary Time In 04/21/23 10:39:00 04/21/23 10:39:00 04/21/23 10:39:00 Time Out 04/21/23 10:56:00 04/21/23 10:56:00 04/21/23 10:56:00 Procedure EGD AND COLONOSCOPY(.) EGD AND COLONOSCOPY(.) EGD AND COLONOSCOPY(.) Comments Dr. Rodriguez supervising case Last Modified By: Jackson BURTON, Jose De Jesus Paz RN, Jose De Jesus Paz RN, Jose De Jesus Cole 04/21/23 10:56:44 04/21/23 10:56:44 04/21/23 10:56:44 Entry 4 Entry 5 Case Attendee LUDWIG GARCIA, Dina Michelle Role Performed Surgeon - Primary Staff - [...] Jose De Jesus Paz RN, Schafer CST, LUDWIG Fernandez MD, Maher, [place], [place] A Time Out Complete 04/21/23 10:40:00 Outcomes Met? [...] precautions for procedure-specific positionin (more content not included)...[facility] CampusMain OR PACU I Recordon 63-04-6008Qbyn OR PACU I RecordPACU Phase I Document Type FT Summary Primary Physician: Danny GIL MD Finalized Date/Time: 04/21/23 13:36:52 Pt. Name: REGINA HENRY/Sex: 1945 Female Med Rec #: [id number] Physician: Danny GIL MD Financial #: [id number] Pt. Type: O Room/Bed: Endo 07/24 Admit/Disch: [...] individualized perioperative plan of care The patient's rightto privacy is maintained The patient's value system, [...] with or improved from baseline levels established preoperativelyThe patient's cardiovascular status is consistent with or improved from baseline levels established preoperatively The patient's cardiovascular status is consistent with or improved from baseline levels established preoperatively The patient demonstrates and/or reports adequate pain control throughout the perioperative period The patient received appropriate medication(s), safely administered during the perioperativeperiod Acuity Level PACU I FT Entry 1 Start Time 04/21/23 10:57:00 Stop Time 04/21/23 11:53:00 Acuity Level Acuity Level I Last Modified By: Nicole Rodriguez RN 04/21/23 13:36:33 Finalized By: Nicole Rodriguez RN Document Signatures Signed By: Nicole Rodriguez RN 04/21/23 13:36 Nicole Rodriguez RN 04/21/23 13:36AnyaSelect Medical [facility] HospitalMain OR Preoperative Recordon 66-25-7379Idrl OR Preoperative RecordHolding Area Document Type FT Summary Primary Physician: Danny GIL MD Finalized Date/Time: 04/21/23 09:33:09 Pt. Name: REGINA HENRY Mariana /Sex: 1945 Female Med Rec #: [id number] Physician: Danny GIL MD Financial #: [id number] Pt. Type: O Room/Bed: Endo 07/24 Admit/Disch: [...] or her perioperative plan of care The patient'sright to privacy is maintained Surgery Checklist FT [...] Signatures Signed By: Citlaly Mckinney RN 04/21/23 09:33[facility] Recordon 32-14-3099Usvtrsh Record [id number]#1.00CD:127NoS[facility] [id number]#1.00CD:127Normal [facility] Education - [employer] 47-26-2319Ydoxtqw Education - TextColonoscopy Care After Surgery Please read the instructions outlined below and refer to this sheet in the next few weeks. These discharge instructions provide you with general information on caring for yourself after you leave thespital. Your doctor may also give you specific [...] Heavy or fried foods are harder to digestand may make you feel nauseated (sick to [...] on caring for yourself after you leave thespital. Your doctor may also give you specific [...] Document Re-Released: 04/03/2007 ExitCare? Patient Information ?2009 [employer]. Gastroenterology Hemorrhoids Hemorrhoids are swollen veins that [...] butt. How is this (more content not included)...[facility] Progress Note-Physicianon 47-38-4816Mjxekzpx Note-PhysicianPatient: REGINA HENRY Age: 77 years Sex: Female : 1945 Associated Diagnoses: None Author: Artis Rodriguez Jr, DO Preoperative Information Anesthesia Preop [...] list: All Problems Bloating / SNOMED CT 151827607 / Confirmed Anxiety / SNOMED CT 31555566 / Confirmed CAD (coronary artery disease) / SNOMED CT 67428823 / Confirmed DVT (deep venous thrombosis) / SNOMED CT 290990623 / Confirmed Fibrocystic breast / SNOMED CT 58110722 / Confirmed Fibromyalgia / SNOMED CT 059240735 / Confirmed GERD (gastroesophageal reflux disease) / SNOMED CT 418427704 / Confirmed Stress incontinence / SNOMED CT 103263748 / Confirmed Lower back pain / SNOMED CT 752396796 / Confirmed Major depressive disorder / SNOMED CT 7272258183 / Confirmed Mixed incontinence / SNOMED CT 3103588367 / Confirmed Nocturia / SNOMED CT 247371271 / Confirmed Obstructive sleep apnea / SNOMED CT 137263189 / Confirmed Osteoarthritis / SNOMED CT 4947404100 / Confirmed Screening for colorectal cancer / SNOMED CT 531737487 / Confirmed Weak urinary stream / SNOMED CT 542096857 / Confirmed Small intestinal bacterial overgrowth (SIBO) / SNOMED CT 9540343751 / Confirmed Other post-traumatic urethral stricture, female / SNOMED CT 012775046 / Confirmed Urinary urgency / SNOMED CT 736100731 / Confirmed Histories Procedure history: Cystourethroscopy with dilation of urethral stricture (403095581) on 02/15/2022 at 76 Years. Cystourethroscopy with dilation of urethral stricture (715778325) on 02/05/2019 at 73 Years. transforaminal epidural steroid injection on 07/24/2018 at 72 Years. Comments: 08/03/2018 13:07 RACQUEL Sosa RN, Zulma B/L L5 approx 50 % relief at times Hysterectomy (887569985). Tonsillectomy and adenoidectomy (954170999). Colonoscopy (633765111). Incision AND drainage (080644916). Comments: 06/08/2018 12:41 Zulma Gibbs RN right middle finger 2014 heart cath. cardiac stent. Comments: 06/08/2018 12:46 Zulma Gibbs RN 2016 Epidural steroid injection (258674478). Comments: 06/08/2018 12:47 Zulma Gibbs RN, Dr [...] adequate air exchange. Cardiovascular: Regular rhythm. Plan [place] [employer]esthesi[employer] (ASA) physical status classification: Class III. Anesthetic Preoperative Plan: Anesthesia General.[facility] CampusComment on above:Result Comment: Electronically Signed By: Rodriguez Artis Valenzuela DO\.br\Date and Time Signed: 04/21/23 16:19 EDTProgress Note-Physician Patient: REGINA HENRY Age: 77 years Sex: Female : 1945 Associated Diagnoses: None Author: Artis Rodriguez Jr, DO Postoperative Information Postoperative disposition: Postoperative disposition: To PACU. Optimetrix number: Optimetrix number [id number]. Anesthetic utilized: General. Health Status Allergies: Allergic Reactions (Selected) Severity Not Documented Aspirin- Unknown. Codeine- Unknown. Darvocet-N 100- Unknown. Morphine- Unknown. Motrin- Unknown. OxyCODONE- Unknown. Percocet 10- Unknown. Sulfa drugs- Unknown. Physical Examination Vital [...] Discharge when meets criteria ( To home ).[facility] CampusComment on above:Result Comment: Electronically Signed By: Artis Rodriguez Jr, DO\Date and Time Signed: 04/21/23 16:18 EDTLab Reportson 22-82-7999Kyv Reports [id number]#1.00CD:127[facility] CampusConsent for Procedure/Surgeryon 13-94-2779Vymieiy for Procedure/Surgery [id number]#1.00CD:127[facility] CampusGastroenterology Office/Clinic Noteon 94-03-4930Tqfgcsbmqhkfxlth Office/Clinic NoteChief Complaint change in bowel habits, epigastric pain [...] last EGD was done by Dr. Garcia [id number]. She denies a family history of colon cancer. Her last colonoscopy was 7-8 years ago at [facility] that did not show any polyps. She [...] follow up to get the records from [facility] and if her last colonoscopy was more [...] patient or guardian consented to allow Ross Galvez Clara to record this visit. PURNIMA retail specialist and provider reviewed before signing. PURNIMA: Antoni Navarro Follow-up No qualifying data available Problem List/Past Medical History Ongoing Anxiety Bloating CAD (coronary artery disease) DVT (deep venous thrombosis) Fibrocystic breast Fibromyalgia (more content not included)...[facility] Comment on above:Result Comment: Electronically Signed By: Antoni Navarro\.br\Date and Time Signed: 03/09/23 13:30 EDT\.br\Electronically Co-Signed By: Danny GIL MD\.br\Date and Time Co-Signed: 03/10/23 08:53 EDTAmbulatory Visit Summaryon 98-75-5622Vyertgegib Visit Summary KASIE HENRYDIVINA Peña :1945 Visit Date:03/09/2023 Ambulatory Visit Instructions Your [...] dilation of urethral stricture (02/15/2022), Cystourethroscopy with dilationof urethral stricture (02/05/2019), transforaminal epidural steroid injection (07/24/2018), cardiacstent, Colonoscopy, Epidural steroid injection, heart cath, Hysterectomy, Incision AND drainage, Tonsillectomy and adenoidectomy. Discharge Vitals Heart Rate (Peripheral) 77 Respiratory Rate 16 Blood Pressure 138/76 Height 152.4 cm Height 60 in Weight 74.7 kg Weight 164.34 lb BMI 32.16 What to do next You Need to Complete the Following IgA, Quant., Blood, Routine collect, 03/09/23, Order for future visit, Lab Collect, Bloating, PrintLabel By Order Location t-Transglutaminase IgA, Blood, Routine collect, 03/09/23, Order for future visit, Lab Collect, Bloating, Print Label By Order Location Medications What How Much When Why Instructions New metronidazole (Flagyl 500 mg Tab) 1 Tablets By Mouth Every 8 hours Small intestinal bacterial overgrowth (SIBO) Duration: 10 Days Pickup at [facility] #22923 New pantoprazole (Pantoprazole [address] Tab) 1 Tablets By Mouth Every day GERD (gastroesophageal reflux disease) Refills: 2 Pickup at [facility] Unchanged bismuth subsalicylate-calcium carbonate (Pepto Bismol Chewables) Contact prescribing physician if questions or concerns Unchanged cephalexin (Keflex 500 mg Cap) 1 Capsules By Mouth Every day take 1 tab one day prior to the procedure and one tab after the procedure Contact prescribing physician if questions or concerns Unchanged duloxetine (duloxetine 20 mg oral delayed release capsule) 20 Unknown, oral, 1 Refill(s),Take 1 capsule (20 mg total) by mouth in the morning. Contact prescribing physician if questions orconcerns Unchanged estradiol (Estrace) See instructions 0.1 mg Vaginal Daily 2x per week Contact prescribingphysician if questions or concerns Unchanged famotidine (famotidine [...] questions or concerns Pharmacy Information [facility] #[id number]: [address], [place] [phone] [phone] Allergies Darvocet-N 100 (unknown) Motrin (unknown) Percocet [...] Stress incontinence Urinary urgency Weak urinary stream [facility] for Release of Medical Records 02-38-2325Lbnm for Release of Medical Records [id number]#1.00CD:127NormAdena Fayette Medical CenterCreatinine (Bld) [Mass/Vol]Ordered By: Shekhar Perez on 03-07-2023 Creatinine [Mass/Vol]0.7 mg/dL0.6-1.3FOhio State Harding HospitalComment on above:ER/ESD physician is notified/shown all ISTAT results.Critical values may be confirmed by laboratorytesting ifdeemed necessary by ER attending doctor.FREE T4on 95-60-9547Ithj T4 [Mass/Vol]0.75 ng/dLCritically low0.76-1.46The [facility] HospitalComment on above:Performed By: #### FT4 #### [facility] [address] [address] [address] Rojas LowryPROF CHEM 8 (BAS METB)on 42-22-6873Aohvs gap [Moles/Vol]9.9 mmol/LNormalThe [facility] HospitalComment on above:Performed By: #### TSH, BMP #### [facility] [address] [address] [address] Rojas LowryCalcium [Mass/Vol]9.5 mg/dLNormal8.5-10.1The [facility] Comment on above:Performed By: #### TSH, BMP #### [facility] [address] [address] [address] Rojas LowryChloride [Moles/Vol]106 mmol/MWkxkiv42-462Wic [facility] Comment on above:Performed By: #### TSH, BMP #### [facility] [address] [address] [address] Rojas LowryCO2 [Moles/Vol]27.2 mmol/GIuovlw10.0-32.0The [facility] Comment on above:Performed By: #### TSH, BMP #### [facility] [address] [address] [address] Rojas LowryCreatinine [Mass/Vol]0.73 mg/dLNormal0.55-1.02The [facility] HospitalComment on above:Performed By: #### TSH, BMP #### [facility] [address] [address] [address] Xie ChangEGFR-AF SOMALI>60Normal>=60The [facility] HospitalComment on above:Performed By: #### TSH, BMP #### [facility] [address] [address] [address] Rojas Kinney-NON AF SOMALI>60Normal>=60The [facility] HospitalComment on above:Performed By: #### TSH, BMP #### [facility] [address] [address] [address] Rojas LowryGlucose [Mass/Vol]95 mg/nLEbjhqo95-911Rzc [facility] Comment on above:Performed By: #### TSH, BMP #### [facility] [address] [address] [address] Rojas LowryPotassium [Moles/Vol]4.1 mmol/LNormal3.5-5.1[facility] Comment on above:Performed By: #### TSH, BMP #### [facility] [address] [place] [address] Dr. Rojas Machadodium [Moles/Vol]139 mmol/RUqyhwk313-168PuwSelect Medical [facility] Comment on above:Performed By: #### TSH, BMP #### [facility] [address] [place] [address] Dr. Rojas LowryUrea nitrogen [Mass/Vol]15.0 mg/dLNormal7.0-18.0[facility], Edwin ShawComment on above:Performed By: #### TSH, BMP #### [facility] [address] [place] [address] Dr. Rojas Massey nitrogen/Creatinine [Mass ratio]20.5 mg/mgNormalThe [facility] HospitalComment on above:Performed By: #### TSH, BMP #### [facility] [address] [place] [address] Dr. Rojas Gant 31-45-7541ZOS8.995 uIU/mLNormal0.358-3.740[facility], [facility] ShawComment on above:Performed By: #### TSH, BMP #### [facility] [address] [place] [address] Dr. Rojas Ryees ACOG PANEL 2: 30 to 65on 01-20-2023..NormalThe [facility] HospitalComselect specialty hospital[facility] on above:Result Comment: Performed at: KWCYTPerformed By: #### [id number] #### [facility] [address] [place] [address] Dr. Rojas LowryAge Gdln ACOG TestingCommentDunlap Memorial HospitalComselect specialty hospital[facility] on above:Result Comment: <21 or >65 or no age providedPerformed By: #### [id number] #### [facility] [address] [place] [address] Dr. Rojas LowryDIAGNOSIS:CommentOhioHealth Van Wert Hospital on above: Result Comment: NEGATIVE FOR INTRAEPITHELIAL LESION OR MALIGNANCY. CELLULAR CHANGES ASSOCIATED WITH ATROPHY ARE PRESENT. Performed at: KWCYTPerformed By: #### [id number] #### [facility] [address] [place] [address] Dr. Rojas LowryMethodology:CommentOhioHealth Van Wert Hospital on above: Result Comment: This liquid based ThinPrep(R) pap test was screened with the use of an image guided system. Performed at: WBPerformed By: #### [id number] #### [facility] [address] [place] [address] Dr. Rojas LowryNote:CommentOhioHealth Van Wert Hospital on above:Result Comment: The Pap smear is a screening test designed to aid in the detection of premalignant and malignant conditions of the uterine cervix. It is not a diagnostic procedure and should not be used as the sole means of detecting cervical cancer. Both false-positive and false-negative reports do occur. . Performed at: WBPerformed By: #### [id number] #### [facility] [address] [place] [address] Dr. Rojas LowryPerformed by:CommentOhioHealth Van Wert Hospital on above: Result Comment: Clarence Zaldivar [employer] Plant Operations Manager (ASCP) Performed at: KWCYTPerformed By: #### [id number] #### [facility] [address] [place] [address] Dr. Rojas LowrySpecimen adequacy:CommentNoOhioHealth O'Bleness HospitalComment on above:Result Comment: Satisfactory for evaluation. Endocervical component may not be distinguished in cases of atrophy. Performed at: [facility]ALTH CENTERPerformed By: #### [id number] #### [facility] [address] [address] [address] Rojas LowryPhysician Referralon 92-11-0672Hetkoeikk Referral [id number]#1.00CD:127[facility] CampusPhysician [id number]#1.00CD:127 [facility] CampusXR knee RT 4V*on 57-95-9272YQ knee RT 4V* [facility] [employer] Other XR knee RT 4V*[facility] [employer] Other XR knee RT 4V*[address] [place] [address] [employer] Other XR knee RT 4V*[place] [facility] [employer] Other XR knee RT 4V*[facility] [employer] Other XR knee RT 4V*[facility], [facility] [employer] Other XR knee RT 4V*Patient: Regina Henry MR#: [id number] [facility] [employer] Other XR knee RT 4V*83852Bqavu [employer] Other XR knee RT 4V*: 1945 Acct:[id number] [employer] Other xr knee RT 4V*Age/Sex: 77 / F ADM Date: 12/18/22[place] [employer] Other xr knee RT 4V*Loc: XDUCLY Room: Type: [facility] [employer] Other XR knee RT 4V*Attending Dr: Iza ANGEL [place] [employer] Other XR knee RT 4V*Copies to: IAZ BILL [facility] [employer] Other XR knee RT 4V*Ordering Provider: IZA BILL [facility]ITALZ[facility] Other XR knee RT 4V*Date of Service: 12/18/22[place] [employer] Other XR knee RT 4V* XR/XR knee RT 4V*: Acute pain of right kneeYorkville [employer] Other XR knee RT 4V*RIGHT KNEE - 4 viewsNonorth [facility] [employer] Other XR knee RT 4V*COMPARISON: [facility] [employer] Other xr knee RT 4V*CLINICAL DATA: Medial right knee pain for the past 10 days, greatest with weightbearing. No injury.[employer] Other XR knee RT 4V*AP, lateral and both oblique views were obtained. There is osteopenia. No acute fracture [facility] [employer] Other xr knee RT 4V*dislocation is identified. There is no disproportionate tibiofemoral joint space narrowing [facility] [employer] Other XR knee RT 4V*there could be narrowing at the patellofemoral joint. There is minor marginal spurring at [facility] HospitalZ[facility] Other XR knee RT 4V*posterior patella. There is no significant knee effusion or soft tissue swelling.[employer] Other xr knee RT 4V* XR/XR knee RT 4V* [employer] Other xr knee RT 4V*IMPRESSION:[employer] Other XR knee RT 4V*OSTEOPENIA AND MINOR DEGENERATIVE CHANGE.[employer] Other XR knee RT 4V*NO ACUTE BONY FINDINGS.[employer] Other XR knee RT 4V*Impression dictated by: Annamaria Kirkpatrick M.D.12/18/2022 1:50 PMNkansas city va medical center [employer] Other XR knee RT 4V*Dictation Location: [id number] [employer] Other XR knee RT 4V*Transcribed By: PWS 12/18/22 [facility] SystemSendinBlue Other XR knee RT 4V*Dictated By: Annamaria Kirkpatrick MD 12/18/[address] [place] [address] [employer] Other XR knee RT 4V*Signed By:[employer] Other XR knee RT 4V*12/18/22 [facility] SystemSend[facility] Other Creatinine and Glomerular filtration rate.predicted panel (S/P/Bld)Ordered By: Gaudencio Green on 98-69-9359Erysrxmqyy [Mass/Vol]0.68 mg/dL0.44-1.03Ohio[facility] O'Bleness HospitalEstimated glomerular filtration rate (GFR) non- AmericanOrdered By: Gaudencio Green on 20-09-4328GSR/1.73 sq M.predicted among non-blacks MDRD (S/P/Bld) [Vol rate/Area]> 60 mL/MinOhiohealth O'Bleness HospitalNo Panel InformationOrdered By: Gaudencio Green on 08-04-2022 Estimated GFR ()> 60 mL/MinOhiohealth O'Bleness Hospital Comment on above:GFR estimated reference range: According to KDOQI guidelines, <60 ml/min/1.73m2 is sufficient todiagnose a patient with chronic kidney disease.Pharmacy Creatinine Clearance (ChemN/[facility] Serum or plasma urea nitrogen measurement (mass/volume)Ordered By: Gaudencio Green on 72-07-2511Vbfq nitrogen [Mass/Vol]11 mg/dL9-23Ohio[facility] O'Bleness HospitalOutside Recordson 97-83-9151Cvuiqie Records [id number]#1.00[facility] Urinalysis - AUTOMATEDon 21-40-0325Ajznaedgjr (U)cloudyNorth [employer] Other Bilirubin Ql (U)NegativeOpen Garden [employer] Other Color (U)dark yellowYorkville [employer] Other Glucose Ql (U)NegativeOpen Garden [employer] Other Hemoglobin Ql (U)largeOpen Garden [employer] Other Ketones Ql (U)Community HealthOpen Garden [employer] Other Leukocyte esterase Test strip Ql (U)smallOpen Garden [employer] Other Nitrite Ql (U)Community HealthOpen Garden [employer] Other pH (U)5.5 [pH][place] [employer] Other Protein Ql (U)100Nonorth [facility] [employer] Other Specific gravity (U) [Rel density]1.025[place] [employer] Other Urobilinogen (U) [Mass/Vol]0.2 mg/dLYorkville [employer] Other Urinalysis - AUTOMATEDNoOpen Garden [employer] Other Urine Cultureon 50-92-2240Wgvbp Culture>100,000Nort [employer] Other Urine Culture<16SusceptibleProperty Moose [employer] Other Urine Culture<8SusceptibleAptus Endosystems Other Urine Culture<4SusceptibleAptus Endosystems Other urine Culture<2SusceptibleNoSendinBlue Other urine Culture<1SusceptibleAptus Endosystems Other Urine Culture<0.5SusceptibleAptus Endosystems Other urine Culture<32SusceptibleAptus Endosystems Other urine Culture<2/38SusceptPlethora Other Outside Recordson 87-94-3278Qixcwqy Records [id number]#1.00[facility] Office Visit (Cardiology)on 46-97-2777Xigyfs-up visitDiagnoses/Problems Assessed Atherosclerosis of coronary artery of barrow heart (414.01) (I25.10) History of PTCA (V45.82) (Z98.61) Hyperlipidemia, unspecified hyperlipidemia type (272.4) (E78.5) Hypertension (401.9) (I10) Class 1 obesity with body mass index (BMI) of 31.0 to 31.9 in adult (278.00,V85.31) (E66.9,Z68.31) Never a smoker Near syncope (780.2) (R55) Fatigue (780.79) (R53.83) Orders Atherosclerosis of coronary artery of barrow heart, Hyperlipidemia, unspecified hyperlipidemia type Start: Repatha [...] Patient Instructions By signing my name below, I, Angelique Melara LPN,Scribe, attest that this documentation has been prepared [...] after eatingeven 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 She has had remote PCI of the [...] Recorded: 18Mar2022 11:26AM Heart Rate80, R Radial Snjzaren250, RUE, Sitting Qhdwnrmsi76, RUE, Sitting Height5 ft Moeslf638 lb 3.2 oz BMI Zxqqbfyvnz88.09 kg/m2 BSA Calculated1.69 Tobacco Useb) No PHQ-2 #1. Over the last 2 weeks have you felt down, depressed or hopeless? (If yes, answer PHQ-9 below)No PHQ-2 #2. Over the last 2 weeks have you felt little interest or pleasure in doing things? (If yes,answer PHQ-9 below)No Fall Screeninga) No falls within the last year Physical Exam Constitutional: alert and in no acute distress. Neck: neck is supple, symmetric, trachea midline, no masses and no thyromegaly . Pulmonary: no increased work of (more content not included)...NormalUH TouchworksTobacco Screening.on 05-19-3358Qwoto depression screening assessmentNo [facility] [employer] DO Work Phone: Fall risk assessmenta) No falls within the last year [facility] [employer] DO Work Phone: Tobacco use status CPHSb) NoMFormerly [facility] [employer] DO Work Phone: Lab - Other Lab Resultson 44-38-2044Wnb - Other Lab [id number]#1.00OTGTIFFAnyaSCCI Hospital Lima HospitalLIPID PROFILEon 58-12-0867QKCE-HDL RATIO NORMSKing's Daughters Medical Center OhioComselect specialty hospital-[facility]inte on above:Result Comment: 3.3 - 4.4 LOW RISK 4.4 - 7.1 AVERAGE RISK 7.1 - 11.0 MODERATE RISK >11.0 HIGH RISKPerformed By: #### LIPID, CMP #### [facility] [address] [place] [address] Dr. Rojas LowryCholesterol [Mass/Vol]268 mg/dLCritically high<=200[facility] on above:Performed By: #### LIPID, CMP #### [facility] [address] [place] [address] Dr. Rojas LowryCholesterol in HDL [Mass/Vol]47 mg/dVDyilig70-70CznSelect Medical [facility] Clinic Rehabilitation Hospital, Edwin ShawComselect specialty hospital-[facility] on above:Performed By: #### LIPID, CMP #### [facility] [address] [place] [address] Dr. Rojas Mendozaesterol in LDL [Mass/Vol]188.6 mg/dLOhioHealth Van Wert Hospital on above:Performed By: #### LIPID, CMP #### [facility] [address] [place] [address] Dr. Rojas Mendozaesterrocio.total/Cholesterol in HDL [Mass ratio]5.7 {ratio} NormalSelect Medical Cleveland Clinic Rehabilitation Hospital, Edwin ShawComselect specialty hospital-[facility] on above:Performed By: #### LIPID, CMP #### [facility] [address] [place] [address] Dr. Rojas PinedaL NORMAL> or = 60 mg/dl - LOW CARDIOVASCULAR RISK <40 mg/dl - HIGH CARDIOVASCULAR RISKDunlap Memorial HospitalComselect specialty hospital-[facility] on above:Performed By: #### LIPID, CMP #### [facility] [address] [place] [address] Dr. Yilan ChangLDL CALC NORMALSEE BELOWNoOhioHealth O'Bleness HospitalComment on above:Result Comment: <100 mg/dl OPTIMAL 100 - 129 mg/dl NEAR OR ABOVE OPTIMAL 130 - 159 mg/dl BORDERLINE HIGH 160 - 189 mg/dl HIGH >190 mg/dl VERY HIGH Performed By: #### LIPID, CMP #### [facility] [address] [address] [address] Rojas LowryTriglyceride [Mass/Vol]162 mg/dLCritically high<=150The [facility] Willard HospitalComment on above:Performed By: #### LIPID, CMP #### [facility] [address] [address] [address] Rojas LowryVLDL CALC32.4 mg/dLNoOhioHealth O'Bleness HospitalComment on above: Performed By: #### LIPID, CMP #### [facility] [address] [place] [address] Dr. Rojas LowryPROF 14(COMP METB)on 43-13-0731Woixxqs [Mass/Vol]3.4 g/dLNormal 3.4-5.0The [facility] Will[facility] HospitalComment on above:Performed By: #### LIPID, CMP #### [facility] [address] [place] [address] Dr. Rojas LowryAlbumin/Globulin [Mass ratio]0.9 {ratio}NormalThe [facility] Willard HospitalComment on above:Performed By: #### LIPID, CMP #### [facility] [address] [address] [address] Rojas Faye [Catalytic activity/Vol]89 U/JDsresg57-402Oto [facility] HospitalComment on above:Performed By: #### LIPID, CMP #### [facility] [address] [address] [address] Rojas Rueda [Catalytic activity/Vol]38 U/GUxixoq63-63Tie [facility] HospitalComment on above:Performed By: #### LIPID, CMP #### [facility] [address] [place] [address] Dr. Rojas Almonte gap [Moles/Vol]12.5 mmol/LNormalThe [facility] Comment on above:Performed By: #### LIPID, CMP #### [facility] [address] [address] [address] Rojas LowryAST [Catalytic activity/Vol]18 U/HIxzpne56-81Onm [facility] HospitalComment on above:Performed By: #### LIPID, CMP #### [facility] [address] [address] [address] Rojas LowryBilirubin [Mass/Vol]0.5 mg/dLNormal0.2-1.0The [facility] Comment on above:Performed By: #### LIPID, CMP #### [facility] [address] [address] [address] Rojas LowryCalcium [Mass/Vol]9.3 mg/dLNormal8.5-10.1[facility] Comment on above:Performed By: #### LIPID, CMP #### [facility] [address] [address] [address] Rojas LowryChloride [Moles/Vol]104 mmol/WPwvfsu09-492Oxg [facility] Comment on above:Performed By: #### LIPID, CMP #### [facility] [address] [address] [address] Rojas LowryCO2 [Moles/Vol]25.6 mmol/PLcmbze01.0-32.0[facility] Comment on above:Performed By: #### LIPID, CMP #### [facility] [address] [address] [address] Rojas LowryCreatinine [Mass/Vol]0.67 mg/dLNormal0.55-1.02The [facility] HospitalComment on above:Performed By: #### LIPID, CMP #### [facility] [address] [address] [address] Rojas GuzmanGFR-AF SOMALI>60Normal>=60The [facility] HospitalComment on above:Performed By: #### LIPID, CMP #### [facility] [address] [address] [address] Rojas GuzmanGFR-NON AF SOMALI>60Normal>=60The [facility] HospitalComment on above:Performed By: #### LIPID, CMP #### [facility] [address] [address] [address] Rojas LowryGlobulin (S) [Mass/Vol]4.0 g/dLNormMagruder HospitalComment on above:Performed By: #### LIPID, CMP #### [facility] [address] [address] [address] Rojas LowryGlucose [Mass/Vol]89 mg/xDIejxpr72-108Dxx [facility] Comment on above:Performed By: #### LIPID, CMP #### [facility] [address] [address] [address] Rojas LowryPotassium [Moles/Vol]4.1 mmol/LNormal3.5-5.1The [facility] Comment on above:Performed By: #### LIPID, CMP #### [facility] [address] [address] [address] Rojas LowryProtein [Mass/Vol]7.4 g/dLNormal6.4-8.2[facility] Comment on above:Performed By: #### LIPID, CMP #### [facility] [address] [address] [address] Rojas LowrySodium [Moles/Vol]138 mmol/DMomrtr702-727GpdSelect Medical Cleveland Clinic Rehabilitation Hospital, [facility] Shaw Comment on above:Performed By: #### LIPID, CMP #### [facility] [address] [address] [address] Rojas LowryUrea nitrogen [Mass/Vol]15.0 mg/dLNormal7.0-18.0The [facility] HospitalComment on above:Performed By: #### LIPID, CMP #### [facility] [address] [address] [address] Rojas Massey nitrogen/Creatinine [Mass ratio]22.4 mg/mgNoOhioHealth O'Bleness HospitalComment on above:Performed By: #### LIPID, CMP #### [facility] [address] [address] [address] Rojas Gates Beneficiary Notificationson 20-34-6662Fysitsj Beneficiary [id number]#1.00[facility] HospitalOutside Recordson 52-28-9802Hzsgsap Records [id number]#1.00[facility] Consultation/Specialist Noteon 44-76-3217Dzgnvyhebydt/Specialist Note [id number]#1.00[facility] Patient Provided Health Dataon 89-15-5269Ejaaiyc Provided Health Data [id number]#1.00[facility] Patient Provided Health [id number]#1.00[facility] Medical CenterCOVID Quick Testingon 47-82-2017MkyoiqbnoyshpCaeqn [employer] Other FLUORO FOR SURGICAL PROCEDURESon 45-10-2909KXKKTG FOR SURGICAL PROCEDURES : 01/13/2021 10:48 AM CLINICAL HISTORY: R52 Pain ICD10. Spinal stimulator placement COMPARISON: None available. Intraoperative fluoroscopy was provided for Dr. Fried's procedure. A total of 14.97 mGy of fluoroscopy was used, with 3 fluoroscopic stills saved. No diagnostic images were obtained. Please see Dr. Fried's surgical notes for complete details.[employer] Phone: e, [facility] Incoming Radiant Results From [employer] - 01/13/2021 3:18 PM EDT FLUORO FOR SURGICAL PROCEDURES : 01/13/2021 10:48 AM CLINICAL HISTORY: R52 Pain ICD10. Spinal stimulator placement COMPARISON: None available. Intraoperative fluoroscopy was provided for Dr. Fried's procedure. A total of 14.97 mGy of fluoroscopy was used, with 3 fluoroscopic stills saved. No diagnostic images were obtained. Please see Dr. Fried's surgical notes for complete details. [employer] Phone: FLUORO FOR SURGICAL PROCEDURESFLUORO FOR SURGICAL PROCEDURES : 01/13/2021 10:48 AM [...] Signed by: Peter Wasserman DO 01/13/21 Final resultNormThe Memorial HospitalCOVID-19, NAAon 58-42-7240BUZSQ- 19, NAANot DetectedNormalAdventHealth ParkerComment on above:Result Comment: This nucleic acid amplification test was developed and its performance characteristics determined by [employer]. Nucleic acid amplification tests include RT-PCR and [...] detected) result in this assay. Performed at: [address] [id number] Cotton Picking Machine Operator: Juanjose Garcia PhD, Phone: [phone] By: #### IRCOV #### [facility] [address] [place] [address] Basic Metabolic Panelon 36-65-8794Tfyiz gap [Moles/Vol]12 mmol/L Normal9-15[facility] HospitalComment on above:Performed By: #### BMP #### [facility] [address] [place] [address] Ufgrgpw [Mass/Vol]9.4 mg/dLNormal8.5-9.9[facility] HospitalComment on above:Performed By: #### BMP #### [facility] [address] [place] [address] Yapanyor [Moles/Vol]104 mmol/UPsxhlw83-793FyynqSoutheast Colorado HospitalComment on above:Performed By: #### BMP #### [facility] [address] [place] [address] TY5 [Moles/Vol]23 mmol/LGdcqdg27-85WnzskSoutheast [facility] Hospital Comment on above:Performed By: #### BMP #### [facility] [address] [place] [address] Jjnhikkwcn [Mass/Vol]0.59 mg/dLNormal0.50-0.90[facility] HospitalComment on above:Performed By: #### BMP #### [facility] [address] [place] [address] TEK/1.73 sq M predicted among blacks MDRD (S/P/Bld) [Vol rate/Area] mL/min/{1.73_m2}Normal>60[facility] HospitalComment on above:Result Comment: >60 mL/min/1.73m2 EGFR, calc. for ages 18 and older using the MDRD formula (not corrected for weight), is valid for stable renal function.Performed By: #### BMP #### [facility] [address] [place] [address] OGN/1.73 sq M.predicted MDRD (S/P/Bld) [Vol rate/Area] mL/min/{1.73_m2}Normal>60[facility] HospitalComment on above:Result Comment: >60 mL/min/1.73m2 EGFR, calc. for ages 18 and older using the MDRD formula (not corrected for weight), is valid for stable renal function.Performed By: #### BMP #### [facility] [address] [place] [address] Nhguvjv [Mass/Vol]86 mg/bKApwjap89-08HeubgParkview Medical Center Comment on above:Performed By: #### BMP #### [facility] [address] [place] [address] Mougvknyk [Moles/Vol]4.4 mmol/LNormal3.4-4.9[facility] HospitalComment on above:Performed By: #### BMP #### [facility] [address] [place] [address] Verpfm [Moles/Vol]139 mmol/RJwifst759-238SuekrSoutheast Colorado HospitalComment on above:Performed By: #### BMP #### [facility] [address] [place] [address] Xhnn nitrogen [Mass/Vol]14 mg/dLNormal8-23[facility] HospitalComment on above:Performed By: #### BMP #### [facility] [address] [place] [address] Qjibo gap [Moles/Vol]12 mmol/LMercy Health Work Phone: calcium [Mass/Vol]9.4 mg/dL8.5 - 9.9 mg/dLKettering Health Preble [employer] Work Phone: chloride [Moles/Vol]104 mmol/LMflower hospitaly [employer] Work Phone: cO2 [Moles/Vol]23 mmol/LMercy Health Work Phone: creatinine [Mass/Vol]0.59 mg/dL0.50 - 0.90 mg/dLKettering Health Preble [employer] Work Phone: GFR >60.0>60Southwest General Health CenterMicroland Work Phone: comment on above:>60 mL/min/1.73m2 EGFR, calc. for ages 18 and older using the MDRD formula (not corrected for weight), is valid for stable renal function. GFR Non->60.0>60[employer] Phone: comment on above:>60 mL/min/1.73m2 EGFR, calc. for ages 18 and older using the MDRD formula (not corrected for weight), is valid for stable renal function. Glucose [Mass/Vol]86 mg/dL70 - 99 mg/dLYPX [employer] Phone: potassium [Moles/Vol]4.4 mmol/LMCrawford Scientific Phone: sodium [Moles/Vol]139 mmol/LMCrawford Scientific Phone: Urea nitrogen [Mass/Vol]14 mg/dL8 - 23 mg/dLYPX [employer] Phone: cBCon 02-27-1515Duhnlzcynpi distribution width (RBC) [Ratio]13.1 %11.5 - 14.5 %[employer] Phone: Hematocrit (Bld) [Volume fraction]42.5 %37.0 - 47.0 % [employer] Phone: Hemoglobin (Bld) [Mass/Vol]14.2 g/dL12.0 - 16.0 g/dL [employer] Phone: MCH (RBC) [Entitic mass]29.0 pg27.0 - 31.3 pgYPX [employer] Phone: MCHC (RBC) [Mass/Vol]33.3 %33.0 - 37.0 %[employer] Phone: MCV (RBC) [Entitic vol]86.9 fL82.0 - 100.0 fLYPX [employer] Phone: platelets (Bld) [#/Vol]284 10*3/uL130 - 400 K/uLYPX [employer] Phone: RBC (Bld) [#/Vol]4.88 10*6/[facility] [employer] Phone: WBC (Bld) [#/Vol]6.0 10*3/uL4.8 - 10.8 K/[facility] [employer] Phone: PBC With Platelet No Differentialon 01-06-2021 Erythrocyte distribution width (RBC) [Ratio]13.1 %Hyqyfq76.5-14.5[facility] HospitalComment on above:Performed By: #### CBCND #### [facility] [address] [place] [address] Qbbpmafrfg (Bld) [Volume fraction]42.5 %Aazjqq12.0-47.0[facility] HospitalComment on above:Performed By: #### CBCND #### [facility] [address] [place] [address] Mtmzxlyzko (Bld) [Mass/Vol]14.2 g/pZGwhxmp34.0-16.0[facility] HospitalComment on above:Performed By: #### CBCND #### [facility] [address] [place] [address] ETF (RBC) [Entitic mass]29.0 xsJyliif58.0-31.3MParkview Medical CenterComment on above:Performed By: #### CBCND #### [facility] [address] [place] [address] AHJA (RBC) [Mass/Vol]33.3 %Ffhhuv72.0-37.0[facility] HospitalComment on above:Performed By: #### CBCND #### [facility] [address] [place] [address] GRF (RBC) [Entitic vol]86.9 pANkttic06.0-100.0[facility] HospitalComment on above:Performed By: #### CBCND #### [facility] [address] [place] [address] Sedxqmsty (Bld) [#/Vol]284 10*3/fKCccxwk527-197LbrhiSoutheast Colorado HospitalComment on above:Performed By: #### CBCND #### [facility] [address] [place] [address] XXG (Bld) [#/Vol]4.88 10*6/uLNormal4.20-5.40[facility] HospitalComment on above:Performed By: #### CBCND #### [facility] [address] [place] [address] OYC (Bld) [#/Vol]6.0 10*3/uLNormal4.8-10.8[facility] HospitalComment on above:Performed By: #### CBCND #### [facility] [address] [place] [address] BHNDT-19, NAAon 06-14-7820Alaujc SwabAnterior naresNoColorado Acute Long Term HospitalComment on above:Performed By: #### IRCOV #### [facility] [address] [place] [address] JHO 12 Leadon 04-95-5567Iunswg Dfhw55ANQVmwae Health Work Phone: p Wemo36cbketpbVosef Health Work Phone: p-R Njqxcsbg458 [facility]neeSo[facility] Work Phone: Q-T Zebftkzw520 [facility]neeSo[facility] Work Phone: QRS Yhqxeino09 [employer] [facility] Work Phone: QTc Calculation (Bazett)418 [employer] Work Phone: r [place]-1degreesSouthwest General Health CenterMicroland Work Phone: T Qwue56wdxqfymEnjvj [employer] Work Phone: Ventricular Devy28FRTYqtdh Health Work Phone: Normal sinus rhythm Minimal voltage criteria for LVH, may be normal variant Borderline ECG No previous ECGs available Confirmed by FRANCISCO YUAN ([id number]) on 01/06/2021 11:45:56 AM [employer] Phone: eRomeo paris Incoming Results From [place] - 01/06/2021 11:46 AM EDT Normal sinus rhythm Minimal voltage criteria for LVH, may be normal variant Borderline ECG No previous ECGs available Confirmed by FARNCISCO YUAN ([id number]) on 01/06/2021 11:45:56 AMYPX [employer] Phone: cNPNon [phone] (ENDOLN) REGINA HENRY ([id number]) 1945 F Date Time Provider Department 12/26/20 BERNARDA HEARD ENDOLN During your visit today, we recorded the following information about you: Bernarda Heard MD 12/26/2020 2:39 PM Signed TSH normal, plasma normetanephrines just slightly high but not in range concerning for pheochromocytoma, no further endocrine workup indicated Eusebio Bredmose Ma 12/30/2020 3:38 PM Signed Left message [...] Encounter Status:Closed by EUSEBIO GORDON MA on 12/30/20[facility] [id number] Visit (ENDOCC) REGINA HENRY ([id number]) 1945 F Date Time Provider Department 12/24/20 [...] calories per slice ? Romina Lott or [employer] Sugar-Free are some examples of low carb/light bread), or try low carb tortilla/wraps (such as [place] Carb Balance) Do not drink juice or [...] Stevia, Splenda, Equal, or Sweet-N-Low, use plain ejqe-pj-oomp or a sugar-free flavored creamer, or just drink it black if you like it that way YUE AND [employer] [facility] LAB FACTS LAB HOURS: [place] lab is open from 7:30am to 6pm M-, open from 7:30am-5pm on Tuesday and open 8am-12pm on Tuesday. Closed on Tuesday [facility] lab is open from 7:30am to 5pm [...] 24 hours prior to the scheduled exam. [facility] -- No appointment needed At the [facility], patients 2 years and older can get walk-in medical attention for common health problems including: Cold and flu symptoms Conjunctivitis Ear and throat infections Minor bumps and cuts Seasonal allergies Skin rashes Simple sprains and strains Sinus infections Urinary tract infections Upper respiratory tract infections Locations and Times [facility] - [address] [place] [address] - [address] [place] [address] - Tuesday through Tuesday 6 AM - 9 PM - Tuesday and Tuesday 8 AM - 4 PM For [facility] LOCATIONS, HOURS OF OPERATION and CURRENT WAIT TIMES, visit the following link for details. [email or web address] D Emergency Department [facility] - [address] [facility] (off of [facility]), [facility] [phone] Pharmacy Hours: Tuesday through Tuesday 8 am to 6 pm Opt in to receive text reminders for your appointments with [facility] health specialist today. To opt in, text [phone] to [phone]. My Chart Schedule My Appointment enables you to view your established primary care provider's open schedule and book an appointment online in real-time. This feature is available in internal medicine, family medicine, or pediatrics at any of our [facility] locations and main campus. Bernarda Heard MD [...] to possible reactive hypogl (more content not included)...NormalSelect Medical [facility] HISTORY PHYSICALon [id number] PHYSICALHNO ID: [id number] Author: Bernarda Heard Service: ? Author Type: [...] CVS - RRR no murmurs MSK - 02/25 UE proximal muscle strength Neuro - normal [...] - 11.0 ug/dL 5.4 (more content not included)...NormalSelect Medical Cleveland Clinic Rehabilitation Hospital, AvonMetanephrines,Fr Plason 16-21-8614Kexzxgzbuzdu, Fr Plas23 pg/mLNormal 12-67[facility] on above:Result Comment: Reference Ranges: Hypertensive adult > or = 18 yrs old: 12-72 pg/mL Normotensive adult > or = 18 yrs old: 12-67 pg/mL Normotensive children < 18 yrs old: 10-95 pg/mL This test was developed and its performance characteristics determined by [facility] ([facility]). It has not been cleared or approved by the FDA. [facility] is regulated under CLIA as qualified to perform high complexity testing. This test is used for clinical purposes. It should not be regarded as investigational or for research.Performed By: #### PMETAN #### [facility] [address] [place] [address] Hhvlvimjsfepltf, Fr Yvij511 pg/sFPcgb17-521NcguyhtqcCleveland Clinic Hillcrest [facility] on above:Result Comment: Reference Ranges: Hypertensive adult > or = 18 yrs old: 24-145 pg/mL Normotensive adult > or = 18 yrs old: 18-101 pg/mL Normotensive children < 18 yrs old: 22-83 pg/mL Methyldopa may cause false elevation of normetanephrine levels in this assay. If patient is on methyldopa, interpret results with caution. This test was developed and its performance characteristics determined by [facility] ([facility]). It has not been cleared or approved by the FDA. [facility] is regulated under CLIA as qualified to perform high complexity testing. This test is used for clinical purposes. It should not be regarded as investigational or for research.Performed By: #### PMETAN #### [facility] [address], [place] [address] PZOoj 90-77-5962VJS Qn1.390 m[IU]/LNormal0.270-4.200[facility], AvonComment on above:Performed By: #### TSH #### [place] [address] ZFBCHXC STIM IMMUNOGLOBon 72-72-0928BFMGWHP STIM IMMUNOGLOB<1.0 Normal<=1.3[facility] CenterComment on above:Result Comment: Test Performed by: [address] [address]Kgvmdzqng By: #### TSIG #### [facility] [address] [place], [place] [address]SXT WITH REFLEX TO ENAon 06-20-7755FVY WITH REFLEX TO JAVAD NegativeNormalNEGATIVEPioneers Medical CenterComment on above:Performed By: #### PUJA #### [facility] [address] [place], [place] [address]XXABPDBBCF ANTIBODYon 24-15-1861TPRGBOTVAO ANTIBODY<1NormalPioneers Medical CenterComment on above:Result Comment: THE TEST FOR ANTIBODIES SPECIFIC FOR CYCLIC CITRULLINATED PEPTIDE (CCP) HAS SHOWN TO BE VALUABLE IN THE DIAGNOSIS OF RHEUMATOID ARTHRITIS. THE DIAGNOSTIC VALUE OF ANTIBODIES TO CCP IN JUVENILE RHEUMATOID ARTHRITIS PATIENTS HAS NOT BEEN DETERMINED. ANTIBODIES TO CENTROMERE OR SS-A AND MYELOMA IGG MAY BE REACTIVE IN THIS ASSAY. REF VALUES NEGATIVE < 3 U/ML POSITIVE >=3 U/MLPerformed By: #### CITAB #### [facility] [address] [place], [place] [address]FSFaz 00-82-5824Fbrzajqkuzp distribution width Ratio (RBC) 13.1 %Kssawd50.5 - 14.5[facility] CenterComment on above:Performed By: #### CBC #### [address] [place] [address]Jzukepjxxd Volume Fraction (Bld)46.5 %High36.0 - 46.0[facility] CenterComment on above:Performed By: #### CBC #### [address] [address]Izmoepgpkh mass conc (Bld)15.0 g/wGHiiirf62.0 - 16.0[facility] NaplesComment on above:Performed By: #### CBC #### [address] [address]ZFOV mass conc (RBC)32.3 g/jHAkstyp40.0 - 36.0[facility] CenterComment on above:Performed By: #### CBC #### [address] [address]DRX Entitic volume (RBC)87 nMOiemjr10 - 100[facility] NaplesComment on above:Performed By: #### CBC #### [address] [address]Vwujisawg #/vol (Bld)319 10*3/mQXjyknv283 - 450[facility] North NaplesComment on above:Performed By: #### CBC #### [address] [address]GTU #/vol (Bld)5.32 x10E12/LHigh4.00 - 5.20[facility] CenterComment on above:Performed By: #### CBC #### [address] [address]UQE #/vol (Bld)6.8 10*3/uLNormal4.4 - 11.3[facility] NaplesComment on above:Performed By: #### CBC #### [address] [address]YXIMOPSSOBGIV PANELon 02-11-1626Fkurnfs mass conc4.2 g/dLNormal 3.4 - 5.0[facility] NaplesComment on above:Performed By: #### CMP #### [address] [address]PAK enzyme act/vol83 U/UUvgkik13 - 136[facility] Comment on above:Performed By: #### CMP #### [address] [address]ANN enzyme act/vol23 U/LNormal7 - 45[facility] Comment on above:Result Comment: Patients treated with Sulfasalazine may generate falsely decreased results for ALT.Performed By: #### CMP #### [address] [address]Repaf gap molar conc14 mmol/ANbdosr09 - 20[facility] NaplesComment on above:Performed By: #### CMP #### [address] [address]RGC enzyme act/vol22 U/LNormal9 - 39[facility] Comment on above:Performed By: #### CMP #### [address] [address]Vnkbypuph mass conc0.6 mg/dLNormal0.0 - 1.2[facility] NaplesComment on above:Performed By: #### CMP #### [address] [address]Alxzven mass conc9.6 mg/dLNormal8.6 - 10.3[facility] NaplesComment on above:Performed By: #### CMP #### [address] [address]Vcmoqrxh molar ebdb159 mmol/MQwffku30 - 107[facility] NaplesComment on above:Performed By: #### CMP #### [address] [address]Fifeecshfu mass conc0.65 mg/dLNormal0.50 - 1.05[facility] NaplesComment on above:Performed By: #### CMP #### [address] [address]WHN-MHNGXIJ AM.>60Normal>60[facility] NaplesComment on above:Result Comment: CALCULATIONS OF ESTIMATED GFR ARE PERFORMED USING THE MDRD STUDY EQUATION FOR THE IDMS-TRACEABLE CREATININE METHODS. CLIN CHEM 2007;53:766-72Performed By: #### CMP #### [address] [address]GBV-LWM AM.>60Normal>60[facility] NaplesComment on above:Performed By: #### CMP #### [address] [address]Nepfgyi mass conc79 mg/uHAorjwx66 - 99[facility] Comment on above:Performed By: #### CMP #### [address] [address]SLI9 molar conc (Bld)25 mmol/VUmhgpk15 - 32[facility] CenterComment on above:Performed By: #### CMP #### [address] [address]Tzkeejpeu molar conc3.9 mmol/LNormal3.5 - 5.3[facility] CenterComment on above:Performed By: #### CMP #### [address] [address]Bhwnijs mass conc7.5 g/dLNormal6.4 - 8.2[facility] Comment on above:Performed By: #### CMP #### [address] [address]Ehsxlf molar usqd418 mmol/LCchhyl930 - 145[facility] CenterComment on above:Performed By: #### CMP #### [address] [address]Twnj nitrogen mass conc11 mg/dLNormal6 - 23[facility] CenterComment on above:Performed By: #### CMP #### [address] [address]TDFDXEOF KINASEon 54-37-5855LI enzyme act/vol69 U/LNormal0 - 215 [facility] CenterComment on above:Performed By: #### CK #### [address], [place] [address]PATGYLDCIN FACTORon 13-10-2895NXWHZCLIAD FACTOR<13Vgkvsi2 - 15[facility] CenterComment on above:Performed By: #### RF #### [address], [place] [address]HFVQBMOYSQWFK RATE, ERYTHROCYTEon 81-77-0316TOXSUHVJHDRXL RATE, ERYTHROCYTE8 mm/hNormal0 - 20[facility] CenterComment on above:Performed By: #### ESRWS #### [address], [place] [address]TYNFMXL D, 25-HYDROXYon 65-85-0351FWBVFFZ D, 25-ONIBPGM63 ng/mL AbnormalPioneers Medical CenterComment on above:Result Comment: . DEFICIENCY: < 20 NG/ML INSUFFICIENCY: 20-29 NG/ML OPTIMUM LEVEL: 30-80 NG/ML POSSIBLE TOXICITY: > 80 NG/ML THIS ASSAY ACCURATELY QUANTIFIES THE SUM OF VITAMIN D3, 25-HYDROXY AND VIT D2,25-HYDROXY.Performed By: #### VTDOH #### [address] [place] [address] Vital Signs Date TimeVital SignValuePerforming ZxjpbxjioWlgxuyit51-57-6565 11:05-0400Body mcvkho935.3 cmShekhar Perez MD Work Phone: 1(199)927-[address] [place], [place] [address]2009-19-2025 11:05-0400Body mass index (BMI) [Ratio]32.44 kg/m2Shekhar Perez MD Work Phone: 1(596)349-[address] [place], [place] [address]2009-19-2025 11:05-0400Body bkuwprqbpmm96.3 [degF]Shekhar Perez MD Work Phone: 1(624)083-[address] [place], [place] [address]2009-19-2025 11:05-0400Body vylkgg82.4 kgShekhar Perez MD Work Phone: 1(781)490-[address] [place], [place] [address]2009-19-2025 11:05-0400Diastolic blood ucuiaaky97 mm[Hg]Shekhar Perez MD Work Phone: 1(485)661-[address] [place], [place] [address]-19-2025 11:05-0400Heart rate 90 /minShekhar Perez MD Work Phone: 1(601)[address]09-19-2025 11:05-0799BdI2% (BldA) [Mass fraction]96 %Shekhar Perez MD Work Phone: 1(915)82918 [address]09-19-2025 11:05-0400Systolic blood omnsqqdd135 mm[Hg]Shekhar Perez MD Work Phone: 1(389)90318 [address]08-18-2025 14:51-0400Body sptkie377.3 cmShekhar Perez MD Work Phone: 1(528)[address]08-18-2025 14:51-0400Body mass index (BMI) [Ratio]32.14 kg/m2Shekhar Perez MD Work Phone: 1(141)46918 [address]08-18-2025 14:51-0400Body .5 [degF]Shekhar Perez MD Work Phone: 1(059)56318 [address]08-18-2025 14:51-0400Body cqpgdi47.76 kgShekhar Perez MD Work Phone: 1(081)5[address]08-18-2025 14:51-0400Diastolic blood butbhjnp06 mm[Hg]Shekhar Perez MD Work Phone: 1(573)[address]08-18-2025 14:51-0400Heart rate 99 /minShekhar Perez MD Work Phone: 1(505)668[address]08-18-2025 14:51-4553QlZ0% (BldA) [Mass fraction]97 %Shekhar Perez MD Work Phone: 1(029)38418 [address]08-18-2025 14:51-0400Systolic blood bmtgtnzo246 mm[Hg]Shekhar Perez MD Work Phone: 1(268)[address]07-30-2025 14:00-0400Body mass index (BMI) [Ratio]30.27 kg/q6XhmtsgavOscar Quintanilla PMHNP-BC Work Phone: 1(419)502-[address] [place], [place] [address]Caqyovxuta84-25-2325 14:00-0400Body wzinve64.31 kgOscar Quintanilla PMHNP-BC Work Phone: 1(221)[address] [place], [place] [address]107-30-2025 14:00-0400Diastolic blood xhredllh64 mm[Hg]Oscar Quintanilla PMHNP-BC Work Phone: 1(711)[address] [place], [place] [address]107-30-2025 14:00-0400Heart rate81 /min Oscar Quintanilla PMHNP-BC Work Phone: 1(502)[address] [place], [place] [address]107-30-2025 14:00-0400Systolic blood evieczcb717 mm[Hg]Oscar Quintanilla PMHNP-BC Work Phone: 1(594)[address] [place], [place] [address]106-18-2025 12:41-0400Body mass index (BMI) [Ratio]30.47 kg/z8RpsnmzezOscar Quintanilla PMHNP-BC Work Phone: 1(549)[address] [place], [place] [address]106-18-2025 12:41-0400Body .76 kgOscar Quintanilla PMHNP-BC Work Phone: 1(422)[address] [place], [place] [address]106-18-2025 12:41-0400Diastolic blood qrqqtouy62 mm[Hg]Oscar Quintanilla PMHNP-BC Work Phone: 1(921)[address] [place], [place] [address]106-18-2025 12:41-0400Heart rate99 /min Oscar Quintanilla PMHNP-BC Work Phone: 1(357)[address] [place], [place] [address]106-18-2025 12:41-0400Systolic blood qicnfqpj981 mm[Hg]Oscar Quintanilla PMHNP-BC Work Phone: 1(348)[address] [place], [place] [address]105-19-2025 11:49-0400Body xfaxgu534.4 cmFeesperanza Nair FLAGSETTER Work Phone: [facility] CenterPvzmythsrk02-55-6396 11:49-0400Body mass index (BMI) [Ratio]31.25 kg/k7Qelxifkesperanza Nair FLAGSETTER Work Phone: 1(440)934-[address] [place], [place] [address]Ohjbkhyxjw32-10-9067 11:49-0400Body .58 kgFeesperanza Nair FLAGSETTER Work Phone: [facility] CenterOrirmjhghx14-13-7436 11:49-0400Diastolic blood pstlmebk56 mm[Hg]Kusum Nair FLAGSETTER Work Phone: [facility] CenterYlwjhsqsrd70-61-2426 11:49-0400Systolic blood ukzsxalz091 mm[Hg]Kusum Nair FLAGSETTER Work Phone: 1(077)[address]05-13-2025 14:17-0400Body mass index (BMI) [Ratio]31.78 kg/m2Shekhar Perez MD Work Phone: 1(643)80918 [address]05-13-2025 14:17-0400Body .76 kgShekhar Perez MD Work Phone: 1(280)[address]05-13-2025 14:17-0400Diastolic blood gfcvcyfn98 mm[Hg]Shekhar ePrez MD Work Phone: 1(861)52218 [address]05-13-2025 14:17-0400Heart rate 83 /minShekhar Perez MD Work Phone: 1(595)[address]18 [address]05-13-2025 14:17-0400Systolic blood zqjroqjz176 mm[Hg]Shekhar Perez MD Work Phone: 1(762)28418 [address]04-08-2025 14:39-0400Body ihszev917.4 cmJuan Carlos Trimble MD Work Phone: 1(517)9516637[facility] CenterUjuoujgrai91-97-5039 14:39-0400Body mass index (BMI) [Ratio]30.08 kg/g7YsqtzlJuan Carlos Trimble MD Work Phone: [facility] CenterRxwvymithq64-77-5469 14:39-0400Body dweujp18.85 kgJuan Carlos Trimble MD Work Phone: [facility] CenterDhrxlntmxr30-14-2430 14:39-0400Diastolic blood dtbgkytd66 mm[Hg]Juan Carlos Trimble MD Work Phone: [facility] CenterSvvsnyxqld74-68-6196 14:39-0400Heart rate80 /min Juan Carlos Trimble MD Work Phone: [place] [address]Rmnhwdydss45-35-1715 14:39-0400Systolic blood idfczjzs344 mm[Hg]Juan Carlos Trimble MD Work Phone: [facility] CenterOjtxrvcnvv63-42-5435 12:21-0400Body aochwd111.4 cmFeesperanza Nair FLAGSETTER Work Phone: [place] [address]Zzpxevtrpf52-65-5850 12:21-0400Body mass index (BMI) [Ratio]29.8 kg/h1Bccgpeiesperanza Nair FLAGSETTER Work Phone: [place] [address]Cjtlpnvisk60-29-1225 12:21-0400Body iuzjka92.22 kgFeesperanza Nair FLAGSETTER Work Phone: [place] [address]Rleghrnqzn57-94-0460 12:21-0400Diastolic blood ksgalgjt08 mm[Hg]Kusum Nair FLAGSETTER Work Phone: [place] [address]Efgtnhgrvi82-76-4098 12:21-0400Systolic blood exowaevc187 mm[Hg]Kusum Nair FLAGSETTER Work Phone: [facility] CenterMnkrlfgwne18-74-6367 14:16-0500Body dijott706.2 cmShekhar Perez MD Work Phone: 1(850)369-[address] [place], [place] [address]608811-04-2024 14:16-0500Body mass index (BMI) [Ratio]31.78 kg/m2Shekhar Perez MD Work Phone: 1(195)189-[address] [place], [place] [address]2011-04-2024 14:16-0500Body ulmlrt87.76 kgShekhar Perez MD Work Phone: 1(720)043-[address] [place], [place] [address]608811-04-2024 14:16-0500Diastolic blood hpqaqfts44 mm[Hg]Shekhar Perez MD Work Phone: 1(393)809-[address] [place], [place] [address]8811-04-2024 14:16-0500Heart rate 88 /minShekhar Perez MD Work Phone: 1(419)33218 [address]11-04-2024 14:16-0500Systolic blood dniczpek534 mm[Hg]Shekhar Perez MD Work Phone: 1(521)068[address]09-30-2024 13:37-0400Body mass index (BMI) [Ratio]31.51 kg/m2Shekhar Perez MD Work Phone: 1(554)[address]118 [address]09-30-2024 13:37-0400Body ebvsak61.76 kgShekhar Perez MD Work Phone: 1(535)37818 [address]09-30-2024 13:37-0400Diastolic blood qdakfnwb64 mm[Hg]Shekhar Perez MD Work Phone: 1(437)25718 [address]09-30-2024 13:37-0400Heart rate 88 /minShekhar Perez MD Work Phone: 1(396)[address]2718 [address]09-30-2024 13:37-0400Systolic blood xgmbboux444 mm[Hg]Shekhar Perez MD Work Phone: 1(938)284[address]08-29-2024 09:28-0400Body mass index (BMI) [Ratio]31.51 kg/m2Shekhar Perez MD Work Phone: 1(184)09918 [address]08-29-2024 09:28-0400Body nmhifl35.76 kgShekhar Perez MD Work Phone: 1(248)95218 [address]08-29-2024 09:28-0400Diastolic blood xodwztkc96 mm[Hg]Shekhar Perez MD Work Phone: 1(870)39618 [address]08-29-2024 09:28-0400Heart rate 89 /minShekhar Perez MD Work Phone: 1(465)62518 [address]08-29-2024 09:28-0400Systolic blood xwnztqac603 mm[Hg]Shekhar Perez MD Work Phone: 1(860)53818 [address]07-30-2024 15:02-0400Body mass index (BMI) [Ratio]31.31 kg/m2Shekhar Perez MD Work Phone: 1(638)627-[address] [place], [place] 4962007-30-2024 15:02-0400Body ruvsqj25.31 kgShekhar Perez MD Work Phone: 1(284)76518 [address]07-30-2024 15:02-0400Diastolic blood hnjjstxu39 mm[Hg]Shekhar Perez MD Work Phone: 1(680)78018 [address]07-30-2024 15:02-0400Heart rate 84 /minShekhar Perez MD Work Phone: 1(655)49418 [address]07-30-2024 15:02-0400Systolic blood aqseannx350 mm[Hg]Shekhar Perez MD Work Phone: 1(808)83418 [address]07-16-2024 11:03-0400Body mass index (BMI) [Ratio]31.71 kg/m2Shekhar Perez MD Work Phone: 1(956)28918 [address]07-16-2024 11:03-0400Body .22 Yan Perez MD Work Phone: 1(137)38718 [address]07-16-2024 11:03-0400Diastolic blood vdlflhqe72 mm[Hg]Shekhar Perez MD Work Phone: 1(950)[address] [place], [place] 7258707-16-2024 11:03-0400Heart rate 88 /minShekhar Perez MD Work Phone: 1(274)[address]07-16-2024 11:03-0400Systolic blood rmcropgh742 mm[Hg]Shekhar Perez MD Work Phone: 1(855)27918 [address]06-17-2024 14:07-0400Body mass index (BMI) [Ratio]31.71 kg/m2Shekhar Perez MD Work Phone: 1(673)76018 [address]06-17-2024 14:07-0400Body kvygjt83.22 kgShekhar Perez MD Work Phone: 1(030)73818 [address]06-17-2024 14:07-0400Diastolic blood mm[Hg]Shekhar Perez MD Work Phone: 1(585)770-[address] [place], [place] [address]2006-17-2024 14:07-0400Heart rate 83 /minShekhar Perez MD Work Phone: 1(785)022-[address] [place], [place] 4962006-17-2024 14:07-0400Systolic blood lprooqtc519 mm[Hg]Shekhar Perez MD Work Phone: 1(144)112-[address] [place], [place] 4962006-07-2024 13:22-0400Body .4 cmJr Roldan DO Work Phone: 1(468)445-[address] [place], [place] 5496106-07-2024 13:22-0400 Body mass index (BMI) [Ratio]30.66 kg/z0TcnvuefJr Roldan DO Work Phone: 1(465)04527 [address]06-07-2024 13:22-0400 Body rlxvbu54.22 kgJr Roldan DO Work Phone: 1(422)556-[address] [place], [place] 5496106-07-2024 13:22-0400 Diastolic blood fpbwjzoi53 mm[Hg]Jr Roldan DO Work Phone: 1(336)336-[address] [place], [place] 5496106-07-2024 13:22-0400 Heart rate78 /Blayne Roldan DO Work Phone: 1(687)811-[address] [place], [place] 5496106-07-2024 13:22-0400 Systolic blood bdsorzoj471 mm[Hg]Jr Roldan DO Work Phone: 1(311)817-[address] [place], [place] 5496105-14-2024 13:46-0400 Body mass index (BMI) [Ratio]31.71 kg/m2Shekhar Perez MD Work Phone: 1(403)077-[address] [place], [place] 4962005-14-2024 13:46-0400Body vmidue39.22 kgShekhar Perez MD Work Phone: 1(713)541-[address] [place], [place] 4962005-14-2024 13:46-0400Diastolic blood anacgnvs10 mm[Hg]Shekhar Perez MD Work Phone: 1(549)691-[address] [place], [place] 4962005-14-2024 13:46-0400Heart rate 84 /minShekhar Perez MD Work Phone: 1(321)649-[address] [place], [place] 4962005-14-2024 13:46-0400Systolic blood afqkcdcy691 mm[Hg]Shekhar Perez MD Work Phone: 1(790)[address]218 [address]04-04-2024 14:32-0400Body mass index (BMI) [Ratio]31.91 kg/m2Shekhar Perez MD Work Phone: 1(909)731-[address] [place], [place] 4962004-04-2024 14:32-0400Body geloes36.67 kgShekhar Perez MD Work Phone: 1(894)30818 [address]04-04-2024 14:32-0400Diastolic blood ijaxfdhm16 mm[Hg]Shekhar Perez MD Work Phone: 1(224)50218 [address]04-04-2024 14:32-0400Heart rate 90 /minShekhar Perez MD Work Phone: 1(115)03418 [address]04-04-2024 14:32-0400Systolic blood tcsigixx623 mm[Hg]Shekhar Perez MD Work Phone: 1(707)[address]18 [address]02-18-2024 13:11-0500Body ukjqyz494.64 cmMD Shekhar Perez Work Phone: 1(429)[address]02-18-2024 13:11-0500 Body mass index (BMI) [Ratio]25.9 kg/m2MD Shekhar Perez Work Phone: 1(656)96284 [address]02-18-2024 13:11-0500 Body aaqlbhvmekr64.7 [degF]MD Shekhar Perez Work Phone: 1(957)[address]84 [address]02-18-2024 13:11-0500 Body urociy87.74 kgMD Shekhar Perez Work Phone: 1(993)43184 [address]02-18-2024 13:11-0500 Diastolic blood llrpcxoe46 mm[Hg]MD Shekhar Perez Work Phone: 1(021)943-[address] [place], [place] 9006202-18-2024 13:11-0500 Heart rate84 /minMD Shekhar Perez Work Phone: 1(303)186-[address] [place], [place] 9006202-18-2024 13:11-0500 Respiratory rate18 /minMD Shekhar Perez Work Phone: 1(113)13584 [address]02-18-2024 13:11-0500 SaO2% (BldA) [Mass fraction]98 %MD Shekhar Perez Work Phone: 1(921)42084 [address]02-18-2024 13:11-0500 Systolic blood mm[Hg]MD Shekhar Perez Work Phone: 1(461)[address]02-12-2024 15:45-0500 Body mass index (BMI) [Ratio]32.32 kg/m2Shekhar Perez MD Work Phone: 1(082)31818 [address]02-12-2024 15:45-0500Body ngihka48.58 kgJotc Perez MD Work Phone: 1(149)77618 [address]02-12-2024 15:45-0500Diastolic blood wspyvvdi70 mm[Hg]Shekhar Perez MD Work Phone: 1(761)774-[address] [place], [place] 4962002-12-2024 15:45-0500Heart rate 88 /minShekhar Perez MD Work Phone: 1(359)061-[address] [place], [place] 4962002-12-2024 15:45-0500Systolic blood sqednhmq333 mm[Hg]Shekhar Perez MD Work Phone: 1(006)[address]318 [address]01-17-2024 13:20-0500Diastolic blood eekemxhd52 mm[Hg]MD Shekhar Perez Work Phone: 1(311)166-[address] [place], [place] 9006201-17-2024 13:20-0500 Heart rate91 /minMD Shekhar Perez Work Phone: 1(797)[address]01-17-2024 13:20-0500 Respiratory rate16 /minMD Shekhar Perez Work Phone: 1(573)[address]01-17-2024 13:20-0500 SaO2% (BldA) [Mass fraction]92 %MD Shekhar Perez Work Phone: 1(028)260-[address] [place], [place] 9006201-17-2024 13:20-0500 Systolic blood wkjmovin214 mm[Hg]MD Shekhar Perez Work Phone: 1(486)[address]01-17-2024 12:50-0500 Inhaled oxygen flow rate2 L/minMD Shekhar Perez Work Phone: 1(519)606-[address] [place], [place] 9006201-17-2024 12:25-0500 Body levmnainckz07.2 [degF]MD Shekhar Perez Work Phone: 1(080)[address]01-17-2024 09:27-0500 Body .4 cmMD Shekhar Perez Work Phone: 1(430)[address]01-17-2024 09:27-0500 Body uaouux22.38 kgMD Shekhar Perez Work Phone: 1(107)404-[address] [place], [place] 9006201-05-2024 10:00-0500 Body zryymc174.4 cmCtavo Jeanette Other [facility]01-05-2024 10:00-0500 Body mass index (BMI) [Ratio]32.61 kg/u0Vzuoqhq Jeanette Other [employer] Other 01-05-2024 10:00-0500Body .75 kgCamferminvida Jeanette Other [employer] Other 01-05-2024 10:00-0500Body vyogjl66.74 kgMD Dlae Casey Work Phone: [facility]01-02-2024 13:00-0500 Body lanclr765.4 cmMusa Orlando Other [facility]01-02-2024 13:00-0500 Body mass index (BMI) [Ratio]32.61 kg/m9CtufgMusa [place] Other [employer] Other 01-02-2024 13:00-0500Body cazmhn74.75 kgKebritt [place] Other [employer] Other 01-02-2024 13:00-0500Body .74 kgMD Shekhar Perez Work Phone: [facility]12-15-2023 10:30-0500 Body avkzrk822.4 cmRobert Charlotte II Other [facility]12-15-2023 10:30-0500 Body mass index (BMI) [Ratio]32.61 kg/g4Abqdfh Lionel II Other [employer] Other 12-15-2023 10:30-0500Body .75 kgRobert Lionel II Other [employer] Other 12-15-2023 10:30-0500Body bwoanp93.74 kgMD Shekhar Perez Work Phone: [facility]05-09-2023 10:15-0400 Diastolic blood sekgqllo68 mm[Hg][facility]05-09-2023 10:15-0400Heart rate72 /[facility]05-09-2023 10:15-0400Respiratory rate16 /[facility]05-09-2023 10:15-2978NpO5% (BldA) [Mass fraction]96 %[facility] 03-01-2023 10:15-0400Systolic blood ssmwppcu011 mm[Hg][facility]05-09-2023 09:39-0400Inhaled oxygen flow rate3 L/[facility]05-09-2023 09:02-0400Body dreojj055.4 cm[facility]05-09-2023 09:02-0400Body kefohg11.57 kg[facility] 02-15-2023 14:30-0400Body .4 cmTmark Riggs Other [employer] Other 04-18-2023 09:53-0400Diastolic blood sfzycfqe68 mm[Hg] [facility]04-18-2023 09:53-0400Heart rate67 /[facility]04-18-2023 09:53-0400Respiratory rate16 /[facility]04-18-2023 09:53-5644ZcQ3% (BldA) [Mass fraction]93 % [facility]04-18-2023 09:53-0400Systolic blood lhsxavek229 mm[Hg][facility]04-18-2023 09:13-0400Inhaled oxygen flow rate3 L/[facility]04-18-2023 08:49-0400Body height 152.4 cm[facility]04-18-2023 08:49-0400Body mgorkj68.48 kgOhio[facility]02-25-2023 13:10-0500Body xurfgs858.4 cm Iza Bill Other [employer] Other 02-25-2023 13:10-0500Body mass index (BMI) [Ratio] 31.64 kg/b5OrelwcrekIza Bill Other [employer] Other 02-25-2023 13:10-0500Body keynjvlshhp81.2 [degF] Iza Bill Other [employer] Other 02-25-2023 13:10-0500Body qaacpu22.48 kgIza Bill Other [employer] Other 02-25-2023 13:10-0500Respiratory rate18 /minSjonnie Garciaault Other [employer] Other 02-25-2023 13:10-9022LrS1% (BldA) [Mass fraction]94 % Iza Bill Other [employer] Other 12-02-2022 11:15-0500Body xhucix150.4 cmPeggy Boggs Other [employer] Other 12-02-2022 11:15-0500Body mass index (BMI) [Ratio] 32.22 kg/g4Inpcj Boggs Other [employer] Other 12-02-2022 11:15-0500Body aqpzspribkg88.5 [degF]Payton Boggs Other [employer] Other 12-02-2022 11:15-0500Body nowzvg43.84 kgPeggy Boggs Other [employer] Other 12-02-2022 11:15-0500Diastolic blood dofykacv79 mm[Hg] Payton Boggs Other [employer] Other 12-02-2022 11:15-6443EyY0% (BldA) [Mass fraction]95 % Payton Boggs Other [employer] Other 12-02-2022 11:15-0500Systolic blood mm[Hg] Payton Boggs Other [employer] Other 07-10-2022 10:45-0400Body .4 Richard Brewer Other [employer] Other 07-10-2022 10:45-0400Body mass index (BMI) [Ratio] 31.05 kg/g4OaymgjKatty Brewer Other [employer] Other 07-10-2022 10:45-0400Body vrnwfyisbuv58.9 [degF]Katty Barkermond Other [employer] Other 07-10-2022 10:45-0400Body huqfpr89.12 kgKatty Brewer Other [employer] Other 07-10-2022 10:45-0400Diastolic blood utvwpgps97 mm[Hg] Katty Barkermond Other [employer] Other 07-10-2022 10:45-0400Respiratory rate18 /minKatty Brewer Other [employer] Other 07-10-2022 10:45-9766ZqI6% (BldA) [Mass fraction]93 % Katty Daniella Other [employer] Other 07-10-2022 10:45-0400Systolic blood hienqqtt866 mm[Hg] Katty Daniella Other [employer] Other 05-26-2022 11:26-0400Body .4 cmTconrad Delgado Work Phone: [phone]-Isbau [facility] 250 DO Work Phone: 1(443) [phone] 11:26-0400Body mass index (BMI) [Ratio] 31.09 kg/b3OgrnejrClarence Delgado Work Phone: [phone]-Khbgr [place] [employer] 250 DO Work Phone: 1(648) 106-120705-26-2022 11:26-0400Body surface area Derived from formula1.69 i5XifwtjcClarence Delgado Work Phone: 1(999) [phone]-Flezl [place] [employer] 250 DO Work Phone: 1(111) 132-496505-26-2022 11:26-0400Body gjrpoz12.21 kgClarence Delgado Work Phone: 1(170) [phone]-Msryz [place] [employer] DO Work Phone: 1(457) [phone] 11:26-0400Diastolic blood gjeuslgf49 mm[Hg] Clarence Delgado Work Phone: 1(440) [phone]-Kpxff [place] [employer] DO Work Phone: 1(672) [phone] 11:26-0400Heart rate80 /minClarence Delgado Work Phone: 1(336) [phone]-Hiuvd [place] [employer] DO Work Phone: 1(933) 413-109505-26-2022 11:26-0400Systolic blood ycabhjbl430 mm[Hg] Clarence Delgado Work Phone: 1(208) [phone]-Rgfpp [place] [employer] DO Work Phone: 1(550) 850-707204-19-2022 15:45-0400Body bvwxoh587.4 cmRonnie Morel Other [employer] Other 04-19-2022 15:45-0400Body mass index (BMI) [Ratio] 32.03 kg/q9GzfcpRonnie Morel Other [employer] Other 04-19-2022 15:45-0400Body zjbvkhmvimg99.3 [degF]Ronnie Morel Other [employer] Other 04-19-2022 15:45-0400Body qkyupr64.39 kgRonnie Morel Other [employer] Other 04-19-2022 15:45-0400Diastolic blood hbolyjvd07 mm[Hg] Ronnie Morel Other [employer] Other 04-19-2022 15:45-9293IeQ0% (BldA) [Mass fraction]96 % Ronnie Morel Other [employer] Other 04-19-2022 15:45-0400Systolic blood bsirwjck037 mm[Hg] Ronine Morel Other [employer] Other 03-01-2022 15:15-0500Body uafxmw043.4 cmRonnie Morel Other [employer] Other 03-01-2022 15:15-0500Body mass index (BMI) [Ratio] 31.24 kg/s1MygeqRonnie Morel Other [employer] Other 03-01-2022 15:15-0500Body nbnaayuwxij15.9 [degF]Ronnie Morel Other [employer] Other 03-01-2022 15:15-0500Body yzafxp01.58 kgRonnie Morel Other [employer] Other 03-01-2022 15:15-0500Diastolic blood jjbzeuvy81 mm[Hg] Ronnie Morel Other [employer] Other 03-01-2022 15:15-3230EyD9% (BldA) [Mass fraction]93 % Ronnie Morel Other [employer] Other 03-01-2022 15:15-0500Systolic blood yoplmuhw774 mm[Hg] Ronnie Morel Other [employer] Other 11-14-2021 12:30-0500Body nqorgm456.4 Richard Brewer Other [employer] Other 11-14-2021 12:30-0500Body mass index (BMI) [Ratio] 31.24 kg/f8Kcbwjlsiddhartha Brewer Other [employer] Other 11-14-2021 12:30-0500Body jpocvqoovdy69 [degF]Katty Barkermond Other [employer] Other 11-14-2021 12:30-0500Body ceiden36.58 kgPasiddhartha Brewer Other [employer] Other 11-14-2021 12:30-0500Respiratory rate18 /minKatty Brewer Other [employer] Other 11-14-2021 12:30-2287LuR4% (BldA) [Mass fraction]94 % Katty Daniella Other [employer] Other 10-14-2021 15:00-0400Body .4 Marichuy Bill Other [employer] Other 10-14-2021 15:00-0400Body mass index (BMI) [Ratio] 31.24 kg/u1XgckmpilkIza Bill Other [employer] Other 10-14-2021 15:00-0400Body zsktlbsjykd69.3 [degF] Iza Bill Other [employer] Other 10-14-2021 15:00-0400Body .58 kgIza Bill Other [employer] Other 10-14-2021 15:00-0400Diastolic blood fwmiqziz84 mm[Hg] Iza Bill Other [employer] Other 10-14-2021 15:00-0400Respiratory rate18 /minSjonnie Bill Other [employer] Other 10-14-2021 15:00-0888HdB5% (BldA) [Mass fraction]96 % Iza Bill Other [employer] Other 10-14-2021 15:00-0400Systolic blood ikbxlnma069 mm[Hg] Iza Bill Other [employer] Other 03-23-2021 11:25-0400BP Dokduxzcb44 mm[Hg]Hamilton Thorne Phone: 1(905) 382-583403-23-2021 11:25-0400BP Jfssxkwu957 mm[Hg]Hamilton Thorne Phone: 1(124) 336-373603-23-2021 11:25-0400Pulse (Heart Rate)66 /minBo [employer] Phone: 1(612) 700-943203-23-2021 11:25-0400Pulse Hafensph28 %Hamilton Thorne Phone: 1(177) 376-896803-23-2021 11:25-0400Respiratory Rate16 /minBo [employer] Work Phone: 1(988) 544-861203-23-2021 11:08-0400Body Wqmmlfoxpgq16.49 [degF]Maxwell [employer] Work Phone: 1(132) [phone] 08:35-0400BMI (Body Mass Index)31.83 kg/m2 [employer] Work Phone: 1(642) [phone] 08:35-0400Body jomexb52.94 kgBo [employer] Work Phone: 1(467) 546-675903-23-2021 08:35-0231Tvgtge436.4 cmBo [employer] Work Phone: 1(772) [phone] 09:31-0400BMI (Body Mass Index)31.87 kg/m2 [employer] Work Phone: 1(990) 288-351303-16-2021 09:31-0400Body Fcrrfapndvr11.7 [degF]Mloz 1 [employer] Work Phone: 1(772) [phone] 09:31-0400Body alyair63.03 kgMloz [employer] Work Phone: 1(245) 125-858103-16-2021 09:31-0400BP Dezhgprxl36 mm[Hg]Mloz [employer] Work Phone: 1(742) 857-344603-16-2021 09:31-0400BP Osxoetzp709 mm[Hg][employer] Work Phone: 1(137) 369-555603-16-2021 09:31-3140Izcxqn194.4 cmMloz [employer] Work Phone: 1(304) [phone] 09:31-0400Pulse (Heart Rate)69 /minMloz 1 [employer] Phone: 1(439) 713-134403-16-2021 09:31-0400Pulse Zvbbiprl83 %[employer] Work Phone: 1(266) [phone] 09:31-0400Respiratory Rate16 /minMloz 1 [employer] Phone: Encounters Encounter DateEncounter TypeCare ProviderFacilityStart: 08-29-2025 End: 11-37-7885Uuglzqzln encounterBabruno Englei [facility]ANH [facility] HealthStart: 08-08-2025 End: 62-40-8517Gaykbwczn encounterShekhar Perez MD Work Phone: [facility] Start: 07-12-2025 End: 41-29-2657Ykessc outpatient visit 15 Erin Perez MD Work Phone: [phone] [place] [address] Physicians Internal Medicine/Pediatrics Comment on above:Degeneration of intervertebral disc of lumbar region with discogenic back pain and lower extremity pain (Primary Dx); Mixed anxiety depressive disorderStart: 07-12-2025 End: 41-52-5604qgoqxakttjYQMW [facility] PPGStart: 07-08-2025 End: 91-90-2303UnhwyiLoarjya [facility] Physicians Internal Medicine/PediatricsComment on above:AnxietyStart: 07-04-2025 End: 64-29-1160kajbtrlepxNSIMAX MALICKINot AvailableStart: 07-04-2025 End: 76-87-4858Wqxdlh flowsheetBayley Malicki LPCNOMS [facility] Start: 07-04-2025 End: 60-18-3415Jzicel flowsheetBayley Malicki LPCNOMS [facility] Start: 07-03-2025 End: 28-19-8082druldbrthxSLOY J [facility] HospitalStart: 06-10-2025 End: 23-09-9996bkshxtycknFECT J [facility] Ambulatory PPGStart: 06-10-2025 End: 55-01-4190Uhpncq outpatient visit 15 Erin Perez MD Work Phone: [facility] Comment on above:Spinal stenosis of lumbar region with neurogenic claudication (Primary Dx)Start: 06-03-2025 End: 90-76-7055Mgqvgs flowsheetBayley Malicki LPCNOMS [facility] Start: 06-03-2025 End: 61-03-0619Qtfoit flowsheetDavid De Leon LPCNOMS [facility] Start: 06-03-2025 End: 56-23-7009rglcvwxktmLUAXPQ MALICKINot AvailableStart: 05-30-2025 End: 69-80-1624ZgxcucBtxx Kramer [facility] Physicians Internal Medicine/PediatricsComment on above:AnxietyStart: 05-22-2025 End: 71-91-6636Jqhfth Remy Quintanilla PMHNP-BC Work Phone: noms [facility] HealthStart: 05-22-2025 End: 65-96-5448Ofgnck Remy Quintanilla PMHNP-BC Work Phone: noms [facility] HealthStart: 05-22-2025 End: 33-44-0822Ahemir outpatient visit 15 minutesMeracosta Quintanilla PMHNP-BC Work Phone: noms [facility] HealthComment on above:Moderate episode of recurrent major depressive disorder (HCC); RICARDO (generalized anxiety disorder) ; Fibromyalgia; Vitamin D insufficiencyStart: 05-22-2025 End: 57-06-2554nacgeocsiqLLMVREAR BRITTONGurvinder AvailableStart: 05-07-2025 End: 11-85-1547Awgrhu OnlyOscar Quintanilla PMHNP-BC Work Phone: noms CI BHComment on above:Encounter for drug screeningStart: 04-29-2025 End: 09-81-4121GykkvbEcyx Kramer [facility] Physicians Internal Medicine/PediatricsComment on above:AnxietyStart: 04-10-2025 End: 83-01-4773Ynmtlw Remy Quintanilla PMHNP-BC Work Phone: NOMS CI BHStart: 04-10-2025 End: 40-06-5355Qpvfkn Remy Quintanilla PMHNP-BC Work Phone: noms CI BHStart: 04-10-2025 End: 85-54-1591qnamvizizsBZOACVPM BRITTONNot AvailableStart: 03-21-2025 End: 35-85-9860Jdxbam OnlyFelicia C Windnagel [employer] Work Phone: noms SWS NEURComment on above:Anxiety and depression (CMS/HCC) (Primary Dx)Start: 03-19-2025 End: 97-77-0506Qhydhesuk encounterFelicia C Windnagel FLAGSETTER Work Phone: noms [facility] NEURO 210Start: 03-12-2025 End: 35-68-8828IcarbwOudf Kramer [facility]ProMedm[facility] Physicians Internal Medicine/PediatricsComment on above:AnxietyStart: 03-11-2025 End: 65-05-8823Dpuwzk flowsheetFelicia C Windnagel FLAGSETTER Work Phone: noMS BM NEUROLOGYStart: 03-11-2025 End: 73-19-8922Wtaeci flowsheetFelicia C Windnagel FLAGSETTER Work Phone: noms BM NEUROLOGYStart: 03-11-2025 End: 77-19-8019bdxhqtyahiYSUNGTW C WINDNAGELNot AvailableStart: 03-11-2025 End: 40-62-7263Zawuow outpatient visit 25 minutesFelicia C Windnagel FLAGSETTER Work Phone: noms SWS NEURComment on above:Anxiety and depression (CMS/HCC) (Primary Dx)Start: 03-07-2025 End: 03-36-2108RzyvbafurFihzrj Guzik PTANOMS SWS PTComment on above:Cervicalgia (Primary Dx); Balance disorder; BPPV (benign paroxysmal positional vertigo), right; Vertigo of central origin; Dizziness and giddinessStart: 03-07-2025 End: 02-10-6190Lwsaux flowsheetConnie Guzik PTANOMS SWS PTStart: 03-07-2025 End: 17-51-6081Fqnocr flowsheetConnie Guzik PTANOMS SWS PTStart: 03-05-2025 End: 93-82-2278Rwlenp outpatient visit 15 minutesShekhar Perez MD Work Phone: [facility] Physicians Internal Medicine/Pediatrics Comment on above:Anxiety (Primary Dx); DizzinessStart: 03-05-2025 End: 19-69-8298lxmfepsahsGRBO J [facility] PPGStart: 02-27-2025 End: 04-99-5260Luinrq Niya JUSTIN PTStart: 02-27-2025 End: 77-80-5527Yhedac Niya COPE SWS PTStart: 02-27-2025 End: 76-19-9705DhdxwruhnLdlbot Guzik PTANOMS SWS PTComment on above:Cervicalgia (Primary Dx); Balance disorder; BPPV (benign paroxysmal positional vertigo), right; Vertigo of central originStart: 02-19-2025 End: 43-80-4896LlixrnEzdaCosta Mercado Physicians Internal Medicine/PediatricsComment on above:AnxietyStart: 02-14-2025 End: 43-58-7738LlfchovgdYfiquc Guzik PTANOMS SWS PTComment on above:Cervicalgia (Primary Dx); Balance disorder; BPPV (benign paroxysmal positional vertigo), right; Dizziness and giddiness; Vertigo of central originStart: 02-14-2025 End: 88-23-7254Fefpcv Niya COPE SWS PTStart: 02-14-2025 End: 20-94-6241Uhmwip Niya COPE SWS PTStart: 02-08-2025 End: 63-23-3660Uilpru Cash Dawkins PT Work Phone: NOMS SWS PTStart: 02-08-2025 End: 57-44-7678Zjjmjg Cash Dawkins PT Work Phone: noMS SWS PTStart: 02-08-2025 End: 65-10-4919EvygbrsnbyYuopall J Martinez PT Work Phone: noMS SWS PTComment on above:Cervicalgia (Primary Dx); Balance disorder; BPPV (benign paroxysmal positional vertigo), right; Dizziness and giddiness; Vertigo of central originStart: 01-29-2025 End: 40-35-1593negwctwfvxOLVXZT H TIMMISNot AvailableStart: 01-29-2025 End: 33-10-6884Qgmqwn outpatient new 45 minutesJuan Carlos Trimble MD Work Phone: noMS CI ENTComment on above:Dizziness and giddiness (Primary Dx)Start: 01-29-2025 End: 43-07-4258Uwbepg Eliel Trimble MD Work Phone: NOMS CI ENTStart: 01-29-2025 End: 00-41-5076Crfusx Eliel Trimble MD Work Phone: noMS CI ENTStart: 01-28-2025 End: 48-44-4696Phwvirbmg encounterJarama Bautista NP Work Phone: noms [facility] NEURO 210Start: 01-23-2025 End: 41-09-4387Bujhwd Swathi Humphreys MD Work Phone: noms NEUROLOGYStart: 01-23-2025 End: 17-24-2858Wtjfct Swathi Humphreys MD Work Phone: noms BM NEUROLOGYStart: 01-23-2025 End: 94-94-9035bshhwvzavuHZLHVCZ W BAUERNot AvailableStart: 01-23-2025 End: 84-09-0824Mbkeji outpatient visit 25 minutesMickey Humphreys MD Work Phone: noms SWS NEURComment on above: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 manifestations (CMS/HCC) (Primary Dx); Dizziness; Anxiety and depression (CMS/HCC)Start: 01-16-2025 End: 59-69-9075Bmdlve [facility] Work Phone: noms CI AUDStart: 01-16-2025 End: 52-97-7550Tycmly [facility] hospitalEmilia [facility] Work Phone: noms CI AUDStart: 01-16-2025 End: 48-15-9721Kvtmaldw SupportManpreetotis Sandovalill [facility] Work Phone: noms CI AUDComment on above:Sensorineural hearing loss (SNHL) of both ears (Primary Dx); DizzinessStart: 01-15-2025 End: 58-38-6485BmgwikUmpr Kramer [facility]Med[facility] Physicians Internal Medicine/PediatricsComment on above:AnxietyStart: 01-02-2025 End: 65-16-7819Fduvnb outpatient new 60 minutesFelicia Janis Nair NP Work Phone: noms SWS NEURComment on above:Dizziness (Primary Dx); Anxiety and depression (CMS/HCC); Cognitive dysfunction; ADILENE (obstructive sleep apnea)Start: 01-02-2025 End: 39-60-9692dxupeznvrfDCZPJKP C RAMONNot AvailableStart: 12-11-2024 End: 02-16-8006SfvjvmOjga Kramer [facility] Physicians Internal Medicine/PediatricsComment on above:AnxietyStart: 12-04-2024 End: 49-98-4433Eqkorhgwd encounterShekhar Perez MD Work Phone: [facility] Start: 11-27-2024 End: 68-02-1443bdrllpmlykZgzxChauncey Perez MD Work Phone: [facility] Work Phone: Start: 11-27-2024 End: 90-20-8369Pxpgbbz encounter procedureShekhar Perez MD Work Phone: [facility] Work Phone: Start: 11-21-2024 End: 19-21-4826Vwfoanw encounter procedureShekhar Perez MD Work Phone: [facility] [address] Work Phone: Start: 11-21-2024 End: 86-32-9437jxuhqxfhxwDibeChauncey Perez MD Work Phone: [facility] Work Phone: Start: 11-07-2024 End: 77-25-8897tpoldzkrmtFallrsindMary Rutan Hospital Work Phone: Start: 11-07-2024 End: 36-93-6026Ntyoxut [facility] Work Phone: Start: 11-01-2024 End: 65-21-1318VvejoqUgrfdavcz Lamson CMAProMedica Physicians Internal Medicine/PediatricsComment on above:AnxietyStart: 71-06-1040Pmx-patient / Non-visitM[facility] Work Phone: Start: 10-31-2024 End: 81-90-1482whgcngcryqPulsstpkfMary Rutan Hospital Work Phone: Start: 10-31-2024 End: 75-36-0562Aocwvey encounter procedureM[facility] Physician [facility] Work Phone: Start: 10-02-2024 End: 20-56-1029Ebulqai encounter procedureM[facility] Work Phone: Start: 09-25-2024 End: 46-79-7190HbptauSspvddsfnAdria ButterfieldMedica Physicians Internal Medicine/PediatricsComment on above:AnxietyStart: 09-17-2024 End: 37-26-3855Ptvkset encounter procedureM[facility] Physician [facility] Work Phone: Start: 84-04-7204Zbs-patient / Non-visitM[facility] Physician [facility] Work Phone: Start: 08-29-2024 End: 23-05-4266imjfmslxpoHluvdosbuMary Rutan Hospital Work Phone: Start: 08-29-2024 End: 80-11-3529Ttxfnei encounter procedureFirdamerons Physician Group-[facility] Work Phone: Start: 08-28-2024 End: 79-68-7440nupiilrsrrHJWA [facility] Ambulatory PPGStart: 08-28-2024 End: 03-78-8312Xjcyhp outpatient visit 5 minutesShekhar Perez MD Work Phone: [facility] Comment on above:Fibromyalgia (Primary Dx); Other fatigueStart: 08-27-2024 End: 28-05-3760Qpjqrza encounter procedureShekhar Perez MD Work Phone: [facility] Comment on above:Routine general medical examination at a health care facility (Primary Dx); Fibromyalgia, primary; Mixed anxiety depressive disorderStart: 08-27-2024 End: 42-25-3159Ixlapce encounter statusShekhar Perez MD Work Phone: [facility] Work Phone: start: 08-27-2024 End: 97-01-7197qxsqebqyozQTGS [facility] Ambulatory PPGStart: 08-23-2024 End: 53-52-1754CbsvnjCibntunpv Lamson CMAAkron Children's Hospitalca Physicians Internal Medicine/PediatricsComment on above:AnxietyStart: 08-06-2024 End: 48-33-1291Lrfpgtods encounterShekhar Perez MD Work Phone: [facility] Start: 08-01-2024 End: 04-09-3174Iaqqqfsmk encounterCarrol Mercado Physicians Internal Medicine/PediatricsStart: 07-23-2024 End: 73-69-8935Ztswhf outpatient visit 15 minutesShekhar Perez MD Work Phone: [facility] Comment on above:Elevated blood sugar (Primary Dx); Anxiety; HypoglycemiaStart: 07-23-2024 End: 70-76-4396SkjqvbAxsyqgsie Lamson CMAProMercy Health St. Elizabeth Board[facility] Hospitalca Physicians Internal Medicine/PediatricsStart: 06-21-2024 End: 30-03-0981MrzwiuDwtgywfsf Lamson [facility] Physicians Internal Medicine/PediatricsComment on above:Anxiety (Primary Dx)Start: 06-21-2024 End: 66-29-2657Tqmpfn outpatient visit 15 Erin Perez MD Work Phone: [phone] [place] [address] Physicians Internal Medicine/Pediatrics Comment on above:Benign paroxysmal positional vertigo, unspecified laterality (Primary Dx); AnxietyStart: 05-22-2024 End: 13-90-8094Dnhdzv outpatient visit 25 Erin Perez MD Work Phone: [facility] Comment on above:Vertigo (Primary Dx); Loss of balance; Peripheral vertigo, unspecified lateralityStart: 05-22-2024 End: 34-84-4434Kamzcpruj encounterShekhar Perez MD Work Phone: [facility] Start: 05-17-2024 End: 00-58-5922EsoyjvXxspscwrj Lamson CMAElyria Memorial Hospital Physicians Internal Medicine/PediatricsComment on above:AnxietyStart: 05-08-2024 End: 73-53-0240Scimus outpatient visit 25 Erin Perez MD Work Phone: [facility]ediatric[facility] Comment on above:Dizziness (Primary Dx)Start: 04-09-2024 End: 23-31-5396Stjlgj outpatient visit 15 Erin Perez MD Work Phone: [facility]Pediatric[facility] Comment on above:Anxiety (Primary Dx)Start: 03-30-2024 End: 86-40-0657mkcnormbncJGQKQHMColquitt Regional Medical Center AmbulatoryStart: 03-30-2024 End: 28-31-1858Cramai outpatient visit 15 [facility] Work Phone: uh [facility] HospitalComment on above:Atherosclerosis of coronary artery of barrow heart, unspecified vessel or lesion type, unspecified whether angina present; Other fatigue; History of PTCA; Palpitations; Hyperlipidemia, unspecified hyperlipidemia type; Never smoked any substance; BMI 30.0-30.9,adultStart: 03-06-2024 End: 99-53-0372Jbvlca outpatient visit 15 Erin Perez MD Work Phone: [facility]Pediatric[facility] Comment on above:Anxiety (Primary Dx)Start: 02-27-2024 End: 62-55-2018qwbenzgawpVN John J Hiestand Work Phone: [facility] Work Phone: Start: 02-27-2024 End: 77-60-1104Mwyssgo encounter procedureMD Shekhar Perez Work Phone: [facility] Work Phone: Start: 02-14-2024 End: 15-81-2133AlhqssEieuoismn Lamson CMAProMedica Physicians Internal Medicine/PediatricsComment on above:AnxietyStart: 02-07-2024 End: 33-42-2483lqqoowghrvPR John J Hiestand Work Phone: [facility] Work Phone: Start: 02-07-2024 End: 19-32-6187Dikrjam encounter procedureMD Shekhar Perez Work Phone: [facility] Work Phone: Start: 01-26-2024 End: 62-56-3677Ffaxda outpatient visit 15 Erin Perez MD Work Phone: [facility] Comment on above:Hordeolum externum of left lower eyelid (Primary Dx); Periorbital cellulitis of left eyeStart: 23-97-5933QasztnLodrMagno Barba Physicians Internal Medicine/PediatricsComment on above:AnxietyStart: 12-27-2023 End: 27-32-5602Gvvymci encounter procedureMD Shekhar Perez Work Phone: firsent[facility] Work Phone: Start: 14-57-0502Tkokom Liseth Perez MD Work Phone: [facility] Internal Medicine/Pediatrics Start: 78-89-4745Cyx-patient / Non-visitMD Shekhar Perez Work Phone: [facility] Work Phone: Start: 12-11-2023 End: 72-81-5728Ozwehzqe ReferredMD Shekhar Purcellmichael Work Phone: [facility] [place] Work Phone: Start: 12-11-2023 End: 04-73-5112gzljweciroST Guillermo Casey Work Phone: [facility] Work Phone: Start: 12-11-2023 End: 67-95-1603Hnheeji encounter procedureMD Shekhar Purcellmichael Work Phone: [facility] Physician [facility] Work Phone: Start: 12-05-2023 End: 96-34-0692Sriecf outpatient visit 15 minutesShekhar Perez MD Work Phone: [facility] Comment on above:Depression, unspecified depression type (Primary Dx); Anxiety; Cold intolerance; Hypovitaminosis D; B12 deficiency; Bilateral leg edemaStart: 11-28-2023 End: 89-21-7199ryxndwiqkiYtsee Bailey Other [employer] Other Start: 24-03-9779Lklwazzgt encounterMusa [facility] OrthopedicsStart: 11-22-2023 End: 24-58-5145zxdynpjnjqOlory Bailey Other [employer] Other Start: 31-95-9868Lbqajs follow up visit related to original Zuleika [facility] OrthopedicsStart: 95-43-4259DqintaBntlpgsto Mis CMAProMedica Physicians Internal Medicine/PediatricsComment on above: AnxietyStart: 02-85-9868Jvlvdj OnlyShekhar Perez MD Work Phone: [facility]/Pediatric[facility] Start: 95-59-9969Jye-patient / Non-visitMD Shekhar Perez Work Phone: [facility] Work Phone: Start: 11-08-2023 End: 41-91-2201olnivciivqThrff Bailey Other [employer] Other Start: 45-19-9920Evzzhtkgf encounterKebritt Lopezusky OrthopedicsStart: 10-28-2023 End: 11-53-4127Ytvmczj encounter procedureCameron VereniceyJOHNG Gastroenterology Start: 10-28-2023 End: 55-74-4537rcpxmcnbewEI John J Hiestand Work Phone: nonorth [facility] [employer] Other Start: 10-28-2023 End: 78-37-2344Cyxunrf encounter procedureMD Shekhar Perez Work Phone: [facility] G[facility] Work Phone: Start: 10-25-2023 End: 18-01-4171gkoabwmyutEwhdl Bailey Other [employer] Other Start: 89-24-5817Lefppiqqg for other preprocedural examinationKebritt Baltazar [place] [facility]icsStart: 12-45-0651Cwtpgn outpatient visit 40 minutesKebritt Baltazar [place] OrthopedicsStart: 10-25-2023 End: 15-86-3557Eilfvoa encounter procedureMD Shekhar Perez Work Phone: [facility] Work Phone: Start: 10-20-2023 End: 82-40-6821bcliqhfinfFwhbrx Charlotte II Other [employer] Other Start: 26-29-1187Lcfdur outpatient visit 25 minutes Peter Flowers IIJOHNG [facility]icsStart: 58-82-1694Psrvpeise encounter Peter SOARESG [facility]icsStart: 69-06-6433ThnnbqYehhqdxre Lamson CMAProMedica Physicians Internal Medicine/PediatricsComment on above: AnxietyStart: 67-84-1071Jyvfpefxy encounterRobert Charlotte IIFPG [facility]icsStart: 10-12-2023 End: 47-25-6669kzgrvhtrueLM Shekhar Wilson Casey Work Phone: [facility] Work Phone: Start: 10-12-2023 End: 95-19-3593Lhqpbre encounter procedureMD Shekhar Benjaminemeterio Work Phone: [facility]-MRI Main [place] Work Phone: Start: 10-10-2023 End: 22-57-0590hkqtswgirnUldojo Lionel II Other [employer] Other Start: 75-71-2014Ysblhwenb encounterRobert Lionel II [facility]icsStart: 38-74-4099Ojmqvj outpatient new 45 minutesRobert Charlotte IIFPG [facility]icsStart: 10-07-2023 End: 85-34-5296fqjwicflilVK Shekhar Purcellmichael Work Phone: [employer] Other Start: 10-07-2023 End: 14-53-1750Qfknruv encounter procedureMD Shekhar Alexanderemeterio Work Phone: [facility]-XRay [facility] Start: 10-07-2023 End: 49-36-8681Okbdfpg encounter procedureMD Shekhar Perez Work Phone: [facility] Work Phone: Start: 09-02-2023 End: 85-05-3822kepassusasOcwm A SteinmetzFacility:Cipriano DHStart: 08-18-2023 End: 61-94-4699phprckddrnUslnoh Felter Other [employer] Other Start: 26-41-8674Eggepojgk encounterThomas FelterFPG [place] [facility]icsStart: 07-21-2023 End: 68-28-2117wqnrtouczeIbrysh Felter Other [employer] Other Start: 09-72-6806Tcbqje outpatient visit 25 minutes Cam Garcia [facility] [place] CreekStart: 69-55-4556Pwxrmxq encounter procedureReferring Provider [facility] 250 DO Work Phone: Start: 07-15-2023 End: 79-16-9369wdwmaktllhBpbu A SteinmetzFacility:Cipriano DHStart: 07-06-2023 End: 67-45-9341plegawmmrlZR Shekhar Perez Work Phone: [facility] Work Phone: Start: 07-06-2023 End: 03-99-0693Cumnyyv encounter procedureMD Shekhar Perez Work Phone: [facility]-MRI Main [place] Work Phone: Start: 06-08-2023 End: 50-22-5178ugsjzjklgzAnqfwx Felter Other [employer] Other Start: 29-29-6794Ehtkxo outpatient visit 25 minutes Cam Garcia [facility] [place] CreekStart: 05-25-2023 End: 97-11-9636faslhdxuvpLymi A SteinmetzFacility:FTMCStart: 05-25-2023 End: 98-96-1796gcxuwzqyilPkds A SteinmetzFacility:Cipriano DHStart: 04-21-2023 End: 49-90-3747solffsuvvtTykts SALAMFacility:FTMCStart: 03-09-2023 End: 92-11-8742udvufrrcbxQfcmi SALAMFacility:Cipriano DHStart: 03-07-2023 End: 07-27-9900obafbbwpkgVSJ [facility] Work Phone: Start: 03-07-2023 End: 44-62-4091Dczhatq encounter procedureOhiohealth [facility]-Electrodiagnostics Work Phone: Start: 03-04-2023 End: 88-47-7666qppullwecsDO SHEKHAR PURCELLANDFacility:D3Nucki: 03-01-2023 (Procedure) ShortThomas FelterOhiohealth [facility] City [facility] OutPtStart: 03-01-2023 End: 18-86-0940Ssbjluogs to same day surgery [facility] Work Phone: Start: 03-01-2023 End: 36-77-2419tymjqugwyrXWJKettering [facility] Work Phone: Start: 02-15-2023 End: 56-39-0678vppabmqmzjYyuqqd Felter Other [employer] Other Start: 01-58-1215Zglhdl outpatient visit 25 minutes Cam Garcia [facility] [place] CreekStart: 02-08-2023 End: 98-31-9908Hycvykcce to same day surgery [facility] Work Phone: Start: 01-12-2023 End: 81-60-3387ozpbrgllvyFJB RAMEY .Facility:V2Gyihc: 57-00-3085ibjozkjaviSprl SteinmetzFacility:ReynoldsSreekanthJef DHStart: 12-21-2022 End: 26-04-4805wyazwmdxsbScannkxmv Breault Other [facility] [employer] Other Start: 89-99-7466Ynuqnzafm encounterStepvenancioyoung Landy [facility] Family Medicine ClydeStart: 66-14-1446Zvdeuu outpatient visit 15 minutes Iza GarciaduaneFPG [facility] ClydeStart: 12-18-2022 End: 85-25-6274iskkraaayfFQO [facility] Work Phone: Start: 12-18-2022 End: 66-07-3826Ztngyee encounter procedureOhiohealth [facility]-XRay Urgent Care [place] Work Phone: Start: 10-28-2022 End: 23-23-2770nfgtucvakdJU SHEKHAR PEREZFacility:N9Fcwxf: 10-08-2022 End: 88-43-4735llxfdjljseVDJ [facility] Work Phone: Start: 10-08-2022 End: 04-74-3749Haxadpomoj RecurringDO Gaudencio Green Work Phone: [facility]-Physical Therapy [place] [address] RdStart: 27-12-9076Xkofrj outpatient visit 25 minutesPeggy [facility] SouthStart: 09-24-2022 End: 01-37-6684dmogdnixpvQNS [facility] Work Phone: Start: 09-24-2022 End: 22-34-8283Impjkez encounter procedureDO Gaudencio Green Work Phone: [facility]-Sleep LabStart: 77-93-9480Yuhekockrl RecurringDO Gaudencio Green Work Phone: [facility]-Physical Therapy [address] [address] RdStart: 08-04-2022 End: 74-95-4639treibppsuaQPW [facility] Work Phone: Start: 08-04-2022 End: 92-40-7713Adgtnmg encounter procedureDO Gaudencio Green Work Phone: [facility]-CT Scan Main [place] Start: 54-57-9057Ih RenewalClarence Martin Danny Work Phone: [phone]-OjvewRed Lake [facility] 250 DO Work Phone: Start: 05-02-2022 End: 35-09-3408jezfnzxyjfTcvrpz Dymond Other [employer] Other Start: 47-25-6503Sefujl outpatient visit 25 minutes Katty DaniellaFPG Urgent Care ClydeStart: 69-84-2067Fwuxog outpatient visit 25 minutesClarence Martin Danny Work Phone: [phone]-DhpfvUnited HospitalAl[facility] Vista 250 DO Work Phone: Start: 03-09-2022 End: 71-89-9501dpzjrfylhtSW CLARENCE Mario MATTHEWSacility:Z8Zflso: 02-09-2022 End: 39-59-9853glaaqoaokcQpiav Morris Other [employer] Other Start: 46-39-1371Wgsyed outpatient visit 25 minutes [facility] SouthStart: 12-22-2021 End: 44-87-2878cickrmnfbhAvmqs Morris Other [employer] Other Start: 95-70-8733Rcsmzz outpatient visit 25 minutes [facility] SouthStart: 11-10-2021 End: 50-14-8807atdcdbkjdtBgne Fitt Other [employer] Other Start: 48-28-2897Eixcddyfw encounterDawvida CastorenaSelect Medical Cleveland Clinic Rehabilitation Hospital, Edwin Shawtart: 10-27-2021 End: 06-16-8966kxozgsejriFhrx Fitt Other [employer] Other Start: 29-36-8251Hhqphsijr encounterDawn FitSt. Helens Hospital and [facility] Coordinated Care ClinicStart: 10-21-2021 End: 42-13-5899bqrhznidxgBexa Fitt Other [employer] Other Start: 24-44-1512Klcnzcamq encounterDawn Fitireswedish medical center ballard Coordinated Care ClinicStart: 09-06-2021 End: 22-47-1867hjwbjywlotNuwoxb Daniella Other [facility] [employer] Other Start: 52-86-8060Yqldnh outpatient visit 15 minutes Katty BrewerFPG [facility]gent Care ClydeStart: 08-25-2021 End: 66-04-5669zfpafbdauxEaukx Morris Other [facility] [employer] Other Start: 08-94-1334Szgcmtxsl encounterDaanh MorelFPG Referral CoordinatorStart: 09-89-6052Vklxfi outpatient visit 15 minutesStodessa BillFPG Family Medicine ClydeStart: 01-13-2021 End: 11-49-9472Cwrgiod [facility] procedureKind[facility] Start: 01-13-2021 End: 16-92-9706Cmtbcrt encounter procedureKindred [facility] Start: 01-13-2021 End: 23-84-5686Twrbbolkwz hospital visit by Anselmo Fried Work Phone: RAN ORStart: 01-13-2021 End: 84-80-7620Csylbopeqc hospital visit by Anselmo Tobin Phone: [facility] RadiologyComment on above:Pain Start: 01-06-2021 End: 18-12-6158Zbmdfqc encounter procedureKind[facility] Start: 01-06-2021 End: 18-97-0025Yrtbwmtknp hospital visit by Severo Pat Rm 1[facility] Pre- Admission TestingComment on above:DDD (degenerative disc disease), lumbar (Primary Dx); Lumbar spondylosisStart: 54-66-1844Jfagrkb encounter statusDO Gaudencio Green Work Phone: [facility] Procedures DateProcedureProcedure DetailPerforming ClinicianStart: 07-04-2025 End: 98-24-7814Gdgnpuinjbdjt w/patient 60 minutesModerate episode of recurrent major depressive disorder (HCC)David De Leon LPCComment on above:Moderate episode of recurrent major depressive disorder (HCC); RICARDO (generalized anxiety disorder)Start: 06-03-2025 End: 09-65-1009Fmdcqpgslbl diagnostic evaluationModerate episode of recurrent major depressive disorder (HCC)David De Leon LPCComment on above:Moderate episode of recurrent major depressive disorder (HCC); RICARDO (generalized anxiety disorder)Start: 04-10-2025 End: 64-40-8683Pfyqaksvnjz diagnostic eval w/medical servicesModerate episode of recurrent major depressive disorder (HCC)Oscar Quintanilla [facility]- Work Phone: comment on above:Moderate episode of recurrent major depressive disorder (HCC); RICARDO (generalized anxiety disorder) ; High risk medication use; FibromyalgiaStart: 01-25-2025H/O: hysterectomyHistory of hysterectomyMickey Humphreys MD Work Phone: Start: 65-76-7743EMSUDIIX FUNCTION TESTSCommunity Medical Center- Work Phone: start: 49-20-5621GC pre/post mri xrDarshan Perez MD Work Phone: start: 55-25-3015DA lumbar spine wo Josiah Perez MD Work Phone: start: 44-16-5673Xgbfy depression screening assessment Shekhar Perez MD Work Phone: start: 14-33-1523Jfqhy cultureMD Shekhar Perez Work Phone: start: 39-51-7845QNZ of right kneeMD Shekhar Perez Work Phone: start: 53-87-3019K-ray of right kneeMD Shekhar Perez Work Phone: start: 90-60-3563Fsdhhol of percutaneous transluminal coronary angioplastyHistory of PTCAWilliam Jamar DO Work Phone: Start: 65-42-8744Owjqo depression screening assessment Francesca Abebe CMAStart: 29-11-0036VX lumbar spine wo conMD Shekhar Perez Work Phone: start: 61-62-3282TW pre/post mri xrayMD Sehkhar Perez Work Phone: start: 06-32-4328FJ angiography of thoraxStart: 09-00-3159Pwqcm anesthetic sacral epidural blockStart: 37-81-3885Aolrennxg of local anesthetic into sacroiliac jointStart: 65-28-3347W-ray of right kneeStart: 40-30-6211Vezxorfw tomography of abdomen and pelvis with contrastDO Gaudencio Green Work Phone: Start: 45-20-2812Nhazsvoxcbup/tazobactamPamela Daniella Other Start: 98-05-8199Vkbojawshfp during operationBo HRustam Fried Work Phone: Start: 58-60-5357Dpntf count complete automated Tennille K ThompsonStart: 01-61-2998Drukd metabolic panel calcium totalPatricia K ThompsonStart: 40-07-8151Nvn routine ecg w/least 12 lds i&r onlyPatricia K ThompsonHistory of operative procedure on kneeH/O knee surgeryMD Shekhar Perez Work Phone: History of percutaneous transluminal coronary angioplastyHistory of PTCATimothy W Danny Work Phone: History of percutaneous transluminal coronary angioplastyHistory of PTCAWilliam S Jamar DO Work Phone: History of placement of stent for coronary artery diseaseHistory of coronary artery stent placementDO Gaudencio Green Work Phone: HysterectomyTimothy W Toñamert Work Phone: Operative procedure on handClarence Delgado Work Phone: Tonsillectomy and adenoidectomyClarence Delgado Work Phone: Total colonoscopyClarence Delgado Work Phone: Plan of Treatment DateCare ActivityDetailAuthorStart: 40-92-1531Bcyqgja ScreeningTobacco Screening [facility] SystemStart: 28-08-9660Caoxiuw ScreeningTobacco Screening [facility] SystemStart: 68-51-9814Ebtzhxv ScreeningTobacco Screening [facility] SystemStart: 11-13-2025 End: 81-45-6835Begjokv encounter vwlndmuho97/21/2026 1:00 PM EST Office [facility] [address] [facility] [address] [place] [address] Oscar Quintanilla, PMHNGRACE [facility] [address] [place] [address] [facility]KAYLA [facility] Start: 41-55-5419Tpplf BMI ScreeningAdult BMI ScreeningThe [facility] System Start: 11-70-5273Rdsewqkqyt ScreeningDepression ScreeningThe [facility] Start: 35-40-7110Ledt Risk ScreeningFall Risk ScreeningThe [facility] System Start: 11-04-2025Medicare Annual Wellness VisitMedicare Annual Wellness Visit [facility] SystemStart: 93-11-1916Pungcts ScreeningTobacco Screening [facility] SystemStart: 08-06-2025 End: 31-58-8553Lzybnm Work08/06/2025 2:30 PM EDT Social Work [facility] [address] [place] [address] David De Leon LPCNOMS [place] [facility] HealthStart: 39-62-5471Inrfj BMI ScreeningAdult BMI ScreeningProOur Lady Of Mercy Hospital SystemStart: 01-27-0909Cmxjmul ScreeningTobacco ScreeningProOur Lady Of Mercy Hospital SystemStart: 07-12-2025 End: 90-26-7721Jzgnktm encounter msrskecba79/19/2025 11:00 AM EDT Office Visit [facility] [address] [place] [address] [address] [place] [phone] Shekhar Perez MD [address] [place] [address], [address] [place], [place] [id number] [facility]/PediatricsStart: 07-04-2025 End: 89-48-0057Gcibnj Work07/04/2025 2:00 PM EDT Social Work [facility] [address] [facility] [address] [place] [phone] David De Leon LPCNOMS [place] [facility] HealthStart: 07-01-2025 End: 94-41-5911Nlqxioc encounter jlvjxtgiu38/08/2025 2:30 PM EDT Office Visit [facility] [address] [place] [address] Oscar Quintanilla, HN- [address] [place] [address] [facility] Start: 63-12-3983Rskotrfnm vaccinationInfluenza VaccineThe [facility] System Start: 41-09-6981Iatxh BMI ScreeningAdult BMI ScreeningThe [facility] Start: 53-37-6693Klvvcdn ScreeningTobacco ScreeningThe [facility] SystemStart: 06-10-2025 End: 13-97-3471Biiberv encounter lfoxyyvxi93/18/2025 2:30 PM EDT Office Visit [facility] [address] [place] [address] [address] [facility] [phone] Shekhar Perez MD [address] [facility], [address] [place], [place] [id number] [facility]/PediatricsStart: 06-10-2025 End: 42-08-0074PY Lumbar spine WO contrastMR lumbar spine without contrast Imaging Routine Spinal stenosis of lumbar region with neurogenic claudication Expected: 06/10/2025, Expires: 06/10/2026[facility] Work Phone: comment on above:Expected: 06/10/2025, Expires: 06/10/2026Start: 06-03-2025 End: 06-90-3089Kktluq WorkNOMS CI BHStart: 43-70-1774Hfkgf BMI ScreeningAdult BMI ScreeningProCrossbridge Behavioral Health Health SystemStart: 05-22-2025 End: 80-17-0893Iuspejg encounter procedureNOMS CI BHComment on above:Moderate episode of recurrent major depressive disorder (HCC); RICARDO (generalized anxiety disorder) ; Fibromyalgia; Vitamin D insufficiencyStart: 45-81-5519Wenrwdo ScreeningTobacco Screening [facility] SystemStart: 05-15-2025 End: 98-07-4292Kprdthu encounter lcpylvfub00/23/2025 11:40 AM EDT Office Visit [facility] [address] [address] Mickey Humphreys MD [address] [facility] [address] [phone] [facility] NEURStart: 95-92-4768Cksws BMI ScreeningAdult BMI ScreeningProMercy Health St. [facility] Board[facility] Hospitalca Health SystemStart: 92-97-7505Njxqkdy ScreeningTobacco ScreeningProOur Lady Of Mercy Hospital SystemStart: 05-07-2025 End: 49-06-5742KGHZ TOX MONITORIGN 6 W/ CONF,URINEDRUG TOX MONITORIGN 6 W/ CONF,URINE Lab Routine Encounter for drug screening Expected: 05/07/2025 (A pproximate), Expires: 08/07/2025[facility] Work Phone: comment on above:Expected: 05/07/2025 (Approximate), Expires: 08/07/2025Start: 04-10-2025 End: 687375-vhbxejjuwgwbum D3 [Mass/volume] in Serum or PlasmaVitamin D 25 hydroxy Total Lab Routine Moderate episode of recurrent major depressive disorder (HCC) RICARDO (generalized anxiety disorder) High risk medication use Expected: 04/10/2025 (Approximate), Expires: 04/10/2026[facility] HealthcareComment on above:Expected: 04/10/2025 (Approximate), Expires: 04/10/2026Start: 04-10-2025 End: 41-88-6019NYV W Auto Differential panel - BloodCBC and differential Lab Routine Moderate episode of recurrent major depressive disorder (HCC) RICARDO ( generalized anxiety disorder) High risk medication use Expected: 04/10/2025 (Approximate), Expires:04/10/2026[facility] Healthcare Work Phone: comment on above:Expected: 04/10/2025 (Approximate), Expires: 04/10/2026Start: 04-10-2025 End: 59-35-7865Gyhmvaqqkpfje metabolic 2000 panel - Serum or PlasmaComprehensive metabolic panel Lab Routine Moderate episode of recurrent major depressive disorder (HCC) RICARDO (generalized anxiety disorder) High risk medication use Expected: 04/10/2025 (Approximate),Expires: 04/10/2026[facility] HealthcareComment on above:Expected: 04/10/2025 (Approximate), Expires: 04/10/2026Start: 04-10-2025 End: 84-17-2209Dsonhoggpcv [Units/volume] in Serum or PlasmaTsh+free t4 Lab Routine Moderate episode of recurrent major depressive disorder (HCC) RICARDO (generalized anxiety disorder) High risk medication use Expected: 04/10/2025 (Approximate), Expires: 04/10/2026[facility] HealthcareComment on above:Expected: 04/10/2025 (Approximate), Expires: 04/10/2026Start: 26-81-4546Hgnpt BMI ScreeningAdult BMI ScreeningThe [facility] SystemStart: 98-07-2240Kezcxzw ScreeningTobacco ScreeningProOur Lady Of Mercy Hospital SystemStart: 04-03-2025 End: 35-95-1887lipuhhxrgm11/11/2025 1:30 PM EDT Treatment [facility] [address] [place] [address] DepGaby faulkner, DIP BRAZIER [address] [place] [address] [facility] PTStart: 03-27-2025 End: 84-51-4191sbpkactmdm52/04/2025 3:00 PM EDT Treatment [facility] [address] [place] [address] DepGaby faulkner, DIP BRAZIER [address] [place] [address] [facility] PTStart: 03-20-2025 End: 77-37-6234bdeesnctyk39/28/2025 3:30 PM EDT Treatment [facility] PT [address] [place] [address] Dot Hedrick PTANOMS [facility] PTStart: 03-20-2025 End: 48-78-7519Vvoenec encounter hpstbpejr31/28/2025 11:20 AM EDT Office Visit [facility] [address] [place] [address] Kusum Nair, FLAGSETTER [address], [address] [phone] [facility] NEURStart: 03-19-2025 End: 16-84-1502odumnsimij28/27/2025 3:30 PM EDT Treatment [facility] PT [address] [place] [address] Dot Hedrick PTANOMS [facility] PTStart: 03-11-2025 End: 42-98-1871Uuokmmx encounter bsewdgmcb62/19/2025 10:50 AM EDT Office Visit [facility] NEUR [address] [place] [address] Kusum Nair, FLAGSETTER [address], [address] [place] [address] NOMS SWS NEURStart: 03-07-2025 End: 98-75-9546ehavaiicblWCEO SWS PTComment on above:ArrivedStart: 03-06-2025 Adult BMI ScreeningAdult BMI ScreeningProMercy Health St. Elizabeth [facility] Hospitalca [facility] SystemStart: 03-06-2025 Tobacco ScreeningTobacco ScreeningProMercy Health St. Elizabeth [facility] Hospitalca [facility] SystemStart: 02-27-2025 End: 10-62-6109arqonycbouRYOM SWS PTComment on above:ArrivedStart: 02-14-2025 End: 73-29-1821maspkcrtmfQZZA SWS PTComment on above:ArrivedStart: 02-08-2025 End: 72-91-6366Sbyhpahfoh92/18/2025 9:30 AM EDT Evaluation [facility] MARG[facility] PT [address] [place] [phone] Michael Dawkins, PT [address] [place] [address] Cervicalgia (Primary Dx); Balance disorder; BPPV (benign paroxysmal positional vertigo), right; Dizziness and giddinessNOMS SWS PTComment on above: Cervicalgia (Primary Dx); Balance disorder; BPPV (benign paroxysmal positional vertigo), right; Dizziness and giddinessStart: 01-29-2025 End: 56-77-7843Dyorujs encounter clntbzarc13/08/2025 2:30 PM EDT Office Visit [facility] [address] [facility] [address] [place] [address] Juan Carlos Trimble MD [address] [facility] [address] [place] [address] NOMS [facility] ENTStart: 60-81-0759Wzyst BMI ScreeningAdult BMI ScreeningAkron Children's Hospitalca [facility] SystemStart: 61-36-6645Zwhxsvh ScreeningTobacco ScreeningAkron Children's Hospitalca [facility] SystemStart: 01-23-2025 End: 06-56-2653Gkunssp encounter procedureNOMS CI ENTStart: 01-16-2025 End: 23-62-1692Aenkyunc Hjqnflb3101/16/2025 10:30 AM EDT Clinical Support [facility] [address] [place] [address] Hope Alonzo, [facility] [address] [place] [address] NOMS CI AUDStart: 76-87-2169Sehyf BMI ScreeningAdult BMI ScreeningProOur Lady Of [facility]cy Hospital SystemStart: 81-57-0166Yndgikr ScreeningTobacco ScreeningProOur Lady Of [facility]cy Hospital SystemStart: 08-27-2024 End: 13-97-3056Pbgkvjs encounter olzebjqfm90/04/2024 2:15 PM EST Office Visit [facility] [address] [place] [address] [address] [place] [address] [place] [address] [place] [address], [address] [place] [address] [facility]/PediatricsStart: 78-34-4586Fddhn BMI ScreeningAdult BMI Screening [facility] SystemStart: 95-89-9785Sjapruqcsv ScreeningDepression Screening [facility] SystemStart: 75-34-7552Nnho Risk ScreeningFall Risk Screening [facility] SystemStart: 11-03-2024Medicare Annual Wellness VisitMedicare Annual Wellness VisitThe [facility] SystemStart: 36-02-6888Ogbfxbc Screening Tobacco ScreeningThe [facility] SystemStart: 08-22-2024 End: 37-09-3232Xhtslir encounter iyrwpbpga02/30/2024 2:45 PM EDT Office Visit [facility] [address] [place] [phone] Flower Mclaughlin, PA-C [address] [place], [place] [phone] [facility] ClinicStart: 69-51-9388Kpklaphqh vaccination [facility] IncStart: 05-22-2024 End: 24-08-3285UO Brain and Internal auditory canal WO and W contrast IVMR brain IAC with and without contrast Imaging Routine Vertigo Peripheral vertigo, unspecified laterality Expected: 05/22/2024, Expires: 05/22/2025[facility] Work Phone: comment on above:Expected: 05/22/2024, Expires: 05/22/2025Start: 63-66-6756AGU, Provider: Jr Roldan, Status: Pen, Time: 11:20 AMFUV, Provider: Jr Roldan, Status: Pen, Time: 11:20 AMSh[facility] for [facility] [employer] 250 DO Work Phone: Start: 02-27-2024 End: 11-55-8854Gcjcfrx encounter rcpnyopkc70/06/2024 2:30 PM EDT Office Visit [facility] [address] [place] [address] Shekhar Perez MD [address] [place] [address], [address] [place] [phone] [facility]/PediatricsStart: 28-62-0003Njucyqkn identified in Urine by Culture [facility] CenterStart: 93-42-5097EtropoauqMercy Hospitaltart: 48-16-5595QbhriwyceMercy Hospitaltart: 35-50-7004NWILS- 19 Vaccine ( season)COVID-19 Vaccine ( season)[facility], IncStart: 77-26-6271Rlqvzqhav vaccinationInfluenza Vaccine [facility] [facility] SystemStart: 04-10-5191YKG, Provider: Jr Roldan, Status: Pen, Time: 11:00 AMFUV, Provider: Jr Roldan, Status: Pen, Time: 11:00 AM [facility] [employer] DO Work Phone: Start: 21-82-6460AtwzdpjblOhiohealth O'Bleness Hospital Start: 20-40-3533LgbqqpqcsMercy Hospitaltart: 01-16-2021 End: 85-20-6392Zondif Visit01/16/2021 Office Visit Neurosurgery Maxwell Fried MD [address], [address] [place] [id number] [employer]Start: 01-13-2021 End: 77-79-7443Ztxnaoem EncounterMLOZ ORComment on above:DCS (DORSAL COLUMN STIMULATOR) TRIAL .5 HOUR/ 1 C-ARM/ MEDTRONICS REP LINDY LERMA [facility] LOCAL Start: 01-06-2021 End: 74-61-1515YOWVU- AmbulatoryCOVID-19 Ambulatory Lab Routine DDD (degenerative disc disease), lumbar Lumbar spondylosis Expected: 01/06/2021, Expires: 01/06/2022[facility] Phone: comment on above:Expected: 01/06/2021, Expires: 01/06/2022tart: 06-32-7515Ntjuegfwy vaccinationFlu vaccine (#1)[employer] Phone: start: 64-31-7467Btlyma Wellness Visit (AWV)Annual Wellness Visit (AWV)[employer] Phone: start: 24-25-3949Jwrolgfevoio 65+ years Vaccine (1 of 1 - PPSV23)Pneumococcal 65+ years Vaccine (1 of 1 - PPSV23)[employer] Phone: start: 44-22-8108MUX patients and/or patients aged 60+ years (1 - 1-dose 60+ series)RSV patients and/or patients aged 60+ years (1 - 1-dose 60+ series)[facility] IncStart: 64-70-5772Velueffic for osteoporosisDEXA (modify frequency per FRAX score)[employer] Phone: start: 59-19-5811Shmggjeaxzbeay of varicella zoster vaccineZoster (Shingles) Vaccine (1 of 2)25eighttart: 05-31-8335Tixgxcqit for malignant neoplasm of breastBreast cancer screenSouthwest General Health CenterWhenSoon Phone: start: 74-06-8034Hacnutzwq for malignant neoplasm of colonColon cancer screen colonoscopySouthwest General Health CenterMicroland Work Phone: start: 81-61-3121Mndgufvw Vaccine (1 of 2)Shingles Vaccine (1 of 2)[employer] Phone: start: 43-05-7848Tnrtil Vaccines (1 of 2)Zoster Vaccines (1 of 2)[facility]: 21-38-1380Dzakk panel Lipid CashCashPinoySouthwest General Health CenterWhenSoon Phone: start: 69-04-5532AHnE/Tdap/Td Vaccines (1 - Tdap) DTaP/Tdap/Td Vaccines (1 - Tdap)[facility]: 15-36-2514VCyK,Tdap and Td Vaccines (1 - Tdap)DTaP,Tdap and Td Vaccines (1 - Tdap)[facility]SeeFuturetart: 34-63-8425ETwF/Tdap/Td vaccine (1 - Tdap) DTaP/Tdap/Td vaccine (1 - Tdap)[employer] Phone: start: 34-94-3226Gdkze BMI Follow Up PlanAdult BMI Follow Up PlanProCrossbridge Behavioral Health Health SystemStart: 04-82-0482Cgagicetp C screening Hepatitis C ScreeningThe Christ Hospital: 41-98-5434MJVMQ-19 Vaccine (1)COVID-19 Vaccine (1)[employer] Phone: start: 92-22-6461Ghccnchfglgd Vaccine: 65+ Years (1 of 2 - PCV)Pneumococcal Vaccine: 65+ Years (1 of 2 - PCV)[facility]: 81-68-6868Rhucnikxv C screeningHepatitis C [facility]Microl[facility] Work Phone: start: 76-32-5293Xvofh panelLipid PanelUnOhio Valley Surgical Hospital: 02-24-1948Medicare Annual Wellness VisitMedicare Annual Wellness Visit (AWV)[facility]: 1945 Screening for osteoporosisBone Density ScanSelect Medical Specialty Hospital [facility], Inc Start: 94-70-0236LYY QnTSH testingYP[employer] Phone: End: 11-67-0554Cflqg metabolic 2000 panel - Serum or PlasmaBasic Metabolic Panel Lab Routine Elevated blood sugar 1 Occurrences starting 07/23/2024 until 07/23[employer] Phone: comment on above:1 Occurrences starting 07/23/2024 until 07/23/2025 End: 22-68-1317Ywntzvftjtevhq vitamin b-12Vitamin B12 Lab Routine B12 deficiency 1 Occurrences starting 12/05/2023 until 12/05/2024[facility] HospitalMobilitie Comment on above:1 Occurrences starting 12/05/2023 until 12/05/2024 End: 14-62-0371Mjxpnupyct A1c/Hemoglobin.total in BloodHemoglobin A1c Lab Routine Elevated blood sugar 1 Occurrences starting 07/23/2024 until 07/23/2025 StatsMixComment on above:1 Occurrences starting 07/23/2024 until 07/23/2025 End: 50-24-4272FvgzerpRxshevo Lab Routine Hypoglycemia 1 Occurrences starting 07/23/2024 until 07/23/2025StatsMixComment on above:1 Occurrences starting 07/23/2024 until 07/23/2025 End: 83-04-7404Fpggpslzqyrg pulse oximetryPulse Oximetry Spot Check Respiratory Care Routine One Time for 1 Occurrences starting 01/13/2021 until 01/13/2021 [employer] Phone: comment on above:One Time for 1 Occurrences starting 01/13/2021 until 01/13/2021MR Lumbar spine WO [facility] HospitalOxygen therapy [Minimum Data Set]Initiate Oxygen Therapy Protocol Respiratory Care Routine Daily until discontinued starting 01/13/2021[employer] Phone: Comment on above:Daily until discontinued starting 01/13/2021atient EducationOhiohealth Grove City Methodist Hospital Ctr Work Phone: Patient referralOhiohealth Grove City Methodist Hospital Ctr Work Phone: Phase I & II - metered glucosePhase I & II - metered glucose Point of Care Testing Routine As Needed until discontinued starting 01/13/2021[facility] Work Phone: comment on above:As Needed until discontinued starting 01/13/2021 End: 00-37-1698Qndsroe profile includes TSH KW5Xgmondr profile includes TSH FT4 Lab Routine Cold intolerance 1 Occurrences starting 12/05/2023 until 12/05/2024 [facility] Work Phone: comment on above:1 Occurrences starting 12/05/2023 until 12/05/2024 End: 05-09-3688Sltkbdh D 25 hydroxyVitamin D 25 hydroxy Lab Routine Hypovitaminosis D 1 Occurrences starting 12/05/2023 until 12/05/2024[facility] SystemComment on above:1 Occurrences starting 12/05/2023 until 12/05/2024 [facility] Payers DatePayer CategoryPayerPolicy [id number]-yyn [id number] 2023Medicare (Managed Care) [id number] 2023Medicare [id number] [id number] 1.2.840.384112.1.13.239.2.7.3.445491.44674-50-8576Kdnblms Health Insurance [id number] [id number] 2..8.139571.04143207-38-9141Zydqdby Health [id number] 2.0.8.97283[id number] 2.840.1.835857.3.57[id number] 2.0.1.386217.3.579.[id number] 2.840.1.838152.3.57[id number] 2..1.727069.3.579.2.20137-93-4775Fsdenkd8453673 2.0.1.077098.3.579.2.06547-60-8812Mzshlzh4852506 2.0.1.686373.3.579.2.76001-06-6462Hkhhnor8155696 2..1.838092.3.579.2.35776-57-6567Lwtxbjv90935774 2.840.1.810695.3.579.2.00936-03-6181Uveqoye66148027 2.0.1.660497.3.579.2.50461-80-2573Hkyzncp83673040 2.0.1.962711.3.57[id number] 2.840.1.631019.3.579.2.6[id number] 2.840.1.429191.3.579.2.09492-86-4997Xkcudxf43805427 2.840.1.318339.3.579.2.02585-40-9521Rlalcek52791378 2.16.840.1.236956.3.579.[id number] 2.16840.1.501383.3.579.2.819105-18-5236Lidewih12793702 2.16.840.1.716615.3.579.2.363615-65-1045Dalxtgf55872343 2.16840.1.070108.3.579.2.349993-79-7372Darjeqj91235419 2.16840.1.921129.3.579.2.385020-79-8834Zytwmwj09250331 2.16840.1.102572.3.579.2.125355-76-9999Ukowjzg5873893 2.16840.1.469199.3.579.2.521817-21-1832Ayfegmn0959188 2.16840.1.297599.3.579.2.430012-50-3122Tdwdcyo0309682 2.16840.1.855522.3.579.2.814708-85-6249Xpkueax2158040 2.16840.1.066189.3.579.2.098192-52-3263Wtmgust5827882 2.16840.1.873165.3.579.2.586289-22-7016Ioirdnr5530325 2.16840.1.871940.3.579.2.783729-09-2934Jziawca0060053 2.16840.1.821124.3.579.2.773462-34-3604Foougau1465571 2.16840.1.120595.3.579.2.305556-72-4618Cwufkzd8297430 2.16840.1.374542.3.579.2.518391-99-8462Cehapwm537131017 2.16.840.1.741915.3.579.2.418950-03-4299Zuwsksv092092497 2.16.840.1.624402.3.579.2.568879-55-2131Gekcbch472496552 2.16840.1.145610.3.579.2.345599-34-6371Lzsdvdb57519855 2.840.1.278860.3.579.2.149074-76-7651Qhhmhdr14857839 2.840.1.304513.3.579.2.244340-94-9891Nswyygh81719964 2.0.1.651595.3.57[id number]-q953tjg480g1TabofwxGtkkeof95806421 2.0.1.601580.3.579.2.198Inhonlw05745745 2.0.1.839467.3.579.2.531 Social History DateTypeDetailFacilityStart: 01-06-2021 End: 37-48-0644Bfhsdhc smoking status NHISNever smokerMercy Hospitaltart: 01-06-2021 End: 93-32-3495Rgtobbl use and exposureNever [employer] Phone: start: 01-06-2021 End: 83-08-3104Rfabvkq intakeCurrent non-drinker of alcohol (finding)[employer] Phone: start: 26-91-9105Jpt Assigned At BirthNot on [facility] centerYP[facility] [facility] Phone: start: 03-20-2024 End: 68-66-0291Ioxvgohi to SARS-CoV-2 (event)Not sureMercy Health Work Phone: start: 03-30-2024 End: 88-44-5973Ul alcohol useNo alcohol useMP-[facility] [address] DO Work Phone: Start: 03-30-2024 End: 35-03-0132Wlg Assigned At [facility] [employer] Other Start: 90-43-5746Kni Assigned At [facility]ertart: 03-30-2024 End: 62-68-5347Uopquptwv beverage intakeLifetime non-drinker (finding)[facility] [employer] [facility] Centertart: 98-91-9361Ixowiqloms depression screening hamvxbkqpx25 [facility] [employer] [facility] Centertart: 05-29-2015 End: 26-69-5153AyzKhhmxt (finding)[facility] [employer] [facility] Centertart: 49-20-0182Oyshrn identityIdentifies as female gender (finding)[facility] HealthcareStart: 04-10-2025 Bcujmkzdk66UJFY HealthcareStart: 24-33-5568Dhxlsut Commentcaffiene- noneNOPutnam County Memorial Hospital Medical Equipment Procedure CodeEquipment CodeEquipment Original TextEquipment IdentifierDatesKit Ld L60cm 1x8 Comp Trl Scrn For Sacr Nrv Stim [id number]_xcuYgglz: 01-13-2021 Patient to test once [id number]: 87-61-1008Pzjertb to test once daily [id number]: 07-23-2024 Goals DatePatient GoalDesired Activity/State Functional Status YbnjSfcpdhbfyfXwaoylQiyuldgx56-76-5594Bjyuutxbysc anxiety disorder 7 item (RICARDO-7)[facility] CenterIzhednweeg80-60-7781Vtwfgyt Health Questionnaire 2 item (PHQ-2) [Reported][facility] CenterGdxqdbfsqh25-30-7902BDX-2 quick depression assessment panel [Reported.PHQ][facility] Clinical Notes 08-06-2021 to 08-29-2025 Note Date & KsazFiopKjapafhy04-29-2224 Telephone encounter Note* Telephone Encounter - David De Leon LPC - 08/29/2025 12:40 PM EST Clinician left client a voicemail explaining resignation, offering transfer/referral options, encouraged the client to call [facility] for counseling as needed. [facility] CenterUxmmnsxezm86-37-5340 Miscellaneous Notes* Telephone Encounter - David De Leon LPC - 08/29/2025 12:40 PM EST Clinician left client a voicemail explaining resignation, offering transfer/referral options, encouraged the client to call [facility] for counseling as needed. documented in this encounterSSM Saint Mary's Health CenterCpffdzltgf38-08-9528 Miscellaneous Notes* Telephone Encounter - Anastacia Hale - 08/08/2025 2:18 PM EDT Regina called, she would like a pain management consult at pain management in [place] for her back, knees, etc. Please advise documented in this encounterSalem [facility] Hospital10-16-2025 Telephone encounter Note* Telephone Encounter - Anastacia Hale - 08/08/2025 2:18 PM EDT Regina called, she would like a pain management consult at pain management in [place] for her back, knees, etc. Please advise [facility]09-19-2025 History of Present illness Narrative* Shekhar Perez MD - 07/12/2025 11:00 AM EDT Subjective Patient ID: Regina Henry is a 79 y.o. female. She continues to be limited by her chronic back issues. Her MRI showed degenerative changes but nothing that appears amenable to surgical intervention. She has previously had injections through the pain clinic. Those provided minimal positive benefit. She has numerous medication allergies which aremainly intolerances. She is not describing new neurological symptoms. She does have some urinary incontinence issues which are not neurological in nature. She has been working with a therapist regarding her depression and anxiety. Her therapist is on maternity leave at the moment and will resume sessions after the of the year. She is not suicidal. The following portions of the patient's history were reviewed and updated as appropriate: allergies, current medications, past medical history, past social history, past surgical history, and problemlist. Review of Systems Objective Physical Exam Constitutional: Comments: She moves around reasonably well in the room and interacts appropriately. She does not appear acutely distressed. No other physical exam done today. Assessment/Plan Reviewed with her. I do not really have much new to offer her. Her listed allergy to nonsteroidal anti-inflammatories relates to tachycardia and not a true allergy. She may or may not tolerate meloxicam and it may or may not help her symptoms but it is worth a trial of a low-dose to see what happens. Further from there. Diagnoses and all orders for this visit: Degeneration of intervertebral disc of lumbar region with discogenic back pain and lower extremity pain - meloxicam (MOBIC) 7.5 mg tablet; Take 1 tablet (7.5 mg total) by mouth in the morning. Mixed anxiety depressive disorder documented in this encounterSalem City Hospital08-18-2025 History of Present illness Narrative* Shekhar Perez MD - 06/10/2025 2:30 PM EDT Subjective Patient ID: Regina Henry is a 79 y.o. female. She has a long history of lumbar spinal degenerative disease with chronic back pain. She also has history of generalized osteoarthritis and fibromyalgia. She takes nothing for pain due to being intolerant to Tylenol, opioids, nonsteroidal anti-inflammatory drugs, and gabapentin. She has been evaluated and treated through multiple pain clinics over the years. At 1 time she had a spinal cord stimulator which did not help her and was removed. She has never had any other back surgery. Her last painmanagement treatment and imaging were about 3 or 4 years ago. She has been having progressive back pain symptoms with weakness and pain in her legs. Some of the pain in her legs is related to specific osteoarthritis of her joints. She has a little bit of urinary urge incontinence common for her agebut no bowel or bladder symptoms suggesting neurogenic etiology. No new injury. She recently completed a course of physical therapy to try and strengthen her legs and that did not help her. Other courses of physical therapy over the last number of years really provided no meaningful sustained benefit. The following portions of the patient's history were reviewed and updated as appropriate: allergies, current medications, past medical history, past social history, past surgical history, and problemlist. Review of Systems Objective Physical Exam Constitutional: Comments: She walks with a cane to help her balance. She does not appear acutely in distress. She requires assistance to get up on the exam table. Abdominal: General: There is no distension. Palpations: Abdomen is soft. Tenderness: There is no abdominal tenderness. Musculoskeletal: Comments: No pain with percussion over the lumbar spine. Straight leg raise is negative. Skin: Comments: No rash or bruising over her lumbar spine Neurological: Comments: Reflexes in her lower extremities are preserved. I can not identify specific muscle weakness nor sensory loss. Assessment/Plan The issue is whether she would benefit from procedural intervention and that requires knowledge of the anatomy of her situation. There really would be no point in further conservative management for this chronic process which has failed to improve on multiple prior occasions with therapy, etc.. Little, if any, beneficial information will be gained by regular x-ray. If her MRI does not suggest a situation that might respond to procedural intervention than she will be left with conservative symptom control. I reviewed with her that back surgery is generally not the answer for back pain accept in certain situations. Diagnoses and all orders for this visit: Spinal stenosis of lumbar region with neurogenic claudication - MR lumbar spine without contrast; Future documented in this encounterAkron Children's [email or web address] [facility] Gerber HospitalAqdfph56-95-5865 Miscellaneous Notes* Telephone Encounter - PHYLLIS Moreno - 05/30/2025 11:10 AM EDT Refill request, contract signed and appointments up to date. documented in this encounterSalem City Hospital08-07-2025 Telephone encounter Note* Telephone Encounter - PHYLLIS Moreno - 05/30/2025 11:10 AM EDT Refill request, contract signed and appointments up to date. [facility]07-30-20[facility] History of Present illness Narrative* Oscar Quintanilla, HNP- - 05/22/2025 2:00 PM EDT Images from the original note were not included. HPI: Regina Henry is a 79 y.o. female with a history of Parkinson's disease, Fibromyalgia, CAD (with stent placement), history of blood clot of left leg, Vitamin D deficiency, HTN, MDD, and RICARDO. Patient is here today for follow-up. Patient was seen for initial intake on 04/10/25. At patient's last visit, she was started on Elavil 10 mg. On 05/07/25, she called the office complaining of minimal sleep for 4 consecutive days so her Elavil was increased to 25 mg. She states that she tried to increase this and experienced increased anxiety and dizziness so she is not taking this 25 mg dose every night because of this. She states that she feels her sleepless nights were contributing to her trying to decrease how often she was taking her Ativan. She states she is taking half of an Ativan tablet twice a day - between 2 PM and 3:30 PM, as well as right before bed. She got labs completed on 05/21 that showed low vitamin D (25). She states she also got her urine drug screen completed. Results for this are still pending. She is scheduled to see David on June 03 to start counseling. SUBJECTIVE: PAST MEDICAL HISTORY: Past Medical History: Diagnosis Date Anxiety Arthritis Cataract Chronic laryngitis Clot left leg blood clot Depression Dysphagia Endometriosis Fibromyalgia GERD (gastroesophageal reflux disease) H. pylori infection Heart disease Hiatal hernia History of psychiatric care HLD (hyperlipidemia) Hx of psychiatric hospitalization X2. 1x [place] [facility] [place] [facility] [facility] anxiety Hypertension Hypertrophy of lingual tonsil LPRD (laryngopharyngeal reflux disease) Memory loss MRSA (methicillin resistant Staphylococcus aureus) Multinodular goiter Osteoporosis Parkinson's disease (HCC) (HHS-HCC) X 5, 1 miscarriage Thyroid disease MEDICATIONS: Current Outpatient Medications Medication Instructions amitriptyline (ELAVIL) 10 mg, Oral, Nightly cholecalciferol (VITAMIN D-3) 25 mcg, Oral, Daily estradiol (Estrace) 0.1 MG/GM vaginal cream apply vaginally once daily LORazepam (ATIVAN) 0.25 mg, Oral, 2 times daily ALLERGIES: Allergies Allergen Reactions Keflex [Cephalexin] Shortness of breath Albuterol anxiety Aspirin Gabapentin Unknown anxiety Other reaction(s): Unknown anxiety Ibuprofen Other Reaction(s): Unknown Nebivolol Dizziness and Unknown Other Darvocet A500 Oxycodone Oxycodone-Acetaminophen Other Reaction(s): Unknown palpitations Other reaction(s): Unknown palpitations Prochlorperazine Unknown Patient unsure sx Propoxyphene Other Reaction(s): tachycardia, Unknown Other reaction(s): Unknown Statins Muscle pain Sulfa Antibiotics Unknown Other Reaction(s): KENNEDY headache Other reaction(s): Unknown headache Codeine Unknown and Palpitations Palpitations & anxiety increased heart rate Morphine Palpitations palpitations Nsaids Palpitations palpitations Penicillin V Palpitations Serotonin Reuptake Inhibitors (Ssris) Palpitations Increased anxiety SURGICAL HISTORY: Past Surgical History: Procedure Laterality Date AORTIC STENT 11/24/2015 CARDIAC CATHETERIZATION 11/18/2015 COLONOSCOPY normal, 2013, 2020 CT ANGIOGRAM HEART CORONARY 03/07/2023 CT ANGIOGRAM TAVR HAND SURGERY Right 2015 LUMBAR EPIDURAL INJECTION 2017 X 4 THYROID BIOPSY 05/19/2016 FNA TONSILLECTOMY 1978 with adenoidectomy TOTAL ABDOMINAL HYSTERECTOMY 1984 FAMILY HISTORY: Family History Problem Relation Name Age of Onset Heart disease Mother Diabetes Mother Stroke Mother Mental illness Mother Coronary artery disease Father Heart disease Father Depression Sister Depression Brother 1 brother SOCIAL HISTORY: Social History Tobacco Use Smoking status: Never Smokeless tobacco: Never Vaping Use Vaping status: Never Used Substance Use Topics Alcohol use: Never Comment: caffiene- none Drug use: Never Patient Care Team: Shekhar Perez MD as PCP - General (Family Medicine) JOSÉ MIGUEL Sanchez as Nurse Practitioner (Behavioral Health) PSYCHIATRIC REVIEW OF SYMPTOMS AND MENTAL STATUS EXAM ROS: Patient denies fatigue, malaise, night sweats, weight loss, weight gain, cough, SOB, palpitations, chest pain, insomnia, dysphagia, abdominal pain, N/V/D, pruritus, rash, headache, dizziness, seizures, tremors, headache. Appearance Appearance: Normal grooming and hygiene. Appears stated age. Dressed appropriately for weather. Behavior Calm, cooperative, pleasant. Good posture. Psychomotor Activity Intact. No abnormal movements noted. Eye contact Good Speech Normal, clear, regular rate, rhythm and volume Affect Full range. Stable. Appropriate and congruent with mood. Mood Anxious Thought Process Organized, logical, and goal directed Thought Content: Denies suicidal and homicidal ideation. Perception: Denies auditory or visual hallucinations. No evidence of delusions. Denies derealization and depersonalization. Cognition Alert and attentive during visit Memory Immediate, recent and remote memory intact Insight Good. Acknowledges predominant symptoms of illness and need for treatment Judgement Good. Able to make reasonable life decisions. OBJECTIVE: Visit Vitals BP 126/72 (BP Location: Right arm, Patient Position: Sitting) Pulse 81 Wt 155 lb BMI 30.27 kg/m OB Status Postmenopausal Smoking Status Never BSA 1.73 m Lab Results Component Value Date TSH 1.87 05/20/2025 Lab Results Component Value Date GLU 118 (H) 05/20/2025 CALCIUM 9.4 05/20/2025 NA 136 05/20/2025 K 4.1 05/20/2025 CO2 23 05/20/2025 CL 103 05/20/2025 BUN 9 05/20/2025 CREATININE 0.58 (L) 05/20/2025 Lab Results Component Value Date WBC 6.0 05/20/2025 HGB 14.2 05/20/2025 HCT 44.6 05/20/2025 MCV 91.0 05/20/2025 PLT 286 05/20/202505/21/25 - Vitamin D (25) ASSESSMENT AND PLAN: Impression: Patient's symptoms consistent with MDD and RICARDO. She has been on many different medications in the past with bad side effects. She reports side effects with 25 mg of Elavil. She is agreeable to go back down to 10 mg dose and keep this dose the same until next visit. We also discussed concerns of using her Ativan to help her sleep. 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 We discussed goal of eventually weaning off of this or using sparingly for severe anxiety only. She agrees with plan. [place] report checked on 05/22/25 shows she got 60 pills (30 days) of Ativan filled on 04/30/25 by PCP. Controlled substance agreement reviewed and signed on 04/10/25. UDS was obtained recently by patient; results still pending. Patient made aware of my maternity leave this Fall, as well as coverage, plan for medication refills, and if any concerns arise. Assessment/Plan Diagnoses and all orders for this visit: Moderate episode of recurrent major depressive disorder (HCC) - amitriptyline (Elavil) 10 MG tablet; Take 1 tablet (10 mg) by mouth at bedtime RICARDO (generalized anxiety disorder) - amitriptyline (Elavil) 10 MG tablet; Take 1 tablet (10 mg) by mouth at bedtime Fibromyalgia - amitriptyline (Elavil) 10 MG tablet; Take 1 tablet (10 mg) by mouth at bedtime Vitamin D insufficiency - cholecalciferol (Vitamin D-3) 25 MCG (1000 UT) tablet; Take 1 tablet (25 mcg) by mouth Daily Treatment Plan/Recommendations: - Continue Ativan PRN for anxiety. Encouraged her to use this only when she is having severe anxiety. - Decrease Elavil to 10 mg at bedtime for anxiety and depression. - Start Vitamin D supplement for vitamin D insufficiency. Recheck level in 3 months. - Keep counseling appointment for additional mental health support and treatment. - RTC in 1 month. Discussed any medication changes and follow-up plan with patient. Encouraged patient to call office sooner if symptoms worsen or if any questions/concerns arise. Patient was seen Face to Face, Total time spent with patient was 20 minutes, which includes reviewing chart documents, previous notes/records, counseling and discussion with patient and/or coordination of care as described above. * Nunu Henry LPN - 05/22/2025 2:00 PM EDT States since starting the increase of Elavil 25 mg she has had increased anxiety, having dizziness,balance has been off and heart palpitations. Patient reports not taking it every night. documented in this encounterChristian [place]ille [id number] History of Present illness Narrative* JOSÉ MIGUEL Sanchez - 05/07/2025 3:57 PM EDT rdered documented in this [facility]07-07-2025 Miscellaneous Notes* Telephone Encounter - PHYLLIS Moreno - 04/29/2025 2:27 PM EDT Refill request, contract signed and appointments up to date. [facility] Tele[facility] encounter Note* Telephone Encounter - PHYLLIS Moreno - 04/29/2025 2:27 PM EDT Refill request, contract signed and appointments up to date. [facility]06-18-2025 History of Present illness Narrative* JOSÉ MIGUEL Sanchez - 04/10/2025 12:30 PM EDT Images from the original note were not included. HPI: Regina Henry is a 79 y.o. female who was referred by PCP for anxiety and depression. She states that she is here today because life stinks. She states that she is feeling sad most days, fatigued, and anxious. She denies any problems with her weight but admits her appetite is not great. She states she has felt like this for a long time. She states she had a hysterectomy [id number] years old and that is when she began noticing changes in her mental health. She states she had complications after that, which included heart palpitations and anxiety. She states that her mental health comes and goes in waves. She states when she was younger, she would notice getting bouts of depression that would come every 5 years. She states that everything in life is hard to deal with. She admits that anything that comes her way that is unexpected causes her to feel depressed or anxious. She states her father when she was young so she doesn't remember him. She states her mother had a lot of issues, especially with anger, due to raising 11 children. She states she is here today to get a different perspective on her mental health. She states she isn't sure if she wants m edications because all of the meds she has tried int he past have caused her to have side effects. Medical History: Parkinson's disease, HTN, CAD (with history of stent placement), GERD, Fibromyalgia, Hyperlipidemia, Chronic back pain, history of blood clot in left leg, Vitamin D deficiency, thyroid nodules Has seen Neurology (Dr. Humphreys) for dizziness. She states that he diagnosed her with Parkinson's Disease and tried to take medication for this for 1 week, but had significant side effects with this soshe stopped it. She states she doesn't believe she has Parkinson's because of her symptoms. Past Psychiatric History: Previous diagnoses: Depression, Anxiety Previous medication trials: Sertraline, Prozac, Paxil, Celexa, Lexapro - increased anxiety Cymbalta - palpitations, increased anxiety Trintellix Doxepin - rapid heart rate Ambien, Trazodone, Melatonin Geodon, Rexulti, Risperdal Nortriptyline Buspar Diazepam Current medications: Ativan 0.5 mg BID PRN - has been on medication for several years Previous psychiatric treatment: Reports she did counseling at [facility] 3-4 years ago. She states she saw counselor 3 times but stopped due to finances and counselor's schedule. She did counseling through [facility] many years prior to that. Has seen Dr. Fish (psychiatrist) in [place] 2-3 years ago. Previous psychiatric hospitalizations: States she was hospitalized in her 30s for 3 weeks due to anxiety after having her hysterectomy. Previous suicide attempts or self harm: Denies History of violence: Denies History of trauma: Denies Legal history: Denies Family psychiatric history includes: See chart Substance Abuse History: Patient denies any history of substance use disorder or previous treatmentfor such history. Recreational drugs: Denies Use of alcohol: Denies Use of caffeine: Denies Tobacco or vaping use: Denies Social History: Relationship/marital status: Has been to (80 years old) for 60 years. 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 PSYCHIATRIC REVIEW OF SYSTEMS: Depression: Patient DOES ENDORSE episodes of mood fluctuations lasting 2 weeks or more including sadness, anhedonia, low self-esteem, crying spells, problems with sleep, problems with appetite, psychomotor agitation / retardation, poor concentration, fatigue, feelings of worthlessness and hopelessness, decreased sex drive. Patient states they have had passive suicidal ideation; denies previous suicide attempts or self harm. Patient states they have a good support system in place. PHQ-9 score of17. Erica/Hypomania: Patient DENIES. Anxiety: Patient DOES ENDORSE having excessive worry, restlessness, being on edge, poor concentration, irritability, mind going blank, muscle tension, sleep disturbance. Symptoms have been going on for over 6 months. RICARDO-7 score of 14. Panic attacks: Patient DENIES. Social anxiety: Patient DENIES. PTSD: Patient DENIES. OCD: Patient DENIES. Psychosis: Patient DENIES having delusions, visual hallucinations, auditory hallucinations, thoughtinsertion, paranoia, thought broadcasting. ADHD: Patient DENIES. Eating Disorder: Patient DENIES. SUBJECTIVE: PAST MEDICAL HISTORY: Past Medical History: Diagnosis Date Anxiety Arthritis Cataract Chronic laryngitis Clot left leg blood clot Depression Dysphagia Endometriosis Fibromyalgia GERD (gastroesophageal reflux disease) H. pylori infection Heart disease Hiatal hernia History of psychiatric care HLD (hyperlipidemia) Hx of psychiatric hospitalization X2. [place] [facility] [place] [facility] . 2x [facility] anxiety Hypertension Hypertrophy of lingual tonsil LPRD (laryngopharyngeal reflux disease) Memory loss MRSA (methicillin resistant Staphylococcus aureus) Multinodular goiter Osteoporosis Parkinson's disease (HCC) ([facility]) X 5, 1 miscarriage Thyroid disease MEDICATIONS: Current Outpatient Medications Medication Instructions estradiol (Estrace) 0.1 MG/GM vaginal cream apply vaginally once daily LORazepam (ATIVAN) 0.5 mg, Nightly ALLERGIES: Allergies Allergen Reactions Keflex [Cephalexin] Shortness of breath Albuterol anxiety Aspirin Gabapentin Unknown anxiety Other reaction(s): Unknown anxiety Ibuprofen Other Reaction(s): Unknown Nebivolol Dizziness and Unknown Other Darvocet A500 Oxycodone Oxycodone-Acetaminophen Other Reaction(s): Unknown palpitations Other reaction(s): Unknown palpitations Prochlorperazine Unknown Patient unsure sx Propoxyphene Other Reaction(s): tachycardia, Unknown Other reaction(s): Unknown Statins Muscle pain Sulfa Antibiotics Unknown Other Reaction(s): KENNEDY headache Other reaction(s): Unknown headache Codeine Unknown and Palpitations Palpitations & anxiety increased heart rate Morphine Palpitations palpitations Nsaids Palpitations palpitations Penicillin V Palpitations Serotonin Reuptake Inhibitors (Ssris) Palpitations Increased anxiety SURGICAL HISTORY: Past Surgical History: Procedure Laterality Date AORTIC STENT 11/24/2015 CARDIAC CATHETERIZATION 11/18/2015 COLONOSCOPY normal, 2013, 2020 CT ANGIOGRAM HEART CORONARY 03/07/2023 CT ANGIOGRAM TAVR HAND SURGERY Right 2015 LUMBAR EPIDURAL INJECTION 2017 X 4 THYROID BIOPSY 05/19/2016 FNA TONSILLECTOMY 1978 with adenoidectomy TOTAL ABDOMINAL HYSTERECTOMY 1984 FAMILY HISTORY: Family History Problem Relation Name Age of Onset Heart disease Mother Diabetes Mother Stroke Mother Mental illness Mother Coronary artery disease Father Heart disease Father Depression Sister Depression Brother 1 brother SOCIAL HISTORY: Social History Tobacco Use Smoking status: Never Smokeless tobacco: Never Vaping Use Vaping status: Never Used Substance Use Topics Alcohol use: Never Comment: caffiene- none Drug use: Never Patient Health Questionnaire-9 Score: 17 RICARDO-7 Total Score: 14 Patient Care Team: Shekhar Perez MD as PCP - General (Family Medicine) JOSÉ MIGUEL Sanchez as Nurse Practitioner (Behavioral Health) MENTAL STATUS EXAM Appearance Appearance: Normal grooming and hygiene. Appears stated age. Dressed appropriately for weather. Behavior Calm, cooperative, pleasant. Good posture. Psychomotor Activity Intact. No abnormal movements noted. Eye contact Good Speech Normal, clear, regular rate, rhythm and volume Affect Blunted Mood Anxious and Depressed Thought Process Organized, logical, and goal directed Thought Content: Denies suicidal and homicidal ideation. Perception: Denies auditory or visual hallucinations. No evidence of delusions. Denies derealization and depersonalization. Cognition Alert and attentive during visit Memory Immediate, recent and remote memory intact Insight Good. Acknowledges predominant symptoms of illness and need for treatment Judgement Good. Able to make reasonable life decisions. OBJECTIVE: Visit Vitals BP 118/78 (BP Location: Right arm, Patient Position: Sitting) Pulse 99 Wt 156 lb BMI 30.47 kg/m OB Status Postmenopausal Smoking Status Never BSA 1.73 m Lab results: She states she has not got any labs done within the last 2-3 years. ASSESSMENT AND PLAN: Impression: Patient's symptoms consistent with MDD and RICARDO. She has been on many different medications in the past with bad side effects. She states she is hesitant to try something else because of her experience with medications. We discussed medication options based on what she has tried in the past. She has tried Nortriptyline int he past but cannot remember having any bad side effects with this. We discussed trying Elavil to help with her depression, anxiety and fibromyalgia. We also discussed concerns of using her Ativan to help her sleep. 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 We discussed goal of eventually weaning off of this or using sparingly for severeanxiety only. She admits to a lot of stress when something unexpected happens. We discussed counseling to help with this to help with coping skills. She is agreeable to this. She is also agreeable tolabs to rule out other abnormalities that could be contributing to her symptoms. [place] report checked on 04/10/25 shows she got 60 pills (30 days) of Ativan filled on 03/20/25. Controlled substance agreement reviewed and signed today. UDS to be obtained at next visit. Assessment/Plan Diagnoses and all orders for this visit: Moderate episode of recurrent major depressive disorder (HCC) - CBC and differential; Future - Vitamin D 25 hydroxy Total; Future - Tsh+free t4; Future - Comprehensive metabolic panel; Future - amitriptyline (Elavil) 10 MG tablet; Take 1 tablet (10 mg) by mouth at bedtime RICARDO (generalized anxiety disorder) - Ambulatory referral to Psychiatry - CBC and differential; Future - Vitamin D 25 hydroxy Total; Future - Tsh+free t4; Future - Comprehensive metabolic panel; Future - amitriptyline (Elavil) 10 MG tablet; Take 1 tablet (10 mg) by mouth at bedtime High risk medication use - CBC and differential; Future - Vitamin D 25 hydroxy Total; Future - Tsh+free t4; Future - Comprehensive metabolic panel; Future Fibromyalgia Treatment Plan/Recommendations: - Continue Ativan PRN for anxiety. Encouraged her to use this only when she is having severe anxiety. - Start Elavil 10 mg at bedtime for anxiety and depression. - Labs ordered today to rule out thyroid dysfunction, anemia, and vitamin D deficiency. - Encouraged her to talk to PCP regarding her ongoing shortness of breath that occurs at short distances. - Encouraged counseling for additional mental health support and treatment. Patient agreeable to this and will be scheduled today. - RTC in 4-6 weeks to re-evaluate symptoms. Discussed follow-up plan with patient, and encouraged patient to call office sooner if symptoms worsen or if any questions/concerns arise. Reviewed the risks, benefits, and potential side effects from the medications. The patient agrees the benefits outweigh the risks and agrees to treat their symptoms. Discussed treatment plan, the patient was allowed time to ask questions, and the patient agreed with the plan moving forward. Instructed patient to call office with any complications or potential side effects. Patient instructed to present to the local ER or call Suicide Hotline (079) for any psychosis, suicidal or homicidal ideation, or with any risk of harm to self or others. Patient was seen Face to Face, Total time spent with patient was 60 minutes, which includes reviewing chart documents, previous notes/records, counseling and discussion with patient and/or coordination of care as described above. documented in this [facility]05-29-2025 Telephone encounter Note* Telephone Encounter - Kusum Nair NP - 03/21/2025 9:37 AM EDT [id number] Miscellaneous Notes* Telephone Encounter - Kusum Nair NP - 03/21/2025 9:37 AM EDT Referral placed * Telephone Encounter - Renetta Vanessa - 03/19/2025 10:18 AM EDT Pt would like a referral for Dr Christine Quintanilla for Psych in the [facility] office documented in this [facility]05-29-2025 History of Present illness Narrative* Kusum Nair NP - 03/21/2025 9:34 AM EDT Diagnoses and all orders for this visit: Anxiety and depression (CMS/HCC) - Ambulatory referral to Psychiatry; Future [facility] [id number] Telephone encounter Note* Telephone Encounter - Renetta Vanessa - 03/19/2025 10:18 AM EDT Pt would like a referral for Dr Christine Quintanilla for Psych in the [facility] office [facility] [id number] Miscellaneous Notes* Telephone Encounter - PHYLLIS Moreno - 03/12/2025 8:56 AM EDT Refill request, contract signed and appointments up to date. [facility] Telephone encounter Note* Telephone Encounter - PHYLLIS Moreno - 03/12/2025 8:56 AM EDT Refill request, contract signed and appointments up to date. [facility]05-19-20[facility] History of Present illness Narrative* Kusum Nair NP - 03/11/2025 10:50 AM EDT Images from the original note were not included. CHIEF COMPLAINT REASON FOR VISIT : Patient is here today for follow-up of the diagnosis below. I amfollowing the plan of care established by Dr Humphreys, , who is present in the office today HPI: GAIT INSTABILITY/TREMOR/Parkinson disease -Balance issues started over 10 years ago. Worsening -She states she is experiencing depression, whole body tremor, fatigue, she feels like her body is pulled to the right, -The gait issues are related to instability and room spinning which is worse when she bends over. -She stumbles a lot and walks into the vila but denies falls. She does have postural lightheadedness. She always feels unsteady, rare spinning -She shuffles her feet. -She has a tremor that is constant but varies in intensity. Generally in the right arm -She denies dysphagia. -She does have some mild changes in taste and smell. -She has significant constipation. -she is in PT currently which is helping. She started 3-4 weeks -she is not doing the exercises at home -worse when she looks to the right or turns her head fast NEAR SYNCOPE -She felt like she was going to pass out at times and had a syncopal episode on 2023. Shewas standing in the kitchen and fell to the floor. -Her witnessed this. -She was not shaking. -LOC was less than a minute. -She did not bite her tongue or have incontinence. -She was confused for a few seconds. She stumbles a lot and walks into the vila but denies falls. She does have postural lightheadedness. -No reoccurrence PARESTHESIAS -She has tingling in her hands and feet, left hand > right. -noted more in her feet -pretty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 depression, whole body tremor, fatigue, she feels like her body is pulled to the right. States she used to talk louder and quicker and it does seem to be slower and quiet. The gait issues are related to instability and room spinning which is worse when she bends over. She statesher energy level is very low. She has a lot of fatigue. CURRENT MEDICATIONS: ALLERGIES/DISCONTINUE MEDICATIONS Current Outpatient Medications Medication Instructions cyproheptadine (PERIACTIN) 2 mg, Oral, Nightly estradiol (Estrace) 0.1 MG/GM vaginal cream apply vaginally once daily LORazepam (ATIVAN) 0.25 mg, 2 times daily PRN metoprolol tartrate (Lopressor) 25 MG tablet 1 tablet daily at bedtime tiZANidine (ZANAFLEX) 4 mg, Nightly Allergies Allergen Reactions Keflex [Cephalexin] Shortness of breath Albuterol anxiety Aspirin Gabapentin Unknown anxiety Other reaction(s): Unknown anxiety Ibuprofen Other Reaction(s): Unknown Nebivolol Dizziness and Unknown Other Darvocet A500 Oxycodone Oxycodone-Acetaminophen Other Reaction(s): Unknown palpitations Other reaction(s): Unknown palpitations Prochlorperazine Unknown Patient unsure sx Propoxyphene Other Reaction(s): tachycardia, Unknown Other reaction(s): Unknown Statins Muscle pain Sulfa Antibiotics Unknown Other Reaction(s): KENNEDY headache Other reaction(s): Unknown headache Codeine Unknown and Palpitations Palpitations & anxiety increased heart rate Duloxetine Hcl Palpitations Morphine Palpitations palpitations Nsaids Palpitations palpitations Penicillin V Palpitations There are no discontinued medications. PAST MEDICAL HISTORY: SURGICAL/SOCIAL/FAMILY HISTORY DEPRESSION SCREEN: Past Medical History: Diagnosis Date Anxiety Arthritis Cataract Chronic laryngitis Clot left leg blood clot COVID-19 Depression (CMS/HCC) Dysphagia Endometriosis Fibromyalgia GERD (gastroesophageal reflux disease) H. pylori infection Headache Heart disease Hiatal hernia History of psychiatric care HLD (hyperlipidemia) (CMS/HCC) Hypertension (CMS/HCC) Hypertrophy of lingual tonsil Low blood sugar LPRD (laryngopharyngeal reflux disease) Memory loss MRSA (methicillin resistant Staphylococcus aureus) Multinodular goiter (CMS/HCC) Osteoporosis (CMS/HCC) X 5, 1 miscarriage Sleep disorder Thyroid disease (CMS/HCC) Past Surgical History: Procedure Laterality Date AORTIC STENT 11/24/2015 CARDIAC CATHETERIZATION 11/18/2015 COLONOSCOPY normal, 2013, 2020 CT ANGIOGRAM HEART CORONARY 03/07/2023 CT ANGIOGRAM TAVR HAND SURGERY Right 2014 LUMBAR EPIDURAL INJECTION 2017 X 4 THYROID BIOPSY 05/19/2016 FNA TONSILLECTOMY 1978 with adenoidectomy TOTAL ABDOMINAL HYSTERECTOMY 1984 Social History Tobacco Use Smoking status: Never Smokeless tobacco: Never Substance Use Topics Alcohol use: Never Drug use: Never Family History Problem Relation Name Age of Onset Heart disease Mother Diabetes Mother Stroke Mother Mental illness Mother Coronary artery disease Father Heart disease Father Depression: At risk (08/27/2024) Received from [employer] PHQ-2 Total Score: 17 REVIEW OF SYMPTOMS: Review of Systems Constitutional: Positive for fatigue. Negative for chills, diaphoresis and fever. HENT: Negative for ear pain, tinnitus and trouble swallowing. Eyes: Positive for visual disturbance. Negative for photophobia. Respiratory: Negative for cough and shortness of breath. Cardiovascular: Negative for palpitations and leg swelling. Gastrointestinal: Negative for abdominal pain and nausea. Genitourinary: Negative for difficulty urinating and urgency. Musculoskeletal: Positive for gait problem. Negative for arthralgias, back pain, myalgias, neck pain and neck stiffness. Neurological: Positive for tremors, weakness and headaches. Negative for light- headedness and numbness. Psychiatric/Behavioral: Positive for confusion. Negative for agitation and suicidal ideas. OBJECTIVE: 01/02/2025 12:21 PM 04/05/2024 3:41 PM 02/13/2024 10:15 AM Vitals BMI 29.8 kg/m2 30.66 kg/m2 35.32 kg/m2 BSA (m2) 1.71 m2 1.74 m2 1.77 m2 Systolic 124 158 120 Diastolic 74 84 80 Heart Rate 80 Resp 16 16 Height (in) 5' 5' Weight (lb) 152.6 157 169 Visit Report Report Report Report EXAM: Neurological Exam Mental Status Awake, alert and oriented to person, place and time. Oriented to person, place and time. Recent andremote memory are intact. Speech is normal. Language is fluent with no aphasia. Attention and concentration are normal. Cranial Nerves CN II: Visual acuity is normal. Visual oliver full to confrontation. CN III, IV, : Extraocular movements intact bilaterally. Normal lids and orbits bilaterally. Pupils equal round and reactive to light bilaterally. CN V: Facial sensation is normal. CN VII: Full and symmetric facial movement. CN VIII: Hearing is normal. CN XII: Tongue midline without atrophy or fasciculations. Motor Normal muscle bulk throughout. Normal muscle tone. Right Left Wrist flexion 5 5 Wrist extension 5 5 Right Left Deltoid 5 5 Biceps 5 5 Triceps 5 5 Wrist flexor 5 5 Wrist extensor 5 5 Glutei 5 5 Iliopsoas 5 5 Quadriceps 5 5 Gastrocnemius 5 5 Anterior tibialis 5 5 Posterior tibialis 5 5 Sensory Light touch is normal in upper and lower extremities. Pinprick is normal in upper and lower extremities. Vibration is normal in upper and lower extremities. Reflexes Right Left Brachioradialis 2+ 2+ Biceps 2+ 2+ Patellar 2+ 2+ Achilles 2+ 2+ Right Plantar: downgoing Left Plantar: downgoing Right pathological reflexes: Pablito's absent. Ankle clonus absent. Left pathological reflexes: Pablito's absent. Ankle clonus absent. Coordination [id number], rapid alternating movements and [id number]-lyti normal bilaterally without dysmetria. Gait Normal casual, toe, heel and tandem gait. Romberg is absent. PROCEDURE: NONE ASSESSMENT AND PLAN: EVALUATION: 2021 Vit D 16.7, TSH 3.53, F T4 0.66 2019 Myesthenia Abs NEG EMG of BUE at [facility] on 04/16/21: Median neuropathy on the left, very minimal. Labs from 04/11/21: B12 861; TSH 2.23 [place] w[place] [facility] [place]: No acute intracranial pathology. Worsening chronic microvascular changes are noted. No abnormal postcontrast enhancement. Routine EEG on May 31, 2019: Normal EMG of the bilateral lower extremities 08/06/19: Suggestion of L5 radiculopathy MRI of the brain on 05/15/19: Mild diffuse atrophy. No focal atrophy. Chronic microvascular ischemicdisease. Neuropsych testing 02/2024 suggested cognitive issues were more reflective of a distractibility issue as opposed to representing a neurodegenerative condition or other organic etiology. Findings are in the context of severe depression and anxiety, as well as very poor sleep and chronic persistent pain. Sleep study in 2021 showed a total 46 respiratory events with an AHI of 11.2. Normal haptoglobin saturations were severely impaired with a mean oxygen saturation of 90 percent and a low of 81 percent. She spent 24 percent of the night below 90 percent saturation. She spent 92 percent of the time onher back with an AHI of 9. An 8 percent of sleep time on her side with an AHI of 35.1. ASSESSMENT: 79 y.o. female who presents for evaluation of anxiousness, dizziness and gait instability at the request of Dr Perez. Medical history includes HTN, cognitive impairment, chronic fatigue, CTS, fibromyalgia, HLD, thyroid disease and anxiety. This list is not all inclusive. Balance issues started over 10 years ago. She states she goes through cycles with symptoms including depression, whole body tremor, fatigue, she feels like her body is pulled to the right, she has blurred vision, she gets nauseated with close up work and gets a headache. She has light and sound sensitivity as well as nausea. Etiology of her symptoms is unclear. Depression and anxiety are certainly playing a major role. We will refer her to Dr. Warner for management of these diagnoses as she has seen him in the past. Itis possible that she is experiencing complicated migraines with neurological symptoms. She does have some very subtle findings on exam with very slight bradykinesia, shuffling gait, and postural instability that may contribute to a Parkinson's type picture although she does not meet criteria for this diagnosis completely. Complicating that picture she has some decreased sensory in the lower extremity suggesting a neuropathy which can contribute to shuffle gait and postural instability. She has not intention tremor but not a resting tremor and I did not note cogwheel rigidity on exam. I was able to see nystagmus bilaterally but was worse on the left compared to the right that would suggest BPPV. She states she has tried physical therapy in the past with no benefit. She may benefit from retrying this with vestibular exercises and for balance and gait training as well. One of her biggest worries is her fatigue. She told me she has untreated sleep apnea and refuses to wear CPAP. Untreatedsleep apnea is going to make headaches harder to treat as well as affecting memory and contributingto low energy levels. It is also a risk for stroke, heart attack, and sudden . This was all discussed with the patient and she can continues to decline treatment of sleep apnea. 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 Consider HANNAH Scan Continue therapy. Consider EMG to assess for peripheral nerve process such as neuropathy Fall precautions discussed at length Dizziness Continue cyproheptadine 2 mg at bed for headaches and dizziness Consider vestibular therapy with gait training for balance Anxiety & Depression She did not see psychiatry. She does not want to be on any anti-depressants. Follow up 8 weeks. This note was scribed by PHYLLIS De acting under the direction of Mickey Humphreys MD. The content has been reviewed and confirmed for accuracy by Mickey Humphreys MD documented in this [facility]03-26-2025 History of Present illness Narrative* MONTSERRAT Carrizales - 01/16/2025 10:30 AM EDT History: Pt was referred to ENT because of dizziness. Pt states she is always off balance, onset months ago.Pt has not noticed a decrease in her hearing. She is sensitive to louder sounds. Pt also reports periodic tinnitus both ears. Pt denies otalgia and frequent ear infections. 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 Otoscopic Exam: Right Ear: Partially occlusive cerumen Left Ear: Ear canal clear and TM intact Pure Tone Audiometry Right Ear: Mild to moderate sensorineural hearing loss above 3K Hz Left Ear: Mild to moderate sensorineural hearing loss above 2K Hz Speech Audiometry Right SRT = 20 dB and word discrimination score at 55 dBHL = 100% Left SRT = 25 dB and word discrimination score at 55 dBHL = 100% Tympanometry Right Ear: Type A tympanogram Left Ear: Type A tympanogram documented in this [facility]03-25-2025 Miscellaneous Notes* Telephone Encounter - PHYLLIS Moreno - 01/15/2025 2:11 PM EDT Refill request, contract signed and appointments up to date. documented in this [facility]03-25-2025 Telephone encounter Note* Telephone Encounter - PHYLLIS Moreno - 01/15/2025 2:11 PM EDT Refill request, contract signed and appointments up to date. [facility]02-18-2025 Miscellaneous Notes* Telephone Encounter - PHYLLIS Moreno - 12/11/2024 4:21 PM EST Refill request, contract signed and appointments up to date. [facility] Telephone encounter Note* Telephone Encounter - PHYLLIS Moreno - 12/11/2024 4:21 PM EST Refill request, contract signed and appointments up to date. [facility]02-11-2025 Miscellaneous Notes* Telephone Encounter - Anastacia Hale - 12/04/2024 2:35 PM EST Regina would like a referral to Dr Mickey Humphreys at [facility] for her dizziness and walking into [place] and help with her anxiety. Please advise [facility] Telephone encounter Note* Telephone Encounter - Anastacia Hale - 12/04/2024 2:35 PM EST Regina would like a referral to Dr Mickey Humphreys at [facility] for her dizziness and walking into [place] and help with her anxiety. Please advise [facility]01-09-2025 Miscellaneous Notes* Telephone Encounter - Francesca Abebe CMA - 11/01/2024 2:55 PM EST Refill request [facility] Telephone encounter Note* Telephone Encounter - Francesca Abebe CMA - 11/01/2024 2:55 PM EST Refill request [facility]12-03-2024 Miscellaneous Notes* Telephone Encounter - Francesca Abebe CMA - 09/25/2024 12:38 PM EST [facility]ill request [facility] Telephone encounter Note* Telephone Encounter - Francesca Abebe CMA - 09/25/2024 12:38 PM EST Refill request [facility]11-06-2024 Evaluation note* Diagnosis Onset Date Resolution Status Admit Date Arthritis of lumbosacral spine acuteNovember 2023 11:27amLumbar painacuteNovember 2023 11:27amChronic back painchronicNovember 2023 11:27amArthritis of lumbosacral spineacute October 02, 2024 1:47pmLumbar painacuteDecember 2023 1:47pmChronic back painchronicDecember 2023 1:47pm [facility] Work Phone: 1(686) 363-412311-06-2024 Evaluation note* Diagnosis Onset Date Resolution Status Admit Date Arthritis of lumbosacral spine acuteNovember 2023 11:27amLumbar painacuteNovember 2023 11:27amChronic back painchronicNovember 2023 11:27amArthritis of lumbosacral spineacute October 02, 2024 1:47pmLumbar painacuteDecember 2023 1:47pmChronic back painchronicDecember 2023 1:47pmArthritis of lumbosacral spineacuteJanuary 2024 11:24amLumbar painacuteJanuary 2024 11:24amOsteoarthritis of spine with radiculopathy, lumbar regionacuteJanuary 2024 11:24amChronic back painchronicJanuary 2024 11:24am [facility] Work Phone: 1(505) 900-797511-06-2024 Evaluation note* Diagnosis Onset Date Resolution Status Admit Date Arthritis of lumbosacral spine acuteNovember 2023 11:27amLumbar painacuteNovember 2023 11:27amChronic back painchronicNovember 2023 11:27amArthritis of lumbosacral spineacute October 02, 2024 1:47pmLumbar painacuteDecember 2023 1:47pmChronic back painchronicDecember 2023 1:47pmArthritis of lumbosacral spineacuteJanuary 2024 11:24amLumbar painacuteJanuary 2024 11:24amOsteoarthritis of spine with radiculopathy, lumbar regionacuteJanuary 2024 11:24amChronic back painchronicJanuary 2024 11:24amArthritis of lumbosacral spineacute November 27, 2024 1:59pmLumbar painacuteFebruary 2024 1:59pmOsteoarthritis of spine with radiculopathy, lumbar regionacuteFebruary 2024 1:59pmChronic back painchronicFebruary 2024 1:59pm [facility] Work Phone: 1(591) 999-533211-05-2024 History of Present illness Narrative* Francesca Abebe CMA - 08/28/2024 3:00 PM EST Vitamin B12 given with no adverse reaction [facility] History of Present illness Narrative* Shekhar Perez MD - 08/27/2024 2:15 PM EST Subjective SUBJECTIVE: Patient ID: Regina Henry is a 78 y.o. female who presents for a Medicare Annual Wellness exam. Comes in for wellness. She continues to not feel well, mainly on the basis of myalgia and fatigue and increased depressive symptoms. Stopping metoprolol did not help with her symptoms. She has been multiple different antidepressant medications in the past, usually as treatment for fibromyalgia. Shedoes not have self harm ideation. The following portions of the patient's history were reviewed and updated as appropriate: allergies, current medications, past family history, past medical history, past social history, past surgicalhistory and problem list. AWV FLOWSHEET : Lifestyle Assessment Do you smoke or use smokeless tobacco?: No If you smoke or use smokeless tobacco, are you ready to quit?: NA Are you exposed to secondhand smoke?: No On average, how many drinks of alcohol do you consume in a week?: None Do you exercise for 30 or more minutes on average at least 3 days a week?: Sometimes Do you have any tooth, denture, or oral problems?: No Do you snore or has anyone told you that you snore?: No Do you try to eat a balanced diet?: Yes Do you experience leakage of urine, also known as urinary incontinence?: (!) Often Do you have difficulty performing any of these activities? (check all that apply): (!) Bathing, Getting out of a chair, Walking Do you have difficulty performing any of these activities? (check all that apply): (!) Housekeeping, Preparing a meal, Shopping, Paying bills, Managing finances Fall Risk Fall Risk Assessment Completed?: Yes Have you fallen in the past year?: No Are you worried about falling?: (!) Yes Do you feel unsteady when standing or walking?: (!) Yes Risk Stratification: Moderate Risk Depression Screening Little interest or pleasure in doing things: (!) Several days Feeling down, depressed, or hopeless: (!) Several days Trouble falling or staying asleep, or sleeping too much: (!) Nearly every day Feeling tired or having little energy: (!) Nearly every day Poor appetite or overeating: (!) Several days Feeling bad about yourself - or that you are a failure or have let yourself or your family down: (!) Several days Trouble concentrating on things, such as reading the newspaper or watching television: (!) Nearly every day Moving or speaking so slowly that other people could have noticed. Or the opposite - being so fidgety or restless that you have been moving around a lot more than usual: (!) Nearly every day Thoughts that you would be better off , or of hurting yourself in some way: (!) Several days PEG Scale What number best describes your pain on average in the past week?: 7 What number best describes how, during the past week, pain has interfered with your enjoyment of life?: 9 What number best describes how, during the past week, pain has interfered with your general activity?: 10 - Completely interferes PEG Pain Total Score: 8.67 Safety Assessment Do you have throw rugs on the floor?: (!) Yes Do you feel safe at your home?: Yes Do you feel unsteady when walking?: (!) Yes Are you having difficulty with driving?: (!) Yes Do you have trouble seeing?: No What assistive device do you use? (check all that apply): (!) Cane Hearing Assessment Do you strain or struggle to hear/understand conversations?: No Do you have trouble hearing the television or radio when others do not?: No Does your family ever voice concerns about your hearing?: No Do you wear hearing aid/s?: No Personal Health During the past 4 weeks, how would you rate your overall health?: (!) Poor Do you understand how to take all of your medications?: Yes How confident are you that you can control and manage most of your health problems?: (!) Not very confident In the past 12 months, how many times have you been hospitalized?: (!) One End of Life Planning Do you have a living will?: Yes Do you have a durable power of broadcast engineer?: Yes Cognitive Screening Do you have trouble remembering or recalling facts or events?: (!) Yes Do family members or caregivers report that you have difficulty remembering things?: No Clock Drawing Test: Normal REVIEW OF SYSTEMS: Review of Systems Constitutional: Negative for unexpected weight change. She is less active than she would like to be. CARLOS AT: Negative for congestion, trouble swallowing and voice change. Eyes: Negative for visual disturbance. Respiratory: Shortness of breath with exertion. Cardiovascular: Negative for chest pain and leg swelling. Gastrointestinal: Positive for constipation. Negative for abdominal pain and blood in stool. Genitourinary: Negative for dysuria. Musculoskeletal: Positive for arthralgias and myalgias. Neurological: Negative for dizziness and light-headedness. Objective PHYSICAL EXAMINATION: Vitals: 08/27/24 1416 BP: 139/70 Pulse: 88 Weight: 70.8 kg (156 lb) Height: 149.2 cm (4' 10.75 ) Physical Exam Constitutional: Appearance: Normal appearance. Comments: BP acceptable. Color looks fine. HENT: Right Ear: Tympanic membrane normal. Left Ear: Tympanic membrane normal. Mouth/Throat: Pharynx: Oropharynx is clear. Eyes: Pupils: Pupils are equal, round, and reactive to light. Neck: Vascular: No carotid bruit. Cardiovascular: Rate and Rhythm: Normal rate and regular rhythm. Heart sounds: No murmur heard. Pulmonary: Effort: Pulmonary effort is normal. Breath sounds: Normal breath sounds. Abdominal: General: There is no distension. Palpations: Abdomen is soft. Tenderness: There is no abdominal tenderness. Musculoskeletal: Right lower leg: No edema. Left lower leg: No edema. Comments: No acute joint finding. Neurological: General: No focal deficit present. Mental Status: She is alert and oriented to person, place, and time. Assessment/Plan ASSESSMENT/PLAN Reviewed with her at some length. She no longer gets mammograms. Recent labs reviewed. Will try Effexor XR and see how she tolerates that. Will give her a B12 shot also and see what effect that has. Diagnoses and all orders for this visit: Routine general medical examination at a health care facility Fibromyalgia, primary - venlafaxine XR (EFFEXOR XR) 37.5 mg 24 hr capsule; Take 1 capsule (37.5 mg total) by mouth in themorning. Mixed anxiety depressive disorder Other orders - cyanocobalamin (VITAMIN B-12) 1,000 mcg/mL injection; Inject 1 mL (1,000 mcg total) into the appropriate muscle once for 1 dose. - folic acid (FOLVITE) 1 mg tablet; Take 1 tablet (1 mg total) by mouth in the morning. documented in this [facility]10-31-2024 Miscellaneous Notes* Telephone Encounter - Francesca Abebe CMA - 08/23/2024 11:28 AM EDT Refill request [facility] Telephone encounter Note* Telephone Encounter - Francesca Abebe CMA - 08/23/2024 11:28 AM EDT Refill request [facility]10-14-2024 Miscellaneous Notes* Telephone Encounter - Farideh Bruce - 08/06/2024 4:17 PM EDT We received a referral for education on Regina A Henry 1945. However per CMS Guidelines we need to have the services requested marked as such on referral. Please see pended order and sign if you are agreeable. Thank you [facility] documented [facility] this [facility]10-[facility] Telephone encounter Note* Telephone Encounter - Farideh Bruce - 08/06/2024 4:17 PM EDT We received a referral for education on Regina A Henry 1945. However per CMS Guidelines we need to have the services requested marked as such on referral. Please see pended order and sign if you are agreeable. Thank you [facility]10-14-2024 Miscellaneous Notes* Telephone Encounter - Farideh Bruce - 08/06/2024 4:16 PM EDT We received a referral for education on Regina A Henry 1945. However per CMS Guidelines we need to have the services requested marked as such on referral. Please see pended order and sign if you are agreeable. Thank you [facility] * Telephone Encounter - Cassandra Gale CMA - 08/06/2024 4:16 PM EDT New order was created and signed by . documented in this [facility]10[facility] Telephone encounter Note* Telephone Encounter - Farideh Bruce - 08/06/2024 4:16 PM EDT We received a referral for education on Regina Henry 1945. However per CMS Guidelines we need to have the services requested marked as such on referral. Please see pended order and sign if you are agreeable. Thank you [facility]10-14-2024 Telephone encounter Note* Telephone Encounter - Cassandra Gale CMA - 08/06/2024 4:16 PM EDT New order was created and signed by . [facility]10-09-2024 Miscellaneous Notes* Telephone Encounter - PHYLLIS Moreno - 08/01/2024 3:38 PM EDT Patient called asking about her recent labs. Results given to patient. She states her FBS has been running around 80 but then 2-3 hours after eating she has been shaky, dizzy, and starving. She said she has checked her sugar then and it has been around 170. I did advise that her blood sugar will goup after eating. She is wanting to know what she should do regarding this as she doesn't feel she should feel like this. She wants to know what the next step is, nursing care partner? Please advise. * Telephone Encounter - Shekhar Perez MD - 08/01/2024 3:38 PM EDT Setting her up with the nursing care partner would be OK with me. * Telephone Encounter - PHYLLIS Moreno - 08/01/2024 3:38 PM EDT Patient agreeable to nursing care partner. Order pended [facility]10[facility] Telephone encounter Note* Telephone Encounter - PHYLLIS Moreno - 08/01/2024 3:38 PM EDT Patient called asking about her recent labs. Results given to patient. She states her FBS has been running around 80 but then 2-3 hours after eating she has been shaky, dizzy, and starving. She said she has checked her sugar then and it has been around 170. I did advise that her blood sugar will goup after eating. She is wanting to know what she should do regarding this as she doesn't feel she should feel like this. She wants to know what the next step is, nursing care partner? Please advise. [facility]10-09-2024 Telephone encounter Note* Telephone Encounter - Shekhar Perez MD - 08/01/2024 3:38 PM EDT Setting her up with the nursing care partner would be OK with me. [facility]10-09-2024 Telephone encounter Note* Telephone Encounter - PHYLLIS Moreno - 08/01/2024 3:38 PM EDT Patient agreeable to nursing care partner. Order pended [facility]09-30-2024 Miscellaneous Notes* Telephone Encounter - Francesca Abebe CMA - 07/23/2024 1:56 PM EDT Refill request [facility] this [facility] Telephone encounter Note* Telephone Encounter - Francesca Abebe CMA - 07/23/2024 1:56 PM EDT Refill request [facility]09-30-2024 History of Present illness Narrative* Shekhar Perez MD - 07/23/2024 1:45 PM EDT Subjective Patient ID: Regina Henry is a 78 y.o. female. Comes in with concern regarding her blood sugar. She has history of elevated blood sugar in the past and family history of diabetes. She also has history of hypoglycemic episodes, not provoked by medication. She notes a feeling of lightheadedness and shakiness particularly in the morning when she 1st gets up and then a couple hours after eating breakfast. Sometimes she gets this feeling in the afternoon while making dinner. She will be very hungry and then suddenly full. No vomiting. These feelings make her anxiety symptoms worse. She stays away from sugar and tries to eat something a little more substantial when she feels that her sugar is low. The following portions of the patient's history were reviewed and updated as appropriate: allergies, current medications, past family history, past medical history, past social history, and problem list. Review of Systems Objective Physical Exam Constitutional: Comments: Interacts appropriately. Her color looks fine. She has had no significant weight change. Blood pressure normal. Eyes: Comments: No nystagmus Neck: Vascular: No carotid bruit. Comments: No thyroid enlargement or neck mass Cardiovascular: Rate and Rhythm: Normal rate and regular rhythm. Pulmonary: Effort: Pulmonary effort is normal. Neurological: Mental Status: She is alert. Comments: She feels shaky but I note no distinct tremor. Assessment/Plan Thyroid functions were checked recently and normal. Will check her basic met panel and hemoglobin A1c, as well as an insulin level. I think it would be beneficial for her to have a glucose meter to check her blood sugar a few times while she is having the symptoms, as not all episodes of the symptoms are caused by low blood sugar. Further pending her test results. Diagnoses and all orders for this visit: Elevated blood sugar - Basic Metabolic Panel; Future - Hemoglobin A1c; Future Anxiety - LORazepam (ATIVAN) 0.5 mg tablet; Take 1 tablet (0.5 mg total) by mouth 2 (two) times a day as needed for anxiety. Hypoglycemia - Insulin; Future [facility] Miscellaneous Notes* Telephone Encounter - Francesca Abebe CMA - 06/21/2024 9:56 AM EDT Refill request [facility] this [facility]08[facility] Telephone encounter Note* Telephone Encounter - Francesca Abebe CMA - 06/21/2024 9:56 AM EDT Refill request [facility]08-29-2024 History of Present illness Narrative* Shekhar Perez MD - 06/21/2024 9:30 AM EDT Subjective Patient ID: Regina Henry is a 78 y.o. female. She continues to complain of dizziness. The history is a little confusing, as far as the time course and the exact symptoms. She states that what she has is a vertigo (spinning) sensation that comes in waves. It is most prominent when she rolls over in bed but it can occur with other changes in herhead position. Recent MRI of the IAC negative. She is followed by neurology and it is thought that anxiety plays some role in these symptoms. She is on lorazepam. Meclizine has not helped. She previously had PT but does not recall having manipulation of her head. She is familiar, however, with PT for crystals in her ears. She is not faint feeling and the symptoms are not postural in nature. No associated neurological symptoms during the episodes. The following portions of the patient's history were reviewed and updated as appropriate: allergies, current medications, past medical history, past social history, past surgical history, and problemlist. Review of Systems Objective Physical Exam Constitutional: Appearance: Normal appearance. Comments: BP is reasonable. Eyes: Comments: No nystagmus Neck: Vascular: No carotid bruit. Cardiovascular: Rate and Rhythm: Normal rate and regular rhythm. Neurological: General: No focal deficit present. Mental Status: She is alert. Assessment/Plan Reviewed with her and her . Will give PT another try to see if that helps for what sounds like positional vertigo. Otherwise, I have no other ideas for evaluation and management and she may just have to live with the symptoms. Diagnoses and all orders for this visit: Benign paroxysmal positional vertigo, unspecified laterality - Ambulatory referral to Physical Therapy (Non[facility]); Future Anxiety [facility]07[facility] History of Present illness Narrative* Shekhar Perez MD - 05/22/2024 3:00 PM EDT Subjective Patient ID: Regina Henry is a 78 y.o. female. She continues to complain of dizziness and loss of balance, which I think are actually 2 different symptoms. She thinks that it is getting gradually worse, or at least it is more bothersome to her. She describes episodes of the room spinning. Nothing seems to provoke those episodes. She also describes unsteadiness of gait and a feeling that she might fall. That is different than the room spinning. Her describes that she shuffles when she walks. She has had evaluation of this in the pastincluding neurodiagnostic testing and advanced imaging. She has been evaluated by neurology as well, recently related to possible cognitive decline. Meclizine provided no significant lasting improvement of her symptoms. The following portions of the patient's history were reviewed and updated as appropriate: allergies, current medications, past family history, past medical history, past social history, past surgicalhistory, and problem list. Review of Systems Objective Physical Exam Constitutional: Comments: BP normal. HENT: Right Ear: Tympanic membrane normal. Left Ear: Tympanic membrane normal. Eyes: Pupils: Pupils are equal, round, and reactive to light. Comments: No nystagmus. Neck: Vascular: No carotid bruit. Cardiovascular: Rate and Rhythm: Normal rate and regular rhythm. Heart sounds: No murmur heard. Neurological: Mental Status: She is alert. Comments: No lateralizing neurological deficit. Reflexes normal. No findings to suggest peripheral neuropathy. No strength deficit. Assessment/Plan Will image her brain with MRI (last done 3-4 years ago). Further from there. Diagnoses and all orders for this visit: Vertigo - MR brain IAC with and without contrast; Future Loss of balance [facility] Miscellaneous Notes* Telephone Encounter - Anastacia Hale - 05/22/2024 11:13 AM EDT Regina called, she is still dizzy, the medicine you gave her (meclizine) is not helping her. She is wondering what she should do. Do you need to see her again? Please advise * Telephone Encounter - Shekhar Perez MD - 05/22/2024 11:13 AM EDT Would she be agreeable to neurology input due to loss of balance? * Telephone Encounter - Anastacia Hale - 05/22/2024 11:13 AM EDT Patient said she has already seen neurology. She is coming in at 3 for an appt today, due to being dizzy. [facility] Telephone encounter Note* Telephone Encounter - Anastacia Hale - 05/22/2024 11:13 AM EDT Regina called, she is still dizzy, the medicine you gave her (meclizine) is not helping her. She is wondering what she should do. Do you need to see her again? Please advise [facility] Telephone encounter Note* Telephone Encounter - Shekhar Perez MD - 05/22/2024 11:13 AM EDT Would she be agreeable to neurology input due to loss of balance? [facility] Telephone encounter Note* Telephone Encounter - Anastacia Hale - 05/22/2024 11:13 AM EDT Patient said she has already seen neurology. She is coming in at 3 for an appt today, due to being dizzy. [facility] Miscellaneous Notes* Telephone Encounter - Francesca Abebe CMA - 05/17/2024 3:29 PM EDT Refill request documented [facility] Telephone encounter Note* Telephone Encounter - Francesca Abebe CMA - 05/17/2024 3:29 PM EDT [facility]ill request [facility] History of Present illness Narrative* Shekhar Perez MD - 05/08/2024 11:00 AM EDT Subjective Patient ID: Regina Henry is a 78 y.o. female. Comes in with a complaint of dizziness. She has a history of dizziness and feeling off balance in the past but it has been worse the last couple of weeks. At times it causes her some nausea. Bending down seems to provoke it although it can occur at any time. She does not note that looking up or side to side will causes sudden bout of spinning dizziness. She states that she is concerned she might fall. Uneven ground or hills make her feel off balance or even dizzy. She has not been congested. Nonew headache or lateralizing neurological symptom. No new ear related symptoms. She recalls 1 time in the past, perhaps a year ago, having [place] maneuvers. That did not help her. She states that her feet and legs feel numb and weak. The following portions of the patient's history were reviewed and updated as appropriate: allergies, current medications, past medical history, past social history, past surgical history, and problemlist. Review of Systems Objective Physical Exam Constitutional: Comments: She does not appear acutely ill. Her blood pressure is reasonable. She moves around the room in the office without difficulty although slowly and carefully. HENT: Right Ear: Tympanic membrane normal. Left Ear: Tympanic membrane normal. Nose: No congestion. Eyes: Extraocular Movements: Extraocular movements intact. Pupils: Pupils are equal, round, and reactive to light. Comments: No nystagmus Neck: Vascular: No carotid bruit. Cardiovascular: Rate and Rhythm: Normal rate and regular rhythm. Heart sounds: No murmur heard. Neurological: Comments: No lateralizing deficit. She has intact vibratory sensation and light touch on her feet and ankles bilaterally. Assessment/Plan This seems as much related to a balance problem as it does to actual vertigo. She does not describepostural light-headedness suggesting cardiovascular cause. Exam shows no neuropathy in the lower extremities. Her symptoms are somewhat acute superimposed on more chronic symptoms. Short trial of meclizine to see if that provides her some improvement in the feeling of dizziness. If not further investigation may be required. Diagnoses and all orders for this visit: Dizziness - meclizine (ANTIVERT) 25 mg tablet; Take 1 tablet (25 mg total) by mouth 3 (three) times a day as needed for dizziness. documented in this [facility]06[facility] History of Present illness Narrative* Shekhar Perez MD - 04/09/2024 2:15 PM EDT Subjective Patient ID: Regina Henry is a 78 y.o. female. Comes in for discussion of her anxiety and associated depression. She was evaluated by Neurology because of her concern regarding cognitive impairment which runs in her family. Her neurologist mentioned that there might be better medication for anxiety than simply benzodiazepines alone. She has a long psychiatric history and has been on many medications. She does not tolerate the SSRI class and the SSNRI class. She feels like lorazepam worked better for her than clonazepam. The following portions of the patient's history were reviewed and updated as appropriate: allergies, current medications, past medical history, past social history, and problem list. Review of Systems Objective Physical Exam Constitutional: Comments: She looks well and interacts appropriately. No other physical exam done today. Assessment/Plan Reviewed with her. She is willing to try some Wellbutrin. Medication reviewed with her. It will take likely several weeks to see benefit. Her neurologist is correct with concern regarding benzodiazepines, particularly when used alone and in the elderly. However she has tolerated Ativan in the past and her dosing is not particularly high. I would avoid dose escalation for numerous reasons. Furtherpending her response to the Wellbutrin. Diagnoses and all orders for this visit: Anxiety - buPROPion XL (WELLBUTRIN XL) 150 mg 24 hr tablet; Take 1 tablet (150 mg total) by mouth every morning. - LORazepam (ATIVAN) 0.5 mg tablet; Take 1 tablet (0.5 mg total) by mouth 2 (two) times a day as needed for anxiety. documented in this [facility]06-[facility] History of Present illness Narrative* Jr Roldan, DO - 03/30/2024 1:10 PM EDT Raymundo Henry is a 78 y.o. female Chief Complaint Annual Exam 78-year-old female returns for annual follow-up she is doing well from a cardiovascular standpoint with no palpitations, syncope nitrate usage or hospitalizations. She has had remote PCI of the LAD with Dr. Chacon, subsequently she had a stress imaging and heart catheterization in 2019 performed bymyself revealing 30 to 50% disease of the right coronary and widely patent LAD and normal left ventricular function. She has underlying issues that continue including anxiety, hyperlipidemia, palpitations and eveningassociated edema. She has no chest discomfort Her anxiety is such that she cannot tolerate multiple medications including nebivolol which we tried to initiate last year to mitigate against fatigue (metoprolol side effect) and Repatha to treat underlying hyperlipidemia. None of these were successful. At this juncture she is stable from a cardiovascular standpoint with the above- mentioned intolerances, will follow-up as needed and continue to follow with her primary care physician Review of Systems Constitutional: Positive for malaise/fatigue. Cardiovascular: Positive for leg swelling. Respiratory: Positive for shortness of breath. All other systems reviewed and are negative. Vitals: 03/30/24 1322 BP: 126/70 BP Location: Left arm Patient Position: Sitting Pulse: 78 Weight: 71.2 kg (157 lb) Height: 1.524 m (5') Objective Physical Exam Constitutional: Appearance: Normal appearance. HENT: Nose: Nose normal. Neck: Vascular: No carotid bruit. Cardiovascular: Rate and Rhythm: Normal rate. Pulses: Normal pulses. Heart sounds: Normal heart sounds. Pulmonary: Effort: Pulmonary effort is normal. Abdominal: General: Bowel sounds are normal. Palpations: Abdomen is soft. Musculoskeletal: General: Normal range of motion. Cervical back: Normal range of motion. Right lower leg: No edema. Left lower leg: No edema. Skin: General: Skin is warm and dry. Neurological: General: No focal deficit present. Mental Status: She is alert. Psychiatric: Mood and Affect: Mood normal. Behavior: Behavior normal. Thought Content: Thought content normal. Judgment: Judgment normal. Allergies Aspirin, Codeine, Ibuprofen, Morphine, Nebivolol, Oxycodone, Oxycodone- acetaminophen, Pravastatin, Propoxyphene n-acetaminophen, Baqwmhe-opo-itn reductase inhibitors, and Sulfa (sulfonamide antibiotics) Current Medications Current Outpatient Medications: clonazePAM (KlonoPIN) 0.5 mg tablet, Take 1 tablet (0.5 mg) by mouth if needed for anxiety., Disp: , Rfl: estradiol (Estrace) 0.01 % (0.1 mg/gram) vaginal cream, Insert into the vagina. As directed, Disp: , Rfl: metoprolol tartrate (Lopressor) 25 mg tablet, Take 1 tablet (25 mg) by mouth once daily., Disp: , Rfl: Assessment/Plan 1. Atherosclerosis of coronary artery of barrow heart, unspecified vessel or lesion type, unspecified whether angina present 2. Other fatigue 3. History of PTCA 4. Palpitations 5. Hyperlipidemia, unspecified hyperlipidemia type 6. Never smoked any substance 7. BMI 30.0-30.9,adult Scribe Attestation By signing my name below, IEllen LPN, Scribe attest that this documentation has been prepared under the direction and in the presence of Laura Roldan DO. Provider Attestation - Scribe documentation All medical record entries made by the Scribe were at my direction and personally dictated by me. Ihave reviewed the chart and agree that the record accurately reflects my personal performance of the history, physical exam, discussion and plan. documented in this [facility] Work Phone: 1(244) 757-585706-07-2024 Instructions* Patient Instructions* Ellen Mckinney LPN - 03/30/2024 1:10 PM EDT Please bring all medicines, vitamins, and herbal supplements with you when you come to the office. Prescriptions will not be filled unless you are compliant with your follow up appointments or have a follow up appointment scheduled as per instruction of your physician. Refills should be requested at the time of your visit. BMI was above normal measurement. Current weight: 71.2 kg (157 lb) Weight change since last visit (-) denotes wt loss -8 lbs Weight loss needed to achieve BMI 25: 29.3 Lbs Weight loss needed to achieve BMI 30: 3.7 Lbs Provided instructions on dietary changes Provided instructions on exercise Follow up ordered as needed only documented in this [facility] Work Phone: 1(198) 988-469905-14-2024 History of Present illness Narrative* Shekhar Perez MD - 03/06/2024 1:30 PM EDT Subjective Patient ID: Regina Henry is a 78 y.o. female. Comes in for discussion of her medication. She has a long history of anxiety and depression. She has been on lorazepam 0.5 mg b.i.d.. That has been generally beneficial for her anxiety symptoms. She has not had any irregular use. Her dose was increased to b.i.d. a couple of months ago. She is on noother anxiolytic medication. She has been evaluated by Neurology for concerns regarding dementia which worries her because her mother had it. Neurology feels that probably her symptoms are anxiety driven. She did have some more advanced cognitive testing done. She is not suicidal. It has been suggested to her that there are better medications for anxiety than lorazepam. The following portions of the patient's history were reviewed and updated as appropriate: allergies, current medications, past medical history, past social history, and problem list. Review of Systems Objective Physical Exam Constitutional: Appearance: Normal appearance. Comments: She interacts appropriately. Blood pressure is reasonable. No other physical exam done today. Neurological: Mental Status: She is alert. Assessment/Plan Reviewed with her. She has been to a number of different mental health providers over the years. She has been on SSRI medication as well as other antidepressant medication. Historically those have had limited benefit and significant side effects. I discussed with her why there are concerns about correction benzodiazepine use including tolerance and physical dependence. She inquires about Klonopin.I reviewed with her that that is in the same class as lorazepam but might have some advantage basedon half-life. I reviewed alternative classes of medication and she does not want to do that. Further plans depend on her response to the clonazepam. I would be hesitant to increase the dosing beyond w hat we are starting with. Diagnoses and all orders for this visit: Anxiety - clonazePAM (KlonoPIN) 0.5 mg tablet; Take 1 tablet (0.5 mg total) by mouth 2 (two) times a day asneeded. documented [facility]04-[facility] Miscellaneous Notes* Telephone Encounter - Francesca Abebe CMA - 02/14/2024 1:52 PM EDT Refill request documented in this [facility]Sal[facility]04-23-2024 Telephone encounter Note* Telephone Encounter - Francesca Abebe CMA - 02/14/2024 1:52 PM EDT [facility]ill request [facility] History of Present illness Narrative* Shekhar Perez MD - 01/26/2024 2:15 PM EDT Subjective Patient ID: Regina Henry is a 78 y.o. female. She started on Tuesday with discomfort of her lower eyelid on the left. She noticed a raised pus collection and she rubbed it with a Q-tip and it burst. She has had some irritation of her eye and nowredness and swelling below her eye. Denies any vision change other than that associated with a filmwhich she can clear with blinking. She has some minor light sensitivity of the left eye. States shehas never had anything like this previously. She has not had fever or systemic symptoms. Perhaps a little bit of headache over her left forehead. No numbness or tingling and no blisters. She has usedsome warm compresses. The following portions of the patient's history were reviewed and updated as appropriate: allergies, current medications, past medical history, past social history, and problem list. Review of Systems Objective Physical Exam Constitutional: Comments: Afebrile and not toxic in appearance. Eyes: Comments: There is some mild conjunctival injection of the left eye. Her pupil reacts normally. Shedoes not manifest significant photophobia. There is a typical inward pointing stye in the middle ofher left lower lid. Soft tissue swelling and erythema inferior to her eye. This area is a little bit tender to palpation. Neurological: Mental Status: She is alert. Assessment/Plan Further plans depend on her response to the initial treatment. Diagnoses and all orders for this visit: Hordeolum externum of left lower eyelid - erythromycin (ILOTYCIN) ophthalmic ointment; Administer 1.25 cm (0.5 inches total) into the left eye every 6 (six) hours. Periorbital cellulitis of left eye - CEPHalexin (KEFLEX) 500 mg capsule; Take 1 capsule (500 mg total) by mouth in the morning and 1 capsule (500 mg total) at noon and 1 capsule (500 mg total) in the evening and 1 capsule (500 mg total) before bedtime. Do all this for 7 days. documented in this [facility]03-[facility]24 Miscellaneous Notes* Telephone Encounter - PHYLLIS Moreno - 01/11/2024 1:50 PM EDT Refill request, contract signed and appointments up to date. documented in this [facility]03[facility] Telephone encounter Note* Telephone Encounter - PHYLLIS Moreno - 01/11/2024 1:50 PM EDT Refill request, contract signed and appointments up to date. [facility] History of Present illness Narrative* Shekhar Perez MD - 12/05/2023 3:45 PM EST Subjective Patient ID: Regina Henry is a [...] past social history, past surgical history, and problemlist. Review of Systems Objective Physical Exam Constitutional: [...] this visit: Depression, unspecified depression type - [facility] [place], [place]; Future Anxiety - LORazepam (ATIVAN) 0.5 [...] as needed (leg swelling). documented in this encounterAkron Children[facility] HospitalClear-Data Analytics [id number] Evaluation note* Encounter Date Diagnosis Assessment Notes Treatment Notes Treatment Clinical Notes Oct, Other tear of medial meniscus of right knee as current injury, subsequent encounter (ICD-10 - S83.241D) Oct,Status post arthroscopy of right knee (ICD-10 - Z98.890)Patient is doing well after surgery. No issues [...] protocol Patient will follow-up in 4 weeks Oct,rimary osteoarthritis of right knee (ICD-10 - M17.11) [employer] Other 01-23-2024 Miscellaneous Notes* Telephone Encounter - Francesca Abebe CMA - 11/15/2023 10:03 AM EST Refill request documented in this encounterMount [facility]24 Telephone encounter Note* Telephone Encounter - Francesca Abebe CMA - 11/15/2023 10:03 AM EST Refill request [facility] [id number] Evaluation note* Encounter Date Diagnosis Assessment Notes Treatment Notes Treatment Clinical Notes Oct, Status post arthroscopy of right knee (ICD-10 - Z98.890) [employer] Other 01-16-2024 Evaluation note* Encounter Date Diagnosis Assessment Notes Treatment Notes Treatment Clinical Notes Oct, Acute pain of right knee (ICD-10 - M25.561) Oct,Status post arthroscopy of right knee (ICD-10 - Z98.890) [employer] Other 01-05-2024 Evaluation note* Encounter Date Diagnosis Assessment Notes Treatment Notes Treatment Clinical Notes Oct, Constipation (ICD-10 - K59.00) The patient states she has irregular bowel habits. She complains of abdominal discomfort. She movesher bowels every 3-4 days a week. She has straining. She does not have any rectal bleeding. She does not take anything on a regular basis for constipation. A recent colonoscopy with Dr. Gil showed a colon polyp. Trial of Linzess 145 mcg daily Oct,yspepsia (ICD-10 - K30)The patient had an EGD at [facility] in March 2023 due to dyspepsia. Biopsies were taken for heliocabacter but the biopsy report is not available. The patient complains of gas, belching, & nausea. She can not tolerate Omeprazole. An EGD in the past has shown inflammation. Trial of Pantoprazole 20 mg daily Oct,Nausea (ICD-10 - R11.0) Oct,Hemorrhoid (ICD-10 - K64.9)The patient complains of hemorrhoids due to her irregular bowel movements. She has used OTC treatments for this. She will continue this while we attempt to get the consipation under control Oct,Irritable bowel syndrome with constipation (ICD-10 - K58.1) [employer] Other 01-02-2024 Evaluation note* Encounter Date Diagnosis [...] the need for further or revision surgery. 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 He agreed. Will goingget the patient into see Dr. Orlando next week. [employer] Other 12-27-2023 Miscellaneous Notes* Telephone Encounter - Francesca Abebe CMA - 10/19/2023 2:51 PM EST Refill request documented in this encounterAkron Children's [email or web address] [facility] [id number] Telephone encounter Note* Telephone Encounter - Francesca Abebe CMA - 10/19/2023 2:51 PM EST Refill request [facility] [employer] [id number] Evaluation note* Encounter Date Diagnosis Assessment Notes Treatment Notes Treatment Clinical Notes Sep, Acute pain of right knee (ICD-10 - M25.561) [employer] Other 12-15-2023 Evaluation note* Encounter Date Diagnosis Assessment Notes Treatment Notes Treatment Clinical Notes Sep, Acute pain of right knee (ICD-10 - M25.561) Sep,OtherI had a long conversation with the patient regarding her right knee. I explained to her that her x-rays overall look relatively normal. There may be some sclerosis in the proximal tibia that would beconsistent with grade 1 arthritis on x-ray. Given her normal x-ray, her lack of response to steroid injections and physical therapy as well as her physical exam today, I think it is important for us to rule out any internal derangement especially meniscal pathology and/or even deep bony bruising inthe proximal tibia. When she is these results she can come back into the office to discuss them. Inthe meantime I did prescribe her meloxicam 15 mg to take daily. 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 Recent MRI shows at L4-L5 facet hypertrophy bilaterally with a mild broad-based discbulge, moderate to severe right and mild left neural foraminal stenosis, which is consistent with her pain symptoms. Given the MRI results, as well as location of pain and exam findings, patient is acandidate for a lumbar epidural steroid injection which we will proceed with. Risks and benefits ofprocedure explained to patient; patient verbalizes understanding. In the future if the pain persists, we can consider sacroiliac joint injections verse facet injections. Anatomy of spine discussed indetail with patient in regard to patients condition Jun,hronic pain (ICD-10 - G89.29) Jun,OtherAbove note written by Blanca Tate LPN, Ceramic Engineer. Edited and approved by Dr. Cam Riggs MD. [employer] Other 08-16-2023 Evaluation note* Encounter Date Diagnosis Assessment Notes Treatment Notes Treatment Clinical Notes May, Bilateral sacroiliitis (ICD-10 - M46.1) May,Other spondylosis with radiculopathy, lumbar region (ICD-10 - M47.26)Patients primary complaint today is low lumbar pain radiating into her bilateral lower extremities.She has failed previous conservative treatments, most recent a caudal epidural steroid injection and continues to experience progressing symptoms. I will order an MRI of her lumbar spine for further e valuation of her pain symptoms. Pending the results, we can consider a referral to neurosurgery vs further treatment options. Anatomy of spine discussed in detail with patient in regard to patients condition. May,hronic pain (ICD-10 - G89.29) May,OtherAbove note written by Blanca Tate LPN, Ceramic Engineer. Edited and approved by Dr. Cam Riggs MD. [employer] Other 06-30-2023 Note [id number]:127[facility] [facility] 03-01-2023 [facility]* Encounter Date Diagnosis Assessment Notes Treatment Notes Treatment Clinical Notes Jan, Bilateral sacroiliitis (ICD-10 - M46.1) Jan,Other spondylosis with radiculopathy, lumbar region (ICD-10 - M47.26)Patients primary complaint today is progressing low lumbar pain radiating into the posterior aspectof her bilateral lower extremities. Recent MRI results [...] with patient in regards to patients condition. Jan,hronic pain (ICD-10 - G89.29) Jan,OtherAbove note written by Kar King MA, Ceramic Engineer. Edited and approved by Dr. Cam Riggs MD. [employer] Other 02-28-2023 Evaluation note* Encounter Date Diagnosis Assessment Notes Treatment Notes Treatment Clinical Notes Nov, Acute pain of right knee (ICD-10 - M25.561) [employer] Other 02-25-2023 Evaluation note* Encounter Date Diagnosis Assessment Notes Treatment Notes Treatment Clinical Notes Nov, Acute pain of right knee (ICD-10 - M25.561) Use RICE therapy as discussed: Rest, Ice Compression, Elevate. Apply ice to affected area 3-4 timesdaily (Do not place ice source directly on skin, must cover with towel-like material). Take medication as directed. Rest and elevate sore extremity as much as possible. Do not take OTC medication pain relievers if prescription of medication given in office today. Contact office if no improvement ofsymptoms and we will help you get into a specialist. [employer] [employer] Other 12-02-2022 Evaluation note* Encounter Date Diagnosis Assessment Notes Treatment Notes Treatment Clinical Notes Sep, Chronic insomnia (ICD-10 - F51.0 4) We revisited CBT-I recommendations and patient expresses [...] and fibromyalgia. We will continue to monitor. Sep,bstructive sleep apnea (adult) (pediatric) (ICD-10 - G47.33)We reviewed her study, showing AHI of 11 [...] We will get her auto CPAPAnd will at tempt the mask fit program to find the optimal size and shape for her. We anticipate return for 31 to 90-day visit Sep,Intolerance of continuous positive airway pressure (CPAP) ventilation (ICD-10 - Z78.9)Unfortunately patient's ADILENE is too mild to qualify for Inspire therapy. We reviewed her study in January , showing AHI of 11 events per hour and severe hypoxia (25% of sleep time below 90% saturation).While the severe hypoxia is concerning, her overall AHI falls in the mild apnea range so she does not qualify for inspire therapy. Her weight has not changed much since then therefore likely her ADILENE severity has not either. Although she had hoped for Inspire Therapy, she does express willingness tocontinue with the PAP machine as she does note clinical benefit with use, although also expresses fr ustration with it. Sep,Idiopathic sleep related nonobstructive alveolar hypoventilation (ICD-10 - G47.34)Patients with untreated apnea-associated nocturnal hypoxia have more heart attacks, strokes, and symptomatic pulmonary hypertension. This emphasizes importance of using treatment every night, all night. [employer] Other 07-10-2022 Evaluation note* Encounter Date Diagnosis Assessment Notes Treatment Notes Treatment Clinical Notes Apr, Dysuria (ICD-10 - R30.0) Apr,Urinary tract infection, site not specified (ICD-10 - N39.0)Urinary tract infection (UTI) home care material was printed Drink plenty fluids, get plenty of rest. Take the Cipro and Pyridium as prescribed until gone. TakeTylenol or Motrin as needed for aches pains or fevers. Follow-up with your family physician once you complete the antibiotic, follow-up sooner if no improvement in 2 to 3 days. Apr,Hematuria, unspecified (ICD-10 - R31.9) [employer] Other 04-19-2022 Evaluation note* Encounter Date Diagnosis Assessment Notes Treatment Notes Treatment Clinical Notes Jan, Chronic insomnia (ICD-10 - F51.0 4) encouraged her to only be in bed for 8 hours, and to set a wake up time and stay with it. She should get to bed 8 hours before that, whether than means getting up earlier or staying up later. She is also encouraged to avoid daytime napping Jan,bstructive sleep apnea (adult) (pediatric) (ICD-10 - G47.33)We reviewed her study, showing AHI of 11 [...] We will get her auto CPAPAnd will at tempt the mask fit program to find the optimal size and shape for her. We anticipate return for 31 to 90-day visit Jan,Intolerance of continuous positive airway pressure (CPAP) ventilation (ICD-10 - Z78.9)She hesitantly says she is willing to try the machine again, but says that if it's aggravating she will turn it back in. She was very frustrated with [employer], her previous DME, and doesn't want to go back there. We will try to get a formal mask fit and will have her on auto CPAP. I encouraged herto call if there is a problem Jan,Idiopathic sleep related nonobstructive alveolar hypoventilation (ICD-10 - G47.34)Patients with untreated apnea-associated nocturnal hypoxia have more heart attacks, strokes, and symptomatic pulmonary hypertension. This emphasizes importance of using treatment every night, all night. [employer] Other 03-01-2022 Evaluation note* Encounter Date Diagnosis Assessment Notes Treatment Notes Treatment Clinical Notes Dec, Chronic insomnia (ICD-10 - F51.0 4) She has unfortunately continued with suboptimal sleep [...] working, or resting if unable to sleep. Dec,bstructive sleep apnea (adult) (pediatric) (ICD-10 - G47.33) She has previously been diagnosed with sleep apnea with an AHI of 16 and with some associated hypoxia. She finds it very difficult to tolerate positive airway pressure treatment and would like to avoid that if at all possible. This is especially true in light of her complicating insomnia, as addingpositive airway pressure to an already difficult insomnia situation will make falling asleep effectively even more difficult. We discussed alternatives including inspire therapy and she is very interested in that approach Dec,Intolerance of continuous positive airway pressure (CPAP) ventilation (ICD-10 - Z78.9) She has previously tried positive airway pressure treatment several times, but has failed each time. If insurance requires another trial before proceeding to inspire we will take that route Dec,Generalized anxiety disorder (ICD-10 - F41.1) She admits to generalized anxiety disorder and reports that it is a significant day-to-day problem.She has seen psychiatry in the past. This has complicated her toleration of positive airway pressure treatment and her insomnia treatment Dec,Idiopathic sleep related nonobstructive alveolar hypoventilation (ICD-10 - G47.34) Patients with untreated apnea-associated nocturnal hypoxia have more heart attacks, strokes, and symptomatic pulmonary hypertension. This emphasizes importance of effective control [employer] Other 11-14-2021 Evaluation note* Encounter Date Diagnosis Assessment Notes Treatment Notes Treatment Clinical Notes Aug, Contact with and (diaz spected) exposure to other viral communicable diseases (ICD-10 - Z20.828) Aug,inusitis, unspecified chronicity, unspecified location (ICD-10 - J32.9) Aug,Other Additional time spent conducting pre-visit phone call, screening for symptoms, instructions on social distancing, application and removal of PPE, and cleaning of examination room, equipment and supplies was preformed. Patient education given for testing methodology and results. Patient care instructions given in writting by [facility][NOTE 3] [facility] At Home document. [employer] Other 10-14-2021 Evaluation note* Encounter Date Diagnosis Assessment Notes Treatment Notes Treatment Clinical Notes Jul, Lumbar degenerative disc disease (ICD-10 - M51.36) Jul,Obstructive sleep apnea (ICD-10 - G47.33) Jul,ronchitis (ICD-10 - J40) [facility] [employer] Other Evaluation noteNo InformationNortUPMC [facility] Other Evaluation noteNo assessment information available [facility] Work Phone: Evaluation note* Diagnosis Onset Date Resolution Status Dysuria acute [facility] Work Phone: Evaluation note* Diagnosis Onset Date Resolution Status Acute UTI acuteDysuriaacute [facility] Work Phone: Evaluation note* Diagnosis Onset Date Resolution Status Acute UTI acuteDysuriaacuteOther specified postprocedural statesacuteOther tear of medial meniscus, current injury, right knee, subsequent encounteracuteOther specified postprocedural statesacuteOther tear of medial meniscus, current injury, right knee, subsequent encounteracute [facility] Work Phone: Evaluation note* Diagnosis Onset Date Resolution Status Acute UTI acuteDysuriaacuteOther specified postprocedural statesacuteOther tear of medial meniscus, current injury, right knee, subsequent encounteracuteOther specified postprocedural statesacuteOther tear of medial meniscus, current injury, right knee, subsequent encounteracuteOther specified postprocedural statesacuteOther tear of medial meniscus, current injury, right knee, subsequent encounteracute [facility] Work Phone: Evaluation note* Diagnosis Atherosclerosis of coronary artery of barrow heart, unspecified vessel or lesion type, unspecified whether angina present Other fatigue History of PTCA Postsurgical percutaneous transluminal coronary angioplasty status Palpitations Hyperlipidemia, unspecified hyperlipidemia type Never smoked any substance BMI 30.0-30.9,adult documented in this encounter [facility] Work Phone: Evaluation note* Diagnosis Onset Date Resolution Status Arthritis of lumbosacral spine acuteLumbar painacuteChronic back painchronic [facility] Work Phone: Evaluation note* Diagnosis Anxiety Anxiety state, unspecified documented in this encounter [facility]* Diagnosis Anxiety Anxiety state, unspecified documented [facility] this encounter [facility]* Diagnosis Anxiety Anxiety state, unspecified documented in this encounter [facility]* Diagnosis Dizziness- Primary Dizziness and giddiness documented in this encounter [facility]* Diagnosis Anxiety- Primary Anxiety state, unspecified documented in this encounter [facility]* Diagnosis Anxiety- Primary Anxiety state, unspecified documented in this encounter [facility]* Diagnosis Depression, unspecified depression type- Primary Anxiety Anxiety state, unspecified Cold intolerance Other general symptoms Hypovitaminosis D Unspecified vitamin D deficiency B12 deficiency Bilateral leg edema Edema documented in this encounter [facility]* Diagnosis Dizziness- Primary Dizziness and giddiness documented in this encounter [facility]* Diagnosis Vertigo- Primary Dizziness and giddiness Loss of balance Abnormality of gait Peripheral vertigo, unspecified laterality documented in this encounter [facility]* Diagnosis Hordeolum externum of left lower eyelid- Primary Periorbital cellulitis of left eye documented in this encounter [facility]* Diagnosis Elevated blood sugar- Primary Other abnormal glucose Anxiety Anxiety state, unspecified Hypoglycemia Hypoglycemia, unspecified documented in this encounter [facility]* Diagnosis Anxiety- Primary Anxiety state, unspecified documented in this encounter [facility]* Diagnosis Benign paroxysmal positional vertigo, unspecified laterality- Primary Anxiety Anxiety state, unspecified documented in this encounter [facility]* Diagnosis Elevated blood sugar- Primary Other abnormal glucose Hypoglycemia Hypoglycemia, unspecified documented in this encounter [facility]* Diagnosis Elevated blood sugar- Primary Other abnormal glucose Hypoglycemia Hypoglycemia, unspecified documented in this encounter [facility]* Diagnosis Routine general medical examination at a health care facility- Primary Fibromyalgia, primary Mixed anxiety depressive disorder documented in this encounter [facility]* Diagnosis Fibromyalgia- Primary Unspecified myalgia and myositis Other fatigue documented in this encounter [facility]* Diagnosis Dizziness- Primary Dizziness and giddiness Anxiety and depression (CMS/HCC) Cognitive dysfunction Unspecified persistent mental disorders due to conditions classified elsewhere ADILENE (obstructive sleep apnea) Obstructive sleep apnea (adult) (pediatric) [facility] Diagnosis Sensorineural hearing loss (SNHL) of both ears- Primary Dizziness Dizziness and giddiness documented [facility] Diagnosis 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 manifestations (CMS/HCC)- Primary Dizziness Dizziness and giddiness Anxiety and depression (CMS/HCC) documented [facility]* Diagnosis Dizziness and giddiness- Primary [facility]* Diagnosis Cervicalgia- Primary Balance disorder BPPV (benign paroxysmal positional vertigo), right Dizziness and giddiness Vertigo of central origin [facility] Diagnosis Cervicalgia- Primary Balance disorder BPPV (benign paroxysmal positional vertigo), right Vertigo of central origin [facility]* Diagnosis Anxiety- Primary Anxiety state, unspecified Dizziness Dizziness and giddiness [facility] Diagnosis Cervicalgia- Primary Balance disorder BPPV (benign paroxysmal positional vertigo), right Vertigo of central origin Dizziness and giddiness documented [facility]* Diagnosis Anxiety and depression (CMS/HCC)- Primary [facility]* Diagnosis Anxiety Anxiety state, unspecified [facility] Diagnosis Anxiety and depression (CMS/HCC)- Primary [facility]* Diagnosis Moderate episode of recurrent major depressive disorder (HCC) RICARDO (generalized anxiety disorder) Generalized anxiety disorder High risk medication use Fibromyalgia Unspecified myalgia and myositis [facility] Diagnosis Encounter for drug screening documented [facility]* Diagnosis Moderate episode of recurrent major depressive disorder (HCC) RICARDO (generalized anxiety disorder) Generalized anxiety disorder Fibromyalgia Unspecified myalgia and myositis Vitamin D insufficiency [facility]* Diagnosis Anxiety Anxiety state, unspecified [facility] Diagnosis Moderate episode of recurrent major depressive disorder (HCC) RICARDO (generalized anxiety disorder) Generalized anxiety disorder [facility] Diagnosis Spinal stenosis of lumbar region with neurogenic claudication- Primary [facility] Diagnosis Moderate episode of recurrent major depressive disorder (HCC) RICARDO (generalized anxiety disorder) Generalized anxiety disorder [facility] Diagnosis Anxiety Anxiety state, unspecified [facility] Diagnosis Degeneration of intervertebral disc of lumbar region with discogenic back pain and lower extremity pain- Primary Mixed anxiety depressive disorder documented in this encounter [facility]* Diagnosis Chronic bilateral low back pain, unspecified whether sciatica present- Primary [facility] this [facility] general Narrative - Reported* Type Description Date Medical History lower back pain(L5 disc)-1984 Medical HistoryfibromyalgiaMedical HistoryReactive hypoglycemia ()-2003Medical Historyfibrocystic breast DXMedical HistorySurgical menopauseMedical [id number] Benign PVC's (Jamar)-1996Medical History osteoarthritis handsMedical Historymixed hyperlipidemiaMedical [id number] GERD (UGI X-Ray)Medical HistoryOsteoporosis ([place]exascan) 1996Medical HistoryBilat carotid stenosis (dop scan) 03/2009- Neg dop scan 12/2015Medical HistoryMajor Depressive DisorderMedical Historycoronary artery disease (cardiac stent) 2015 Medical Historychronic depressionMedical HistoryOSASurgical HistoryTotal hysterectomy - Endometriosis with complications(emotional)Surgical HistoryT&A 1972Surgical HistoryEGD - esophageal,gastritis,hiatal hernia04/2014Surgical HistoryColonoscopy - internal hemmorrhoids04/2014Surgical HistoryI+D R middle [id number] HistoryReactive hypoglycemia (Annelise)2003Surgical History Bilateral carotid stenosis (dopscan 2008)2008Surgical HistoryFibromyalgia Surgical HistoryHeart rrqy-uvqqeomz-Fi V'Surgical HistoryStent placement. St V'Surgical HistoryEpidural X2 Dr Arvizu06/2017-07/2017Surgical History EGD- DR Garcia- small ulcer.06/2017Hospitalization HistoryMajor depression/suicidal ideation - Nwetgd55/2003Hospitalization History[facility] - [facility]10/2010Hospitalization HistoryVertigo- [facility] 12/2015Hospitalization HistoryBlood clot upper left leg2Hospitalization HistoryCardiac stress margi (neg) [id number] [facility] Other History general Narrative - ReportedNortUPMC [facility] Other History general Narrative - Reported* Type Description Date Medical History lower back pain(L5 disc)-1984 Medical HistoryfibromyalgiaMedical HistoryReactive hypoglycemia ()-2003Medical Historyfibrocystic breast DXMedical HistorySurgical menopauseMedical [id number] Benign PVC's (Jamar)-1996Medical History osteoarthritis handsMedical Historymixed hyperlipidemiaMedical [id number] GERD (UGI X-Ray)Medical HistoryOsteoporosis (Dexascan) 1996Medical HistoryBilat carotid stenosis (dop scan) 03/2009- Neg dop scan 12/2015Medical HistoryMajor Depressive DisorderMedical Historycoronary artery disease (cardiac stent) 2015 Medical Historychronic depressionMedical HistoryOSAMedical Historychronic insomniaSurgical HistoryTotal hysterectomy - Endometriosis with complications(emotional)Surgical HistoryT&D1058Roadvdji HistoryEGD - esophageal,gastritis,hiatal hernia04/2014Surgical HistoryColonoscopy - internal hemmorrhoids04/2014Surgical HistoryI+D R middle [id number] History Reactive hypoglycemia (Annelise)2003Surgical HistoryBilateral carotid stenosis (dopscan 2008)2008Surgical HistoryFibromyalgiaSurgical HistoryHeart pesi-xdhmtsqd-Mn V'Surgical HistoryStent placement. St V's2Surgical HistoryEpidural X2 Dr Arvizu/2016-07/2017Surgical HistoryEGD- DR Garcia- small ulcer.06/2017Hospitalization HistoryMajor depression/suicidal ideation - [place] 07/2003Hospitalization HistoryMajor depression [facility]/2010 Hospitalization HistoryVertigo- [facility]12/2015Hospitalization HistoryBlood clot upper left leg2Hospitalization HistoryCardiac stress margi (neg) [id number] [employer] Other InstructionsNot on filedocumented in this encounter [facility] System[facility]ructionsNot on filedocumented in this encounter [facility] SystemInstructionsNot on filedocumented in this encounter [facility] SystemInstructionsNot on filedocumented in this encounter [facility] SystemInstructionsNot on filedocumented in this encounter [facility] SystemInstructionsNot on filedocumented in this encounter [facility] SystemInstructionsNot on filedocumented in this encounter [facility] SystemInstructionsNot on filedocumented in this encounter [facility] SystemInstructionsNot on filedocumented in this encounter [facility] SystemInstructionsNot on filedocumented in this encounter [facility] SystemInstructionsNot on filedocumented in this encounter [facility] SystemReason for referral (narrative)* Consultation (Routine) - AuthorizedSpecialtyDiagnoses / ProceduresReferred By ContactReferred To Contacthavioral Health / Psychiatry Diagnoses Depression, unspecified depression type Shekhar Perez MD [address] [place] [address], [address] [place] [address] [facility] [address] [place] [phone] Referral IDStatusReasonStart DateExpiration DateVisits RequestedVisits [id number] Specialty Services Required / [facility] SystemLico for referral (narrative)* Consultation (Routine) - Pending ReviewSpecialtyDiagnoses / ProceduresReferred By ContactReferred To ContactEndocrinology, Diabetes & Metabolism Diagnoses Elevated blood sugar Hypoglycemia Shekhar Perez MD [address] [place] [address], [address] [place] [address] [facility] Diabetes/Nutrition Ed [address] [place] [address] Referral IDStatusReasonStart DateExpiration DateVisits RequestedVisits [id number] Review Specialty Services Required / [facility] for referral (narrative)* Consultation (Routine) - Pending ReviewSpecialtyDiagnoses / ProceduresReferred By ContactReferred To ContactNutrition Diagnoses Elevated blood sugar Hypoglycemia Shekhar Perez MD [facility], [address] [place] [address] [facility] Nutrition Services [address] [place] [address] Referral IDStatusReasonStart DateExpiration DateVisits RequestedVisits [id number] [id number] [facility] for visit NarrativeLOWER BACK PAIN, ORTHO REFERRAL [employer] Other Reulec for visit Narrative* Rehabilitation - Outpatient (Routine) - Pending ReviewSpecialtyDiagnoses / ProceduresReferred By ContactReferred To ContactPhysical Therapy Diagnoses Dizziness and giddiness Procedures [place] OFFICE/OUTPATIENT NEW HIGH MDM 60 MINUTES Juan Carlos Trimble MD [address] [place] [address] Phone: tel: fax: Michael Dawkins, PT [address] [place] [address] Phone: tel: fax: Referral IDStatusReasonStart DateExpiration DateVisits RequestedVisits [id number] Review Specialty Services Required / [facility] for visit Narrative* Rehabilitation - Outpatient (Routine) - AuthorizedSpecialtyDiagnoses / ProceduresReferred By ContactReferred To ContactPhysical Therapy Diagnoses Dizziness and giddiness Procedures [place] OFFICE/OUTPATIENT NEW HIGH MDM 60 MINUTES Juan Carlos Trimble MD [address] [place] [address] Phone: tel: fax: Michael Dawkins, PT [address] [place] [address] Phone: tel: fax: Referral IDStatusReasonStart DateExpiration DateVisits RequestedVisits [id number] Specialty Services Required [facility] Healthcare Summary Purpose Family History Unknown Family Member Name Dates Details Family history of arterioscl erotic cardiovascular disease: Mother, Father, Sister, Brother(V17.49, Z82.49) Status:ActiveFamily history of myocardial infarction: Father(V17.3, Z82.49) Status:Active Unknown Family Member Name Dates Details Family history of myocardial infarction: Father(V17.3, Z82.49) Status:ActiveFamily history of arteriosclerotic cardiovascular disease: Mother, Father, Sister, Brother(V17.49, Z82.49) Status:Active Unknown Family Member Name Dates Details Family history of arterioscl erotic cardiovascular disease: Mother, Father, Sister, Brother(V17.49, Z82.49) Status:ActiveFamily history of myocardial infarction: Father(V17.3, Z82.49) Status:Active Unknown Family Member Name Dates Details Family history of arterioscl erotic cardiovascular disease: Mother, Father, Sister, Brother(V17.49, Z82.49) Status:ActiveFamily history of myocardial infarction: Father(V17.3, Z82.49) Status:Active Relationship Condition Age at Onset Recorded Date/T albert brother Malignant neoplasm of kidney Unknown fatherMyocardial infarctionUnknownbrotherMyocardial infarctionUnknown Cerebrovascular accident (CVA)UnknownNot SpecifiedType 2 diabetes mellitus UnknownbrotherHeart diseaseUnknownsisterHeart diseaseUnknownUnknown Family Member Name Dates Details Family history of arterioscl erotic cardiovascular disease: Mother, Father, Sister, Brother(V17.49, Z82.49) Status:ActiveFamily history of myocardial infarction: Father(V17.3, Z82.49) Status:Active Relationship Condition Age at Onset Recorded Date/T albert brother Malignant neoplasm of kidney Unknown Heart diseaseUnknownMyocardial infarctionUnknownfatherMyocardial infarction UnknownbrotherMyocardial infarctionUnknownMalignant neoplasm of lungUnknown History of heart surgeryUnknownNot SpecifiedType 2 diabetes mellitusUnknown brotherHeart diseaseUnknownsisterHeart diseaseUnknownCerebrovascular accident (CVA)Unknown Relationship Condition Age at Onset Recorded Date/T albert brother Malignant neoplasm of kidney Unknown Heart diseaseUnknownMyocardial infarctionUnknownfatherMyocardial infarction UnknownbrotherMyocardial infarctionUnknownMalignant neoplasm of lungUnknown History of heart surgeryUnknownNot SpecifiedType 2 diabetes mellitusUnknown brotherHeart diseaseUnknownsisterHeart diseaseUnknownCerebrovascular accident (CVA)UnknownbrotherMalignant neoplasmUnknownfatherHeart diseaseUnknownDeceased Unknownfamily memberFamily history of other conditionUnknownNot Specified Diabetes mellitusUnknown Relationship Condition Age at Onset Recorded Date/T albert brother Malignant neoplasm of kidney Unknown Heart diseaseUnknownMyocardial infarctionUnknownfatherMyocardial infarction UnknownbrotherMyocardial infarctionUnknownMalignant neoplasm of lungUnknown History of heart surgeryUnknownmotherType 2 diabetes mellitusUnknownbrotherHeart diseaseUnknownsisterHeart diseaseUnknownCerebrovascular accident (CVA)Unknown brotherMalignant neoplasmUnknownfatherHeart diseaseUnknownDeceasedUnknownfamily memberFamily history of other conditionUnknownmotherDiabetes mellitusUnknown Advance Directives TypeDate RecordedPatient RepresentativeExplanationACP-Advance DirectiveACP-Power of AttorneyTypeDate RecordedPatient RepresentativeExplanationACP-Advance DirectiveACP-Power of Meat Carver Advance Directive Response Recorded Date/ Time Advance Directives No June 3:41pm Advance Directive Response Recorded Date/ Time Advance Directives No June 2:41pm Advance Directive Response Recorded Date/ Time Advance Directives No November 12:18pm Advance Directive Response Recorded Date/ Time Advance Directives No November 1:18pm Date ActivatedDate InactivatedComments05/28/2022 5:34 PM05/31/2022 8:53 PMCode StatusDate ActivatedDate InactivatedCommentsFull Code05/28/2022 5:34 PM05/31/2022 8:53 PMDate ActivatedDate InactivatedComments05/28/2022 5:34 PM05/31/2022 8:53 PM Code StatusDate ActivatedDate InactivatedCommentsFull Code05/28/2022 5:34 PM 05/31/2022 8:53 PM History of Present Illness * Tennille Goldberg APRN - CNP - 01/06/2021 8:00 AM EDT covid test [...] Panda RN - 01/13/2021 11:14 AM EDT 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 The 24- hour phone is [phone] 13) If you are unable to contact your surgeon, in an emergency situation, go to the nearest hospital emergency room. 14)ambulate as much as possible documented in this encounter Reason for Referral StatusReasonSpecialtyDiagnoses / ProceduresReferred By ContactReferred To ContactClosedRadiology Diagnoses Pain Procedures Fluoro For Surgical Procedures Maxwell Fried MD [address] [facility], [address] [place] [address] Reason lumbar sacral back p ain Diagnosis 1 Lumbar degenerative disc disease (M51.36) Referral Organization [facility] Family Medicin ginette Feliciano Referring Provider First Name Iza Referring Provider Last Name Landy Referring Provider Specialty Nurse Pract itioner Referred Organization [facility] Referred Provider Mariana Ceballos James Referred Address ,[place], [place],[address] Referred Provider Specialty Orthopedic S urgery Referral Priority Routine Reason patient has diagnose d sleep apnea - has issues with using masks Diagnosis 1 Obstructive sleep ap tere (G47.33) Referral Organization [facility] Family Medicin e Braden Referring Provider First Name Iza Referring Provider Last Name Landy Referring Provider Specialty Nurse Pract itioner Referred Organization [facility] Referred Provider Vida Morel David Referred Address [address] [place],[address] Referred Provider Specialty Sleep Medici ne Referral Priority Routine SpecialtyDiagnoses / ProceduresReferred By ContactReferred To ContactRadiology Diagnoses Vertigo Peripheral vertigo, unspecified laterality Procedures MR brain IAC with and without contrast Shekhar Perez MD [facility], [address] [place] [address] Referral IDStatusReasonStart DateExpiration DateVisits RequestedVisits [id number] [id number] / ProceduresReferred By ContactReferred To ContactRehabilitation Diagnoses Benign paroxysmal positional vertigo, unspecified laterality Shekhar Perez MD [facility] [place] [address], [address] [place] [address] Referral IDStatusRefloresitaSteduar DateExpiration DateVisits RequestedVisits [id number] Specialty Services Required / Chief Complaint * REGINA HENRY is being [...] after eatingeven 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 * She has had remote PCI of [...] The Re Knee Pain Knee Pain Poss UtiReason for VisitDysuria Chief Complaint New Rt Knee Pain Nx M25.[address] Flowers Rt Medial Meniscus T Change In Bowel Habits//Can'T Use The Re Knee Pain Knee Pain Poss Uti r30.0Reason for VisitAcute UTI Dysuria Chief Complaint Knee Pain Poss Uti r30.0 4-5 WEEKS 6 WEEK RECHECKReason for VisitAcute UTI Dysuria Other specified postprocedural states Other tear of medial meniscus, current injury, right knee, subsequent encounter Other specified postprocedural states Other tear of medial meniscus, current injury, right knee, subsequent encounter Chief Complaint Poss Uti r30.0 4-5 WEEKS 6 WEEK RECHECK DUROLANE RT KNEEReason for VisitAcute UTI Dysuria Other specified postprocedural states Other tear of medial meniscus, current injury, right knee, subsequent encounter Other specified postprocedural states Other tear of medial meniscus, current injury, right knee, subsequent encounter Other specified postprocedural states Other tear of medial meniscus, current injury, right knee, subsequent encounter Chief Complaint RECHECK LUMBAR PAIN Reason for Visit Arthritis of lumbosa cral spine Lumbar pain Chronic back pain Chief Complaint Admit Date RECHECK LUMBAR PAIN August 29, 2024 1 1:27am JUANJOSE LUMBAR FACET MBB L4 L5/CJ September 17, 2024 1:16pm F/U JUANJOSE LUMB MBB October 02, 2024 1:47pm JUANJOSE LUMB MBB L4 L5/CJ October 31 12:33pm Reason for Visit Admit Date Arthritis of lumbosacral spine August 29, 2024 11:27am Lumbar pain August 29, 2024 1 1:27am Chronic back pain August 29, 2024 1 1:27am Arthritis of lumbosacral spine October 02, 2024 1:47pm Lumbar pain October 02, 2024 1:47pm Chronic back pain October 02, 2024 1:47pm Chief Complaint Admit Date RECHECK LUMBAR PAIN August 29, 2024 1 1:27am JUANJOSE LUMBAR FACET MBB L4 L5/CJ September 17, 2024 1:16pm F/U JUANJOSE LUMB MBB October 02, 2024 1:47pm JUANJOSE LUMB MBB L4 L5/CJ October 31 12:33pm F/U 2ND LUMB MBB November 07, 2024 1 1:24am Reason for Visit Admit Date Arthritis of lumbosacral spine August 29, 2024 11:27am Lumbar pain August 29, 2024 1 1:27am Chronic back pain August 29, 2024 1 1:27am Arthritis of lumbosacral spine October 02, 2024 1:47pm Lumbar pain October 02, 2024 1:47pm Chronic back pain October 02, 2024 1:47pm Arthritis of lumbosacral spine October 242024 11:24am Lumbar pain November 07, 2024 1 1:24am Osteoarthritis of spine with radiculopat hy, lumbar region November 07, 2024 11:24am Chronic back pain November 07, 2024 1 1:24am Chief Complaint Admit Date RECHECK LUMBAR PAIN August 29, 2024 1 1:27am JUANJOSE LUMBAR FACET MBB L4 L5/CJ September 17, 2024 1:16pm F/U JUANJOSE LUMB MBB October 02, 2024 1:47pm JUANJOSE LUMB MBB L4 L5/CJ October 31 12:33pm F/U 2ND LUMB MBB November 07, 2024 1 1:24am M47.26 November 21, 2024 1 1:05am Chief Complaint Admit Date RECHECK LUMBAR PAIN August 29, 2024 1 1:27am JUANJOSE LUMBAR FACET MBB L4 L5/CJ September 17, 2024 1:16pm F/U JUANJOSE LUMB MBB October 02, 2024 1:47pm JUANJOSE LUMB MBB L4 L5/CJ October 31 12:33pm F/U 2ND LUMB MBB November 07, 2024 1 1:24am M47.26 November 21, 2024 1 1:05am MRI RESULTS November 27, 2024 1 :59pm Reason for Visit Admit Date Arthritis of lumbosacral spine August 29, 2024 11:27am Lumbar pain August 29, 2024 1 1:27am Chronic back pain August 29, 2024 1 1:27am Arthritis of lumbosacral spine October 02, 2024 1:47pm Lumbar pain October 02, 2024 1:47pm Chronic back pain October 02, 2024 1:47pm Arthritis of lumbosacral spine October 242024 11:24am Lumbar pain November 07, 2024 1 1:24am Osteoarthritis of spine with radiculopat hy, lumbar region November 07, 2024 11:24am Chronic back pain November 07, 2024 1 1:24am Arthritis of lumbosacral spine November 27, 2024 1:59pm Lumbar pain November 27, 2024 1 :59pm Osteoarthritis of spine with radiculopat hy, lumbar region November 27, 2024 1:59pm Chronic back pain November 27, 2024 1 :59pm Additional Source Comments INFORMATION SOURCE (unrecogn ized section and content) DATE CREATED AUTHOR 04/04/2019 [facility] DATE CREATED AUTHOR AUTHOR'S ORGANIZ ATION 01/07/2021 [facility] DATE CREATED AUTHOR AUTHOR'S ORGANIZ ATION 01/17/2021 [facility] DATE CREATED AUTHOR AUTHOR'S ORGANIZ ATION 12/03/2021 [facility] DATE CREATED AUTHOR AUTHOR'S ORGANIZ ATION 03/19/2022 [facility] DATE CREATED AUTHOR AUTHOR'S ORGANIZ ATION 05/04/2022 [facility] DATE CREATED AUTHOR AUTHOR'S ORGANIZ ATION 03/07/2023 [facility] DATE CREATED AUTHOR AUTHOR'S ORGANIZ ATION 10/06/2023 [facility] DATE CREATED AUTHOR AUTHOR'S ORGANIZ ATION 07/26/2024 [facility] DATE CREATED AUTHOR AUTHOR'S ORGANIZ ATION 11/23/2024 [facility] DATE CREATED AUTHOR AUTHOR'S ORGANIZ ATION 05/23/2025 [facility] DATE CREATED AUTHOR AUTHOR'S ORGANIZ ATION 07/05/2025 [facility] DATE CREATED AUTHOR AUTHOR'S ORGANIZ ATION 07/07/2025 [facility] DATE CREATED AUTHOR AUTHOR'S ORGANIZ ATION 07/13/2025 [facility] Reason for Visit (unrecogniz ed section and content) StatusReasonSpecialtyDiagnoses / ProceduresReferred By ContactReferred To Contact Diagnoses Radiculopathy RADICULOPATHY, SPONDYLOSIS, DEGENERATIVE DISC DISEASE Procedures SD PERCUT IMPLNT NEUROELECT,EPIDURAL DCS (DORSAL COLUMN STIMULATOR) TRIAL .5 HOUR/ 1 C-ARM/ [employer] REP LINDY LERMA [facility] + LOCAL Maxwell Fried MD [address] [place] [address], [address] [place] [address] [facility] ReasonCommentsAnnual ExamReasonOnset DateCommentsMed Fqyyty7211/01/2024ReasonOnset DateCommentsMed Shyhvq6710/19/2023ReasonOnset DateCommentsMed Lkgzhc7102/14/2024 ReasonCommentsmed check6 month checkReasonOnset DateCommentsMed Pfuhwh3311/15/2023 ReasonCommentsdiscuss psych meds per neurologyWants to go back on Lorazepam. ReasonCommentswants to discuss starting LexaproDepression/anxietyReasonComments DizzinessHas had for a couple weeks, causing nauseaReasonOnset DateCommentsMed Spzecw6705/17/2024easonOnset DateCommentsMed Nrhapy1801/11/2024easonComments DizzinessTook the Meclizine and it worked for a couple daysReasonCommentsEye PainLeft eye pain, no injuryReasonCommentswants tested for diabetesLightheaded in between meals, urgency that she has to eat, shaky, still hungry after she eats.ReasonOnset DateCommentsMed Vqqjvd054ReasonOnset DateCommentsMed Dxgjol9306/21/2024easonCommentsDizzinessContinued dizziness, patient wanted to come in and discuss it with youReasonOnset DateCommentsMed Cnemnj4908/23/2024 ReasonCommentsAnnual ExamWellnessReasonCommentsInjectionVitamin B12 injection ReasonOnset DateCommentsMed Urdfgl614ReasonOnset DateCommentsMed Refill 12/11/2024ReasonOnset DateCommentsMed Hprcgb9201/15/2025ReasonCommentsEar Problem Follow up Audio 11/07/24. DizzinessReasonOnset DateCommentsMed Nzuert0602/19/2025 ReasonCommentsAnxiety6 month ckuReasonOnset DateCommentsMed Bjomtu7703/12/2025 ReasonCommentsPsychiatric EvaluationSpecialtyDiagnoses / ProceduresReferred By ContactReferred To ContactPsychiatry / Behavioral Health Diagnoses Anxiety and depression Procedures SD OFFICE/OUTPATIENT [facility] 60 MINUTES Kusum Nair, [employer] [address], [facility] [address] [place] [address] Phone: tel: fax: Oscar Quintanilla, [facility] [address] [address] Phone: tel: fax: Referral IDStatusReasonStart DateExpiration DateVisits RequestedVisits [id number] Specialty Services Required 1ReasonOnset DateCommentsMed Qxgofh3104/29/2025ReasonComments Med ManagementFollow-upReasonOnset DateCommentsMed Gpcxys6205/30/2025Reason CommentsAnxietyDepressionReasonCommentsExtremity Weakness Care Teams (unrecognized sec tion and content) Team Status: Active Member Role Status Dates Shehkar Perez MD Primary Care Provider Active Team Status: Inactive Member Role Status Dates Shekhar Perez MD Primary Care Provider Active Start: December 11, 2023 End: December 11xu Silveira APRNAttenmariana ProviderActiveStart: December 11, 2023 End: December 11, 2023 Team Status: Active Member Role Status Dates Shekhar Perez MD Primary Care Provider Active Start: December 13, 2023 Dennis Livingston DOAttending ProviderActiveStart: December 13, 2023 Team Status: Inactive Member Role Status Dates Shekhar Perez MD Primary Care Provider Active Start: December 27, 2023 End: December 27, 2023Musa Orlando DOAttending ProviderActiveStart: December 27, 2023 End: December 27, 2023 Team Status: Inactive Member Role Status Dates Shekhar Perez MD Primary Care Provider Active Start: February 07, 2024 End: February 07, 2024Musa Orlando DOAttending ProviderActiveStart: February 07, 2024 End: February 07, 2024 Team Status: Inactive Member Role Status Dates Shekhar Perez MD Primary Care Provider Active Start: February 27, 2024 End: February 27, 2024Musa Orlando DOAttending ProviderActiveStart: February 27, 2024 End: February 27, 2024 Team Status: Active Member Role Status Dates Shekhar Perez MD Primary Care Provider Active Start: November 09, 2023 Musa Orlando DOAttending Provider, Other ProviderActiveStart: November 09, 2023 Team Status: Inactive Member Role Status Dates Gaudencio Green DO Attending Provider Active NON STAFFPrimary Care ProviderActive Team Status: Active Member Role Status Dates NON STAFF Primary Care Provider Active Team Status: Active Member Role Status Dates NON STAFF Primary Care Provider Active Marlo Goel ProviderActive Team Status: Inactive Member Role Status Dates NON STAFF Primary Care Provider Active Pablito Pina ProviderActive Team Status: Inactive Member Role Status Dates NON STAFF Primary Care Provider Active Marlo Goel ProviderActive Team Status: Inactive Member Role Status Dates NON STAFF Primary Care Provider Active Elizabeth Farley ProviderActive Team Status: Inactive Member Role Status Dates Cam Riggs MD Attending Provider Active Hayde Goel Care ProviderActive Team Status: Inactive Member Role Status Dates Shekhar Perez MD Primary Care Provider Active Marlo Ruiz ProviderActive Team Status: Inactive Member Role Status Dates Shekhar Perez MD Primary Care Provider, Attending Provider Active Team Status: Inactive Member Role Status Dates Shekhar Perez MD Primary Care Provider Active Marlo Jeronimo II ProviderActive Team Status: Inactive Member Role Status Dates Shekhar Perez MD Primary Care Provider Active Alexandra Ochoa ProviderActive Team Status: Inactive Member Role Status Dates Peter Flowers II, MD Attending Provider Active Start: October 07, 2023 End: October 07, 2023 Team Status: Inactive Member Role Status Dates Shekhar Perez MD Primary Care Provider Active Start: October 07, 2023 End: October 07, 2023Marlo Jeronimo II ProviderActiveStart: October 07, 2023 End: October 07, 2023 Team Status: Inactive Member Role Status Dates Shekhar Perez MD Primary Care Provider Active Start: October 12, 2023 End: October 12, 2023RobMalro Phoenix II ProviderActiveStart: October 12, 2023 End: October 12, 2023 [...] Start: October 28, 2023 End: October 28, 2023Alexandra Ochoa ProviderActiveStart: October 28, 2023 End: October 28, 2023Team MemberRelationshipSpecialtyStart DateEnd Date Shekhar Perez MD [address] [place] [address], [address] [place] [address] PCP - GeneralInternal Medicine03/30/24 Team Status: Inactive Member Role Status Dates Shekhar Perez MD Primary Care Provider Active Start: August 29, 2024 End: August 29, 2024Thomas Felter , MDAttending ProviderActiveStart: August 29, 2024 End: August 29, 2024Team MemberRelationshipSpecialtyStart DateEnd Date Shekhar Perez MD [address] [place] [address], [address] [place] [address] PCP - GeneralPediatrics05/25/22 Team Status: Active Member Role Status Dates Shekhar Perez MD Primary Care Provider Active Start: September 17, 2024 Roger Ruizending ProviderActiveStart: September 17, 2024 Team Status: Inactive Member Role Status Dates Shekhar Perez MD Primary Care Provider Active Start: September 17, 2024 End: September 17Roger Leungending ProviderActiveStart: September 17, 2024 End: September 17, 2024 Team Status: Inactive Member Role Status Lupe Perez MD Primary Care Provider Active Start: October 02, 2024 End: October 02andria Roger Riggsending ProviderActiveStart: October 02, 2024 End: October 02, 2024 Team Status: Inactive Member Role Status Dates Shekhar Perez MD Primary Care Provider Active Start: October 31, 2024 End: October 31Roger Leungending ProviderActiveStart: October 31, 2024 End: October 31, 2024 Team Status: Active Member Role Status Lupe Perez MD Primary Care Provider Active Start: October 31, 2024 Cam Roger Riggsending ProviderActiveStart: October 31, 2024 Team Status: Inactive Member Role Status Lupe Perez MD Primary Care Provider Active Start: November 07, 2024 End: November 07andria Roger Riggsending ProviderActiveStart: November 07, 2024 End: November 07, 2024 Team Status: Inactive Member Role Status Lupe Perez MD Primary Care Provider Active Start: November 21, 2024 End: November 21Roger Leungending ProviderActiveStart: November 21, 2024 End: November 21, 2024 Team Status: Inactive Member Role Status Lupe Perez MD Primary Care Provider Active Start: November 27, 2024 End: November 27, 2024Thomas Felter , MDAttending ProviderActiveStart: November 27, 2024 End: November 27, 2024Team MemberRelationshipSpecialtyStart DateEnd Date Shekhar Perez MD [address] [place] [address], [address] [place] [address] PCP - GeneralPediatrics8Team MemberRelationshipSpecialtyStart DateEnd Date Shekhar Perez MD [address] [place] [address], [address] [place] [address] PCP - GeneralPediatrics05/25/22Team MemberRelationshipSpecialtyStart DateEnd Date Shekhar Perez MD [address] [place] [address], [address] [place] [address] PCP - GeneralPediatrics05/25/22Team MemberRelationshipSpecialtyStart DateEnd Date Shekhar Perez MD [address] [place] [address], [address] [place] [address] PCP - GeneralPediatrics05/25/22Team MemberRelationshipSpecialtyStart DateEnd Date Shekhar Perez MD [address] [place] [address], [address] [place] [address] PCP - GeneralPediatrics05/25/22Team MemberRelationshipSpecialtyStart DateEnd Date Shekhar Perez MD [address] [place] [address], [address] [place] [address] PCP - GeneralPediatrics8Team MemberRelationshipSpecialtyStart DateEnd Date Shekhar Perez MD [address] [place] [address], [address] [place] [address] PCP - GeneralPediatrics8Team MemberRelationshipSpecialtyStart DateEnd Date Shekhar Perez MD [address] [place] [address], [address] [place] [address] PCP - GeneralPediatrics8Team MemberRelationshipSpecialtyStart DateEnd Date Shekhar Perez MD [address] [place] [address], [address] [place] [address] PCP - GeneralPediatrics8Team MemberRelationshipSpecialtyStart DateEnd Date Shekhar Perez MD [address] [place] [address], [address] [place] [address] PCP - GeneralPediatrics8Team MemberRelationshipSpecialtyStart DateEnd Date Shekhar Perez MD [address] [place] [address], [address] [place] [address] PCP - GeneralPediatrics8Team MemberRelationshipSpecialtyStart DateEnd Date Shekhar Perez MD [address] [place] [address], [address] [place] [address] PCP - GeneralPediatrics8Team MemberRelationshipSpecialtyStart DateEnd Date Shekhar Perez MD [address] [place] [address], [address] [place] [address] PCP - GeneralPediatrics8Team MemberRelationshipSpecialtyStart DateEnd Date Shekhar Perez MD PCP - GeneralFamily Medicine05/06/23Team MemberRelationshipSpecialtyStart DateEnd Date Shekhar Perez MD [address] [place] [address], [address] [place] [address] PCP - GeneralFamily Medicine01/16/25Team MemberRelationshipSpecialtyStart DateEnd Date Shekhar Perez MD [address] [place] [address], [address] [place] [address] PCP - GeneralFamily Medicine01/16/25Team MemberRelationshipSpecialtyStart DateEnd Date Shekhar Perez MD [address] [place] [address], [address] [place] [address] PCP - GeneralFamily Medicine01/16/25Team MemberRelationshipSpecialtyStart DateEnd Date Shekhar Perez MD [address] [place] [address], [address] [place] [address] PCP - GeneralFamily Medicine01/16/25Team MemberRelationshipSpecialtyStart DateEnd Date Shekhar Perez MD [address] [place] [address], [address] [place] [address] PCP - GeneralFamily Medicine01/16/25Team MemberRelationshipSpecialtyStart DateEnd Date Shekhar Perez MD [address] [place] [address], [address] [place] [address] PCP - GeneralFamily Medicine01/16/25Team MemberRelationshipSpecialtyStart DateEnd Date Shekhar Perez MD [address] [place] [address], [address] [place] [address] PCP - GeneralFamily Medicine01/16/25Team MemberRelationshipSpecialtyStart DateEnd Date Shekhar Perez MD [address] [place] [address], [address] [place] [address] PCP - GeneralFamily Medicine01/16/25Team MemberRelationshipSpecialtyStart DateEnd Date Shekhar Perez MD [address] [place] [address], [address] [place] [address] PCP - GeneralFamily Medicine01/16/25Team MemberRelationshipSpecialtyStart DateEnd Date Shekhar Perez MD [address] [place] [address], [address] [place] [address] PCP - GeneralFamily Medicine01/16/25Team MemberRelationshipSpecialtyStart DateEnd Date Shekhar Perez MD [address] [place] [address], [address] [place] [address] PCP - GeneralFamily Medicine01/16/25Team MemberRelationshipSpecialtyStart DateEnd Date Shekhar Perez MD [address] [place] [address], [address] [place] [address] PCP - GeneralFamily Medicine01/16/25Team MemberRelationshipSpecialtyStart DateEnd Date Shekhar Perez MD [address] [place] [address], [address] [place] [address] PCP - GeneralFamily Medicine01/16/25Team MemberRelationshipSpecialtyStart DateEnd Date Shekhar Perez MD [address] [place] [address], [address] [place] [address] PCP - GeneralFamily Medicine01/16/25Team MemberRelationshipSpecialtyStart DateEnd Date Shekhar Perez MD [address] [place] [address], [address] [place] [address] [facility] - [facility]01/16/25Team MemberRelationshipSpecialtyStart DateEnd Date Shekhar Perez MD [address] [place] [address], [address] [place] [address] PCP - Generalmily Medicine01/16/25 Oscar Quintanilla [facility]- [address] [facility] [address] [place] [address] Nurse Pract[facility]erBarn[facility]04/10/25Te MemberRelationshipSpecialtyStart DateEnd Date Shekhar Perez MD [address] [place] [address], [address] [place] [address] PCP - Generalmily Medicine01/16/25 Oscar Quintanilla [facility]- [address] [facility] [address] [place] [address] Nurse PractitionerBarn[facility]04/10/25Te MemberRelationshipSpecialtyStart DateEnd Date Shekhar Perez MD [address] [place] [address], [address] [place] [address] PCP - GeneralFamily Medicine01/16/25 Oscar Quintanilla [facility]- [address] [facility] [address] [place] [address] Nurse PractitionerBarn[facility]04/10/25Te MemberRelationshipSpecialtyStart DateEnd Date Shekhar Perez MD [address] [place] [address], [address] [place] [address] PCP - GeneralPediatrics05/25/22Team MemberRelationshipSpecialtyStart DateEnd Date Shekhar Perez MD [address] [place] [address], [address] [place] [address] PCP - [facility] Medicine01/16/25 Oscar Quintanilla [facility] [address] [facility] [address] [place] [address] Nurse Pract[facility]erBarn[facility]04/10/25Te MemberRelationshipSpecialtyStart DateEnd Date Shekhar Perez MD [address] [place] [address], [address] [place] [address] [facility] - [facility] Medicine01/16/25 Oscar Quintanilla, [facility] [address] [facility] [address] [place] [address] Nurse PractitionerBarn[facility]04/10/25Te MemberRelationshipSpecialtyStart DateEnd Date Shekhar Perez MD [address] [place] [address], [address] [place] [address] PCP - [facility] Medicine01/16/25 Oscar Quintanilla [facility] [address] [facility] [address] [place] [address] Nurse PractitionerBehavioral Health04/10/25 David De Leon LPC Social WorkerBehavioral [facility]06/04/25Te MemberRelationshipSpecialtyStart Date End Date Shekhar Perez MD [address] [place] [address], [address] [place] [address] PCP - GeneralFamily Medicine01/16/25 Oscar Quintanilla [facility] [address] [place] [address] [place] [address] Nurse PractitionerBehavioral Health04/10/25 David De Leon LPC Social WorkerBehavioral [facility]06/04/25Te MemberRelationshipSpecialtyStart Date End Date Shekhar Perez MD [address] [place] [address], [address] [place] [address] PCP - GeneralPediatrics05/25/22 Goals (unrecognized section and content) Goals may [...] BE BASED ON THE PRIMARY CLINICAL RECORDS. [employer] provides no warranty or guarantee of the accuracy or completeness of information in this document.
--- NOTE | 2025-09-02 15:42 | PM.CN ---
Consult Note: HPI Data of Consult Patient: new to practice Consult date: 09/02/25 Requesting Physician: Radha Cordoba MD Primary Care Provider: SHEKHAR PEREZ Consult Narrative Reason for consult: low back, bilateral leg, generalized pain Narrative: 79yof who presents for evaluation. notes longstanding generalized pain from fibromyalgia, as well as low back and bilateral leg pain. states that she has undergone multiple epidurals and ablations in the past, without benefit. has had some benefit with physical therapy, though notes that these effects tend to wane. currently on ativan and elavil. denies adverse med side effects. cc:: CC: Radha Cordoba MD Review of Systems ROS Status of ROS 10 or more systems reviewed and unremarkable except as noted in history and below Meds Home Medications and Allergies Home Medications ?Medication ?Instructions ?Recorded ?Confirmed ?Type ciprofloxacin HCl 500 mg tablet 500 mg PO BID #14 tabs 12/13/23 Rx (Cipro) meclizine 25 mg chewable tablet 25 mg PO QID PRN dizziness #12 tabs 12/13/23 Rx (Antivert) ondansetron 4 mg disintegrating 4 mg PO Q6H PRN nausea and 12/13/23 Rx tablet vomiting #12 tabs pregabalin 50 mg capsule 50 mg PO TID #90 caps 09/02/25 Rx Exam Narrative Exam Narrative: Psych-alert and oriented x 3. Attentive and appropriate, constitutionally normal, displays normal mood and affect per situation.? There are no obvious deficits in memory, reasoning, or intellect.? Skin-no obvious rashes, bruising, erythema noted to the patient's area of pain. Extremities- extremities are warm with minimal edema and palpable pulses. Lumbar-no significant tenderness to palpation noted in the lumbar spine and paraspinal musculature.? Pain is elicited with extension, and lateral rotation of the lumbar spine. Range of motion is slightly diminished with these motions due to pain. Notable diffuse tenderness to palpation in multiple area above and below the waist on both side of the body corresponding to the 15/18 fibromyalgia-related tender points. Coordination remains intact.? Gait remains non-antalgic. Assessment and Plan Assessment and Plan (1) Fibromyalgia: (2) Lumbar stenosis with neurogenic claudication: Plan 79yof who presents for evaluation. failed conservative measures, as noted. states that she is not interested in interventional modalities, as she has tried in the past at outside clinics, without benefit. discussed that given her longstanding fibromyalgia, would be reasonable to trial pregabalin 50mg tid. she is in agreement. also provided with script for physical therapy twice weekly for 4-6 weeks. follow up in 1 month.
== END 2025-09-02 14:12 | disposition home or self-care (01) ==
PROVIDERS: PCP Internal Medicine; Visit Provider Anesthesiology
DX: M79.7 Fibromyalgia (principal); M48.062 Spinal stenosis, lumbar region with neurogenic claudication
CPT/HCPCS: G0463

== ENCOUNTER 2025-09-26 14:46 | Outpatient (OUT) | payer MEDICARE, SELFPAY ==
--- NOTE | 2025-09-26 15:30 | PM.CN ---
Consult Note: HPI Data of Consult Patient: known to practice within the last 3 years Consult date: 09/26/25 Requesting Physician: Carol Bell NP Primary Care Provider: SHEKHAR PEREZ Consult Narrative Reason for consult: low back, bilateral leg, generalized pain Narrative: 79yof who presents for evaluation. notes longstanding generalized pain from fibromyalgia, as well as low back and bilateral leg pain. states that she has undergone multiple epidurals and ablations in the past, without benefit. has had some benefit with physical therapy, though notes that these effects tend to wane. currently on ativan and elavil. denies adverse med side effects. pt could not tolerate lyrica due to side effects, reports shes failed this as well in the past but did not recall previously. cc:: CC: Carol Bell NP Review of Systems ROS Musculoskeletal Reports: back pain, neck pain and extremity pain Meds Home Medications and Allergies Home Medications ?Medication ?Instructions ?Recorded ?Confirmed ?Type amitriptyline 10 mg tablet 10 mg PO DAILY 09/02/25 09/02/25 History lorazepam 0.5 mg tablet (Ativan) 0.5 mg PO BID PRN anxiety 09/02/25 09/02/25 History polyethylene glycol 400 1 % eye 1 drp ophthalmic (eye) DAILY PRN 09/02/25 09/02/25 History drops (Dry Eye Relief (PEG 400)) dry eye(s) pregabalin 50 mg capsule 50 mg PO TID #90 caps 09/02/25 Rx pregabalin 50 mg capsule (Lyrica) 50 mg PO TID 09/02/25 09/02/25 History Allergies Allergy/AdvReac Type Severity Reaction Status Date / Time propoxyphene Allergy Unknown Unknown Verified 09/02/25 15:55 oxycodone Allergy Palpitation Verified 09/02/25 15:55 s Sulfa (Sulfonamide Allergy Headache Verified 09/02/25 15:55 Antibiotics) acetaminophen (From Tylenol) AdvReac Intermediate Palpitation Verified 09/02/25 15:55 s aspirin AdvReac Intermediate tachycardia Verified 09/02/25 15:55 gabapentin AdvReac Intermediate Anxiety Verified 09/02/25 15:55 Opioids - Morphine Analogues AdvReac Intermediate tachycardia Verified 09/02/25 15:55 albuterol AdvReac Anxiety Verified 09/02/25 15:55 NSAIDS (Non-Steroidal AdvReac Palpitation Verified 09/02/25 15:55 Anti-Inflamma s Exam Narrative Exam Narrative: Psych-alert and oriented x 3. Attentive and appropriate, constitutionally normal, displays normal mood and affect per situation.? There are no obvious deficits in memory, reasoning, or intellect.? Skin-no obvious rashes, bruising, erythema noted to the patient's area of pain. Extremities- extremities are warm with minimal edema and palpable pulses. Lumbar-no significant tenderness to palpation noted in the lumbar spine and paraspinal musculature.? Pain is elicited with extension, and lateral rotation of the lumbar spine. Range of motion is slightly diminished with these motions due to pain. Notable diffuse tenderness to palpation in multiple area above and below the waist on both side of the body corresponding to the fibromyalgia-related tender points. Coordination remains intact.? Gait remains non-antalgic. Assessment and Plan Assessment and Plan (1) Fibromyalgia: (2) Lumbar stenosis with neurogenic claudication: Plan 79yof who presents for evaluation. failed conservative measures, as noted. states that she is not interested in interventional modalities, as she has tried in the past at outside clinics, without benefit. discussed that given her longstanding fibromyalgia, would be reasonable to trial low dose naltrexone, start 1.5mg capsules 1-2 daily HS as tolerated. she is in agreement. also provided with script foraquatherapy for 4-6 weeks. follow up 6 weeks
== END 2025-09-26 14:47 | disposition home or self-care (01) ==
LOC: PM 14:46
PROVIDERS: PCP Internal Medicine; Visit Provider Nurse Practitioner
DX: M79.7 Fibromyalgia (principal); M48.062 Spinal stenosis, lumbar region with neurogenic claudication
CPT/HCPCS: G0463